=== PATIENT | male | born 1960 | race African-American/Black ===

== ENCOUNTER 2020-01-29 11:52 | Inpatient (IN) | payer OTHER ==
--- NOTE | 2020-01-29 13:38 | BHS.RME ---
Substance Use & Tx History - Substance Use History Alcohol Substance amount: 6 packs of 12 ozs of beer Frequency of use: Daily Substance route: Oral Date of Last Use: 01/28/20 Cocaine-Crack Substance amount: 50$ Frequency of use: Daily Substance route: Smoking Date of Last Use: 01/28/20 - Last Treatment Date of last treatment: dario ferguson 07/2019 Where was last treatment: Detox Physical/Psych/Mental Status - Behavior Eye Contact: Normal - Cooperativeness Cooperativeness: Cooperative - Thinking Thought Processes: Logical - Physical Health Problems Is patient presently having any pain?: No Does patient presently have any injuries (include location): No Does patient currently have a fever: No CIWA Nausea/Vomitin Muscle Tremors: 3 Anxiety: 3 Agitation: 3 Paroxysmal Sweats: 1-Minimal Palms Moist Orientation: 0-Oriented Tacttile Disturbances: 0-None Auditory Disturbances: 0-None Visual Disturbances: 0-None Headache: 2-Mild CIWA-Ar Total Score: 14
--- NOTE | 2020-01-29 13:48 | HP ---
CIWA Score Nausea/Vomitin Muscle Tremors: 3 Anxiety: 3 Agitation: 3 Paroxysmal Sweats: 1-Minimal Palms Moist Orientation: 0-Oriented Tacttile Disturbances: 0-None Auditory Disturbances: 0-None Visual Disturbances: 0-None Headache: 2-Mild CIWA-Ar Total Score: 14 - Admission Criteria OASAS Guidelines: Admission for Medically Managed Detox: Requires at least one of the followin. CIWA greater than 12 2. Seizures within the past 24 hours 3. Delirium tremens within the past 24 hours 4. Hallucinations within the past 24 hours 5. Acute intervention needed for co occurring medical disorder 6. Acute intervention needed for co occurring psychiatric disorder 7. Severe withdrawal that cannot be handled at a lower level of care (continued vomiting, continued diarrhea, abnormal vital signs) requiring intravenous medication and/or fluids 8. Admitting History and Physical - Admission Chief Complaint: i need help to stop drinking alcohol and cocaine History of Present Illness: this 59 years old male with alcohol and ccoaine dependence seeking detox,withdrawal symptom History Source: Patient Limitations to Obtaining History: No Limitations - Past Medical History [employer]: Yes: Syncope Cardiovascular: Yes: HTN, Hyperlipdemia Endocrine: Yes: Diabetes Mellitus - Past Surgical History Additional Past Surgical History: right knee at age of 14 years - Smoking History Smoking history: Current every day smoker Have you smoked in the past 12 months: Yes Aproximately how many cigarettes per day: 3 - Alcohol/Substance Use Hx Alcohol Use: Yes History of Substance Use: reports: Cocaine - Social History Usual Living Arrangement: Yes: Other (homeless) Do you think of yourself as: Straight/Heterosexual ADL: Support Services Occupation: unemployed History of Recent Travel: No Other Social History: homeless ,unemployed,no legal issue Admission ROS [facility] - [facility] Chief Complaint: i need help to stop drinking alcohol and cocaine Allergies/Adverse Reactions: Allergies Allergy/AdvReac Type Severity Reaction Status Date / Time No Known Allergies Allergy Verified 01/29/20 13:53 History of Present Illness: this 59 years old male with alcohol and cocaine dependence seeking detox,withdrawal symptom Exam Limitations: No Limitations - Ebola screening Have you traveled outside of the country in the last 21 days: No Have you had contact with anyone from an Ebola affected area: No Have you been sick,other than usual withdrawal symptoms: No Do you have a fever: No - Review of Systems Constitutional: Malaise, Night Sweats, Changes in sleep EENT: reports: Nose Congestion Respiratory: reports: No Symptoms reported Cardiac: reports: No Symptoms Reported GI: reports: Nausea, Poor Appetite, Abdominal cramping : reports: No Symptoms Reported Musculoskeletal: reports: Back Pain, Muscle Pain Integumentary: reports: Dryness Neuro: reports: Tremors Endocrine: reports: No Symptoms Reported Hematology: reports: No Symptoms Reported Psychiatric: reports: No Sypmtoms Reported, Judgement Intact, Mood/Affect Appropiate, Orientated x3 Other Systems: Reviewed and Negative Patient History - Patient Medical History Hx Anemia: No Hx Asthma: No Hx Chronic Obstructive Pulmonary Disease (COPD): No Hx Cancer: No Hx Cardiac Disorders: No Hx Congestive Heart Failure: No Hx Hypertension: Yes (on lisinopril 10 mgsdaily,amloidypin 5mg daily) Hx Hypercholesterolemia: Yes Hx Pacemaker: No HX Cerebrovascular Accident: No Hx Seizures: No Hx Dementia: No Hx Diabetes: Yes (on metformin 500 mgs po bid) Hx Gastrointestinal Disorders: No Hx Liver Disease: No Hx Genitourinary Disorders: No Hx Sexually Transmitted Disorders: No Hx Renal Disease (ESRD): No Hx Thyroid Disease: No Hx Human Immunodeficiency Virus (HIV): No (10/2019 negative) Hx Hepatitis C: No Hx Depression: No Hx Suicide Attempt: No Hx Bipolar Disorder: No Hx Schizophrenia: No Other Medical History: no suicidal,no homicidal - Patient Surgical History Past Surgical History: Yes Hx Orthopedic Surgery: Yes (right knee surgery at age of 14) - PPD History Previous Implant?: Yes Documented Results: Negative w/o proof Implanted On Prior R Admission?: No PPD to be Administered?: Yes - Smoking Cessation Smoking history: Current every day smoker Have you smoked in the past 12 months: Yes Aproximately how many cigarettes per day: 5 Hx Chewing Tobacco Use: No Initiated information on smoking cessation: Yes 'Breaking Loose' booklet given: 01/29/20 - Substance & Tx. History Hx Alcohol Use: Yes Hx Substance Use: Yes Substance Use Type: Alcohol, Cocaine Hx Substance Use Treatment: Yes (adny philo 07/2019) - Substances abused Alcohol Substance route: Oral Frequency: Daily Amount used: 6 packs of 12 ozs of beer Age of first use: 24 Date of last use: 01/28/20 Cocaine Substance route: Smoking Frequency: Daily Amount used: 50$ Age of first use: 44 Date of last use: 01/28/20 Admission Physical Exam [facility] - Vital Signs Vital Signs: Vital Signs Temperature 97.6 F 01/30/20 08:50 Pulse Rate 78 01/30/20 08:50 Respiratory Rate 17 01/30/20 08:50 Blood Pressure 147/69 01/30/20 08:50 O2 Sat by Pulse Oximetry (%) 97 01/30/20 05:29 - Physical General Appearance: Yes: Moderate Distress, Tremorous, Irritable, Sweating, Anxious HEENTM: Yes: Normal ENT Inspection, [place], Pharynx Normal Respiratory: Yes: Lungs Clear, Normal Breath Sounds, No Respiratory Distress Neck: Yes: Within Normal Limits, Supple, Trachea in good position Breast: Yes: Within Normal Limits Cardiology: Yes: Within Normal Limits, Regular Rhythm, Regular Rate, S1, S2 Abdominal: Yes: Within Normal Limits, Normal Bowel Sounds, Non Tender, Flat, Soft Genitourinary: Yes: Within Normal Limits Back: Yes: Muscle Spasm Musculoskeletal: Yes: Back pain, Muscle Pain Extremities: Yes: Tremors, Other (scar of right knee) Neurological: Yes: sliding joint maker II-XII NML intact, Fully Oriented, Alert, Motor Strength 5/5 Integumentary: Yes: Dry Lymphatic: Yes: Within Normal Limits - Diagnostic (1) Alcohol dependence with uncomplicated withdrawal Current Visit: Yes Status: Acute (2) Cocaine dependence Current Visit: Yes Status: Acute (3) Syncope Current Visit: Yes Status: Acute (4) Essential hypertension Current Visit: Yes Status: Acute (5) Hypercholesterolemia Current Visit: Yes Status: Acute (6) DM2 (diabetes mellitus, type 2) Current Visit: Yes Status: Acute (7) History of right knee surgery Current Visit: Yes Status: Acute Cleared for Admission [facility] - Detox or Rehab [facility] Level of Care: Medically Managed Detox Regimen/Protocol: Librium Inpatient Rehab Admission - Rehab Decision to Admit Inpatient rehab admission?: No
[2020-01-29] MEDS ORDERED: NICOTINE POLACRILEX 2 MG GUM BUC PRN (14:07)
[2020-01-29] MEDS ORDERED: MAGNESIUM HYDROX 2400MG/30ML ORAL SUSPENSION 30 ML CUP PO PRN (14:07)
[2020-01-29] MEDS ORDERED: MAG HYDROX/AL HYDROX/SIMETH 30 ML UNIT-DOSE CUP PO PRN (14:07)
[2020-01-29] MEDS ORDERED: BISMUTH SUBSALICYLATE 524 MG/30 ML UD PO PRN (14:07)
[2020-01-29] MEDS ORDERED: ACETAMINOPHEN 325 MG TABLET (FP) PO PRN (14:07)
[2020-01-29] MEDS ORDERED: chlordiazePOXIDE HCL 25 MG CAPSULE PO PRN (14:07)
[2020-01-29] MEDS ORDERED: IBUPROFEN 400 MG TABLET (FP) PO PRN (14:07)
[2020-01-29] MEDS ORDERED: METHOCARBAMOL 500 MG TABLET PO PRN (14:07)
[2020-01-29] MEDS ORDERED: MAGNESIUM CITRATE 300 ML BOTTLE PO PRN (14:07)
[2020-01-29] MEDS ORDERED: MENTHOL/PHENOL 1 EACH UD MM PRN (14:07)
[2020-01-29 14:13] VITALS: BMI 34.9
[2020-01-29] MEDS ORDERED: ONDANSETRON *ODT* 4 MG TABLET SL ONE (15:00)
[2020-01-29] MEDS: metFORMIN HCL 500 MG TABLET (FP) PO SCH (17:11)
[2020-01-29] MEDS: hydrOXYzine PAMOATE 25 MG CAPSULE (FP) PO SCH ×2 (17:52→22:03)
[2020-01-29] MEDS: chlordiazePOXIDE HCL 25 MG CAPSULE PO SCH ×2 (17:52→22:03)
[2020-01-29] MEDS: INSULIN (NOVOLOG) ASPART 100 UNITS/ML 10ML VIAL SQ SCH ×2 (18:17→22:03)
[2020-01-29] MEDS: MELATONIN 5 MG TABLETS PO SCH (22:03)
[2020-01-29] MEDS: THIAMINE HCL 100 MG TABLET (FP) PO SCH (22:03)
[2020-01-29] MEDS: ATORVASTATIN CA 40 MG TABLET (FP) PO SCH (22:03)
[2020-01-30] MEDS: chlordiazePOXIDE HCL 25 MG CAPSULE PO SCH ×4 (05:48→22:00)
[2020-01-30] MEDS: hydrOXYzine PAMOATE 25 MG CAPSULE (FP) PO SCH ×5 (05:48→21:57)
[2020-01-30] MEDS: metFORMIN HCL 500 MG TABLET (FP) PO SCH ×2 (06:34→17:08)
[2020-01-30] MEDS: INSULIN (NOVOLOG) ASPART 100 UNITS/ML 10ML VIAL SQ SCH ×4 (06:35→21:59)
[2020-01-30] MEDS: LISINOPRIL 10 MG TABLET (FP) PO SCH (10:15)
[2020-01-30] MEDS: LORATADINE 10 MG TABLET PO SCH (10:15)
[2020-01-30] MEDS: amLODIPine BESYLATE 5 MG TABLET (FP) PO SCH (10:15)
[2020-01-30] MEDS: PRENATAL VITAMINS W/ FOLIC ACID TABLET (FP) PO SCH (10:16)
[2020-01-30] MEDS: ASPIRIN 81 MG CHEWABLE TABLETS PO SCH (10:16)
[2020-01-30] MEDS: NICOTINE 7 MG/24 HOURS TOPICAL PATCH TD SCH (10:17)
--- NOTE | 2020-01-30 10:29 | EKG ---
Test Reason : Blood Pressure : / mmHG Vent. Rate : 081 BPM Atrial Rate : 081 BPM P-R Int : 138 ms QRS Dur : 092 ms QT Int : 398 ms P-R-T Axes : 079 048 047 degrees QTc Int : 462 ms NORMAL SINUS RHYTHM POSSIBLE LEFT ATRIAL ENLARGEMENT BORDERLINE ECG NO PREVIOUS ECGS AVAILABLE Confirmed by Raimundo Do ([id number]) on 01/30/2020 10:29:07 AM Referred By: Confirmed By:Raimundo Do
[2020-01-30 11:16] LABS: ALBUMIN 3.6 g/dl (3.4-5.0); BLOOD UREA NITROGEN 19.4 mg/dL (7-18); CREATININE 0.9 mg/dL (0.55-1.3)
[2020-01-30 11:22] LABS: BILIRUBIN,TOTAL 0.8 mg/dL (0.2-1)
[2020-01-30 11:25] LABS: HEMATOCRIT 37.9 % (35.4-49); HEMOGLOBIN 12.5 GM/dL (11.7-16.9); MCH 27.5 pg (25.7-33.7); MCHC 32.8 g/dl (32.0-35.9); MEAN CELL VOLUME 83.9 fl (80-96); MEAN PLT VOLUME 10.6 fl (7.5-11.1); PLATELET COUNT 155 K/MM3 (134-434); RBC 4.52 M/mm3 (4.00-5.60); RDW 14.9 % (11.9-15.9); WHITE BLOOD COUNT 4.7 K/mm3 (4.0-10.0)
--- NOTE | 2020-01-30 13:52 | PN ---
S CIWA - CIWA Score Nausea/Vomitin Muscle Tremors: 2 Anxiety: 2 Agitation: 2 Paroxysmal Sweats: No Perspiration Orientation: 0-Oriented Tacttile Disturbances: 1-Very Mild Itch/Numbness Auditory Disturbances: 0-None Visual Disturbances: 0-None Headache: 2-Mild CIWA-Ar Total Score: 11 S Progress Note (SOAP) Subjective: alert,irritable,anxious,interrupted sleep,tremor,pain in the body Objective: 01/30/20 13:50 Vital Signs Temperature 97.6 F 01/30/20 08:50 Pulse Rate 78 01/30/20 08:50 Respiratory Rate 17 01/30/20 08:50 Blood Pressure 147/69 01/30/20 08:50 O2 Sat by Pulse Oximetry (%) 97 01/30/20 05:29 Assessment: 01/30/20 13:51 withdrawal symptom Plan: continue detox librium regimen
[2020-01-30 15:03] LABS: URINE APPEARANCE CLOUDY; URINE BILIRUBIN NEGATIVE (NEGATIVE); URINE COLOR YELLOW; URINE GLUCOSE (UA) 3+ (NEGATIVE); URINE KETONE NEGATIVE (NEGATIVE); URINE LEUK ESTERASE NEGATIVE (NEGATIVE); URINE NITRITE NEGATIVE (NEGATIVE); URINE PROTEIN NEGATIVE (NEGATIVE)
[2020-01-30] MEDS: MELATONIN 5 MG TABLETS PO SCH (21:57)
[2020-01-30] MEDS: THIAMINE HCL 100 MG TABLET (FP) PO SCH (21:57)
[2020-01-30] MEDS: ATORVASTATIN CA 40 MG TABLET (FP) PO SCH (21:58)
[2020-01-31] MEDS: INSULIN (NOVOLOG) ASPART 100 UNITS/ML 10ML VIAL SQ SCH ×4 (06:18→21:15)
[2020-01-31] MEDS: hydrOXYzine PAMOATE 25 MG CAPSULE (FP) PO SCH ×5 (06:18→23:00)
[2020-01-31] MEDS: metFORMIN HCL 500 MG TABLET (FP) PO SCH ×2 (06:18→17:12)
[2020-01-31] MEDS: chlordiazePOXIDE HCL 25 MG CAPSULE PO SCH ×5 (06:18→23:32)
[2020-01-31] MEDS: ASPIRIN 81 MG CHEWABLE TABLETS PO SCH (10:40)
[2020-01-31] MEDS: amLODIPine BESYLATE 5 MG TABLET (FP) PO SCH (10:40)
[2020-01-31] MEDS: LISINOPRIL 10 MG TABLET (FP) PO SCH (10:40)
[2020-01-31] MEDS: LORATADINE 10 MG TABLET PO SCH (10:40)
[2020-01-31] MEDS: PRENATAL VITAMINS W/ FOLIC ACID TABLET (FP) PO SCH (10:40)
[2020-01-31] MEDS: NICOTINE 7 MG/24 HOURS TOPICAL PATCH TD SCH (10:40)
--- NOTE | 2020-01-31 11:06 | PN ---
[facility] CIWA - CIWA Score Nausea/Vomitin-Mild Nausea/No Vomiting Muscle Tremors: 2 Anxiety: 2 Agitation: 2 Paroxysmal Sweats: No Perspiration Orientation: 0-Oriented Tacttile Disturbances: 1-Very Mild Itch/Numbness Auditory Disturbances: 0-None Visual Disturbances: 0-None Headache: 2-Mild CIWA-Ar Total Score: 10 S Progress Note (SOAP) Subjective: alert,sleepy,pain in the body,nausea,ambulation on the unit before Objective: 01/31/20 11:05 Vital Signs Temperature 98.1 F 01/31/20 08:55 Pulse Rate 103 H 01/31/20 08:55 Respiratory Rate 16 01/31/20 08:55 Blood Pressure 138/76 01/31/20 08:55 O2 Sat by Pulse Oximetry (%) 98 01/31/20 06:30 Laboratory Last Values WBC 4.7 K/mm3 (4.0-10.0) 01/30/20 07:00 RBC 4.52 M/mm3 (4.00-5.60) 01/30/20 07:00 Hgb 12.5 GM/dL (11.7-16.9) 01/30/20 07:00 Hct 37.9 % (35.4-49) 01/30/20 07:00 MCV 83.9 fl (80-96) 01/30/20 07:00 MCH 27.5 pg (25.7-33.7) 01/30/20 07:00 MCHC 32.8 g/dl (32.0-35.9) 01/30/20 07:00 RDW 14.9 % (11.9-15.9) 01/30/20 07:00 Plt Count 155 K/MM3 (134-434) 01/30/20 07:00 MPV 10.6 fl (7.5-11.1) 01/30/20 07:00 Sodium 140 mmol/L (136-145) 01/30/20 07:00 Potassium 4.0 mmol/L (3.5-5.1) 01/30/20 07:00 Chloride 107 mmol/L (98-107) 01/30/20 07:00 Carbon Dioxide 27 mmol/L (21-32) 01/30/20 07:00 Anion Gap 6 MMOL/L (8-16) L 01/30/20 07:00 BUN 19.4 mg/dL (7-18) H 01/30/20 07:00 Creatinine 0.9 mg/dL (0.55-1.3) 01/30/20 07:00 Est GFR (CKD-EPI)AfAm 107.22 01/30/20 07:00 Est GFR (CKD-EPI)NonAf 92.51 01/30/20 07:00 POC Glucometer 189 UNITS (80-120) 01/31/20 06:17 Random Glucose 208 mg/dL (74-106) H 01/30/20 07:00 Calcium 9.0 mg/dL (8.5-10.1) 01/30/20 07:00 Total Bilirubin 0.8 mg/dL (0.2-1) 01/30/20 07:00 AST 26 U/L (15-37) 01/30/20 07:00 ALT 40 U/L (13-61) 01/30/20 07:00 Alkaline Phosphatase 84 U/L (45-117) 01/30/20 07:00 Total Protein 7.0 g/dl (6.4-8.2) 01/30/20 07:00 Albumin 3.6 g/dl (3.4-5.0) 01/30/20 07:00 Urine Color Yellow 01/30/20 09:35 Urine Appearance Cloudy 01/30/20 09:35 Urine pH 5.0 (5.0-8.0) 01/30/20 09:35 Ur Specific [place] 1.036 (1.010-1.035) H 01/30/20 09:35 Urine Protein Negative (NEGATIVE) 01/30/20 09:35 Urine Glucose (UA) 3+ (NEGATIVE) H 01/30/20 09:35 Urine Ketones Negative (NEGATIVE) 01/30/20 09:35 Urine Blood Negative (NEGATIVE) 01/30/20 09:35 Urine Nitrite Negative (NEGATIVE) 01/30/20 09:35 Urine Bilirubin Negative (NEGATIVE) 01/30/20 09:35 Urine Urobilinogen 1.0 mg/dL (0.2-1.0) 01/30/20 09:35 Ur Leukocyte Esterase Negative (NEGATIVE) 01/30/20 09:35 Syphilis Serology Non-reactive (NONREACTIVE) 01/30/20 07:00 Assessment: 01/31/20 11:05 withdrawal symptom Plan: continue detox librium regimen,bgm monitoring,,metformin 500 mgs po bidac,and insulin coverage sliding scale
[2020-01-31] MEDS: ACETAMINOPHEN 325 MG TABLET (FP) PO PRN ×2 (15:47→22:17)
[2020-01-31] MEDS: THIAMINE HCL 100 MG TABLET (FP) PO SCH (22:16)
[2020-01-31] MEDS: ATORVASTATIN CA 40 MG TABLET (FP) PO SCH (22:16)
[2020-01-31] MEDS: MELATONIN 5 MG TABLETS PO SCH (23:00)
[2020-02-01] MEDS ORDERED: chlordiazePOXIDE HCL 10 MG CAPSULE PO PRN
[2020-02-01] MEDS: chlordiazePOXIDE HCL 10 MG CAPSULE PO SCH ×4 (05:58→22:01)
[2020-02-01] MEDS: hydrOXYzine PAMOATE 25 MG CAPSULE (FP) PO SCH ×2 (05:59→10:19)
[2020-02-01] MEDS: metFORMIN HCL 500 MG TABLET (FP) PO SCH ×2 (06:16→17:33)
[2020-02-01] MEDS: INSULIN (NOVOLOG) ASPART 100 UNITS/ML 10ML VIAL SQ SCH ×4 (07:34→21:43)
[2020-02-01] MEDS: NICOTINE 7 MG/24 HOURS TOPICAL PATCH TD SCH (10:18)
[2020-02-01] MEDS: PRENATAL VITAMINS W/ FOLIC ACID TABLET (FP) PO SCH (10:19)
[2020-02-01] MEDS: amLODIPine BESYLATE 5 MG TABLET (FP) PO SCH (10:19)
[2020-02-01] MEDS: LORATADINE 10 MG TABLET PO SCH (10:19)
[2020-02-01] MEDS: ASPIRIN 81 MG CHEWABLE TABLETS PO SCH (10:19)
[2020-02-01] MEDS: LISINOPRIL 10 MG TABLET (FP) PO SCH (10:19)
[2020-02-01] MEDS ORDERED: hydrOXYzine PAMOATE 25 MG CAPSULE (FP) PO PRN (10:25)
--- NOTE | 2020-02-01 10:59 | PN ---
[facility] CIWA - CIWA Score Nausea/Vomitin-No Nausea/No Vomiting Muscle Tremors: 3 Anxiety: 2 Agitation: 2 Paroxysmal Sweats: 1-Minimal Palms Moist Orientation: 0-Oriented Tacttile Disturbances: 0-None Auditory Disturbances: 0-None Visual Disturbances: 0-None Headache: 0-None Present CIWA-Ar Total Score: 8 BHS Progress Note (SOAP) Subjective: dry itchy feet; I know i have fungus sweats Objective: 02/01/20 10:56 Vital Signs Temperature 97.9 F 02/01/20 08:35 Pulse Rate 79 02/01/20 08:35 Respiratory Rate 20 02/01/20 08:35 Blood Pressure 137/74 02/01/20 08:35 O2 Sat by Pulse Oximetry (%) 95 02/01/20 05:20 aaox3 ambulating no acute distress Assessment: 02/01/20 10:56 withdrawals Plan: tinactin cream increase fluids continue detox
[2020-02-01] MEDS: ATORVASTATIN CA 40 MG TABLET (FP) PO SCH (21:40)
[2020-02-01] MEDS: THIAMINE HCL 100 MG TABLET (FP) PO SCH (21:40)
[2020-02-01] MEDS: MELATONIN 5 MG TABLETS PO SCH (21:41)
[2020-02-02] MEDS: chlordiazePOXIDE HCL 10 MG CAPSULE PO SCH ×2 (05:29→16:49)
[2020-02-02] MEDS: metFORMIN HCL 500 MG TABLET (FP) PO SCH ×2 (07:20→16:49)
[2020-02-02] MEDS: INSULIN (NOVOLOG) ASPART 100 UNITS/ML 10ML VIAL SQ SCH ×2 (07:55→10:56)
[2020-02-02] MEDS: TOLNAFTATE 1% CREAM 15 GM TUBE TP SCH ×2 (10:52→21:45)
[2020-02-02] MEDS: LISINOPRIL 10 MG TABLET (FP) PO SCH (10:52)
[2020-02-02] MEDS: ASPIRIN 81 MG CHEWABLE TABLETS PO SCH (10:52)
[2020-02-02] MEDS: amLODIPine BESYLATE 5 MG TABLET (FP) PO SCH (10:52)
[2020-02-02] MEDS: PRENATAL VITAMINS W/ FOLIC ACID TABLET (FP) PO SCH (10:52)
[2020-02-02] MEDS: LORATADINE 10 MG TABLET PO SCH (10:52)
[2020-02-02] MEDS: NICOTINE 7 MG/24 HOURS TOPICAL PATCH TD SCH (10:53)
--- NOTE | 2020-02-02 11:00 | PN ---
S CIWA - CIWA Score Nausea/Vomitin-No Nausea/No Vomiting Muscle Tremors: 2 Anxiety: 1-Mildly Anxious Agitation: 0-Normal Activity Paroxysmal Sweats: No Perspiration Orientation: 0-Oriented Tacttile Disturbances: 0-None Auditory Disturbances: 0-None Visual Disturbances: 0-None Headache: 0-None Present CIWA-Ar Total Score: 3 BHS Progress Note (SOAP) Subjective: feeling better dry/itchy feet Objective: 02/02/20 10:59 Vital Signs Temperature 97.1 F L 02/02/20 08:30 Pulse Rate 79 02/02/20 08:30 Respiratory Rate 16 02/02/20 08:30 Blood Pressure 129/78 02/02/20 08:30 O2 Sat by Pulse Oximetry (%) 99 02/02/20 05:23 aaox3 ambulating no acute distress Assessment: 02/02/20 10:59 mild withdrawals Plan: continue detox tinactin cream d/c in am
--- NOTE | 2020-02-02 13:38 | PN ---
S Progress Note Note: pt is refusing all insulin injection and only wants to take his metformin for coverage. Pt state he is not on insulin and does not want to take it while in our facility. Pt states he monitors his sugar intake and manages his diabetes with diet, exercise and his metformin. pt was encouraged to maintain on insulin to assist with his coverage but he is refusing. will d/c insulin as per pt request and will order BGM BID as per pt request.
[2020-02-02] MEDS: ACETAMINOPHEN 325 MG TABLET (FP) PO PRN (21:44)
[2020-02-02] MEDS: ATORVASTATIN CA 40 MG TABLET (FP) PO SCH (21:45)
[2020-02-02] MEDS: THIAMINE HCL 100 MG TABLET (FP) PO SCH (21:45)
[2020-02-02] MEDS: MELATONIN 5 MG TABLETS PO SCH (21:45)
[2020-02-03] MEDS ORDERED: chlordiazePOXIDE HCL 10 MG CAPSULE PO ONE (05:00)
[2020-02-03 06:12] VITALS: BP 132/73; PULSE 74; TEMP 98
[2020-02-03] MEDS: metFORMIN HCL 500 MG TABLET (FP) PO SCH (06:30)
--- NOTE | 2020-02-03 08:30 | DS ---
[facility] Detox Discharge Summary Admission Date: 01/29/20 Discharge Date: 02/03/20 - History Present History: Alcohol Dependence, Cocaine Dependence - Physical Exam Results Vital Signs: Vital Signs Temperature 98 F 02/03/20 05:25 Pulse Rate 74 02/03/20 05:25 Respiratory Rate 20 02/03/20 05:25 Blood Pressure 132/73 02/03/20 05:25 O2 Sat by Pulse Oximetry (%) 98 02/03/20 05:25 Pertinent Admission Physical Exam Findings: Vital Signs Temperature 98 F 02/03/20 05:25 Pulse Rate 74 02/03/20 05:25 Respiratory Rate 20 02/03/20 05:25 Blood Pressure 132/73 02/03/20 05:25 O2 Sat by Pulse Oximetry (%) 98 02/03/20 05:25 Laboratory Tests 01/29/20 01/29/20 01/29/20 14:28 14:30 16:40 WBC RBC Hgb Hct MCV MCH MCHC RDW Plt Count MPV Sodium Potassium Chloride Carbon Dioxide Anion Gap BUN Creatinine Est GFR (CKD-EPI)AfAm Est GFR (CKD-EPI)NonAf POC Glucometer 368 223 Random Glucose Calcium Total Bilirubin AST ALT Alkaline Phosphatase Total Protein Albumin Urine Color Urine Appearance Urine pH Ur Specific [place] Urine Protein Urine Glucose (UA) Urine Ketones Urine Blood Urine Nitrite Urine Bilirubin Urine Urobilinogen Ur Leukocyte Esterase Syphilis Serology COVID-19 ([place]) Not detected 01/29/20 01/30/20 01/30/20 21:37 05:47 07:00 WBC RBC Hgb Hct MCV MCH MCHC RDW Plt Count MPV Sodium Potassium Chloride Carbon Dioxide Anion Gap BUN Creatinine Est GFR (CKD-EPI)AfAm Est GFR (CKD-EPI)NonAf POC Glucometer 230 186 Random Glucose Calcium Total Bilirubin AST ALT Alkaline Phosphatase Total Protein Albumin Urine Color Urine Appearance Urine pH Ur Specific [place] Urine Protein Urine Glucose (UA) Urine Ketones Urine Blood Urine Nitrite Urine Bilirubin Urine Urobilinogen Ur Leukocyte Esterase Syphilis Serology Non-reactive COVID-19 ([place]) 01/30/20 01/30/20 01/30/20 07:00 07:00 09:35 WBC 4.7 RBC 4.52 Hgb 12.5 Hct 37.9 MCV 83.9 MCH 27.5 MCHC 32.8 RDW 14.9 Plt Count 155 MPV 10.6 Sodium 140 Potassium 4.0 Chloride 107 Carbon Dioxide 27 Anion Gap 6 L BUN 19.4 H Creatinine 0.9 Est GFR (CKD-EPI)AfAm 107.22 Est GFR (CKD-EPI)NonAf 92.51 POC Glucometer Random Glucose 208 H Calcium 9.0 Total Bilirubin 0.8 AST 26 ALT 40 Alkaline Phosphatase 84 Total Protein 7.0 Albumin 3.6 Urine Color Yellow Urine Appearance Cloudy Urine pH 5.0 Ur Specific [place] 1.036 H Urine Protein Negative Urine Glucose (UA) 3+ H Urine Ketones Negative Urine Blood Negative Urine Nitrite Negative Urine Bilirubin Negative Urine Urobilinogen 1.0 Ur Leukocyte Esterase Negative Syphilis Serology COVID-19 ([place]) 01/30/20 01/30/20 01/31/20 16:42 21:14 06:17 WBC RBC Hgb Hct MCV MCH MCHC RDW Plt Count MPV Sodium Potassium Chloride Carbon Dioxide Anion Gap BUN Creatinine Est GFR (CKD-EPI)AfAm Est GFR (CKD-EPI)NonAf POC Glucometer 242 238 189 Random Glucose Calcium Total Bilirubin AST ALT Alkaline Phosphatase Total Protein Albumin Urine Color Urine Appearance Urine pH Ur Specific [place] Urine Protein Urine Glucose (UA) Urine Ketones Urine Blood Urine Nitrite Urine Bilirubin Urine Urobilinogen Ur Leukocyte Esterase Syphilis Serology COVID-19 ([place]) 01/31/20 01/31/20 01/31/20 11:47 16:28 20:50 WBC RBC Hgb Hct MCV MCH MCHC RDW Plt Count MPV Sodium Potassium Chloride Carbon Dioxide Anion Gap BUN Creatinine Est GFR (CKD-EPI)AfAm Est GFR (CKD-EPI)NonAf POC Glucometer 267 155 192 Random Glucose Calcium Total Bilirubin AST ALT Alkaline Phosphatase Total Protein Albumin Urine Color Urine Appearance Urine pH Ur Specific [place] Urine Protein Urine Glucose (UA) Urine Ketones Urine Blood Urine Nitrite Urine Bilirubin Urine Urobilinogen Ur Leukocyte Esterase Syphilis Serology COVID-19 ([place]) 02/01/20 02/01/20 02/01/20 05:58 11:44 16:31 WBC RBC Hgb Hct MCV MCH MCHC RDW Plt Count MPV Sodium Potassium Chloride Carbon Dioxide Anion Gap BUN Creatinine Est GFR (CKD-EPI)AfAm Est GFR (CKD-EPI)NonAf POC Glucometer 188 285 188 Random Glucose Calcium Total Bilirubin AST ALT Alkaline Phosphatase Total Protein Albumin Urine Color Urine Appearance Urine pH Ur Specific [place] Urine Protein Urine Glucose (UA) Urine Ketones Urine Blood Urine Nitrite Urine Bilirubin Urine Urobilinogen Ur Leukocyte Esterase Syphilis Serology COVID-19 ([place]) 02/01/20 02/02/20 02/02/20 20:52 05:31 10:55 WBC RBC Hgb Hct MCV MCH MCHC RDW Plt Count MPV Sodium Potassium Chloride Carbon Dioxide Anion Gap BUN Creatinine Est GFR (CKD-EPI)AfAm Est GFR (CKD-EPI)NonAf POC Glucometer 280 214 277 Random Glucose Calcium Total Bilirubin AST ALT Alkaline Phosphatase Total Protein Albumin Urine Color Urine Appearance Urine pH Ur Specific [place] Urine Protein Urine Glucose (UA) Urine Ketones Urine Blood Urine Nitrite Urine Bilirubin Urine Urobilinogen Ur Leukocyte Esterase Syphilis Serology COVID-19 ([place]) 02/02/20 02/03/20 16:34 05:43 WBC RBC Hgb Hct MCV MCH MCHC RDW Plt Count MPV Sodium Potassium Chloride Carbon Dioxide Anion Gap BUN Creatinine Est GFR (CKD-EPI)AfAm Est GFR (CKD-EPI)NonAf POC Glucometer 356 185 Random Glucose Calcium Total Bilirubin AST ALT Alkaline Phosphatase Total Protein Albumin Urine Color Urine Appearance Urine pH Ur Specific [place] Urine Protein Urine Glucose (UA) Urine Ketones Urine Blood Urine Nitrite Urine Bilirubin Urine Urobilinogen Ur Leukocyte Esterase Syphilis Serology COVID-19 ([place]) - Treatment Hospital Course: Detox Protocol Followed, Detoxed Safely, Responded well, Discharged Condition Good, Rehab Referral Accepted - Medication Discharge Medications: Ambulatory Orders Amlodipine Besylate 5 mg PO DAILY 01/29/20 Aspirin 81 mg PO DAILY 01/29/20 Atorvastatin Ca [Lipitor] 40 mg PO HS 01/29/20 Lisinopril 10 mg PO DAILY 01/29/20 metFORMIN HCL [Metformin HCl] 500 mg PO BID 01/29/20 - Diagnosis (1) Alcohol dependence with uncomplicated withdrawal Current Visit: Yes Status: Chronic (2) Cocaine dependence Current Visit: Yes Status: Chronic Qualifiers: Substance use status: uncomplicated Qualified Code(s): F14.20 - Cocaine dependence, uncomplicated (3) DM2 (diabetes mellitus, type 2) Current Visit: Yes Status: Chronic Qualifiers: Diabetes mellitus long term care social worker insulin use: unspecified prison insulin use status Diabetes mellitus complication status: without complication Qualified Code(s): E11.9 - Type 2 diabetes mellitus without complications (4) Essential hypertension Current Visit: Yes Status: Acute (5) History of right knee surgery Current Visit: Yes Status: Acute (6) Hypercholesterolemia Current Visit: Yes Status: Acute (7) Syncope Current Visit: Yes Status: Acute - AMA Did Patient Leave Against Medical Advice: No
== END 2020-02-03 09:25 | disposition home or self-care (01) | DRG 774 ==
LOC: YASAS 11:52 → Y6N 14:16
PROVIDERS: ADMIT Allergy & Immunology; ATTEND Allergy & Immunology
PROC: HZ2ZZZZ Detoxification Services for Substance Abuse Treatment (ICD-10-PCS; principal; 2020-01-29)
DX: F10.230 Alcohol dependence with withdrawal, uncomplicated (principal); F14.20 Cocaine dependence, uncomplicated; F17.210 Nicotine dependence, cigarettes, uncomplicated; I10 Essential (primary) hypertension; E78.00 Pure hypercholesterolemia, unspecified; E11.9 Type 2 diabetes mellitus without complications; Z79.84 Long term (current) use of oral hypoglycemic drugs; R55 Syncope and collapse; Z98.890 Other specified postprocedural states; Z79.82 Long term (current) use of aspirin; Z56.0 Unemployment, unspecified; Z59.0 Homelessness
CPT/HCPCS: 36415; 80053; 81003; 82962; 85027; 86780; 93005; 93010; U0003

== ENCOUNTER 2020-04-23 13:13 | Inpatient (IN) | payer OTHER ==
--- NOTE | 2020-04-23 13:39 | BHS.RME ---
Substance Use & Tx History - Substance Use History Alcohol Substance amount: 2-3 6 packs of 22 ounce Frequency of use: Daily Substance route: Oral Date of Last Use: 04/22/20 Cocaine-Crack Substance amount: $40 Frequency of use: Daily Substance route: Smoking Date of Last Use: 04/22/20 Physical/Psych/Mental Status - Behavior General Behavior: Increased activity (restlessness, agitation) Eye Contact: Normal - Cooperativeness Cooperativeness: Cooperative - Thinking Thought Processes: Tight Thought content: Future oriented - Physical Health Problems Is patient presently having any pain?: No Does patient presently have any injuries (include location): No Does patient currently have a fever: No CIWA Nausea/Vomitin-Mild Nausea/No Vomiting Muscle Tremors: 3 Anxiety: 3 Agitation: 2 Paroxysmal Sweats: 2 Orientation: 0-Oriented Tacttile Disturbances: 0-None Auditory Disturbances: 0-None Visual Disturbances: 1-Very Mild Sensitivity Headache: 0-None Present CIWA-Ar Total Score: 12
--- NOTE | 2020-04-23 16:22 | HP ---
<Abraham Astudillo - Last Filed: 04/23/20 17:25> CIWA Score Nausea/Vomitin-Mild Nausea/No Vomiting Muscle Tremors: 3 Anxiety: 3 Agitation: 2 Paroxysmal Sweats: 2 Orientation: 0-Oriented Tacttile Disturbances: 0-None Auditory Disturbances: 0-None Visual Disturbances: 1-Very Mild Sensitivity Headache: 0-None Present CIWA-Ar Total Score: 12 - Admission Criteria OASAS Guidelines: Admission for Medically Managed Detox: Requires at least one of the followin. CIWA greater than 12 2. Seizures within the past 24 hours 3. Delirium tremens within the past 24 hours 4. Hallucinations within the past 24 hours 5. Acute intervention needed for co occurring medical disorder 6. Acute intervention needed for co occurring psychiatric disorder 7. Severe withdrawal that cannot be handled at a lower level of care (continued vomiting, continued diarrhea, abnormal vital signs) requiring intravenous medication and/or fluids 8. Admitting History and Physical - Admission Chief Complaint: Pt is a 59 yo M presenting for alcohol detox; "I need [place] for alcohol and cocaine." History of Present Illness: Pt is a 59 yo M presenting for alcohol detox; "I need help [place] for alcohol and cocaine." Pt was last at [facility] for detox from 01/29/2020 - 02/03/2020; did not go for rehab. Pt reports staying sober for 3 days and then relapsed - reports no specific triggers ("it's me, it's me not be able to stop."). Meets criteria d/t frequent relapses and medical comorbidities. Pt reports being at [facility] this weekend for alcohol use - kept for 24 hour observation. Per pt, he was given ativan there; he denies any home benzodiazepine use. PMH - HTN, HLD, T2DM, asthma - taking amlodipine, lipitor, lisinopril , ASA, and metformin (increased to 1000 mg bid); albuterol inhaler prn (hasn't had an attack in 1 year (adherent to these medications) PSH, Pych - none Soc/Domiciled - long term Legal - none - Substance Use History Alcohol Substance amount: 2-3 6 packs of 22 ounce Frequency of use: Daily Substance route: Oral Date of Last Use: 04/22/20 Cocaine-Crack Substance amount: $40 Frequency of use: Daily Substance route: Smoking Date of Last Use: 04/22/20 History Source: Patient Limitations to Obtaining History: No Limitations - Past Medical History [employer]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 Cardiovascular: Yes: HTN, Hyperlipdemia Endocrine: Yes: Diabetes Mellitus - Smoking History Smoking history: Current every day smoker Have you smoked in the past 12 months: Yes Aproximately how many cigarettes per day: 5 - Alcohol/Substance Use Hx Alcohol Use: Yes History of Substance Use: reports: Cocaine - Social History ADL: Support Services Occupation: unemployed History of Recent Travel: No Admission [facility] Allergies/Adverse Reactions: Allergies Allergy/AdvReac Type Severity Reaction Status Date / Time No Known Allergies Allergy Verified 04/23/20 18:33 - Ebola screening Have you traveled outside of the country in the last 21 days: No Have you been sick,other than usual withdrawal symptoms: No Do you have a fever: No - Review of Systems Constitutional: Diaphoresis (paroxysmal sweats), Loss of Appetite (when drinking alcohol) EENT: reports: Blurred Vision (pt is nearsighted - wears glasses), Other (mild visual sensisitivity) Respiratory: reports: No Symptoms reported Cardiac: reports: No Symptoms Reported GI: reports: Nausea (mild nausea) : reports: No Symptoms Reported Musculoskeletal: reports: Muscle Pain (diffuse body aches) Integumentary: reports: No Symptoms Reported Neuro: reports: Tremors (intermittent muscle tremors, "shakiness") Endocrine: reports: No Symptoms Reported Hematology: reports: No Symptoms Reported Psychiatric: reports: Agitated, Anxious Patient History - Patient Medical History Hx Anemia: No Hx Asthma: No Hx Chronic Obstructive Pulmonary Disease (COPD): No Hx Cancer: No Hx Cardiac Disorders: No Hx Congestive Heart Failure: No Hx Hypertension: Yes (on lisinopril 10 mgsdaily,amloidypin 5mg daily) Hx Hypercholesterolemia: Yes Hx Pacemaker: No HX Cerebrovascular Accident: No Hx Seizures: No Hx Dementia: No Hx Diabetes: Yes (on metformin 500 mgs po bid) Hx Gastrointestinal Disorders: No Hx Liver Disease: No Hx Genitourinary Disorders: No Hx Sexually Transmitted Disorders: No Hx Renal Disease (ESRD): No Hx Thyroid Disease: No Hx Human Immunodeficiency Virus (HIV): No (10/2019 negative) Hx Hepatitis C: No Hx Depression: No Hx Suicide Attempt: No Hx Bipolar Disorder: No Hx Schizophrenia: No - Patient Surgical History Past Surgical History: Yes Hx Neurologic Surgery: No Hx Cataract Extraction: No Hx Cardiac Surgery: No Hx Lung Surgery: No Hx Breast Surgery: No Hx Breast Biopsy: No Hx Abdominal Surgery: No Hx Appendectomy: No Hx Cholecystectomy: No Hx Genitourinary Surgery: No Hx Section: No Hx Orthopedic Surgery: Yes (right knee surgery at age of 14) Anesthesia Reaction: No - PPD History Date: 01/31/20 - Smoking Cessation Smoking history: Current every day smoker Have you smoked in the past 12 months: Yes Aproximately how many cigarettes per day: 5 Hx Chewing Tobacco Use: No Initiated information on smoking cessation: Yes 'Breaking Loose' booklet given: 04/23/[address] [facility] - Physical General Appearance: Yes: No Apparent Distress, Nourished, Appropriately Dressed HEENTM: Yes: EOMI, Hearing grossly Normal, Normocephalic, Normal Voice Respiratory: Yes: Lungs Clear, Normal Breath Sounds, No Respiratory Distress, No Accessory Muscle Use Neck: Yes: Supple, Trachea in good position Breast: Yes: Breast Exam Deferred Cardiology: Yes: Regular Rhythm, Regular Rate Abdominal: Yes: Normal Bowel Sounds, Non Tender, Flat, Soft Genitourinary: Yes: Other (deferred) Back: Yes: Normal Inspection Musculoskeletal: Yes: Gait Steady Extremities: Yes: Normal Inspection, Normal Range of Motion, Non-Tender Neurological: Yes: Fully Oriented, Alert, Motor Strength 5/5 Integumentary: Yes: Normal Color, Dry, Warm Cleared for Admission [facility] - Detox or Rehab [facility] Level of Care: Medically Managed Detox Regimen/Protocol: Librium Breathalyzer - Breathalyzer Breathalyzer: 0 Urine Drug Screen - Test Device Lot number: [id number] Expiration date: 03/26/21 - Control Is test valid?: Yes - Results Drug screen NEGATIVE: No Urine drug screen results: LIEN-Cocaine, BZO-Benzodiazepines Inpatient Rehab Admission - Rehab Decision to Admit Inpatient rehab admission?: No <Aye Bettencourt - Last Filed: 04/24/20 10:57> CIWA Score - Admission Criteria OAS Guidelines: Admission for Medically Managed Detox: Requires at least one of the followin. CIWA greater than 12 2. Seizures within the past 24 hours 3. Delirium tremens within the past 24 hours 4. Hallucinations within the past 24 hours 5. Acute intervention needed for co occurring medical disorder 6. Acute intervention needed for co occurring psychiatric disorder 7. Severe withdrawal that cannot be handled at a lower level of care (continued vomiting, continued diarrhea, abnormal vital signs) requiring intravenous medication and/or fluids 8. Admission Physical Exam [facility] - Vital Signs Vital Signs: Vital Signs - 24 hr 04/23/20 04/23/20 04/24/20 16:33 21:00 05:15 Temperature 97.4 F L 97.7 F 97.7 F Pulse Rate 77 96 H 64 Respiratory 12 18 20 Rate Blood Pressure 122/80 139/75 139/73 O2 Sat by Pulse 96 98 Oximetry (%) - Diagnostic (1) Alcohol dependence with uncomplicated withdrawal Current Visit: Yes Status: Acute (2) Cocaine dependence Current Visit: Yes Status: Chronic Qualifiers: Substance use status: uncomplicated Qualified Code(s): F14.20 - Cocaine dependence, uncomplicated
[2020-04-23 16:34] VITALS: BMI 34.8
[2020-04-23] MEDS ORDERED: BISMUTH SUBSALICYLATE 524 MG/30 ML UD PO PRN (17:41)
[2020-04-23] MEDS ORDERED: NICOTINE POLACRILEX 2 MG GUM BUC PRN (17:41)
[2020-04-23] MEDS ORDERED: ACETAMINOPHEN 325 MG TABLET (FP) PO PRN ×2 (17:41)
[2020-04-23] MEDS ORDERED: chlordiazePOXIDE HCL 25 MG CAPSULE PO PRN (17:41)
[2020-04-23] MEDS ORDERED: IBUPROFEN 400 MG TABLET (FP) PO PRN (17:41)
[2020-04-23] MEDS ORDERED: MAGNESIUM CITRATE 300 ML BOTTLE PO PRN (17:41)
[2020-04-23] MEDS ORDERED: MAGNESIUM HYDROX 2400MG/30ML ORAL SUSPENSION 30 ML CUP PO PRN (17:41)
[2020-04-23] MEDS ORDERED: MAG HYDROX/AL HYDROX/SIMETH 30 ML UNIT-DOSE CUP PO PRN (17:41)
[2020-04-23] MEDS ORDERED: ONDANSETRON *ODT* 4 MG TABLET SL PRN (17:41)
[2020-04-23] MEDS ORDERED: MENTHOL/PHENOL 1 EACH UD MM PRN (17:41)
[2020-04-23] MEDS ORDERED: METHOCARBAMOL 500 MG TABLET PO PRN (17:41)
[2020-04-23] MEDS: chlordiazePOXIDE HCL 25 MG CAPSULE PO SCH ×2 (19:18→22:13)
[2020-04-23] MEDS: hydrOXYzine PAMOATE 25 MG CAPSULE (FP) PO SCH ×2 (19:18→22:12)
[2020-04-23] MEDS: NICOTINE 14 MG/24 HOURS TOPICAL PATCH TD SCH (19:21)
--- OUTSIDE RECORDS SUMMARY | 2020-04-23 21:04 | XMS ---
:[address] [facility] Providers Name Role Phone MECHE ARIAS MD Unavailable Unavailable HUGO, J Unavailable Unavailable HUGO J Unavailable Unavailable HUGO, J Unavailable Unavailable HUGO, J Unavailable Unavailable HUGO, J Unavailable Unavailable HUGO, J Unavailable Unavailable HUGO, J Unavailable Unavailable HUGO, J Unavailable Unavailable HUGO, J Unavailable Unavailable HUGO, J Unavailable Unavailable HUGO, J Unavailable Unavailable HUGO, J Unavailable Unavailable HUGO, J Unavailable Unavailable HUGO, J Unavailable Unavailable HUGO, J Unavailable Unavailable HUGO, J Unavailable Unavailable HUGO J Unavailable Unavailable HUGO, J Unavailable Unavailable HUGO, J Unavailable Unavailable HUGO, J Unavailable Unavailable HUGO, J Unavailable Unavailable HUGO, J Unavailable Unavailable HUGO, J Unavailable Unavailable HUGO, J Unavailable Unavailable HUGO J Unavailable Unavailable HUGO, J Unavailable Unavailable HUGO, J Unavailable Unavailable HUGO, J Unavailable Unavailable HUGO, J Unavailable Unavailable HUGO, J Unavailable Unavailable HUGO, J Unavailable Unavailable HUGO, J Unavailable Unavailable HUGO, J Unavailable Unavailable HUGO J Unavailable Unavailable HUGO J Unavailable Unavailable HUGO, J Unavailable Unavailable HUGO, J Unavailable Unavailable HUGO, J Unavailable Unavailable Re-disclosure Warning The records that you are about to access may contain information from federally- assisted alcohol or drug abuse programs. If such information is present, then the following federally mandated warning applies: This information has been disclosed to you from records protected by federal confidentiality rules (42 CFR part 2). The federal rules prohibit you from making any further disclosure of this information unless further disclosure is expressly permitted by the written consent of the person to whom it pertains or as otherwise permitted by 42 CFR part 2. A general authorization for the release of medical or other information is NOT sufficient for this purpose. The Federal rules restrict any use of the information to criminally investigate or prosecute any alcohol or drug abuse patient.The records that you are about to access may contain highly sensitive health information, the redisclosure of which is protected by Article 27-F of the [place] Public [employer] law. If you continue you may haveaccess to information: Regarding HIV / AIDS; Provided by facilities licensed or operated by the [place] Office of Mental Health; or Provided by the [place] Office for People With Developmental Disabilities. If such information is present, then the following [place] mandated warning applies: This information has been disclosed to you from confidential records which are protected by state law. State law prohibits you from making any further disclosure of this information without the specific written consent of the person to whom it pertains, or as otherwise permitted by law. Any unauthorized further disclosure in violation of state law may result in a fine or longterm sentence or both. A general authorization for the release of medical or other information is NOT sufficient authorization for further disclosure. Allergies and Adverse Reactions Type Description Substance Reaction Status Data Source(s ) Drug allergy Shellfish Drug allergy anaphylaxis Active eCW3 ([facility]) Drug allergy Shellfish Drug allergy anaphylaxis Active eCW3 ([facility]) Drug allergy Shellfish Drug allergy anaphylaxis Active eCW3 ([facility]) Drug allergy Shellfish Drug allergy anaphylaxis Active eCW3 ([facility]) Drug allergy Shellfish Drug allergy anaphylaxis Active eCW3 ([facility]) Drug allergy Shellfish Drug allergy anaphylaxis Active eCW3 ([facility]) Drug allergy Shellfish Drug allergy anaphylaxis Active eCW3 ([facility]) Drug allergy Shellfish Drug allergy anaphylaxis Active eCW3 ([facility]) Drug allergy Shellfish Drug allergy anaphylaxis Active eCW3 ([facility]) Drug allergy Shellfish Drug allergy anaphylaxis Active eCW3 ([facility]) Drug allergy Shellfish Drug allergy anaphylaxis Active eCW3 ([facility]) Drug allergy Shellfish Drug allergy anaphylaxis Active eCW3 ([facility]) Encounters Encounter Providers Location Date Indications Data Source(s ) (DentTx) [facility] 05/24/2019 eCW3 ([facility] 12:00:00 [facility] AM EDT - Care) 05/24/2019 12:00:00 AM EDT Outpatient [facility] 05/18/2019 eCW3 [facility] AM EDT - Care) 05/18/2019 12:00:00 AM EDT (DentTx) [facility] [place] [facility] 05/10/2019 eCW3 ([facility] 12:00:00 [facility] A28 AM EDT - Care) 05/10/2019 12:00:00 AM EDT (DentTx) [facility] [place] [facility] 04/26/2019 eCW3 ([facility] 12:00:00 [facility] A[facility] AM EDT - Care) 04/26/2019 12:00:00 AM EDT (DentTx) [facility] [place] [facility] 04/19/2019 eCW3 ([facility] 12:00:00 [facility] A28 AM EDT - Care) 04/19/2019 12:00:00 AM EDT (DentTx) [facility] 04/05/2019 eCW3 ([facility] 12:00:00 [facility] A28 AM EDT - Care) 04/05/2019 12:00:00 AM EDT Outpatient [facility] 03/31/2019 eCW3 [facility] 12[facility] A[facility] AM EDT - Care) 03/31/2019 12:00:00 AM EDT (DENTAL) [facility] 03/10/2019 eCW3 ([facility] AM EDT - Care) 03/10/2019 12:00:00 AM EDT Outpatient [facility] 03/07/2019 eCW3 [facility] 12:[facility] A[facility] AM EDT - Care) 03/07/2019 12:00:00 AM EDT Outpatient [facility] 03/03/2019 eCW3 [facility] 12:[facility]:00 [facility] A28 AM EDT - Care) 03/03/2019 12:00:00 AM EDT Outpatient [facility] 12/11/2018 eCW3 ([facility] 12:00:00 [facility] A28 AM EDT - Care) 12/11/2018 12:00:00 AM EDT Outpatient [facility] 11/03/2018 eCW3 ([facility] 12:00:00 [facility] A28 AM EDT - Care) 11/03/2018 12:00:00 AM EDT Outpatient 01/22/2015 [place] 01:57:19 [facility] PM ED[facility] 12/20/2013 [place] [facility] Outpatient Attender: MECHE 09/06/2010 Rody ARIAS 08:32:00 [place] MDAdmitter: AM [facility] MECHE ARIAS MD Outpatient Attender: MECHE 09/05/2010 Rody ARIAS MD 12:00:00 [place] AM [facility] 09/06/2010 12:00:00 AM EST Immunizations Vaccine Date Status Description Data Source(s) pneumococcal 06/03/2019 completed eCW3 ([facility] polysaccharide PPV23 05:28:00 PM EST [facility]al th Care) New in 2011. IIV4 06/03/2019 completed eCW3 ([facility] 05:28:00 PM EST [facility]) pneumococcal 06/03/2019 completed eCW3 ([facility] polysaccharide PPV23 05:28:00 PM EST [facility]al [facility] Care) New in 2011. IIV4 06/03/2019 completed eCW3 ([facility] 05:28:00 PM EST Health Care) pneumococcal 06/03/2019 completed eCW3 ([facility] polysaccharide PPV23 05:28:00 PM EST Heal th Care) New in 2011. IIV4 06/03/2019 completed eCW3 ([facility] 05:28:00 PM EST Health Care) pneumococcal 06/03/2019 completed eCW3 ([facility] polysaccharide PPV23 05:28:00 PM EST [facility]al th Care) New in 2011. IIV4 06/03/2019 completed eCW3 ([facility] 05:28:00 PM EST Health Care) pneumococcal 06/03/2019 completed eCW3 ([facility] polysaccharide PPV23 05:28:00 PM EST Heal th Care) New in 2011. IIV4 06/03/2019 completed eCW3 ([facility] 05:28:00 PM EST Health Care) New in 2011. IIV4 05/22/2018 completed eCW3 ([facility] 01:33:00 PM EDT Health Care) New in 2011. IIV4 05/22/2018 completed eCW3 ([facility] 01:33:00 PM EDT Health Care) New in 2011. IIV4 05/22/2018 completed eCW3 ([facility] 01:33:00 PM EDT Health Care) New in 2011. IIV4 05/22/2018 completed eCW3 ([facility] 01:33:00 PM EDT Health Care) New in 2011. IIV4 05/22/2018 completed eCW3 ([facility] 01:33:00 PM EDT Health Care) Medications Medication Brand Start Product Dose Route [facility] Indications Reaction Description Data Name Date Form Instructions Instructions Source(s) Clotrimazol Clotri 1.0 active Clotrim azole eCW3 e 10 MG/ML mazole 2020 {appl 1 % ([facility] % 12:00: [facility] 00 AM on} Health Clotrimazol EDT Care) e 1 % Clotrimazol Clotri 1.0 active Clotrim azole eCW3 e 10 MG/ML mazole 2020 {appl 1 % ([facility] % 12:00: ic[facility] Solution 00 AM on} Health Clotrimazol EDT Care) e 1 % Clotrimazol Clotri 1.0 active Clotrim azole eCW3 e 10 MG/ML mazole 2020 {appl 1 % ([facility] % 12:00: icati [facility] Solution 00 AM on} Health Clotrimazol EDT Care) e 1 % Clotrimazol Clotri 1.0 active Clotrim azole eCW3 e 10 MG/ML mazole 2020 {appl 1 % ([facility] % 12:00: icati [facility] Solution 00 AM on} Health Clotrimazol EDT Care) e 1 % Clotrimazol Clotri 02/14/ active Clotrim azole eCW3 e 10 MG/ML mazole 2020 1 % ([facility] 1 % 12:00: [facility] Cream 00 AM Health Clotrimazol EDT Care) e 1 % Clotrimazol Clotri 02/14/ active Clotrim azole eCW3 e 10 MG/ML mazole 2020 1 % ([facility] 1 % 12:00: [facility] Cream 00 AM Health Clotrimazol EDT Care) e 1 % ciclopirox Ciclop 1.0 active Ciclopir ox 8 eCW3 80 MG/ML irox 8 2019 {appl % ([facility] % 12:00: icati [facility] Solution 00 AM on} Health Ciclopirox EDT Care) 8 % Clotrimazol Clotri 02/14/ active Clotrim azole eCW3 e 10 MG/ML mazole 2020 1 % ([facility] Top[facility] 1 % 12:00: [facility] Cream 00 AM Health Clotrimazol EDT Care) e 1 % Clotrimazol Clotri 02/14/ active Clotrim azole eCW3 e 10 MG/ML mazole 2020 1 % ([facility] Top[facility] 1 % 12:00: [facility] Cream 00 AM Health Clotrimazol EDT Care) e 1 % ciclopirox Ciclop 1.0 active Ciclopir ox 8 eCW3 80 MG/ML irox 8 2019 {appl % ([facility] % 12:00: icati [facility] Solution 00 AM on} Health Ciclopirox EDT Care) 8 % Clotrimazol Clotri 02/14/ active Clotrim azole eCW3 e 10 MG/ML mazole 2020 1 % ([facility] Top[facility] 1 % 12:00: [facility] Cream 00 AM Health Clotrimazol EDT Care) e 1 % Tolnaftate Tolnaf 1.0 active Tolnafta te 1 eCW3 0.01 MG/MG [place] 1 2019 {appl % ([facility] % 12:00: [facility] Powder 00 AM on} Health Tolnaftate EDT Care) 1 % ciclopirox Ciclop 02/14/ 1.0 active Ciclopir ox 8 eCW3 80 MG/ML irox 8 2019 {appl % ([facility] % 12:00: icati [facility] Solution 00 AM on} Health Ciclopirox EDT Care) 8 % Clotrimazol Clotri 02/14/ active Clotrim azole eCW3 e 10 MG/ML mazole 2020 1 % ([facility] Topical 1 % 12:00: [facility] Cream 00 AM Health Clotrimazol EDT Care) e 1 % Tolnaftate Tolnaf 1.0 active Tolnafta te 1 eCW3 0.01 MG/MG [place] 1 2019 {appl % ([facility] % 12:00: icati [facility] Powder 00 AM on} Health Tolnaftate EDT Care) 1 % Tolnaftate Tolnaf .0 active Tolnafta te 1 eCW3 0.01 MG/MG [place] 1 2019 {appl % ([facility] % 12:00: icati [facility] Powder 00 AM on} Health Tolnaftate EDT Care) 1 % Tolnaftate Tolnaf .0 active Tolnafta te 1 eCW3 0.01 MG/MG [place] 1 2019 {appl % ([facility] % 12:00: icati [facility] Powder 00 AM on} Health Tolnaftate EDT Care) 1 % ciclopirox Ciclop .0 active Ciclopir ox 8 eCW3 80 MG/ML irox 8 2019 {appl % ([facility] Top[facility] % 12:00: icati [facility] Solution 00 AM on} Health Ciclopirox EDT Care) 8 % ciclopirox Ciclop .0 active Ciclopir ox 8 eCW3 80 MG/ML irox 8 2019 {appl % ([facility] Top[facility] % 12:00: icati [facility] Solution 00 AM on} Health Ciclopirox EDT Care) 8 % Tolnaftate Tolnaf .0 active Tolnafta te 1 eCW3 0.01 MG/MG [place] 1 2019 {appl % ([facility] % 12:00: icati [facility] Powder 00 AM on} Health Tolnaftate EDT Care) 1 % Clotrimazol Clotri 02/14/ active Clotrim azole eCW3 e 10 MG/ML mazole 2019 1 % ([facility] Top[facility] 1 % 12:00: [facility] Cream 00 AM Health Clotrimazol EDT Care) e 1 % Clotrimazol Clotri 02/14/ active Clotrim azole eCW3 e 10 MG/ML mazole 2019 1 % ([facility] Topical 1 % 12:00: [facility] Cream 00 AM Health Clotrimazol EDT Care) e 1 % Tolnaftate Tolnaf 1.0 active Tolnafta te 1 eCW3 0.01 MG/MG [place] 1 2019 {appl % ([facility] % 12:00: ic[facility] Powder 00 AM on} Health Tolnaftate EDT Care) 1 % Tolnaftate Tolnaf 1.0 active Tolnafta te 1 eCW3 0.01 MG/MG [place] 1 2019 {appl % ([facility] % 12:00: icati [facility] Powder 00 AM on} Health Tolnaftate EDT Care) 1 % Tolnaftate Tolnaf .0 active Tolnafta te 1 eCW3 0.01 MG/MG [place] 1 2019 {appl % ([facility] % 12:00: icati [facility] Powder 00 AM on} Health Tolnaftate EDT Care) 1 % ciclopirox Ciclop .0 active Ciclopir ox 8 eCW3 80 MG/ML irox 8 2019 {appl % ([facility] Top[facility] % 12:00: icati [facility] Solution 00 AM on} Health Ciclopirox EDT Care) 8 % ciclopirox Ciclop .0 active Ciclopir ox 8 eCW3 80 MG/ML irox 8 2019 {appl % ([facility] Top[facility] % 12:00: icati [facility] Solution 00 AM on} Health Ciclopirox EDT Care) 8 % ciclopirox Ciclop .0 active Ciclopir ox 8 eCW3 80 MG/ML irox 8 2019 {appl % ([facility] Top[facility] % 12:00: icati [facility] Solution 00 AM on} Health Ciclopirox EDT Care) 8 % Metformin Metfor 1.0 active Metformin eCW3 hydrochlori min 2019 {tabl HCl 1000 MG (Oracio de 1000 MG HCl 12:00: et_wi [facility] Tablet 1000 00 AM _a_ [facility] Metformin MG EDT meal} Care) HCl 1000 MG Metformin Metfor .0 active Metformin eCW3 hydrochlori min 2020 {tabl HCl 1000 MG ([facility] de 1000 MG HCl 12:00: et_wi [facility]} Care) HCl 1000 MG Metformin Metfor .0 active Metformin eCW3 hydrochlori min 2020 {tabl HCl 1000 MG ([facility] de 1000 MG HCl 12:00: et_wi [facility] Tablet 1000 00 AM [facility] Metformin MG EDT meal} Care) HCl 1000 MG Metformin Metfor .0 active Metformin eCW3 hydrochlori min 2020 {tabl HCl 1000 MG ([facility] de 1000 MG HCl 12:00: et_wi [facility] Tablet 1000 00 AM [facility] Metformin MG EDT meal} Care) HCl 1000 MG Metformin Metfor .0 active Metformin eCW3 hydrochlori min 2020 {tabl HCl 1000 MG ([facility] de 1000 MG HCl 12:00: et_wi [facility] Tablet 1000 00 AM [facility] Metformin MG EDT meal} Care) HCl 1000 MG Metformin Metfor .0 active Metformin eCW3 hydrochlori min 2020 {tabl HCl 1000 MG ([facility]ayan[facility] de 1000 MG HCl 12:00: et_wi [facility] Tablet 1000 00 AM [facility] Metformin MG EDT meal} Care) HCl 1000 MG Metformin Metfor .0 active Metformin eCW3 hydrochlori min 2020 {tabl HCl 1000 MG ([facility] de 1000 MG HCl 12:00: et_wi [facility] Tablet 1000 00 AM [facility] Metformin MG EDT meal} Care) HCl 1000 MG Metformin Metfor .0 active Metformin eCW3 hydrochlori min 2020 {tabl HCl 1000 MG ([facility] de 1000 MG HCl 12:00: et_wi [facility]} Care) HCl 1000 MG Metformin METFOR .0 active METFORMIN eCW3 hydrochlori MIN 2020 {tabl HCL 500 MG ( [facility] de 500 MG HCL 12:00: et_wi [facility] Tablet 500 MG 00 AM [facility] th METFORMIN EDT als} Care) HCL 500 MG Metformin METFOR 06/26/ 1.0 active METFORMIN eCW3 hydrochlori MIN 2019 {tabl HCL 500 MG ( [facility] de 500 MG HCL 12:00: et_wi [facility] Tablet 500 MG 00 AM th_[facility] He[facility] th METFORMIN EDT als} Care) HCL 500 MG Ketoconazol UNK .0 active Ketoconaz ole eCW3 e 2 % 2018 {appl 2 % ([facility] 12:00: [facility] 00 AM on} Health EST Care) Hydrogen Hydrog 06/22/ active Hydrogen e CW3 Peroxide 30 en 2018 Peroxide 3 % ([facility] MG/ML Peroxi 12:00: [facility] Topical de 3 % 00 AM Health Solution EST Care) Hydrogen Peroxide 3 % Hydrogen Hydrog 06/22/ active Hydrogen e CW3 Peroxide 30 en 2018 Peroxide 3 % ([facility] MG/ML Peroxi 12:00: [facility] Topical de 3 % 00 AM Health Solution EST Care) Hydrogen Peroxide 3 % Aspirin 81 Aspiri 1.0 active Aspirin eCW3 MG Chewable n 2019 {tabl Childrens 81 ([facility] Tablet Childr 12:00: et} MG [facility] Aspirin ens 81 00 AM Health Childrens MG EST Care) 81 MG Hydrogen Hydrog 06/22/ active Hydrogen e CW3 Peroxide 30 en 2018 Peroxide 3 % ([facility] MG/ML Peroxi 12:00: [facility] Topical de 3 % 00 AM Health Solution EST Care) Hydrogen Peroxide 3 % Aspirin 81 Aspiri .0 active Aspirin eCW3 MG Chewable n 2019 {tabl Childrens 81 ([facility] Tablet Childr 12:00: et} MG [facility] Aspirin ens 81 00 AM Health Childrens MG EST Care) 81 MG Hydrogen Hydrog 06/22/ active Hydrogen e CW3 Peroxide 30 en 2018 Peroxide 3 % ([facility] MG/ML Peroxi 12:00: [facility] Topical de 3 % 00 AM Health Solution EST Care) Hydrogen Peroxide 3 % Aspirin 81 Aspiri 1.0 active Aspirin eCW3 MG Chewable n 2019 {tabl Childrens 81 ([facility] Tablet Childr 12:00: et} MG [facility] Aspirin ens 81 00 AM Health Childrens MG EST Care) 81 MG Hydrogen Hydrog 06/22/ active Hydrogen e CW3 Peroxide 30 en 2018 Peroxide 3 % ([facility] MG/ML Peroxi 12:00: [facility] Topical de 3 % 00 AM Health Solution EST Care) Hydrogen Peroxide 3 % Aspirin 81 Aspiri 11/27/ 1.0 active Aspirin eCW3 MG Chewable n 2018 {tabl Childrens 81 ([facility] Tablet Childr 12:00: et} MG [facility] Aspirin ens 81 00 AM Health Childrens MG EST Care) 81 MG Aspirin 81 Aspiri .0 active Aspirin eCW3 MG Chewable n 2018 {tabl Childrens 81 ([facility] Tablet Childr 12:00: et} MG [facility] Aspirin ens 81 00 AM Health Childrens MG EST Care) 81 MG Hydrogen Hydrog 06/22/ active Hydrogen e CW3 Peroxide 30 en 2018 Peroxide 3 % ([facility] MG/ML Peroxi 12:00: [facility] Topical de 3 % 00 AM Health Solution EST Care) Hydrogen Peroxide 3 % Hydrogen Hydrog 06/22/ active Hydrogen e CW3 Peroxide 30 en 2018 Peroxide 3 % ([facility] MG/ML Peroxi 12:00: [facility] Topical de 3 % 00 AM Health Solution EST Care) Hydrogen Peroxide 3 % Hydrogen Hydrog 06/22/ active Hydrogen e CW3 Peroxide 30 en 2018 Peroxide 3 % ([facility] MG/ML Peroxi 12:00: [facility] Topical de 3 % 00 AM Health Solution EST Care) Hydrogen Peroxide 3 % Hydrogen Hydrog 06/22/ active Hydrogen e CW3 Peroxide 30 en 2018 Peroxide 3 % ([facility] MG/ML Peroxi 12:00: [facility] Topical de 3 % 00 AM Health Solution EST Care) Hydrogen Peroxide 3 % Naltrexone Naltre .0 active Naltrexo ne eCW3 hydrochlori xone 2018 {tabl HCl 50 MG (H udson de 50 MG HCl 50 12:00: et} [facility] Tablet MG 00 AM Health Naltrexone EST Care) HCl 50 MG Aspirin 81 Aspiri .0 active Aspirin eCW3 MG Chewable n 2018 {tabl Childrens 81 ([facility] Tablet Childr 12:00: et} MG [facility] Aspirin ens 81 00 AM Health Childrens MG EST Care) 81 MG Aspirin 81 Aspiri .0 active Aspirin eCW3 MG Chewable n 2018 {tabl Childrens 81 ([facility] Tablet Childr 12:00: et} MG [facility] Aspirin ens 81 00 AM Health Childrens MG EST Care) 81 MG Aspirin 81 Aspiri .0 active Aspirin eCW3 MG Chewable n 2018 {tabl Childrens 81 ([facility] Tablet Childr 12:00: et} MG [facility] Aspirin ens 81 00 AM Health Childrens MG EST Care) 81 MG Aspirin 81 Aspiri 1.0 active Aspirin eCW3 MG Chewable n 2019 {tabl Childrens 81 ([facility] Tablet Childr 12:00: et} MG [facility] Aspirin ens 81 00 AM Health Childrens MG EST Care) 81 MG Hydrogen Hydrog 06/22/ active Hydrogen e CW3 Peroxide 30 en 2018 Peroxide 3 % ([facility] MG/ML Peroxi 12:00: [facility] Topical de 3 % 00 AM Health Solution EST Care) Hydrogen Peroxide 3 % Aspirin 81 Aspiri 1.0 active Aspirin eCW3 MG Chewable n 2019 {tabl Childrens 81 ([facility] Tablet Childr 12:00: et} MG [facility] Aspirin ens 81 00 AM Health Childrens MG EST Care) 81 MG Aspirin 81 Aspiri 1.0 active Aspirin eCW3 MG Chewable n 2018 {tabl Childrens 81 ([facility] Tablet Childr 12:00: et} MG [facility] Aspirin ens 81 00 AM Health Childrens MG EST Care) 81 MG Aspirin 81 Aspiri 1.0 active Aspirin eCW3 MG Chewable n 2018 {tabl Childrens 81 ([facility] Tablet Childr 12:00: et} MG [facility] Aspirin ens 81 00 AM Health Childrens MG EST Care) 81 MG Hydrogen Hydrog 06/22/ active Hydrogen e CW3 Peroxide 30 en 2018 Peroxide 3 % ([facility] MG/ML Peroxi 12:00: [facility] Topical de 3 % 00 AM Health Solution EST Care) Hydrogen Peroxide 3 % Hydrogen Hydrog 06/22/ active Hydrogen e CW3 Peroxide 30 en 2018 Peroxide 3 % ([facility] MG/ML Peroxi 12:00: [facility] Topical de 3 % 00 AM Health Solution EST Care) Hydrogen Peroxide 3 % Ketorolac Ketoro 06/01/ active Ketorolac eCW3 Tromethamin lac 2019 Tromethamine ([facility] e 2 % Tromet 12:00: 2 % [facility] hamine 00 AM Health 2 % EST Care) Ketoconazol UNK .0 active Ketoconaz ole eCW3 e 2 % 2018 {appl 2 % ([facility] 12:00: icati [facility] 00 AM on} Health EST Care) Ketoconazol UNK .0 active Ketoconaz ole eCW3 e 2 % 2018 {appl 2 % ([facility] 12:00: icati [facility] 00 AM on} Health EST Care) Ketoconazol UNK .0 active Ketoconaz ole eCW3 e 2 % 2019 {appl 2 % ([facility] 12:00: icati [facility] 00 AM on} Health EST Care) Ketoconazol UNK .0 active Ketoconaz ole eCW3 e 2 % 2018 {appl 2 % ([facility] 12:00: icati [facility] 00 AM on} Health EST Care) Ketorolac Ketoro 06/01/ active Ketorolac eCW3 Tromethamin lac 2019 Tromethamine ([facility]an e 2 % Tromet 12:00: 2 % [facility] hamine 00 AM Health 2 % EST Care) Ketoconazol UNK .0 active Ketoconaz ole eCW3 e 2 % 2019 {appl 2 % ([facility] 12:00: icati [facility] 00 AM on} Health EST Care) Ketoconazol UNK .0 active Ketoconaz ole eCW3 e 2 % 2018 {appl 2 % ([facility] 12:00: icati [facility] 00 AM on} Health EST Care) Ketoconazol UNK .0 active Ketoconaz ole eCW3 e 2 % 2019 {appl 2 % ([facility] 12:00: icati [facility] 00 AM on} Health EST Care) Ketoconazol UNK .0 active Ketoconaz ole eCW3 e 2 % 2018 {appl 2 % ([facility] 12:00: icati [facility] 00 AM on} Health EST Care) Ketoconazol UNK .0 active Ketoconaz ole eCW3 e 2 % 2019 {appl 2 % ([facility] 12:00: icati [facility] 00 AM on} Health EST Care) Ketoconazol UNK .0 active Ketoconaz ole eCW3 e 2 % 2019 {appl 2 % ([facility] 12:00: icati [facility] 00 AM on} Health EST Care) Ketoconazol UNK .0 active Ketoconaz ole eCW3 e 2 % 2018 {appl 2 % ([facility] 12:00: icati [facility] 00 AM on} Health EST Care) Ketoconazol UNK .0 active Ketoconaz ole eCW3 e 2 % 2018 {appl 2 % ([facility] Wrist 05/18/ active Wrist eCW3 Splint/Left Splint 2019 Splint/Left ([facility]ayanan Large - /Left 12:00: [facility] - EDT Care) Lidocaine Lidoca 05/18/ active Lidocaine -Pr eCW3 25 MG/ML / ine-Pr 2019 ilocaine (Hu dson Prilocaine ilocai 12:00: 2.5-2.5 % [facility] 25 MG/ML ne 00 AM Health Topical 2.5-2. EDT Care) Cream 5 % Lidocaine-P rilocaine 2.5-2.5 % Wrist Wrist 05/18/ active Wrist eCW3 Splint/Left Splint 2019 Splint/Left ([facility]ayanan Large - /Left 12:00: [facility] Health - EDT Care) Lidocaine Lidoca 05/18/ active Lidocaine -Pr eCW3 25 MG/ML / ine-Pr 2019 ilocaine (Hu dson Prilocaine ilocai 12:00: 2.5-2.5 % [facility] 25 MG/ML ne AM Health Topical 2.5-2. EDT Care) Cream 5 % Lidocaine-P rilocaine 2.5-2.5 % Wrist Wrist 05/18/ active Wrist eCW3 Splint/Left Splint 2019 Splint/Left ([facility]ayan[facility] Large - /Left 12:00: [facility] Health - EDT Care) Wrist Wrist 05/18/ active Wrist eCW3 Splint/Left Splint 2019 Splint/Left (Treichlers Large - /Left 12:00: [facility] Health - EDT Care) Lidocaine Lidoca 05/18/ active Lidocaine -Pr eCW3 25 MG/ML / ine-Pr 2019 ilocaine (Hu dson Prilocaine ilocai 12:00: 2.5-2.5 % [facility] 25 MG/ML ne 00 AM Health Topical 2.5-2. EDT Care) Cream 5 % Lidocaine-P rilocaine 2.5-2.5 % Lidocaine Lidoca 05/18/ active Lidocaine -Pr eCW3 25 MG/ML / ine-Pr 2019 ilocaine (Hu dson Prilocaine ilocai 12:00: 2.5-2.5 % [facility] 25 MG/ML ne 00 AM Health Topical 2.5-2. EDT Care) Cream 5 % Lidocaine-P rilocaine 2.5-2.5 % Wrist Wrist 05/18/ active Wrist eCW3 Splint/Left Splint 2019 Splint/Left (Treichlers Large - /Left 12:00: [facility] - EDT Care) Lidocaine Lidoca 05/18/ active Lidocaine -Pr eCW3 25 MG/ML / ine-Pr 2018 ilocaine (Hu dson Prilocaine ilocai 12:00: 2.5-2.5 % [facility] 25 MG/ML ne AM Health Topical 2.5-2. EDT Care) Cream 5 % Lidocaine-P rilocaine 2.5-2.5 % Wrist Wrist 05/18/ active Wrist eCW3 Splint/Left Splint 2019 Splint/Left (Treichlers Large - /Left 12:00: [facility] - EDT Care) Lidocaine Lidoca 05/18/ active Lidocaine -Pr eCW3 25 MG/ML / ine-Pr 2018 ilocaine ([facility] dson Prilocaine ilocai 12:00: 2.5-2.5 % [place] 25 MG/ML ne AM Health Topical 2.5-2. EDT Care) Cream 5 % Lidocaine-P rilocaine 2.5-2.5 % Wrist Wrist 05/18/ active Wrist eCW3 Splint/Left Splint 2019 Splint/Left ([facility] - /Left 12:00: [facility] - EDT Care) Lidocaine Lidoca 05/18/ active Lidocaine -Pr eCW3 25 MG/ML / ine-Pr 2018 ilocaine ([facility] d[facility] Prilocaine ilocai 12:00: 2.5-2.5 % [place] 25 MG/ML ne 00 AM Health Topical 2.5-2. EDT Care) Cream 5 % Lidocaine-P rilocaine 2.5-2.5 % Lidocaine Lidoca 05/18/ active Lidocaine -Pr eCW3 25 MG/ML / ine-Pr 2019 ilocaine (Hu [facility]son Prilocaine ilocai 12:00: 2.5-2.5 % [place] 25 MG/ML ne 00 AM Health Topical 2.5-2. EDT Care) Cream 5 % Lidocaine-P rilocaine 2.5-2.5 % Wrist Wrist 05/18/ active Wrist eCW3 Splint/Left Splint 2019 Splint/Left ([facility] - /Left 12:00: [facility] - EDT Care) Lidocaine Lidoca 05/18/ active Lidocaine -Pr eCW3 25 MG/ML / ine-Pr 2018 ilocaine (Hu dson Prilocaine ilocai 12:00: 2.5-2.5 % [place] 25 MG/ML ne 00 AM Health Topical 2.5-2. EDT Care) Cream 5 % Lidocaine-P rilocaine 2.5-2.5 % Lidocaine Lidoca 05/18/ active Lidocaine -Pr eCW3 25 MG/ML / ine-Pr 2019 ilocaine ([facility] Prilocaine ilocai 12:00: 2.5-2.5 % [place] 25 MG/ML ne 00 AM Health Topical 2.5-2. EDT Care) Cream 5 % Lidocaine-P rilocaine 2.5-2.5 % Wrist Wrist 05/18/ active Wrist eCW3 Splint/Left Splint 2019 Splint/Left ([facility] - /Left 12:00: [facility] - EDT Care) Wrist Wrist 05/18/ active Wrist eCW3 Splint/Left Splint 2019 Splint/Left ([facility] /Left 12:00: [facility] - EDT Care) Lidocaine Lidoca 05/18/ active Lidocaine -Pr eCW3 25 MG/ML / ine-Pr 2018 ilocaine (Hu dson Prilocaine ilocai 12:00: 2.5-2.5 % [place] 25 MG/ML ne 00 AM Health Topical 2.5-2. EDT Care) Cream 5 % Lidocaine-P rilocaine 2.5-2.5 % Lidocaine Lidoca 05/18/ active Lidocaine -Pr eCW3 25 MG/ML / ine-Pr 2019 ilocaine (Hu dson Prilocaine ilocai 12:00: 2.5-2.5 % [place] 25 MG/ML ne 00 AM Health Topical 2.5-2. EDT Care) Cream 5 % Lidocaine-P rilocaine 2.5-2.5 % Wrist Wrist 05/18/ active Wrist eCW3 Splint/Left Splint 2019 Splint/Left ([facility] Large - /Left 12:00: Large - [place] Large 00 AM Health - EDT Care) Wrist Wrist 05/18/ active Wrist eCW3 Splint/Left Splint 2019 Splint/Left ([facility] Large - /Left 12:00: Large - [place] Large 00 AM Health - EDT Care) ammonium Ammoni .0 active Ammonium e CW3 lactate 120 um 2018 {appl Lactate 12 % (Narayanan MG/ML Lactat 12:00: icati [place] Topical e 12 % 00 AM on_to Health Cream EDT _affe Care) Ammonium cted_ Lactate 12 area} % ammonium Ammoni .0 active Ammonium e CW3 lactate 120 um 2018 {appl Lactate 12 % (Narayanan MG/ML Lactat 12:00: icati [place] Topical e 12 % 00 AM on_to Health Cream EDT _affe Care) Ammonium cted_ Lactate 12 area} % ammonium Ammoni .0 active Ammonium e CW3 lactate 120 um 2018 {appl Lactate 12 % (Narayanan MG/ML Lactat 12:00: icati [place] Topical e 12 % 00 AM on_to Health Cream EDT _affe Care) Ammonium cted_ Lactate 12 area} % ammonium Ammoni .0 active Ammonium e CW3 lactate 120 um 2018 {appl Lactate 12 % (Narayanan MG/ML Lactat 12:00: icati [place] Topical e 12 % 00 AM on_to Health Cream EDT _affe Care) Ammonium cted_ Lactate 12 area} % ammonium Ammoni .0 active Ammonium e CW3 lactate 120 um 2018 {appl Lactate 12 % (Narayanan MG/ML Lactat 12:00: icati [place] Topical e 12 % 00 AM on_to Health Cream EDT _affe Care) Ammonium cted_ Lactate 12 area} % ammonium Ammoni .0 active Ammonium e CW3 lactate 120 um 2018 {appl Lactate 12 % (Narayanan MG/ML Lactat 12:00: icati [place] Topical e 12 % 00 AM on_to Health Cream EDT _affe Care) Ammonium cted_ Lactate 12 area} % ammonium Ammoni .0 active Ammonium e CW3 lactate 120 um 2018 {appl Lactate 12 % (Narayanan MG/ML Lactat 12:00: icati [place] Topical e 12 % 00 AM on_to Health Cream EDT _affe Care) Ammonium cted_ Lactate 12 area} % ammonium Ammoni active Ammonium e CW3 lactate 120 um 2018 {appl Lactate 12 % (Narayanan MG/ML Lactat 12:00: icati [place] Topical e 12 % 00 AM on_to Health Cream EDT _affe Care) Ammonium cted_ Lactate 12 area} % ammonium Ammoni active Ammonium e CW3 lactate 120 um 2018 {appl Lactate 12 % (Narayanan MG/ML Lactat 12:00: icati [place] Topical e 12 % 00 AM on_to Health Cream EDT _affe Care) Ammonium cted_ Lactate 12 area} % ammonium Ammoni active Ammonium e CW3 lactate 120 um 2018 {appl Lactate 12 % (Narayanan MG/ML Lactat 12:00: icati [place] Topical e 12 % 00 AM on_to Health Cream EDT _affe Care) Ammonium cted_ Lactate 12 area} % ammonium Ammoni active Ammonium e CW3 lactate 120 um 2018 {appl Lactate 12 % (Narayanan MG/ML Lactat 12:00: icati [place] Topical e 12 % 00 AM on_to Health Cream EDT _affe Care) Ammonium cted_ Lactate 12 area} % ammonium Ammoni active Ammonium e CW3 lactate 120 um 2018 {appl Lactate 12 % (Narayanan MG/ML Lactat 12:00: icati [place] Topical e 12 % 00 AM on_to Health Cream EDT _affe Care) Ammonium cted_ Lactate 12 area} % All-In-One All-In 03/03/ active All-In-O ne eCW3 Nebulizer -One 2019 Nebulizer ([facility] - Nebuli 12:00: System - [place] er zer 00 AM Health System EDT Care) - Albuterol Albute 2.0 active Albuterol eCW3 Sulfate HFA rol 2018 {puff Sulfate HFA (Narayanan 108 (90 Sulfat 12:00: s_as_ 108 (90 Rive r Base) e HFA 00 AM neede Base) Health MCG/ACT 108 EDT d} MCG/ACT Care) (90 Base) MCG/AC T Albuterol Albute 2.0 active Albuterol eCW3 Sulfate HFA rol 2019 {puff Sulfate HFA (Narayanan 108 (90 Sulfat 12:00: s_as_ 108 (90 Rive r Base) e HFA 00 AM neede Base) Health MCG/ACT 108 EDT d} MCG/ACT Care) (90 Base) MCG/AC T All-In-One All-In 03/03/ active All-In-O ne eCW3 Nebulizer -One 2019 Nebulizer ([facility] - Nebuli 12:00: System - [place] er zer 00 AM Health System EDT Care) - Albuterol Albute .0 active Albuterol eCW3 Sulfate HFA rol 2019 {puff Sulfate HFA (Narayanan 108 (90 Sulfat 12:00: s_as_ 108 (90 Rive r Base) e HFA 00 AM neede Base) Health MCG/ACT 108 EDT d} MCG/ACT Care) (90 Base) MCG/AC T All-In-One All-In 03/03/ active All-In-O ne eCW3 Nebulizer -One 2019 Nebulizer ([facility] - Nebuli 12:00: System - [place] er zer 00 AM Health System EDT Care) - Albuterol Albute .0 active Albuterol eCW3 Sulfate HFA rol 2019 {puff Sulfate HFA (Narayanan 108 (90 Sulfat 12:00: s_as_ 108 (90 Rive r Base) e HFA 00 AM neede Base) Health MCG/ACT 108 EDT d} MCG/ACT Care) (90 Base) MCG/AC T All-In-One All-In 03/03/ active All-In-O ne eCW3 Nebulizer -One 2019 Nebulizer ([facility] - Nebuli 12:00: System - [place] er zer 00 AM Health System EDT Care) - All-In-One All-In 03/03/ active All-In-O ne eCW3 Nebulizer -One 2019 Nebulizer ([facility] - Nebuli 12:00: System - [place] er zer 00 AM Health System EDT Care) - Albuterol Albute 2.0 active Albuterol eCW3 Sulfate HFA rol 2019 {puff Sulfate HFA (Narayanan 108 (90 Sulfat 12:00: s_as_ 108 (90 Rive r Base) e HFA 00 AM neede Base) Health MCG/ACT 108 EDT d} MCG/ACT Care) (90 Base) MCG/AC T Albuterol Albute 2.0 active Albuterol eCW3 Sulfate HFA rol 2019 {puff Sulfate HFA (Narayanan 108 (90 Sulfat 12:00: s_as_ 108 (90 Rive r Base) e HFA 00 AM neede Base) Health MCG/ACT 108 EDT d} MCG/ACT Care) (90 Base) MCG/AC T Albuterol Albute 2.0 active Albuterol eCW3 Sulfate HFA rol 2019 {puff Sulfate HFA (Narayanan 108 (90 Sulfat 12:00: s_as_ 108 (90 Rive r Base) e HFA 00 AM neede Base) Health MCG/ACT 108 EDT d} MCG/ACT Care) (90 Base) MCG/AC T Albuterol Albute 2.0 active Albuterol eCW3 Sulfate HFA rol 2019 {puff Sulfate HFA (Narayanan 108 (90 Sulfat 12:00: s_as_ 108 (90 Rive r Base) e HFA 00 AM neede Base) Health MCG/ACT 108 EDT d} MCG/ACT Care) (90 Base) MCG/AC T All-In-One All-In 03/03/ active All-In-O ne eCW3 Nebulizer -One 2019 Nebulizer ([facility] - Nebuli 12:00: System - [place] [facility] zer 00 AM Health System EDT Care) - All-In-One All-In 03/03/ active All-In-O ne eCW3 Nebulizer -One 2019 Nebulizer ([facility] - Nebuli 12:00: System - [place] er zer 00 AM Health System EDT Care) - Albuterol Albute 2.0 active Albuterol eCW3 Sulfate HFA rol 2019 {puff Sulfate HFA (Narayanan 108 (90 Sulfat 12:00: s_as_ 108 (90 Rive r Base) e HFA 00 AM neede Base) Health MCG/ACT 108 EDT d} MCG/ACT Care) (90 Base) MCG/AC T Albuterol Albute 2.0 active Albuterol eCW3 Sulfate HFA rol 2019 {puff Sulfate HFA (Narayanan 108 (90 Sulfat 12:00: s_as_ 108 (90 Rive r Base) e HFA 00 AM neede Base) Health MCG/ACT 108 EDT d} MCG/ACT Care) (90 Base) MCG/AC T All-In-One All-In 03/03/ active All-In-O ne eCW3 Nebulizer -One 2019 Nebulizer ([facility] - Nebuli 12:00: System - [place] er zer 00 AM Health System EDT Care) - Albuterol Albute .0 active Albuterol eCW3 Sulfate HFA rol 2019 {puff Sulfate HFA (Narayanan 108 (90 Sulfat 12:00: s_as_ 108 (90 Rive r Base) e HFA 00 AM neede Base) Health MCG/ACT 108 EDT d} MCG/ACT Care) (90 Base) MCG/AC T All-In-One All-In 03/03/ active All-In-O ne eCW3 Nebulizer -One 2019 Nebulizer ([facility] - Nebuli 12:00: System - [place] er zer 00 AM Health System EDT Care) - Albuterol Albute .0 active Albuterol eCW3 Sulfate HFA rol 2019 {puff Sulfate HFA (Narayanan 108 (90 Sulfat 12:00: s_as_ 108 (90 Rive r Base) e HFA 00 AM neede Base) Health MCG/ACT 108 EDT d} MCG/ACT Care) (90 Base) MCG/AC T All-In-One All-In 03/03/ active All-In-O ne eCW3 Nebulizer -One 2018 Nebulizer ([facility] - Nebuli 12:00: System - [place] [facility] zer 00 AM Health System EDT Care) - All-In-One All-In 03/03/ active All-In-O ne eCW3 Nebulizer -One 2019 Nebulizer ([facility] - Nebuli 12:00: System - [place] er zer 00 AM Health System EDT Care) - All-In-One All-In 03/03/ active All-In-O ne eCW3 Nebulizer -One 2019 Nebulizer ([facility] - Nebuli 12:00: System - [place] er zer 00 AM Health System EDT Care) - Tylenol 8 Tyleno .0 active Tylenol 8 eCW3 Hour 650 MG l 8 2018 {tabl Hour 650 MG (Narayanan Hour 12:00: ets_a [place] 650 MG 00 AM s_[facility] Health EDT ded} Care) Tylenol 8 Tyleno .0 active Tylenol 8 eCW3 Hour 650 MG l 8 2018 {tabl Hour 650 MG (Narayanan Hour 12:00: ets_a [place] 650 MG 00 AM s_ne Health EDT ded} Care) Nicotine 2 Nicoti .0 active Nicotine eCW3 MG Chewing ne 2018 {piec Polacrilex 2 (Narayanan Gum Polacr 12:00: e_as_ MG [place] Nicotine ilex 2 00 AM neede Health Polacrilex MG EDT d} Care) 2 MG Glucose UNK 11/03/ active Glucose Test eCW3 Test Strips 2019 Strips ([facility] Compatiable 12:00: Compatiable [place] with 00 AM with Health Patients EDT Patients Care) Machine Machine Glucose UNK 11/03/ active Glucose Test eCW3 Test Strips 2019 Strips ([facility] Compatiable 12:00: Compatiable [place] with 00 AM with Health Patients EDT Patients Care) Machine Machine Tylenol 8 Tyleno .0 active Tylenol 8 eCW3 Hour 650 MG l 8 2018 {tabl Hour 650 MG (Narayanan Hour 12:00: ets_a [place] 650 MG 00 AM s_ne Health EDT ded} Care) Nicotine 2 Nicoti .0 active Nicotine eCW3 MG Chewing ne 2018 {piec Polacrilex 2 (Narayanan Gum Polacr 12:00: e_as_ MG [place] Nicotine ilex 2 00 AM neede Health Polacrilex MG EDT d} Care) 2 MG Glucose UNK 11/03/ active Glucose Test eCW3 Test Strips 2019 Strips ([facility] Compatiable 12:00: Compatiable [place] with 00 AM with Health Patients EDT Patients Care) Machine Machine Tylenol 8 Tyleno 1.0 active Tylenol 8 eCW3 Hour 650 MG l 8 2018 {tabl Hour 650 MG (Narayanan Hour 12:00: ets_a [place] 650 MG 00 AM s_nee Health EDT ded} Care) Glucose UNK 11/03/ active Glucose Test eCW3 Test Strips 2019 Strips ([facility] Compatiable 12:00: Compatiable [place] with 00 AM with Health Patients EDT Patients Care) Machine Machine Tylenol 8 Tyleno .0 active Tylenol 8 eCW3 Hour 650 MG l 8 2018 {tabl Hour 650 MG (Narayanan Hour 12:00: ets_a [place] 650 MG 00 AM s_nee Health EDT ded} Care) Nicotine 2 Nicoti .0 active Nicotine eCW3 MG Chewing ne 2018 {piec Polacrilex 2 (Narayanan Gum Polacr 12:00: e_as_ MG [place] Nicotine ilex 2 00 AM neede Health Polacrilex MG EDT d} Care) 2 MG Tylenol 8 Tyleno .0 active Tylenol 8 eCW3 Hour 650 MG l 8 2018 {tabl Hour 650 MG (Narayanan Hour 12:00: ets_a [place] 650 MG 00 AM s_nee Health EDT ded} Care) Tylenol 8 Tyleno .0 active Tylenol 8 eCW3 Hour 650 MG l 8 2018 {tabl Hour 650 MG (N[facility]ayanan Hour 12:00: ets_a [place] 650 MG 00 AM s_ne Health EDT ded} Care) Tylenol 8 Tyleno .0 active Tylenol 8 eCW3 Hour 650 MG l 8 2018 {tabl Hour 650 MG (Narayanan Hour 12:00: ets_a [place] 650 MG 00 AM s_nee Health EDT ded} Care) Nicotine 2 Nicoti .0 active Nicotine eCW3 MG Chewing ne 2018 {piec Polacrilex 2 (Narayanan Gum Polacr 12:00: e_as_ MG [place] Nicotine ilex 2 00 AM neede Health Polacrilex MG EDT d} Care) 2 MG 24 HR Nicode .0 active Nicoderm CQ e CW3 Nicotine rm CQ 2018 {patc 14 MG/24HR (Hu dson 0.583 MG/HR 14 12:00: h_to_ [place] Transdermal MG/24H 00 AM skin} Heal th Patch R EDT Care) [Nicoderm C-Q] Nicoderm CQ 14 MG/24HR Nicotine 2 Nicoti .0 active Nicotine eCW3 MG Chewing ne 2018 {piec Polacrilex 2 (Narayanan Gum Polacr 12:00: e_as_ MG [place] Nicotine ilex 2 00 AM neede Health Polacrilex MG EDT d} Care) 2 MG Glucose UNK 11/03/ active Glucose Test eCW3 Test Strips 2019 Strips ([facility] Compatiable 12:00: Compatiable [place] with 00 AM with Health Patients EDT Patients Care) Machine Machine Glucose UNK 11/03/ active Glucose Test eCW3 Test Strips 2019 Strips ([facility] Compatiable 12:00: Compatiable [place] with 00 AM with Health Patients EDT Patients Care) Machine Machine Glucose UNK 11/03/ active Glucose Test eCW3 Test Strips 2019 Strips ([facility] Compatiable 12:00: Compatiable [place] with 00 AM with Health Patients EDT Patients Care) Machine Machine Glucose UNK 11/03/ active Glucose Test eCW3 Test Strips 2019 Strips ([facility] Compatiable 12:00: Compatiable [place] with 00 AM with Health Patients EDT Patients Care) Machine Machine Tylenol 8 Tyleno .0 active Tylenol 8 eCW3 Hour 650 MG l 8 2018 {tabl Hour 650 MG (N[facility]ayanan Hour 12:00: ets_a [place] 650 MG 00 AM s_nee Health EDT ded} Care) Tylenol 8 Tyleno .0 active Tylenol 8 eCW3 Hour 650 MG l 8 2018 {tabl Hour 650 MG (N[facility]ayanan Hour 12:00: ets_a [place] 650 MG 00 AM s_nee Health EDT ded} Care) Glucose UNK 11/03/ active Glucose Test eCW3 Test Strips 2019 Strips ([facility] Compatiable 12:00: Compatiable [place] with 00 AM with Health Patients EDT Patients Care) Machine Machine Nicotine 2 Nicoti .0 active Nicotine eCW3 MG Chewing ne 2018 {piec Polacrilex 2 (Narayanan Gum Polacr 12:00: e_as_ MG [place] Nicotine ilex 2 00 AM neede Health Polacrilex MG EDT d} Care) 2 MG Nicotine 2 Nicoti 1.0 active Nicotine eCW3 MG Chewing ne 2018 {piec Polacrilex 2 (Narayanan Gum Polacr 12:00: e_as_ MG [place] Nicotine ilex 2 00 AM neede Health Polacrilex MG EDT d} Care) 2 MG Glucose UNK 11/03/ active Glucose Test eCW3 Test Strips 2018 Strips ([facility] Compatiable 12:00: Compatiable [place] with 00 AM with Health Patients EDT Patients Care) Machine Machine Nicotine 2 Nicoti 1.0 active Nicotine eCW3 MG Chewing ne 2018 {piec Polacrilex 2 (Narayanan Gum Polacr 12:00: e_as_ MG [place] Nicotine ilex 2 00 AM neede Health Polacrilex MG EDT d} Care) 2 MG Glucose UNK 11/03/ active Glucose Test eCW3 Test Strips 2019 Strips ([facility] Compatiable 12:00: Compatiable [place] with 00 AM with Health Patients EDT Patients Care) Machine Machine Nicotine 2 Nicoti .0 active Nicotine eCW3 MG Chewing ne 2018 {piec Polacrilex 2 (Narayanan Gum Polacr 12:00: e_as_ MG [place] Nicotine ilex 2 00 AM neede Health Polacrilex MG EDT d} Care) 2 MG Nicotine 2 Nicoti .0 active Nicotine eCW3 MG Chewing ne 2018 {piec Polacrilex 2 (Narayanan Gum Polacr 12:00: e_as_ MG [place] Nicotine ilex 2 00 AM neede Health Polacrilex MG EDT d} Care) 2 MG Tylenol 8 Tyleno .0 active Tylenol 8 eCW3 Hour 650 MG l 8 2018 {tabl Hour 650 MG (Narayanan Hour 12:00: ets_a [place] 650 MG 00 AM s_nee Health EDT ded} Care) Tylenol 8 Tyleno .0 active Tylenol 8 eCW3 Hour 650 MG l 8 2018 {tabl Hour 650 MG (Narayanan Hour 12:00: ets_a [place] 650 MG 00 AM s_nee Health EDT ded} Care) Glucose UNK 11/03/ active Glucose Test eCW3 Test Strips 2019 Strips ([facility] Compatiable 12:00: Compatiable [place] with 00 AM with Health Patients EDT Patients Care) Machine Machine Nicotine 2 Nicoti .0 active Nicotine eCW3 MG Chewing ne 2018 {piec Polacrilex 2 (Narayanan Gum Polacr 12:00: e_as_ MG [place] Nicotine ilex 2 00 AM neede Health Polacrilex MG EDT d} Care) 2 MG Nicotine 2 Nicoti .0 active Nicotine eCW3 MG Chewing ne 2018 {piec Polacrilex 2 (Narayanan Gum Polacr 12:00: e_as_ MG [place] Nicotine ilex 2 00 AM neede Health Polacrilex MG EDT d} Care) 2 MG Multi Multi 07/06/ active Multi eCW3 Complete - Comple 2017 Complete - ( Narayanan te - 12:00: [place] 00 AM Health EST Care) Multi Multi 07/06/ active Multi eCW3 Complete - Comple 2017 Complete - ( Treichlers te - 12:00: [place] 00 AM Health EST Care) 24 HR MetFOR .0 active MetFORMIN eCW 3 Metformin MIN 2018 {tabl HCl ER 750 (Hu dson hydrochlori HCl ER 12:00: et_wi MG [place] er de 750 MG 750 MG 00 AM th_ev Health Extended EST ening Care) Release _meal Oral Tablet } MetFORMIN HCl ER 750 MG Multi Multi 07/06/ active Multi eCW3 Complete - Comple 2017 Complete - ( Narayanan te - 12:00: [place] 00 AM Health EST Care) Multi Multi 07/06/ active Multi eCW3 Complete - Comple 2017 Complete - ( Treichlers te - 12:00: [place] 00 AM Health EST Care) Multi Multi 07/06/ active Multi eCW3 Complete - Comple 2017 Complete - ( Narayanan te - 12:00: [place] 00 AM Health EST Care) Multi Multi 07/06/ active Multi eCW3 Complete - Comple 2017 Complete - ( Narayanan te - 12:00: [place] 00 AM Health EST Care) 24 HR MetFOR .0 active MetFORMIN eCW 3 Metformin MIN 2018 {tabl HCl ER 750 (Hu dson hydrochlori HCl ER 12:00: et_wi MG [place] er de 750 MG 750 MG 00 AM th_ev Health Extended EST ening Care) Release _meal Oral Tablet } MetFORMIN HCl ER 750 MG Multi Multi 07/06/ active Multi eCW3 Complete - Comple 2018 Complete - ( Narayanan te - 12:00: [place] 00 AM Health EST Care) Multi Multi 07/06/ active Multi eCW3 Complete - Comple 2017 Complete - ( Narayanan te - 12:00: [place] 00 AM Health EST Care) Multi Multi 07/06/ active Multi eCW3 Complete - Comple 2018 Complete - ( Narayanan te - 12:00: [place] 00 AM Health EST Care) Multi Multi 07/06/ active Multi eCW3 Complete - Comple 2017 Complete - ( Narayanan te - 12:00: [place] 00 AM Health EST Care) Multi Multi 07/06/ active Multi eCW3 Complete - Comple 2017 Complete - ( Narayanan te - 12:00: [place] 00 AM Health EST Care) Multi Multi 07/06/ active Multi eCW3 Complete - Comple 2017 Complete - ( Narayanan te - 12:00: [place] 00 AM Health EST Care) cetirizine Cetiri .0 active Cetirizi ne eCW3 hydrochlori ne 2017 {tabl HCl 10 MG (H udson de 10 MG HCl 10 12:00: et} [place] Oral Tablet MG 00 AM Health Cetirizine EDT Care) HCl 10 MG cetirizine Cetiri .0 active Cetirizi ne eCW3 hydrochlori zine 2017 {tabl HCl 10 MG (H udson de 10 MG HCl 10 12:00: et} [place] Oral Tablet MG 00 AM Health Cetirizine EDT Care) HCl 10 MG cetirizine Cetiri .0 active Cetirizi ne eCW3 hydrochlori zine 2017 {tabl HCl 10 MG (H udson de 10 MG HCl 10 12:00: et} [place] Oral Tablet MG 00 AM Health Cetirizine EDT Care) HCl 10 MG cetirizine Cetiri .0 active Cetirizi ne eCW3 hydrochlori zine 2017 {tabl HCl 10 MG (H udson de 10 MG HCl 10 12:00: et} [place] Oral Tablet MG 00 AM Health Cetirizine EDT Care) HCl 10 MG cetirizine Cetiri .0 active Cetirizi ne eCW3 hydrochlori zine 2017 {tabl HCl 10 MG (H udson de 10 MG HCl 10 12:00: et} [place] Oral Tablet MG 00 AM Health Cetirizine EDT Care) HCl 10 MG cetirizine Cetiri .0 active Cetirizi ne eCW3 hydrochlori zine 2017 {tabl HCl 10 MG (H udson de 10 MG HCl 10 12:00: et} [place] Oral Tablet MG 00 AM Health Cetirizine EDT Care) HCl 10 MG cetirizine Cetiri .0 active Cetirizi ne eCW3 hydrochlori zine 2017 {tabl HCl 10 MG (H udson de 10 MG HCl 10 12:00: et} [place] Oral Tablet MG 00 AM Health Cetirizine EDT Care) HCl 10 MG cetirizine Cetiri .0 active Cetirizi ne eCW3 hydrochlori zine 2017 {tabl HCl 10 MG (H udson de 10 MG HCl 10 12:00: et} [place] Oral Tablet MG 00 AM Health Cetirizine EDT Care) HCl 10 MG cetirizine Cetiri .0 active Cetirizi ne eCW3 hydrochlori zine 2017 {tabl HCl 10 MG (H udson de 10 MG HCl 10 12:00: et} [place] Oral Tablet MG 00 AM Health Cetirizine EDT Care) HCl 10 MG cetirizine Cetiri .0 active Cetirizi ne eCW3 hydrochlori zine 2017 {tabl HCl 10 MG (H udson de 10 MG HCl 10 12:00: et} [place] Oral Tablet MG 00 AM Health Cetirizine EDT Care) HCl 10 MG cetirizine Cetiri .0 active Cetirizi ne eCW3 hydrochlori zine 2017 {tabl HCl 10 MG (H udson de 10 MG HCl 10 12:00: et} [place] Oral Tablet MG 00 AM Health Cetirizine EDT Care) HCl 10 MG cetirizine Cetiri .0 active Cetirizi ne eCW3 hydrochlori zine 2017 {tabl HCl 10 MG (H udson de 10 MG HCl 10 12:00: et} [place] Oral Tablet MG 00 AM Health Cetirizine EDT Care) HCl 10 MG GLUCOMETER UNK 01/15/ active GLUCOMETER 1 eCW3 2017 (Narayanan 12:00: [place] 00 AM Health EDT Care) GLUCOMETER UNK 01/15/ active GLUCOMETER 1 eCW3 1 2018 (Narayanan 12:00: [place] 00 AM Health EDT Care) LANCETS Not UNK 01/15/ active LANCETS N ot eCW3 applicable 2018 applicable (Hu dson 12:00: [place] 00 AM Health EDT Care) Lancet Lancet 01/15/ active Lancet eCW3 Device with Device 2018 Device with ([facility] Ejector - with 12:00: Ejector - [place] er Ejecto 00 AM Health r - EDT Care) atorvastati Atorva 01/15/ 1.0 active Atorvas tatin eCW3 n 40 MG statin 2018 {tabl Calcium 40 ( dson Oral Tablet Calciu 12:00: et} MG R[place] r Atorvastati m 40 00 AM Health n Calcium MG EDT Care) 40 MG Gauze Pads UNK 01/15/ active Gauze Pads 2 eCW3 2 2018 (Narayanan 12:00: [place] 00 AM Health EDT Care) Gauze Pads UNK 01/15/ active Gauze Pads 2 eCW3 2 2018 (Narayanan 12:00: [place] 00 AM Health EDT Care) ALCOHOL UNK 01/15/ active ALCOHOL PREP eCW3 PREP PADS 2018 PADS not ([facility] not 12:00: applicable [place] applicable 00 AM Health EDT Care) Lancet Lancet 01/15/ active Lancet eCW3 Device with Device 2018 Device with ([facility] Ejector - with 12:00: Ejector - [place] er Ejecto 00 AM Health r - EDT Care) Knee Knee 01/15/ active Knee eCW3 Support/Angie Suppor 2018 Support/Angie s (Narayanan stic/Firm t/Elas 12:00: tic/Firm Lg [place] Lg - tic/Fi 00 AM - Health Lg EDT Care) - Knee Knee 01/15/ active Knee eCW3 Support/Angie Suppor 2018 Support/Angie s (Narayanan stic/Firm t/Elas 12:00: tic/Firm Lg [place] Lg - tic/Fi 00 AM - Health Lg EDT Care) - Knee Knee 01/15/ active Knee eCW3 Support/Angie Suppor 2018 Support/Angie s (Narayanan stic/Firm t/Elas 12:00: tic/Firm Lg [place] Lg - tic/Fi 00 AM - Health Lg EDT Care) - LANCETS Not UNK 01/15/ active LANCETS N ot eCW3 applicable 2018 applicable (Hu dson 12:00: [place] 00 AM Health EDT Care) atorvastati Atorva 1.0 active Atorvas tatin eCW3 n 40 MG statin 2018 {tabl Calcium 40 (Hu dson Oral Tablet Calciu 12:00: et} MG [place] r Atorvastati m 40 00 AM Health n Calcium MG EDT Care) 40 MG Gauze Pads UNK 01/15/ active Gauze Pads 2 eCW3 2 2017 (Narayanan 12:00: [place] 00 AM Health EDT Care) atorvastati Atorva .0 active Atorvas tatin eCW3 n 40 MG statin 2018 {tabl Calcium 40 (Hu dson Oral Tablet Calciu 12:00: et} MG Rive r Atorvastati m 40 00 AM Health n Calcium MG EDT Care) 40 MG ALCOHOL UNK 01/15/ active ALCOHOL PREP eCW3 PREP PADS 2018 PADS not ([place] n not 12:00: applicable [place] applicable 00 AM Health EDT Care) GLUCOMETER UNK 01/15/ active GLUCOMETER 1 eCW3 1 2017 (Narayanan 12:00: [place] 00 AM Health EDT Care) Knee Knee 01/15/ active Knee eCW3 Support/Angie Suppor 2018 Support/Angie s (Narayanan stic/Firm t/Elas 12:00: tic/Firm Lg [place] Lg - tic/Fi 00 AM - [facility] EDT Care) - Knee Knee 01/15/ active Knee eCW3 Support/Angie Suppor 2018 Support/Angie s (Narayanan stic/Firm t/Elas 12:00: tic/Firm Lg [place] Lg - tic/Fi 00 AM - [facility] EDT Care) - GLUCOMETER UNK 01/15/ active GLUCOMETER 1 eCW3 1 2017 (Narayanan 12:00: [place] 00 AM Health EDT Care) Gauze Pads UNK 01/15/ active Gauze Pads 2 eCW3 2 2017 (Narayanan 12:00: [place] 00 AM Health EDT Care) Amlodipine Amlodi .0 active Amlodipi ne eCW3 10 MG Oral pine 2018 {tabl Besylate 10 ( Narayanan Tablet Besyla 12:00: et} mg [place] Amlodipine te 10 00 AM Health Besylate 10 mg EDT Care) mg ALCOHOL UNK 01/15/ active ALCOHOL PREP eCW3 PREP PADS 2018 PADS not ([place] not 12:00: applicable [place] applicable 00 AM Health EDT Care) Amlodipine Amlodi 1.0 active Amlodipi ne eCW3 10 MG Oral pine 2018 {tabl Besylate 10 ( Narayanan Tablet Besyla 12:00: et} mg [place] Amlodipine te 10 00 AM Health Besylate 10 mg EDT Care) mg atorvastati Atorva .0 active Atorvas tatin eCW3 n 40 MG statin 2018 {tabl Calcium 40 (Hu dson Oral Tablet Calciu 12:00: et} MG Rive r Atorvastati m 40 00 AM Health n Calcium MG EDT Care) 40 MG atorvastati Atorva .0 active Atorvas tatin eCW3 n 40 MG statin 2018 {tabl Calcium 40 (Hu dson Oral Tablet Calciu 12:00: et} MG [place] r Atorvastati m 40 00 AM Health n Calcium MG EDT Care) 40 MG LANCETS Not UNK 01/15/ active LANCETS N ot eCW3 applicable 2018 applicable (Hu dson 12:00: [place] 00 AM Health EDT Care) Knee Knee 01/15/ active Knee eCW3 Support/Angie Suppor 2018 Support/Angie s (Narayanan stic/Firm t/Elas 12:00: tic/Firm Lg [place] Lg - tic/Fi 00 AM - Health rm Lg EDT Care) - GLUCOMETER UNK 01/15/ active GLUCOMETER 1 eCW3 1 2017 (Narayanan 12:00: [place] 00 AM Health EDT Care) Amlodipine Amlodi .0 active Amlodipi ne eCW3 10 MG Oral pine 2018 {tabl Besylate 10 ( Narayanan Tablet Besyla 12:00: et} mg [place] Amlodipine te 10 00 AM Health Besylate 10 mg EDT Care) mg LANCETS Not UNK 01/15/ active LANCETS N ot eCW3 applicable 2018 applicable (Hu dson 12:00: [place] 00 AM Health EDT Care) Gauze Pads UNK 01/15/ active Gauze Pads 2 eCW3 2 2018 (Narayanan 12:00: [place] 00 AM Health EDT Care) Knee Knee 01/15/ active Knee eCW3 Support/Angie Suppor 2018 Support/Angie s (Narayanan stic/Firm t/Elas 12:00: tic/Firm Lg [place] Lg - tic/Fi 00 AM - Health rm Lg EDT Care) - ALCOHOL UNK 01/15/ active ALCOHOL PREP eCW3 PREP PADS 2018 PADS not ([place] not 12:00: applicable [place] applicable 00 AM Health EDT Care) Amlodipine Amlodi 1.0 active Amlodipi ne eCW3 10 MG Oral pine 2018 {tabl Besylate 10 ( Narayanan Tablet Besyla 12:00: et} mg [place] Amlodipine te 10 00 AM Health Besylate 10 mg EDT Care) mg Lancet Lancet 01/15/ active Lancet eCW3 Device with Device 2018 Device with ([facility] Ejector - with 12:00: Ejector - Vicente er Ejecto 00 AM Health r - EDT Care) ALCOHOL UNK 01/15/ active ALCOHOL PREP eCW3 PREP PADS 2018 PADS not ([place] not 12:00: applicable [place] applicable 00 AM Health EDT Care) Gauze Pads UNK 01/15/ active Gauze Pads 2 eCW3 2 2017 (Narayanan 12:00: [place] 00 AM Health EDT Care) Amlodipine Amlodi .0 active Amlodipi ne eCW3 10 MG Oral pine 2018 {tabl Besylate 10 ( Narayanan Tablet Besyla 12:00: et} mg [place] Amlodipine te 10 00 AM Health Besylate 10 mg EDT Care) mg atorvastati Atorva .0 active Atorvas tatin eCW3 n 40 MG statin 2018 {tabl Calcium 40 (Hu dson Oral Tablet Calciu 12:00: et} MG [place] r Atorvastati m 40 00 AM Health n Calcium MG EDT Care) 40 MG GLUCOMETER UNK 01/15/ active GLUCOMETER 1 eCW3 1 2017 (Narayanan 12:00: [place] 00 AM Health EDT Care) LANCETS Not UNK 01/15/ active LANCETS N ot eCW3 applicable 2017 applicable (Hu dson 12:00: [place] 00 AM Health EDT Care) LANCETS Not UNK 01/15/ active LANCETS N ot eCW3 applicable 2018 applicable (Hu dson 12:00: [place] 00 AM Health EDT Care) ALCOHOL UNK 01/15/ active ALCOHOL PREP eCW3 PREP PADS 2018 PADS not ([place] not 12:00: applicable [place] applicable 00 AM Health EDT Care) Knee Knee 01/15/ active Knee eCW3 Support/Angie Suppor 2018 Support/Angie s (Narayanan stic/Firm t/Elas 12:00: tic/Firm Lg [place] Lg - tic/Fi 00 AM - Health [facility] EDT Care) - Knee Knee 01/15/ active Knee eCW3 Support/Angie Suppor 2018 Support/Angie s (Nraayanan stic/Firm t/Elas 12:00: tic/Firm Lg [place] Lg - tic/Fi 00 AM - [facility] EDT Care) - GLUCOMETER UNK 01/15/ active GLUCOMETER 1 eCW3 2017 (Narayanan 12:00: [place] 00 AM Health EDT Care) atorvastati Atorva .0 active Atorvas tatin eCW3 n 40 MG statin 2018 {tabl Calcium 40 (Hu dson Oral Tablet Calciu 12:00: et} MG [place] r Atorvastati m 40 00 AM Health n Calcium MG EDT Care) 40 MG LANCETS Not UNK 01/15/ active LANCETS N ot eCW3 applicable 2018 applicable (Hu dson 12:00: [place] 00 AM Health EDT Care) ALCOHOL UNK 01/15/ active ALCOHOL PREP eCW3 PREP PADS 2018 PADS not ([place] not 12:00: applicable [place] applicable 00 AM Health EDT Care) atorvastati Atorva .0 active Atorvas tatin eCW3 n 40 MG statin 2018 {tabl Calcium 40 (Hu dson Oral Tablet Calciu 12:00: et} MG [place] r Atorvastati m 40 00 AM Health n Calcium MG EDT Care) 40 MG LANCETS Not UNK 01/15/ active LANCETS N ot eCW3 applicable 2018 applicable (Hu dson 12:00: [place] 00 AM Health EDT Care) Amlodipine Amlodi .0 active Amlodipi ne eCW3 10 MG Oral pine 2018 {tabl Besylate 10 ( Narayanan Tablet Besyla 12:00: et} mg [place] Amlodipine te 10 00 AM Health Besylate 10 mg EDT Care) mg Amlodipine Amlodi 1.0 active Amlodipi ne eCW3 10 MG Oral pine 2018 {tabl Besylate 10 ( Narayanan Tablet Besyla 12:00: et} mg [place] Amlodipine te 10 00 AM Health Besylate 10 mg EDT Care) mg Lancet Lancet 01/15/ active Lancet eCW3 Device with Device 2018 Device with ([facility] Ejector - with 12:00: Ejector - [place] er Ejecto 00 AM Health r - EDT Care) ALCOHOL UNK 01/15/ active ALCOHOL PREP eCW3 PREP PADS 2018 PADS not ([place] not 12:00: applicable [place] applicable 00 AM Health EDT Care) Gauze Pads UNK 01/15/ active Gauze Pads 2 eCW3 2 2017 (Narayanan 12:00: [place] 00 AM Health EDT Care) Amlodipine Amlodi 1.0 active Amlodipi ne eCW3 10 MG Oral pine 2017 {tabl Besylate 10 ( Narayanan Tablet Besyla 12:00: et} mg [place] Amlodipine te 10 00 AM Health Besylate 10 mg EDT Care) mg Amlodipine Amlodi 1.0 active Amlodipi ne eCW3 10 MG Oral pine 2017 {tabl Besylate 10 ( Narayanan Tablet Besyla 12:00: et} mg [place] Amlodipine te 10 00 AM Health Besylate 10 mg EDT Care) mg GLUCOMETER UNK 01/15/ active GLUCOMETER 1 eCW3 1 2017 (Narayanan 12:00: [place] 00 AM Health EDT Care) ALCOHOL UNK 01/15/ active ALCOHOL PREP eCW3 PREP PADS 2018 PADS not ([place] not 12:00: applicable [place] applicable 00 AM Health EDT Care) Knee Knee 01/15/ active Knee eCW3 Support/Angie Suppor 2018 Support/Angie s (Narayanan stic/Firm t/Elas 12:00: tic/Firm Lg [place] Lg - tic/Fi 00 AM - Health Lg EDT Care) - GLUCOMETER UNK 01/15/ active GLUCOMETER 1 eCW3 1 2017 (Narayanan 12:00: [place] 00 AM Health EDT Care) atorvastati Atorva 1.0 active Atorvas tatin eCW3 n 40 MG statin 2018 {tabl Calcium 40 ( dson Oral Tablet Calciu 12:00: et} MG [place] r Atorvastati m 40 00 AM Health n Calcium MG EDT Care) 40 MG LANCETS Not UNK 01/15/ active LANCETS N ot eCW3 applicable 2017 applicable ( dson 12:00: [place] 00 AM Health EDT Care) GLUCOMETER UNK 01/15/ active GLUCOMETER 1 eCW3 1 2017 (Narayanan 12:00: [place] 00 AM Health EDT Care) Knee Knee 01/15/ active Knee eCW3 Support/Angie Suppor 2018 Support/Angie s (Narayanan stic/Firm t/Elas 12:00: tic/Firm Lg [place] Lg - tic/Fi 00 AM - Health Lg EDT Care) - Lancet Lancet 01/15/ active Lancet eCW3 Device with Device 2018 Device with ([facility] Ejector - with 12:00: Ejector - [place] Ejecto 00 AM Health r - EDT Care) Lancet Lancet 01/15/ active Lancet eCW3 Device with Device 2018 Device with ([facility] Ejector - with 12:00: Ejector - [place] Ejecto 00 AM Health r - EDT Care) Gauze Pads UNK 01/15/ active Gauze Pads 2 eCW3 2 2017 (Naaryanan 12:00: [place] 00 AM Health EDT Care) Lancet Lancet 01/15/ active Lancet eCW3 Device with Device 2018 Device with ([facility] Ejector - with 12:00: Ejector - [place] Ejecto 00 AM Health r - EDT Care) Amlodipine Amlodi 01/15/ 1.0 active Amlodipi ne eCW3 10 MG Oral pine 2018 {tabl Besylate 10 ( Narayanan Tablet Besyla 12:00: et} mg [place] Amlodipine te 10 00 AM Health Besylate 10 mg EDT Care) mg ALCOHOL UNK 01/15/ active ALCOHOL PREP eCW3 PREP PADS 2018 PADS not ([place] not 12:00: applicable [place] applicable 00 AM Health EDT Care) LANCETS Not UNK 01/15/ active LANCETS N ot eCW3 applicable 2017 applicable ( dson 12:00: [place] 00 AM Health EDT Care) Lidocaine Lidoca 01/15/ active Lidocaine -Pr eCW3 25 MG/ML / ine-Pr 2018 ilocaine ( dson Prilocaine ilocai 12:00: 2.5-2.5 % [place] 25 MG/ML ne 00 AM Health Topical 2.5-2. EDT Care) Cream 5 % Lidocaine-P rilocaine 2.5-2.5 % Lancet Lancet 01/15/ active Lancet eCW3 Device with Device 2018 Device with (Narayanan Ejector - with 12:00: Ejector - [place] er Ejecto 00 AM Health r - EDT Care) Gauze Pads UNK 01/15/ active Gauze Pads 2 eCW3 2 2017 (Narayanan 12:00: [place] 00 AM Health EDT Care) LANCETS Not UNK 01/15/ active LANCETS N ot eCW3 applicable 2018 applicable (Hu dson 12:00: [place] 00 AM Health EDT Care) Knee Knee 01/15/ active Knee eCW3 Support/Angie Suppor 2018 Support/Angie s (Narayanan stic/Firm t/Elas 12:00: tic/Firm Lg [place] Lg - tic/Fi 00 AM - Health rm Lg EDT Care) - atorvastati Atorva 1.0 active Atorvas tatin eCW3 n 40 MG statin 2018 {tabl Calcium 40 (Hu dson Oral Tablet Calciu 12:00: et} MG [place] r Atorvastati m 40 00 AM Health n Calcium MG EDT Care) 40 MG ALCOHOL UNK 01/15/ active ALCOHOL PREP eCW3 PREP PADS 2018 PADS not ([place] not 12:00: applicable [place] applicable 00 AM Health EDT Care) atorvastati Atorva 1.0 active Atorvas tatin eCW3 n 40 MG statin 2018 {tabl Calcium 40 (Hu dson Oral Tablet Calciu 12:00: et} MG [place] r Atorvastati m 40 00 AM Health n Calcium MG EDT Care) 40 MG Lancet Lancet 01/15/ active Lancet eCW3 Device with Device 2018 Device with (Narayanan Ejector - with 12:00: Ejector - [place] er Ejecto 00 AM Health r - EDT Care) GLUCOMETER UNK 01/15/ active GLUCOMETER 1 eCW3 1 2018 (Narayanan 12:00: [place] 00 AM Health EDT Care) Lancet Lancet 01/15/ active Lancet eCW3 Device with Device 2018 Device with ([facility] Ejector - with 12:00: Ejector - [place] er Ejecto 00 AM Health r - EDT Care) Gauze Pads UNK 01/15/ active Gauze Pads 2 eCW3 2 2017 (Narayanan 12:00: [place] 00 AM Health EDT Care) atorvastati Atorva 1.0 active Atorvas tatin eCW3 n 40 MG statin 2018 {tabl Calcium 40 ( dson Oral Tablet Calciu 12:00: et} MG Rive r Atorvastati m 40 00 AM Health n Calcium MG EDT Care) 40 MG LANCETS Not UNK 01/15/ active LANCETS N ot eCW3 applicable 2017 applicable (Hu dson 12:00: [place] 00 AM Health EDT Care) Amlodipine Amlodi .0 active Amlodipi ne eCW3 10 MG Oral pine 2018 {tabl Besylate 10 ( Narayanan Tablet Besyla 12:00: et} mg [place] Amlodipine te 10 00 AM Health Besylate 10 mg EDT Care) mg Gauze Pads UNK 01/15/ active Gauze Pads 2 eCW3 2 2017 (Narayanan 12:00: [place] 00 AM Health EDT Care) Gauze Pads UNK 01/15/ active Gauze Pads 2 eCW3 2 2017 (Narayanan 12:00: [place] 00 AM Health EDT Care) GLUCOMETER UNK 01/15/ active GLUCOMETER 1 eCW3 1 2017 (Narayanan 12:00: [place] 00 AM Health EDT Care) Amlodipine Amlodi .0 active Amlodipi ne eCW3 10 MG Oral pine 2018 {tabl Besylate 10 ( Narayanan Tablet Besyla 12:00: et} mg [place] Amlodipine te 10 00 AM Health Besylate 10 mg EDT Care) mg Knee Knee 01/15/ active Knee eCW3 Support/Angie Suppor 2018 Support/Angie s (Narayanan stic/Firm t/Elas 12:00: tic/Firm Lg [place] Lg - tic/Fi 00 AM - Health rm Lg EDT Care) - ALCOHOL UNK 01/15/ active ALCOHOL PREP eCW3 PREP PADS 2018 PADS not ([place] not 12:00: applicable [place] applicable 00 AM Health EDT Care) Lancet Lancet 01/15/ active Lancet eCW3 Device with Device 2018 Device with (Narayanan Ejector - with 12:00: Ejector - [place] er Ejecto 00 AM Health r - EDT Care) Lancet Lancet 01/15/ active Lancet eCW3 Device with Device 2018 Device with (Narayanan Ejector - with 12:00: Ejector - [place] er Ejecto 00 AM Health r - EDT Care) Lisinopril LISINO active LISINOPRIL 5 eCW3 5 MG Oral PRIL 5 MG (Narayanan Tablet MG [place] LISINOPRIL Health 5 MG Care) Albuterol Albute 2.0 active Albuterol e CW3 Sulfate HFA rol {puff Sulfate HFA (Narayanan 108 (90 Sulfat s_as_ 108 (90 [place] Base) e HFA neede Base) Health MCG/ACT 108 d} MCG/ACT Care) (90 Base) MCG/AC T Lisinopril LISINO active LISINOPRIL 5 eCW3 5 MG Oral PRIL 5 MG (Narayanan Tablet MG [place] LISINOPRIL Health 5 MG Care) Lisinopril LISINO active LISINOPRIL 5 eCW3 5 MG Oral PRIL 5 MG (Narayanan Tablet MG [place] LISINOPRIL Health 5 MG Care) Albuterol Albute 2.0 active Albuterol e CW3 Sulfate HFA rol {puff Sulfate HFA (Narayanan 108 (90 Sulfat s_as_ 108 (90 [place] Base) e HFA neede Base) Health MCG/ACT 108 d} MCG/ACT Care) (90 Base) MCG/AC T Albuterol Albute 2.0 active Albuterol e CW3 Sulfate HFA rol {puff Sulfate HFA (Narayanan 108 (90 Sulfat s_as_ 108 (90 [place] Base) e HFA neede Base) Health MCG/ACT 108 d} MCG/ACT Care) (90 Base) MCG/AC T Albuterol Albute 2.0 active Albuterol e CW3 Sulfate HFA rol {puff Sulfate HFA (Narayanan 108 (90 Sulfat s_as_ 108 (90 [place] [facility]) e HFA neede Base) Health MCG/ACT 108 d} MCG/ACT Care) (90 Base) MCG/AC T Lisinopril LISINO active LISINOPRIL 5 eCW3 5 MG Oral PRIL 5 MG (Narayanan Tablet MG [place] LISINOPRIL Health 5 MG Care) Lisinopril LISINO active LISINOPRIL 5 eCW3 5 MG Oral PRIL 5 MG (Narayanan Tablet MG [place] LISINOPRIL Health 5 MG Care) Albuterol Albute 2.0 active Albuterol e CW3 Sulfate HFA rol {puff Sulfate HFA (Narayanan 108 (90 Sulfat s_as_ 108 (90 [place] Base) e HFA neede Base) Health MCG/ACT 108 d} MCG/ACT Care) (90 Base) MCG/AC T Lisinopril LISINO active LISINOPRIL 5 eCW3 5 MG Oral PRIL 5 MG (Narayanan Tablet MG [place] LISINOPRIL Health 5 MG Care) Lisinopril LISINO active LISINOPRIL 5 eCW3 5 MG Oral PRIL 5 MG (Narayanan Tablet MG [place] LISINOPRIL Health 5 MG Care) Lisinopril LISINO active LISINOPRIL 5 eCW3 5 MG Oral PRIL 5 MG (Narayanan Tablet MG [place] LISINOPRIL Health 5 MG Care) Lisinopril LISINO active LISINOPRIL 5 eCW3 5 MG Oral PRIL 5 MG (Narayanan Tablet MG [place] LISINOPRIL Health 5 MG Care) Lisinopril LISINO active LISINOPRIL 5 eCW3 5 MG Oral PRIL 5 MG (Narayanan Tablet MG [place] LISINOPRIL Health 5 MG Care) Lisinopril LISINO active LISINOPRIL 5 eCW3 5 MG Oral PRIL 5 MG (Narayanan Tablet MG [place] LISINOPRIL Health 5 MG Care) Albuterol Albute 2.0 active Albuterol e CW3 Sulfate HFA rol {puff Sulfate HFA (Narayanan 108 (90 Sulfat s_as_ 108 (90 [place] [facility]) e HFA neede Base) Health MCG/ACT 108 d} MCG/ACT Care) (90 Base) MCG/AC T Albuterol Albute 2.0 active Albuterol e CW3 Sulfate HFA rol {puff Sulfate HFA (Narayanan 108 (90 Sulfat s_as_ 108 (90 [place] [facility]) e HFA neede Base) Health MCG/ACT 108 d} MCG/ACT Care) (90 Base) MCG/AC T Albuterol Albute 2.0 active Albuterol e CW3 Sulfate HFA rol {puff Sulfate HFA (Narayanan 108 (90 Sulfat s_as_ 108 (90 [place] [facility]) e HFA neede Base) Health MCG/ACT 108 d} MCG/ACT Care) (90 Base) MCG/AC T Albuterol Albute 2.0 active Albuterol e CW3 Sulfate HFA rol {puff Sulfate HFA (Narayanan 108 (90 Sulfat s_as_ 108 (90 [place] [facility]) e HFA neede Base) Health MCG/ACT 108 d} MCG/ACT Care) (90 Base) MCG/AC T Albuterol Albute 2.0 active Albuterol e CW3 Sulfate HFA rol {puff Sulfate HFA (Narayanan 108 (90 Sulfat s_as_ 108 (90 [place] [facility]) e HFA neede Base) Health MCG/ACT 108 d} MCG/ACT Care) (90 Base) MCG/AC T Albuterol Albute 2.0 active Albuterol e CW3 Sulfate HFA rol {puff Sulfate HFA (Narayanan 108 (90 Sulfat s_as_ 108 (90 [place] [facility]) e HFA neede Base) Health MCG/ACT 108 d} MCG/ACT Care) (90 Base) MCG/AC T Lisinopril LISINO active LISINOPRIL 5 eCW3 5 MG Oral PRIL 5 MG (Narayanan Tablet MG [place] LISINOPRIL [facility] 5 MG Care) Albuterol Albute 2.0 active Albuterol e CW3 Sulfate HFA rol {puff Sulfate HFA (Narayanan 108 (90 Sulfat s_as_ 108 (90 [place] [facility]) e HFA neede Base) Health MCG/ACT 108 d} MCG/ACT Care) (90 Base) MCG/AC T Insurance Providers Payer name Policy type Policy ID Covered Covered republican's Policy P rbandon / Coverage republican ID relationship to Lorenz Inf ormation type lorenz [facility] [id number] SP [id number] [facility] [id number] FIRST Problems, Conditions, and Diagnoses Code Display Name Description Problem Effective Data Type Dates Source(s) M20.11 Hallux valgus Hallux valgus Problem 02/15/2020 eCW3 (acquired), right foot (acquired), right foot 1 2:00:00 AM ([facility]) R26.9 Gait abnormality Gait abnormality Problem 02/15/2020 eC W3 12:00:00 AM ([facility]) R26.89 Unstable balance Unstable balance Problem 02/15/2020 eC W3 12:00:00 AM ([facility]) E11.9 Diabetes mellitus type Diabetes mellitus type Problem 0 02/15/2020 eCW3 2, noninsulin dependent 2, noninsulin dependent 12:00:00 AM ([facility]) M19.071 Primary osteoarthritis, Primary osteoarthritis, Problem 02/15/2020 eCW3 right ankle and foot right ankle and foot 12:00 :00 AM ([facility]) M19.072 Primary osteoarthritis, Primary osteoarthritis, Problem 02/15/2020 eCW3 left ankle and foot left ankle and foot 12:00:0 0 AM ([facility]) M20.12 Hallux valgus Hallux valgus Problem 07/11/2019 eCW3 (acquired), left foot (acquired), left foot 12: 00:00 AM ([facility]) M20.41 Other hammer toe(s) Other hammer toe(s) Problem 019 eCW3 (acquired), right foot (acquired), right foot 1 2:00:00 AM ([facility]) M20.42 Other hammer toe(s) Other hammer toe(s) Problem 019 eCW3 (acquired), left foot (acquired), left foot 12: 00:00 AM ([facility]) M20.42 Other hammer toe(s) Other hammer toe(s) Problem 019 eCW3 (acquired), left foot (acquired), left foot 12: 00:00 AM ([facility]) M20.12 Hallux valgus Hallux valgus Problem 07/11/2019 eCW3 (acquired), left foot (acquired), left foot 12: 00:00 AM ([facility]) M20.41 Other hammer toe(s) Other hammer toe(s) Problem 019 eCW3 (acquired), right foot (acquired), right foot 1 2:00:00 AM ([facility]) M20.42 Other hammer toe(s) Other hammer toe(s) Problem 019 eCW3 (acquired), left foot (acquired), left foot 12: 00:00 AM ([facility]) M20.12 Hallux valgus Hallux valgus Problem 07/11/2019 eCW3 (acquired), left foot (acquired), left foot 12: 00:00 AM ([facility]) M20.41 Other hammer toe(s) Other hammer toe(s) Problem 019 eCW3 (acquired), right foot (acquired), right foot 1 2:00:00 AM ([facility]) E11.9 Diabetes mellitus type Diabetes mellitus type Problem 1 08/01/2018 eCW3 2, noninsulin dependent 2, noninsulin dependent 12:00:00 AM ([facility]) G56.02 Carpal tunnel syndrome Carpal tunnel syndrome Problem 1 eCW3 of left wrist of left wrist 12:00:00 AM ([facility]) G56.02 Carpal tunnel syndrome Carpal tunnel syndrome Problem 1 eCW3 of left wrist of left wrist 12:00:00 AM ([facility]) G56.02 Carpal tunnel syndrome Carpal tunnel syndrome Problem 1 eCW3 of left wrist of left wrist 12:00:00 AM ([facility]) M17.11 Primary osteoarthritis Primary osteoarthritis Problem 0 03/07/2019 eCW3 of right knee of right knee 12:00:00 AM ([facility]) M17.11 Primary osteoarthritis Primary osteoarthritis Problem 0 03/07/2019 eCW3 of right knee of right knee 12:00:00 AM ([facility]) R26.89 Unstable balance Unstable balance Problem 03/07/2019 eC W3 12:00:00 AM ([facility]) E11.339 Type 2 diabetes Type 2 diabetes Problem 03/07/2019 eCW3 2 mellitus with moderate mellitus with moderate 1 2:00:00 AM ([facility] nonproliferative nonproliferative [facility] diabetic retinopathy diabetic retinopathy Health without macular edema, without macular edema, Care) left eye left eye Z79.4 joint terminal attack controller current use joint terminal attack controller current use Problem 06/2019 eCW3 of insulin of insulin 12:00:00 AM ([facility]) R26.9 Gait abnormality Gait abnormality Problem 03/07/2019 eC W3 12:00:00 AM ([facility]) M20.11 Hallux valgus Hallux valgus Problem 03/07/2019 eCW3 (acquired), right foot (acquired), right foot 1 2:00:00 AM ([facility]) M20.12 Acquired hallux valgus Acquired hallux valgus Problem 0 03/07/2019 eCW3 of left foot of left foot 12:00:00 AM ([facility]) M17.12 Primary osteoarthritis Primary osteoarthritis Problem 0 03/07/2019 eCW3 of left knee of left knee 12:00:00 AM ([facility]) J44.1 COPD with exacerbation COPD with exacerbation Problem 0 12/11/2018 eCW3 12:00:00 AM ([facility]) J44.1 COPD with exacerbation COPD with exacerbation Problem 0 12/11/2018 eCW3 12:00:00 AM ([facility]) F10.10 Alcohol abuse Alcohol abuse Problem 11/03/2018 eCW3 12:00:00 AM ([facility]) F17.210 Cigarette nicotine Cigarette nicotine Problem 9 eCW3 dependence without dependence without 12:00:00 AM ([facility]) F10.10 Alcohol abuse Alcohol abuse Problem 11/03/2018 eCW3 12:00:00 AM ([facility]) F17.210 Cigarette nicotine Cigarette nicotine Problem 9 eCW3 dependence without dependence without 12:00:00 AM ([facility]) F10.10 Alcohol abuse Alcohol abuse Problem 11/03/2018 eCW3 12:00:00 AM ([facility]) J30.2 Seasonal allergy Seasonal allergies Problem 05/22/2018 eCW3 12:00:00 AM ([facility]) J30.2 Seasonal allergy Seasonal allergies Problem 05/22/2018 eCW3 12:00:00 AM ([facility]) Z01.84 Encounter for antibody Immunity to varicella Problem eCW3 response examination determined by serologic 12 :00:00 AM ([facility]) R01.1 Heart murmur, systolic Heart murmur, systolic Problem 0 01/15/2018 eCW3 12:00:00 AM ([facility]) E78.00 Pure Pure Problem 01/15/2018 eCW3 hypercholesterolemia hypercholesterolemia 12:00 :00 AM ([facility]) Z01.84 Encounter for antibody Immunity to measles, Problem eCW3 response examination mumps, and rubella 12:00:0 0 AM ([facility] determined by serologic [facility]) D64.9 Anemia Anemia, unspecified Problem 01/15/2018 eCW3 type 12:00:00 AM ([facility]) M17.0 Arthritis of both knees Arthritis of both knees Problem 01/15/2018 eCW3 12:00:00 AM ([facility]) Z78.9 Hepatitis A immune Hepatitis A immune Problem 8 eCW3 12:00:00 AM ([facility]) Z78.9 Hepatitis B immune Hepatitis B immune Problem 8 eCW3 12:00:00 AM ([facility]) D64.9 Anemia Anemia, unspecified Problem 01/15/2018 eCW3 type 12:00:00 AM ([facility]) Z78.9 Hepatitis A immune Hepatitis A immune Problem 8 eCW3 12:00:00 AM ([facility]) Z01.84 Encounter for antibody Immunity to varicella Problem eCW3 response examination determined by serologic 12 :00:00 AM ([facility]) E78.00 Pure Pure Problem 01/15/2018 eCW3 hypercholesterolemia hypercholesterolemia 12:00 :00 AM ([facility]) Z78.9 Hepatitis B immune Hepatitis B immune Problem 8 eCW3 12:00:00 AM ([facility]) M17.0 Arthritis of both knees Arthritis of both knees Problem 01/15/2018 eCW3 12:00:00 AM ([facility]) R01.1 Heart murmur, systolic Heart murmur, systolic Problem 0 01/15/2018 eCW3 12:00:00 AM ([facility]) Z01.84 Encounter for antibody Immunity to varicella Problem eCW3 response examination determined by serologic 12 :00:00 AM ([facility]) Z01.84 Encounter for antibody Immunity to measles, Problem eCW3 response examination mumps, and rubella 12:00:0 0 AM ([facility] determined by serologic EDT [facility]) M17.0 Arthritis of both knees Arthritis of both knees Problem 01/15/2018 eCW3 12:00:00 AM ([facility]) R01.1 Heart murmur, systolic Heart murmur, systolic Problem 0 01/15/2018 eCW3 12:00:00 AM ([facility]) D64.9 Anemia Anemia, unspecified Problem 01/15/2018 eCW3 type 12:00:00 AM ([facility]) E11.9 Type 2 diabetes Type 2 diabetes Problem 01/07/2018 eCW3 mellitus without mellitus without 12:00:00 AM ( [facility] complication complication, without EDT R iver long-term current use a lt of insulin Care) I10 Essential hypertension Essential hypertension Problem 0 01/07/2018 eCW3 12:00:00 AM ([facility]) J45.20 Mild intermittent Mild intermittent Problem 01/07/2018 eCW3 asthma asthma, unspecified 12:00:00 AM ([facility]) I10 Essential hypertension Essential hypertension Problem 0 01/07/2018 eCW3 12:00:00 AM [facility] Healthcare) E11.9 Type 2 diabetes Type 2 diabetes Problem 01/07/2018 eCW3 mellitus without mellitus without 12:00:00 AM ( [place] complication complication, without EDT R iver long-term current use [facility]) J45.20 Mild intermittent Mild intermittent Problem 01/07/2018 eCW3 asthma asthma, unspecified 12:00:00 AM (Hud son whether complicated EDT [facility]) Results ID Date Data Source [id number] 01/29/2020 02:30:00 PM EDT [facility] Name Value Range Interpretation Description Data Sup porting Code Source(s) Document(s ) SARS [facility] coronavirus 2 RNA This lab was ordered by [facility] ct Bill Inter and reported by [facility]. ID Date Data Source [id number] 01/22/2015 02:01:00 PM EDT [facility] [employer] [facility] KNEE LTD RIGHTCLINICAL HISTORY: Bilateral knee pain.COMPARISON: None available.TE CHNIQUE: AP and lateral views.FINDINGS: The knee joint is well preserved although th ere are some mild hypertrophic changes around the knee joint, most prominently posteri bella along the tibial plateau. There is fairly marked narrowing of the patellofe moral joint along with hypertrophic changes around the patellofemoral joint. There is no joint effusion or loose body.IMPRESSION: Mild hypertrophic klein ges around a relatively normal appearing knee joint. Considerable narrowing of the pa tellofemoral joint along with hypertrophic changes around the patellofemoral joint. Dictated by: KATJA BURRELL M.D. on 01/23/2015 Transcribed by: TENISHA on 01/23/2015 12:26 PMcc: Name Value Range Interpretation Code Description Data Chery rce(s) Supporting Document(s ) ID Date Data Source [id number] 01/22/2015 02:00:00 PM EDT [facility] [employer] [facility] KNEE LTD LEFTCLINICAL HISTORY: Bilateral knee pain.COMPARISON: None available.TE CHNIQUE: AP and lateral views.FINDINGS: There is a large popcorn-like calcific m ass in the suprapatellar region likely representing a large synovial osteochond marlen. Moderate diffuse narrowing of the knee joint is noted along with hypertrophic c hanges along the margins of the joint. Moderate narrowing and hypertrophic klein ges noted involving the patellofemoral joint as well.IMPRESSION: Moderate narrowing and hypertrophic changes involving the knee joint and patellofemoral joint. Large s ynovial osteochondroma in the suprapatellar region.Dictated by: KATJA Mcclendon on 01/23/2015 12: 28 PMTranscribed by: SINAN on 01/23/2015 12:27 PMcc: Name Value Range Interpretation Code Description Data [facility] rce(s) Supporting Document(s ) ID Date Data Source [id number] 12/20/2013 12:26:00 PM EDT [facility] CHEST ROUTINE PA LATCLINICAL HISTORY: Evaluate worsening fibrosis. History of sarcoidosis.COMPARISON: Comparison is made to a prior study of 06/25/2012.TECHNIQUE : PA and lateral views.FINDINGS: Chronic pleuroparenchymal changes are noted with in both lungs, right greater than left. Findings appear slightly less prominent than noted on a prior study of 06/25/2012 but this may due to differences in technique . The hilar and mediastinal areas are normal. There are no pleural effusions.I MPRESSION: Chronic pleuroparenchymal changes bilaterally which appear slightly less p rominent than noted in 2012 but differences may be due to differences in technique r ather than true change. There are no acute findings.Dictated by: KATJA BURRELL M.D. on 12/20/2013 09: 58 PMTranscribed by: on 12/20/2013 09:58 [facility]: Name Value Range Interpretation Code Description Data Chery rce(s) Supporting Document(s ) ID Date Data Source [id number] 09/12/2010 12:00:00 AM [place], [place] [address]PATIENT NAME: Emory SahniMEDICAL RECORD NUMBER: [id number] NUMBER: [id number] OF : 1960DATE OF VISIT: 08/27LOCATION: Endoscopy CtrPROVIDER: Meche Arias MD OU TPATIENT VISIT REPORTMrWilliam Sahni's transbronchial biopsy came back showing time he non-necrotizinggranulomas. Special stains were negative for Mycobacteria an d fungi. Hissmears from his brushings, transbronchial biopsy bronchial washings werelikewise negative for AFB and fungal to date. [facility]It is my impression that he has sarcoidosis. My i mpression also is thatthis should not be treated at this time. He should have [place] pulmonaryfunction studies including spirometry with and without bronchodilat orsdiffusion and lung volumes. If these are normal no treatment is necessarysince th e patient is asymptomatic. He should be followed periodicallyperhaps every 6 mon ths with PFTs and/or chest x-ray to see if his diseasehas progression. If there is any progression of the disease then treatmentshould be considered.*AUTHENTIC ATION SECTION*Electronically signed by:Meche Arias MD 09/13/2010 01:08 P Meche Arias MDBY: [id number] Meche Arias MD, Attend ingD: 09/12/2010 03:24 P AJ: [id number] Doc: [id number]: Ranjit silva MDEND OF DOCUMENT Name Value Range Interpretation Code Description Data Chery rce(s) Supporting Document(s ) ID Date Data Source [id number] 09/05/2010 03:43:[address] [facility] Final Report Attending: TUNG OCONNELL Resident: MOIRA BUITRAGO INDICATION: 50-year-old male with his tory of sarcoidosis, rule out pneumothorax. TECHNIQUE: Portable v iew of the chest. COMPARISON: None. FINDINGS: There is no gross evidence of pneumothorax. The chest wall and soft tissues are normal. The bony structures of the chest are intact without fracture. There is no evidence of p leural disease. There is visualization of diffuse scattered bilateral nodular opacities. The heart and mediastinal contours are unremarkable. IMP RESSION: 1. Diffuse scattered bilateral nodular opacities, likely represent ing underlying sarcoid disease given the patient's history. 2. No evide nce of pneumothorax. Findings were discussed with Dr. Arias at 3:09 p.m. on 09/05/2010. Upon final verification, I the undersigned Attendin g Radiologist, reviewed the images, participated in the gupta portions of the procedure if required, edited the final report and agree with the final int erpretation. end of result Name Value Range Interpretation Code Description Data Chery rce(s) Supporting Document(s ) ID Date Data Source [id number] 10/31/2010 07:18:00 AM [facility] Name Value Range Interpretation Description Data Source(s ) Supporting Code Document(s ) Specimen [facility] Description [facility] Acid Fast Stain [facility] Culture/Results [facility] Report Status [facility] ID Date Data Source 30010/31/2010 07:18:00 AM [facility] Name Value Range Interpretation Description Data Source(s ) Supporting Code Document(s ) Specimen [facility] Description [facility] Acid Fast Stain [facility] Culture/Results [facility] Report Status [facility] ID Date Data Source 50010/31/2010 07:18:00 AM [facility] Name Value Range Interpretation Description Data Source(s ) Supporting Code Document(s ) Specimen [facility] Description [facility] Acid Fast Stain [facility] Culture/Results [facility] Report Status [facility] ID Date Data Source 40010/03/2010 08:23:[address] [facility] Name Value Range Interpretation Description Data Source(s ) Supporting Code Document(s ) Specimen [place] Description [facility] Culture/Results [facility] Report Status [facility] ID Date Data Source 60010/03/2010 08:23:[address] [facility] Name Value Range Interpretation Description Data Source(s ) Supporting Code Document(s ) Specimen [facility] Description [facility] Culture/Results [facility] Report Status [facility] ID Date Data Source 200010/03/2010 08:23:[address] [facility] Name Value Range Interpretation Description Data Source(s ) Supporting Code Document(s ) Specimen [facility] Description [facility] Culture/Results [facility] Report Status [facility] ID Date Data Source [id number] 09/06/2010 05:31:[address] [facility] Surgical Pathology ReportName: HANNY SAHNI BERTMRN: [id number] Number: [id number] Date: 09/05/2010 00:00 Received Date: 09/05/2010 15:51Physician(s): MECHE ARIAS ROBERT J. MDSpecimen(s) ReceivedA: Transbronchial biopsy, RULClinical HistoryBilateral nod ular infiltrate on CT. Asymptomatic, immunocompetent.Impression; 1) sarcoidos is, 2) chronic infection (AFB, fungal).DiagnosisLUNG, RIGHT UPPER LOBE, TRANSBRONCHIAL BIOPSY - TINY NON-NECROTIZINGGRANULOMAS. (See [facility] opic description)./Abby Rodriguez M.D. ;Resident PathologistElectronically Sign ed By Jael Ramos M.D., Attending Pathologist09/06/2010 17:31:43The attendi pathologist named above attests that he/she has personallyreviewed the releva nt preparation(s) for the specimen(s) and rendered thefinal diagnosis.Gross Descri ptionThe specimen is received in formalin labeled with the patient's name,"Emory Sahni", and "RUL TBBX". It consists of multiple (greater than 10)soft olvera tissu e fragments ranging from less than 0.1 cm to 0.5 cm ingreatest dimension and aggregat ing to 1.0 x 1.0 x 0.1 cm. Totallysubmitted in one cassette.TA/kfsMicroscopic Descri ptionThe specimen consists of five fragments of alveolated lung parenchyma andone fra gment of bronchial wall. Most of the fragments of lung parenchymaare entirely normal. In one fragment, there are few tiny non-necrotizinggranulomas within the int erstitium. Special stains for fungi (GMS) andmycobacteria (AFB) are negative.This report may include one or more immunohistochemical stain results thatus e analyte specific reagents. All positive and negative controls havebeen reviewed by nataliya lorenzo attending pathologist and are satisfactory. The testswere developed an d their performance characteristics determined by [facility] Pathology departme nt. They have not been cleared or approved by the USFood and Drug Administration. The FDA has determined that such clearanceor approval is not necessary. Name Value Range Interpretation Code Description Data Chery rce(s) Supporting Document(s ) ID Date Data Source [id number] 09/06/2010 12:51:[address] [facility] CYTOPATHOLOGY REPORTName: MARLA SAHNI RN: [id number] Number: [id number] Date: 09/05/2010 00:00Received Date: 09/05 16:24Physician(s): MECHE ARIAS ROBERT J. MDSpecimen(s) Rece ivedA: Lung, bronchoscopic washing, right and left divisionClinical History:Bilateral pulmonary infiltrates, upper lobe predominance, ? sarcoid.DiagnosisNO EVID ENCE OF MALIGNANCYComment/cjsReviewing Cytotech: RYLEE Franks(ASCP) ([facility]) Ronnell Caal M.D. ; Cytopathology FellowElectronically Signed By Jenniffer reyes M.D. 09/06/2010 12:51:37The attending pathologist named above attests that he/ she has personallyreviewed the relevant preparation(s) for the specimen(s) and r endered thefinal diagnosis.Microscopic DescriptionThe specimen is composed of b enign bronchial cells and macrophages. Thecell block shows similar features./cj sGross Ehaxxiljwla75 ml red fluid mucoid material received: Specimen processed by centrifugation, 2 pull apart slides prepared for Pap stain and 1 pullapart slide for Diff Quik stain. Red mucoid and clot like strands ofmaterial with aggregate dimens ion of 0.3 x 0.3 x 0.3 cm submitted for cellblock. /hjgThis report may include one or more immunohistochemical stain results thatuse analyte specific reagents. All p ositive and negative controls havebeen reviewed by the attending pathologist an d are satisfactory. The testswere developed and their performance characteristics de termined by [facility] Pathololgy department. They have not been cleared or approved b y [place] Food and Drug Administration. The FDA has determined that suchclearance or cornel roval is not necessary. Name Value Range Interpretation Code Description Data Chery rce(s) Supporting Document(s ) ID Date Data Source [id number] 09/06/2010 12:51:[address] [facility] CYTOPATHOLOGY REPORTName: MARLA SAHNI RN: [id number] Number: [id number] Date: 09/05/2010 00:00Received Date: 09/05 16:25Physician(s): MECHE ARIAS ROBERT J. MDSpecimejanice(s) Rece ivedA: Lung, Bronchus, Bronchoscopic Brushing, Right Upper LobeClinical Histo ry:Bilateral pulmonary infiltrates, upper lobe predominant, ? sarcoid.DiagnosisNO EVIDENCE OF MALIGNANCYComment/cjsReviewing [employer]otech: RYLEE Franks(ASCP) ([facility]) Ronnell Caal M.D. ; Cytopathology FellowElectronically Signed By Jenniffer reyes M.D. 09/06/2010 12:51:30The attending pathologist named above attests that he/ she has personallyreviewed the relevant preparation(s) for the specimen(s) and r endered thefinal diagnosis.Microscopic DescriptionThe specimen is composed of b enign bronchial cells, macrophages, a raremultinucleated giant cell and fibrou s tissue./cjsGross Description2 slides received fixed for Pap stain. /hjgThis report may include one or more immunohistochemical stain results thatus e analyte specific reagents. All positive and negative controls havebeen reviewed by nataliya lorenzo attending pathologist and are satisfactory. The testswere developed an d their performance characteristics determined by [facility] Pathololgy depart ent. They have not been cleared or approved by [place] Food and Drug Administration. T bj [facility] has determined that suchclearance or approval is not necessary. Name Value Range Interpretation Code Description Data Chery rce(s) Supporting Document(s ) Procedure Social History Code Duration Value Status Description Data Source(s ) Smoking 02/08/2020 Current Smoker completed Current Smoker eCW3 ( [place] 12:00:00 AM [employer] [facility]) Smoking 02/08/2020 Current Smoker completed Current Smoker eCW3 ( [place] 12:00:00 AM EDT [employer] [facility]) Smoking 02/08/2020 Current Smoker completed Current Smoker eCW3 ( [place] 12:00:00 AM EDT Health Ca re) Smoking 02/08/2020 Current Smoker completed Current Smoker eCW3 ( [place] 12:00:00 AM [employer] [facility]) Smoking 02/08/2020 Current Smoker completed Current Smoker eCW3 ( [place] 12:00:00 AM EDT Health Ca [facility]) Smoking 02/08/2020 Current Smoker completed Current Smoker eCW3 ( [place] 12:00:00 AM EDT Health Ca [facility]) Smoking 02/08/2020 Current Smoker completed Current Smoker eCW3 ( [place] 12:00:00 AM EDT Health Ca [facility]) Smoking 02/08/2020 Current Smoker completed Current Smoker eCW3 ( [place] 12:00:00 AM EDT Health Ca [facility]) Smoking 01/19/2020 Current Smoker completed Current Smoker eCW3 ( [place] 12:00:00 AM EDT Health Ca re) Smoking 01/19/2020 Current Smoker completed Current Smoker eCW3 ( [place] 12:00:00 AM EDT Health Ca re) Smoking 10/06/2019 Current Smoker completed Current Smoker eCW3 ( [place] 12:00:00 AM EDT Health Ca re) Smoking 07/14/2019 Current Smoker completed Current Smoker eCW3 ( [place] 12:00:00 AM EST [facility] Ca [facility]) Current Smoker completed Current Smoker eCW3 ( [facility]) Current Smoker completed Current Smoker eCW3 ( [facility]) Current Smoker completed Current Smoker eCW3 ( [facility]) Current Smoker completed Current Smoker eCW3 ( [facility]) Current Smoker completed Current Smoker eCW3 ( [facility]) Current Smoker completed Current Smoker eCW3 ( [facility]) Current Smoker completed Current Smoker eCW3 ( [facility]) Current Smoker completed Current Smoker eCW3 ( [facility]) Current Smoker completed Current Smoker eCW3 ( [facility]) Current Smoker completed Current Smoker eCW3 ( [facility]) Current Smoker completed Current Smoker eCW3 ( [facility]) Current Smoker completed Current Smoker eCW3 ( [facility]) Vital Signs ID Date Data Source UNK Name Value Range Interpretation Code Description Data Source(s) Diastolic blood 62 mm[Hg] 62 mm[Hg] eCW3 ([facility]) Systolic blood 103 mm[Hg] 103 mm[Hg] eCW3 ([facility]) Body temperature 97.8 [degF] 97.8 [degF] eCW3 ( [facility]) Heart rate 18 /min 18 /min eCW3 ([facility]) Body mass index 34.30 kg/m2 34.30 kg/m2 eCW3 ([facility]) Body weight 260 [lb_av] 260 [lb_av] eCW3 ([facility]) Body height [in_i] eCW3 ([facility]) Diastolic blood 70 mm[Hg] 70 mm[Hg] eCW3 ([facility]) Systolic blood 120 mm[Hg] 120 mm[Hg] eCW3 ([facility]) Body temperature 97.8 [degF] 97.8 [degF] eCW3 ( [facility]) Heart rate 18 /min 18 /min eCW3 ([facility]) Body mass index 35.09 kg/m2 35.09 kg/m2 eCW3 ([facility] ([facility]) Body weight 266 [lb_av] 266 [lb_av] eCW3 ([facility]) Body height [in_i] eCW3 ([facility]) Diastolic blood 66 mm[Hg] 66 mm[Hg] eCW3 ([facility]) Systolic blood 109 mm[Hg] 109 mm[Hg] eCW3 ([facility]) Body temperature 98.1 [degF] 98.1 [degF] eCW3 ( [facility]) Heart rate 18 /min 18 /min eCW3 ([facility]) Body mass index 35.09 kg/m2 35.09 kg/m2 eCW3 ([facility] ([facility]) Body weight 266 [lb_av] 266 [lb_av] eCW3 ([facility]) Body height [in_i] eCW3 ([facility]) Diastolic blood 80 mm[Hg] 80 mm[Hg] eCW3 ([facility]) Systolic blood 135 mm[Hg] 135 mm[Hg] eCW3 ([facility]) Body temperature 98.0 [degF] 98.0 [degF] eCW3 ( [facility]) Heart rate 20 /min 20 /min eCW3 ([facility]) Body mass index 36.15 kg/m2 36.15 kg/m2 eCW3 ([facility] ([facility]) Body weight 274 [lb_av] 274 [lb_av] eCW3 ([facility]) Body height [in_i] eCW3 ([facility]) Diastolic blood 79 mm[Hg] 79 mm[Hg] eCW3 ([facility]) Systolic blood 127 mm[Hg] 127 mm[Hg] eCW3 ([facility]) Body temperature 97.9 [degF] 97.9 [degF] eCW3 ( [facility]) Heart rate 18 /min 18 /min eCW3 ([facility]) Body mass index 36.15 kg/m2 36.15 kg/m2 eCW3 ([facility] ([facility]) Body weight 274 [lb_av] 274 [lb_av] eCW3 ([facility]) Body height [in_i] eCW3 ([facility]) Patient Treatment Plan of Care Planned Activity Planned Date Details Description Data Source (s) Clotrimazole 10 MG/ML 03/21/2020 12:00:00 eCW3 ([facility] Topical Solution [facility] ) Tolnaftate 0.01 MG/MG 02/15/2020 12:00:00 eCW3 ([facility] Topical Powder [facility]) ciclopirox 80 MG/ML 02/15/2020 12:00:00 e CW3 ([facility] ) Clotrimazole 10 MG/ML 02/15/2020 12:00:00 eCW3 ([facility] Topical Cream [facility]) Tolnaftate 0.01 MG/MG 02/15/2020 12:00:00 eCW3 ([facility] Topical Powder [facility]) ciclopirox 80 MG/ML 02/15/2020 12:00:00 e CW3 ([facility] ) Clotrimazole 10 MG/ML 02/15/2020 12:00:00 eCW3 ([place] Topical Cream [facility]) Tolnaftate 0.01 MG/MG 02/15/2020 12:00:00 eCW3 ([place] Topical Powder [facility]) ciclopirox 80 MG/ML 02/15/2020 12:00:00 e CW3 ([place] [facility] ) Clotrimazole 10 MG/ML 02/15/2020 12:00:00 eCW3 ([place] Topical Cream [facility]) Tolnaftate 0.01 MG/MG 02/15/2020 12:00:00 eCW3 ([place] Topical Powder [facility]) ciclopirox 80 MG/ML 02/15/2020 12:00:00 e CW3 ([place] [facility] ) Clotrimazole 10 MG/ML 02/15/2020 12:00:00 eCW3 ([place] Topical Cream [facility]) Tolnaftate 0.01 MG/MG 02/15/2020 12:00:00 eCW3 ([place] Topical Powder [facility]) ciclopirox 80 MG/ML 02/15/2020 12:00:00 e CW3 ([place] [facility]ical [facility] ) Clotrimazole 10 MG/ML 02/15/2020 12:00:00 eCW3 ([place] Topical Cream [facility]) Metformin hydrochloride 01/20/2020 12:00:00 eCW3 ([place] 500 MG Oral Tablet AM [facility]) Metformin hydrochloride 01/20/2020 12:00:00 eCW3 ([place] 500 MG Oral Tablet [facility]) Aspirin 81 MG Chewable 06/22/2019 12:00:00 eCW3 ([place] Tablet [facility]) Hydrogen Peroxide 30 06/22/2019 12:00:00 eCW3 ([place] MG/ML Topical Solution [facility]) Ketorolac Tromethamine 2 06/01/2019 12:00:00 eCW3 ([place] % [facility]) Ketoconazole 2 % 06/01/2019 12:00:00 eCW3 ([facility]) Lidocaine 25 MG/ML / 05/18/2019 12:00:00 eCW3 ([place] Prilocaine 25 MG/ML [facility]) Topical Cream Wrist Splint/Left Large - 05/18/2019 12:00:00 eCW3 ([facility]) ammonium lactate 120 03/07/2019 12:00:00 eCW3 ([place] MG/ML Topical Cream [facility]) Albuterol Sulfate HFA 108 03/03/2019 12:00:00 eCW3 ([facility] (90 Base) MCG/ACT AM ED Health Car e) All-In-One Nebulizer 03/03/2019 12:00:00 eCW3 ([facility]) Glucose Test Strips 11/03/2018 12:00:00 e CW3 ([facility] Compatiable with Patients [facility]) Machine Tylenol 8 Hour 650 MG 11/03/2018 12:00:00 eCW3 ([facility]) Nicotine 2 MG Chewing Gum 11/03/2018 12:00:00 eCW3 ([facility]) Multi Complete - 07/06/2018 12:00:00 eCW3 ([facility]) 24 HR Metformin 07/06/2018 12:00:00 eCW3 ([place] hydrochloride 750 MG [facility]) Extended Release Oral Tablet Multi Complete - 07/06/2018 12:00:00 eCW3 ([facility]) cetirizine hydrochloride 05/22/2018 12:00:00 eCW3 ([place] 10 MG Oral Tablet ED [facility]) ALCOHOL PREP PADS not 01/15/2018 12:00:00 eCW3 ([place] applicable [facility]) LANCETS Not applicable 01/15/2018 12:00:00 eCW3 ([facility]) Gauze Pads 2 01/15/2018 12:00:00 eCW3 ( [place] [facility]) Amlodipine 10 MG Oral 01/15/2018 12:00:00 eCW3 ([place] [place] Tablet AM EDT [facility] Care) Knee Support/Elastic/Firm 01/15/2018 12:00:00 eCW3 ([place] [place] Lg - [facility]) GLUCOMETER 1 01/15/2018 12:00:00 [facility] Lancet Device with 01/15/2018 12:00:00 eC W3 ([place] Ejector - [facility]) atorvastatin 40 MG Oral 01/15/2018 12:00:00 eCW3 ([place] Tablet [facility]) Albuterol Sulfate HFA 108 eC W3 ([employer] [place] (90 Base) MCG/ACT Health [facility]) Lisinopril 5 MG Oral eCW3 ([facility])
[2020-04-23] MEDS: ATORVASTATIN CA 40 MG TABLET (FP) PO SCH (22:11)
[2020-04-23] MEDS: THIAMINE HCL 100 MG TABLET (FP) PO SCH (22:13)
[2020-04-23] MEDS: MELATONIN 5 MG TABLETS PO SCH (22:13)
[2020-04-24] MEDS: hydrOXYzine PAMOATE 25 MG CAPSULE (FP) PO SCH ×2 (06:36→11:03)
[2020-04-24] MEDS: chlordiazePOXIDE HCL 25 MG CAPSULE PO SCH ×4 (06:36→22:21)
[2020-04-24] MEDS: metFORMIN HCL 500 MG TABLET (FP) PO SCH ×2 (06:39→17:03)
[2020-04-24 10:51] LABS: HEMATOCRIT 36.4 % (35.4-49); HEMOGLOBIN 11.7 GM/dL (11.7-16.9); MCH 26.7 pg (25.7-33.7); MCHC 32.3 g/dl (32.0-35.9); MEAN CELL VOLUME 82.7 fl (80-96); MEAN PLT VOLUME 9.7 fl (7.5-11.1); PLATELET COUNT 165 K/MM3 (134-434); RDW 14.1 % (11.9-15.9); WHITE BLOOD COUNT 5.3 K/mm3 (4.0-10.0)
[2020-04-24 11:01] LABS: POTASSIUM 4.4 mmol/L (3.5-5.1)
[2020-04-24] MEDS: NICOTINE 14 MG/24 HOURS TOPICAL PATCH TD SCH (11:03)
[2020-04-24] MEDS: ASPIRIN 81 MG CHEWABLE TABLETS PO SCH (11:03)
[2020-04-24] MEDS: PRENATAL VITAMINS W/ FOLIC ACID TABLET (FP) PO SCH (11:03)
[2020-04-24] MEDS: LISINOPRIL 10 MG TABLET PO SCH (11:03)
[2020-04-24] MEDS: amLODIPine BESYLATE 5 MG TABLET (FP) PO SCH (11:03)
[2020-04-24 11:11] LABS: ALBUMIN 3.7 g/dl (3.4-5.0); BILIRUBIN,TOTAL 0.9 mg/dL (0.2-1); BLOOD UREA NITROGEN 14.9 mg/dL (7-18); CALCIUM 8.8 mg/dL (8.5-10.1); CREATININE 0.9 mg/dL (0.55-1.3); TOT PROT 7.1 g/dl (6.4-8.2)
[2020-04-24] MEDS ORDERED: FLU VACCINE (FLULAVAL) PF 60 MCG/0.5 ML SYRINGE 2020-2021 IM ONE (12:00)
[2020-04-24] MEDS ORDERED: hydrOXYzine PAMOATE 25 MG CAPSULE (FP) PO PRN (12:32)
[2020-04-24] MEDS: LIDOCAINE 5% TOPICAL PATCH TP SCH (13:27)
[2020-04-24] MEDS: TOLNAFTATE 1% CREAM 15 GM TUBE TP SCH ×2 (13:29→22:24)
[2020-04-24] MEDS: IBUPROFEN 400 MG TABLET (FP) PO PRN ×2 (13:30→22:27)
--- NOTE | 2020-04-24 13:38 | PN ---
[facility] CIWA - CIWA Score Nausea/Vomitin-No Nausea/No Vomiting Muscle Tremors: 2 Anxiety: 2 Agitation: 3 Paroxysmal Sweats: 2 Orientation: 0-Oriented Tacttile Disturbances: 0-None Auditory Disturbances: 0-None Visual Disturbances: 0-None Headache: 0-None Present CIWA-Ar Total Score: 9 S Progress Note (SOAP) Subjective: low back pain sweat interrupted sleep agitation restless Objective: 04/24/20 13:38 Vital Signs Temperature 97.7 F 04/24/20 05:15 Pulse Rate 64 04/24/20 05:15 Respiratory Rate 20 04/24/20 05:15 Blood Pressure 139/73 04/24/20 05:15 O2 Sat by Pulse Oximetry (%) 98 04/24/20 05:15 Laboratory Tests 04/23/20 04/23/20 04/23/20 07:00 07:00 07:15 WBC 5.3 RBC 4.40 Hgb 11.7 Hct 36.4 MCV 82.7 MCH 26.7 MCHC 32.3 RDW 14.1 Plt Count 165 MPV 9.7 Sodium 140 Potassium 4.4 Chloride 107 Carbon Dioxide 26 Anion Gap 7 L BUN 14.9 Creatinine 0.9 Est GFR (CKD-EPI)AfAm 107.22 Est GFR (CKD-EPI)NonAf 92.51 POC Glucometer Random Glucose 169 H Calcium 8.8 Total Bilirubin 0.9 AST 24 ALT 35 Alkaline Phosphatase 76 Total Protein 7.1 Albumin 3.7 Syphilis Serology Non-reactive 04/24/20 06:36 WBC RBC Hgb Hct MCV MCH MCHC RDW Plt Count MPV Sodium Potassium Chloride Carbon Dioxide Anion Gap BUN Creatinine Est GFR (CKD-EPI)AfAm Est GFR (CKD-EPI)NonAf POC Glucometer 138 Random Glucose Calcium Total Bilirubin AST ALT Alkaline Phosphatase Total Protein Albumin Syphilis Serology labs noted aaox3 ambulating no acute distress Assessment: 04/24/20 13:38 withdrawals Plan: continue detox motrin 800mg prn roboxin prn lidocaine patch analgesic balm
[2020-04-24] MEDS: THIAMINE HCL 100 MG TABLET (FP) PO SCH (22:21)
[2020-04-24] MEDS: ATORVASTATIN CA 40 MG TABLET (FP) PO SCH (22:22)
[2020-04-24] MEDS: LIDOCAINE PATCH REMOVAL MC SCH (22:24)
[2020-04-24] MEDS: MELATONIN 5 MG TABLETS PO SCH (22:24)
[2020-04-24] MEDS: METHYL SALICYLATE/MENTHOL OINT 30 GM TUBE TP SCH (22:27)
[2020-04-25] MEDS: chlordiazePOXIDE HCL 25 MG CAPSULE PO SCH ×4 (07:00→22:52)
[2020-04-25] MEDS: metFORMIN HCL 500 MG TABLET (FP) PO SCH ×2 (07:00→16:51)
[2020-04-25] MEDS: ASPIRIN 81 MG CHEWABLE TABLETS PO SCH (10:15)
[2020-04-25] MEDS: METHYL SALICYLATE/MENTHOL OINT 30 GM TUBE TP SCH ×2 (10:15→22:13)
[2020-04-25] MEDS: LIDOCAINE 5% TOPICAL PATCH TP SCH (10:15)
[2020-04-25] MEDS: NICOTINE 14 MG/24 HOURS TOPICAL PATCH TD SCH (10:15)
[2020-04-25] MEDS: LISINOPRIL 10 MG TABLET PO SCH (10:16)
[2020-04-25] MEDS: TOLNAFTATE 1% CREAM 15 GM TUBE TP SCH ×2 (10:16→22:14)
[2020-04-25] MEDS: PRENATAL VITAMINS W/ FOLIC ACID TABLET (FP) PO SCH (10:16)
[2020-04-25] MEDS: amLODIPine BESYLATE 5 MG TABLET (FP) PO SCH (10:16)
[2020-04-25] MEDS: IBUPROFEN 400 MG TABLET (FP) PO PRN ×2 (10:17→16:53)
--- NOTE | 2020-04-25 13:10 | PN ---
S CIWA - CIWA Score Nausea/Vomitin-No Nausea/No Vomiting Muscle Tremors: 2 Anxiety: 2 Agitation: 2 Paroxysmal Sweats: 2 Orientation: 0-Oriented Tacttile Disturbances: 0-None Auditory Disturbances: 0-None Visual Disturbances: 0-None Headache: 0-None Present CIWA-Ar Total Score: 8 BHS Progress Note (SOAP) Subjective: body aches sweats shakes Objective: 04/25/20 13:09 Vital Signs Temperature 97.3 F L 04/25/20 08:31 Pulse Rate 87 04/25/20 08:31 Respiratory Rate 16 04/25/20 08:31 Blood Pressure 139/77 04/25/20 08:31 O2 Sat by Pulse Oximetry (%) 95 04/25/20 06:02 Laboratory Tests 04/23/20 04/23/20 04/23/20 07:00 07:00 07:15 WBC 5.3 RBC 4.40 Hgb 11.7 Hct 36.4 MCV 82.7 MCH 26.7 MCHC 32.3 RDW 14.1 Plt Count 165 MPV 9.7 Sodium 140 Potassium 4.4 Chloride 107 Carbon Dioxide 26 Anion Gap 7 L BUN 14.9 Creatinine 0.9 Est GFR (CKD-EPI)AfAm 107.22 Est GFR (CKD-EPI)NonAf 92.51 POC Glucometer Random Glucose 169 H Calcium 8.8 Total Bilirubin 0.9 AST 24 ALT 35 Alkaline Phosphatase 76 Total Protein 7.1 Albumin 3.7 Syphilis Serology Non-reactive COVID-19 ([place]) 04/23/20 04/24/20 04/24/20 18:30 06:36 16:49 WBC RBC Hgb Hct MCV MCH MCHC RDW Plt Count MPV Sodium Potassium Chloride Carbon Dioxide Anion Gap BUN Creatinine Est GFR (CKD-EPI)AfAm Est GFR (CKD-EPI)NonAf POC Glucometer 138 190 Random Glucose Calcium Total Bilirubin AST ALT Alkaline Phosphatase Total Protein Albumin Syphilis Serology COVID-19 ([place]) Not detected 04/25/20 06:58 WBC RBC Hgb Hct MCV MCH MCHC RDW Plt Count MPV Sodium Potassium Chloride Carbon Dioxide Anion Gap BUN Creatinine Est GFR (CKD-EPI)AfAm Est GFR (CKD-EPI)NonAf POC Glucometer 149 Random Glucose Calcium Total Bilirubin AST ALT Alkaline Phosphatase Total Protein Albumin Syphilis Serology COVID-19 ([place]) labs noted aaox3 ambulating no acute distress Assessment: 04/25/20 13:10 withdrawals Plan: continue detox
[2020-04-25] MEDS: ATORVASTATIN CA 40 MG TABLET (FP) PO SCH (22:11)
[2020-04-25] MEDS: MELATONIN 5 MG TABLETS PO SCH (22:12)
[2020-04-25] MEDS: LIDOCAINE PATCH REMOVAL MC SCH (22:13)
[2020-04-25] MEDS: THIAMINE HCL 100 MG TABLET (FP) PO SCH (22:14)
[2020-04-26] MEDS ORDERED: chlordiazePOXIDE HCL 10 MG CAPSULE PO PRN
[2020-04-26] MEDS: chlordiazePOXIDE HCL 10 MG CAPSULE PO SCH ×4 (06:12→22:06)
[2020-04-26] MEDS: metFORMIN HCL 500 MG TABLET (FP) PO SCH ×2 (06:12→16:50)
[2020-04-26] MEDS: amLODIPine BESYLATE 5 MG TABLET (FP) PO SCH (10:07)
[2020-04-26] MEDS: LIDOCAINE 5% TOPICAL PATCH TP SCH (10:07)
[2020-04-26] MEDS: TOLNAFTATE 1% CREAM 15 GM TUBE TP SCH ×2 (10:07→22:08)
[2020-04-26] MEDS: LISINOPRIL 10 MG TABLET PO SCH (10:07)
[2020-04-26] MEDS: PRENATAL VITAMINS W/ FOLIC ACID TABLET (FP) PO SCH (10:07)
[2020-04-26] MEDS: ASPIRIN 81 MG CHEWABLE TABLETS PO SCH (10:07)
[2020-04-26] MEDS: METHYL SALICYLATE/MENTHOL OINT 30 GM TUBE TP SCH ×2 (10:07→22:08)
[2020-04-26] MEDS: NICOTINE 14 MG/24 HOURS TOPICAL PATCH TD SCH (10:08)
--- NOTE | 2020-04-26 13:43 | PN ---
S CIWA - CIWA Score Nausea/Vomitin-No Nausea/No Vomiting Muscle Tremors: 2 Anxiety: 2 Agitation: 2 Paroxysmal Sweats: 1-Minimal Palms Moist Orientation: 0-Oriented Tacttile Disturbances: 0-None Auditory Disturbances: 0-None Visual Disturbances: 0-None Headache: 0-None Present CIWA-Ar Total Score: 7 BHS Progress Note (SOAP) Subjective: sweats restless Objective: 04/26/20 13:42 Vital Signs Temperature 97.8 F 04/26/20 12:16 Pulse Rate 90 04/26/20 12:16 Respiratory Rate 20 04/26/20 12:16 Blood Pressure 138/73 04/26/20 12:16 O2 Sat by Pulse Oximetry (%) 97 04/26/20 05:44 Laboratory Tests 04/23/20 04/23/20 04/23/20 07:00 07:00 07:15 WBC 5.3 RBC 4.40 Hgb 11.7 Hct 36.4 MCV 82.7 MCH 26.7 MCHC 32.3 RDW 14.1 Plt Count 165 MPV 9.7 Sodium 140 Potassium 4.4 Chloride 107 Carbon Dioxide 26 Anion Gap 7 L BUN 14.9 Creatinine 0.9 Est GFR (CKD-EPI)AfAm 107.22 Est GFR (CKD-EPI)NonAf 92.51 POC Glucometer Random Glucose 169 H Calcium 8.8 Total Bilirubin 0.9 AST 24 ALT 35 Alkaline Phosphatase 76 Total Protein 7.1 Albumin 3.7 Syphilis Serology Non-reactive COVID-19 ([place]) 04/23/20 04/24/20 04/24/20 18:30 06:36 16:49 WBC RBC Hgb Hct MCV MCH MCHC RDW Plt Count MPV Sodium Potassium Chloride Carbon Dioxide Anion Gap BUN Creatinine Est GFR (CKD-EPI)AfAm Est GFR (CKD-EPI)NonAf POC Glucometer 138 190 Random Glucose Calcium Total Bilirubin AST ALT Alkaline Phosphatase Total Protein Albumin Syphilis Serology COVID-19 ([place]) Not detected 04/25/20 04/25/20 04/26/20 06:58 16:44 06:09 WBC RBC Hgb Hct MCV MCH MCHC RDW Plt Count MPV Sodium Potassium Chloride Carbon Dioxide Anion Gap BUN Creatinine Est GFR (CKD-EPI)AfAm Est GFR (CKD-EPI)NonAf POC Glucometer 149 168 187 Random Glucose Calcium Total Bilirubin AST ALT Alkaline Phosphatase Total Protein Albumin Syphilis Serology COVID-19 ([place]) labs noted aaox3 ambulating no acute distress Assessment: 04/26/20 13:43 withdrawals Plan: continue detox increase fluids
[2020-04-26] MEDS: THIAMINE HCL 100 MG TABLET (FP) PO SCH (22:06)
[2020-04-26] MEDS: MELATONIN 5 MG TABLETS PO SCH (22:06)
[2020-04-26] MEDS: ATORVASTATIN CA 40 MG TABLET (FP) PO SCH (22:06)
[2020-04-26] MEDS: LIDOCAINE PATCH REMOVAL MC SCH (22:08)
[2020-04-26] MEDS: IBUPROFEN 400 MG TABLET (FP) PO PRN (22:10)
[2020-04-27] MEDS: metFORMIN HCL 500 MG TABLET (FP) PO SCH ×2 (06:19→16:54)
[2020-04-27] MEDS: chlordiazePOXIDE HCL 10 MG CAPSULE PO SCH ×2 (06:19→16:58)
[2020-04-27] MEDS: ASPIRIN 81 MG CHEWABLE TABLETS PO SCH (09:59)
[2020-04-27] MEDS: LISINOPRIL 10 MG TABLET PO SCH (09:59)
[2020-04-27] MEDS: NICOTINE 14 MG/24 HOURS TOPICAL PATCH TD SCH (10:00)
[2020-04-27] MEDS: amLODIPine BESYLATE 5 MG TABLET (FP) PO SCH (10:00)
[2020-04-27] MEDS: PRENATAL VITAMINS W/ FOLIC ACID TABLET (FP) PO SCH (10:00)
[2020-04-27] MEDS: TOLNAFTATE 1% CREAM 15 GM TUBE TP SCH ×2 (10:00→22:15)
[2020-04-27] MEDS: LIDOCAINE 5% TOPICAL PATCH TP SCH (10:39)
[2020-04-27] MEDS: METHYL SALICYLATE/MENTHOL OINT 30 GM TUBE TP SCH ×2 (10:39→22:14)
--- NOTE | 2020-04-27 11:34 | PN ---
S CIWA - CIWA Score Nausea/Vomitin-No Nausea/No Vomiting Muscle Tremors: 2 Anxiety: 1-Mildly Anxious Agitation: 1-Slight > Activity Paroxysmal Sweats: No Perspiration Orientation: 0-Oriented Tacttile Disturbances: 0-None Auditory Disturbances: 0-None Visual Disturbances: 0-None Headache: 0-None Present CIWA-Ar Total Score: 4 BHS Progress Note (SOAP) Subjective: feeling better Objective: 04/27/20 11:33 Vital Signs Temperature 96.2 F L 04/27/20 08:42 Pulse Rate 72 04/27/20 08:42 Respiratory Rate 18 04/27/20 08:42 Blood Pressure 137/81 04/27/20 08:42 O2 Sat by Pulse Oximetry (%) 96 04/27/20 08:42 aaox3 ambulating no acute distress Assessment: 04/27/20 11:33 withdrawal sx Plan: continue detox d/c in am
[2020-04-27] MEDS: THIAMINE HCL 100 MG TABLET (FP) PO SCH (22:10)
[2020-04-27] MEDS: ATORVASTATIN CA 40 MG TABLET (FP) PO SCH (22:11)
[2020-04-27] MEDS: IBUPROFEN 400 MG TABLET (FP) PO PRN (22:11)
[2020-04-27] MEDS: MELATONIN 5 MG TABLETS PO SCH (22:13)
[2020-04-27] MEDS: LIDOCAINE PATCH REMOVAL MC SCH (22:14)
[2020-04-28] MEDS ORDERED: chlordiazePOXIDE HCL 10 MG CAPSULE PO ONE (05:00)
[2020-04-28] MEDS: metFORMIN HCL 500 MG TABLET (FP) PO SCH (06:58)
[2020-04-28 07:15] VITALS: BP 108/65; PULSE 62; TEMP 97.5
--- NOTE | 2020-04-28 18:28 | DS ---
[facility] Detox Discharge Summary Admission Date: 04/23/20 Discharge Date: 04/28/20 - History Present History: Alcohol Dependence, Cocaine Dependence Additional Comments: Patient going to [address] ([place], [place]) for aftercare. Patient was Discharged from Detox Unit in stable medical condition. Pertinent Past History: Hypertension, Hyperlipidemia, Type II DM, Asthma, Nicotine Dependence. - Physical Exam Results Vital Signs: Vital Signs Temperature 97.5 F L 04/28/20 05:17 Pulse Rate 62 04/28/20 05:17 Respiratory Rate 20 04/28/20 05:17 Blood Pressure 108/65 04/28/20 05:17 O2 Sat by Pulse Oximetry (%) 99 04/28/20 05:17 Pertinent Admission Physical Exam Findings: WITHDRAWAL SYMPTOMS. Laboratory Tests 04/23/20 04/23/20 04/23/20 07:00 07:00 07:15 WBC 5.3 RBC 4.40 Hgb 11.7 Hct 36.4 MCV 82.7 MCH 26.7 MCHC 32.3 RDW 14.1 Plt Count 165 MPV 9.7 Sodium 140 Potassium 4.4 Chloride 107 Carbon Dioxide 26 Anion Gap 7 L BUN 14.9 Creatinine 0.9 Est GFR (CKD-EPI)AfAm 107.22 Est GFR (CKD-EPI)NonAf 92.51 POC Glucometer Random Glucose 169 H Calcium 8.8 Total Bilirubin 0.9 AST 24 ALT 35 Alkaline Phosphatase 76 Total Protein 7.1 Albumin 3.7 Syphilis Serology Non-reactive COVID-19 ([place]) 04/23/20 04/24/20 04/24/20 18:30 06:36 16:49 WBC RBC Hgb Hct MCV MCH MCHC RDW Plt Count MPV Sodium Potassium Chloride Carbon Dioxide Anion Gap BUN Creatinine Est GFR (CKD-EPI)AfAm Est GFR (CKD-EPI)NonAf POC Glucometer 138 190 Random Glucose Calcium Total Bilirubin AST ALT Alkaline Phosphatase Total Protein Albumin Syphilis Serology COVID-19 ([place]) Not detected 04/25/20 04/25/20 04/26/20 06:58 16:44 06:09 WBC RBC Hgb Hct MCV MCH MCHC RDW Plt Count MPV Sodium Potassium Chloride Carbon Dioxide Anion Gap BUN Creatinine Est GFR (CKD-EPI)AfAm Est GFR (CKD-EPI)NonAf POC Glucometer 149 168 187 Random Glucose Calcium Total Bilirubin AST ALT Alkaline Phosphatase Total Protein Albumin Syphilis Serology COVID-19 ([place]) 04/26/20 04/27/20 04/27/20 16:46 06:19 16:47 WBC RBC Hgb Hct MCV MCH MCHC RDW Plt Count MPV Sodium Potassium Chloride Carbon Dioxide Anion Gap BUN Creatinine Est GFR (CKD-EPI)AfAm Est GFR (CKD-EPI)NonAf POC Glucometer 162 153 180 Random Glucose Calcium Total Bilirubin AST ALT Alkaline Phosphatase Total Protein Albumin Syphilis Serology COVID-19 ([place]) 04/28/20 05:23 WBC RBC Hgb Hct MCV MCH MCHC RDW Plt Count MPV Sodium Potassium Chloride Carbon Dioxide Anion Gap BUN Creatinine Est GFR (CKD-EPI)AfAm Est GFR (CKD-EPI)NonAf POC Glucometer 146 Random Glucose Calcium Total Bilirubin AST ALT Alkaline Phosphatase Total Protein Albumin Syphilis Serology COVID-19 ([place]) Lab results noted. - Treatment Hospital Course: Detox Protocol Followed, Detoxed Safely, Responded well, Discharged Condition Good, Rehab Referral Accepted Patient has Accepted a Rehab Referral to: [address] ([place], [place]) - Medication Discharge Medications: Ambulatory Orders Amlodipine Besylate 5 mg PO DAILY #30 tablet 04/27/20 Aspirin 81 mg PO DAILY #30 tab.chew 04/27/20 Atorvastatin Ca [Lipitor] 40 mg PO HS #30 tablet 04/27/20 Ibuprofen [Motrin -] 800 mg PO Q8H PRN #30 tablet 04/27/20 Lisinopril 10 mg PO DAILY #30 tablet 04/27/20 metFORMIN HCL [Metformin HCl] 1,000 mg PO BID #60 tablet 04/27/20 - Diagnosis (1) Alcohol dependence with uncomplicated withdrawal Status: Acute (2) Cocaine dependence Status: Chronic Qualifiers: Substance use status: uncomplicated Qualified Code(s): F14.20 - Cocaine dependence, uncomplicated - AMA Did Patient Leave Against Medical Advice: No
== END 2020-04-28 08:51 | disposition home or self-care (01) | DRG 774 ==
LOC: YASAS 13:13 → Y6N 18:15
PROVIDERS: ADMIT Allergy & Immunology; ATTEND Allergy & Immunology
PROC: HZ2ZZZZ Detoxification Services for Substance Abuse Treatment (ICD-10-PCS; principal; 2020-04-23)
DX: F10.230 Alcohol dependence with withdrawal, uncomplicated (principal); F14.20 Cocaine dependence, uncomplicated; F17.210 Nicotine dependence, cigarettes, uncomplicated; I10 Essential (primary) hypertension; J45.909 Unspecified asthma, uncomplicated; E78.5 Hyperlipidemia, unspecified; E11.9 Type 2 diabetes mellitus without complications; Z79.84 Long term (current) use of oral hypoglycemic drugs; Z59.0 Homelessness
CPT/HCPCS: 36415; 80053; 82962; 85027; 86780; G0008; Q2036; U0003

== ENCOUNTER 2020-09-11 13:47 | Inpatient (IN) | payer OTHER ==
[2020-09-11 15:56] VITALS: BMI 34.0
[2020-09-11] MEDS ORDERED: ONDANSETRON *ODT* 4 MG TABLET SL PRN (15:58)
[2020-09-11] MEDS ORDERED: IBUPROFEN 400 MG TABLET (FP) PO PRN (15:58)
[2020-09-11] MEDS ORDERED: chlordiazePOXIDE HCL 25 MG CAPSULE PO PRN (15:58)
[2020-09-11] MEDS ORDERED: MAGNESIUM CITRATE 300 ML BOTTLE PO PRN (15:58)
[2020-09-11] MEDS ORDERED: MENTHOL/PHENOL 1 EACH UD MM PRN (15:58)
[2020-09-11] MEDS ORDERED: ACETAMINOPHEN 325 MG TABLET (FP) PO PRN (15:58)
[2020-09-11] MEDS ORDERED: MAG HYDROX/AL HYDROX/SIMETH 30 ML UNIT-DOSE CUP PO PRN (15:58)
[2020-09-11] MEDS ORDERED: MAGNESIUM HYDROX 2400MG/30ML ORAL SUSPENSION 30 ML CUP PO PRN (15:58)
[2020-09-11] MEDS: INSULIN SLIDING SCALE (NOVOLOG) 1 VIAL SQ SCH ×2 (18:41→22:26)
[2020-09-11] MEDS: hydrOXYzine PAMOATE 25 MG CAPSULE (FP) PO SCH ×2 (18:44→22:24)
[2020-09-11] MEDS: metFORMIN HCL 500 MG TABLET (FP) PO SCH (18:44)
[2020-09-11] MEDS: PRENATAL VITAMINS W/ FOLIC ACID TABLET (FP) PO SCH (18:45)
[2020-09-11] MEDS: chlordiazePOXIDE HCL 25 MG CAPSULE PO SCH ×2 (18:45→22:24)
[2020-09-11] MEDS ORDERED: MASKS NR ONE (18:48)
[2020-09-11] MEDS: LIDOCAINE 5% TOPICAL PATCH TP SCH (18:52)
[2020-09-11] MEDS: LIDOCAINE PATCH REMOVAL MC SCH (21:52)
[2020-09-11] MEDS: MELATONIN 5 MG TABLETS PO SCH (22:24)
[2020-09-11] MEDS: ATORVASTATIN CA 40 MG TABLET (FP) PO SCH (22:24)
[2020-09-11] MEDS: THIAMINE HCL 100 MG TABLET (FP) PO SCH (22:24)
[2020-09-12] MEDS: chlordiazePOXIDE HCL 25 MG CAPSULE PO SCH ×4 (05:42→22:26)
[2020-09-12] MEDS: hydrOXYzine PAMOATE 25 MG CAPSULE (FP) PO SCH ×2 (05:42→10:35)
[2020-09-12] MEDS: INSULIN SLIDING SCALE (NOVOLOG) 1 VIAL SQ SCH ×4 (06:18→21:28)
[2020-09-12] MEDS: metFORMIN HCL 500 MG TABLET (FP) PO SCH ×2 (06:18→17:27)
[2020-09-12] MEDS: ASPIRIN 81 MG CHEWABLE TABLETS PO SCH (10:31)
[2020-09-12] MEDS: PRENATAL VITAMINS W/ FOLIC ACID TABLET (FP) PO SCH (10:31)
[2020-09-12] MEDS: amLODIPine BESYLATE 5 MG TABLET (FP) PO SCH (10:32)
[2020-09-12] MEDS: LIDOCAINE 5% TOPICAL PATCH TP SCH (10:32)
[2020-09-12] MEDS: LISINOPRIL 10 MG TABLET PO SCH (10:32)
[2020-09-12] MEDS ORDERED: hydrOXYzine PAMOATE 25 MG CAPSULE (FP) PO PRN (11:01)
[2020-09-12 11:21] LABS: POTASSIUM 4.1 mmol/L (3.5-5.1)
[2020-09-12 11:24] LABS: HEMATOCRIT 33.4 % (35.4-49); MCH 27.4 pg (25.7-33.7); MEAN PLT VOLUME 9.6 fl (7.5-11.1); PLATELET COUNT 167 K/MM3 (134-434); RBC 4.03 M/mm3 (4.00-5.60); RDW 15.4 % (11.9-15.9); WHITE BLOOD COUNT 3.8 K/mm3 (4.0-10.0)
[2020-09-12 11:36] LABS: ALBUMIN 3.1 g/dl (3.4-5.0); BLOOD UREA NITROGEN 12.2 mg/dL (7-18); CALCIUM 8.4 mg/dL (8.5-10.1)
[2020-09-12 11:39] LABS: CREATININE 0.9 mg/dL (0.55-1.3)
[2020-09-12 11:40] LABS: BILIRUBIN,TOTAL 0.3 mg/dL (0.2-1)
[2020-09-12 11:41] LABS: TOT PROT 6.1 g/dl (6.4-8.2)
[2020-09-12] MEDS: METHOCARBAMOL 500 MG TABLET PO PRN ×2 (11:51→17:29)
[2020-09-12] MEDS: LIDOCAINE PATCH REMOVAL MC SCH (22:25)
[2020-09-12] MEDS: THIAMINE HCL 100 MG TABLET (FP) PO SCH (22:25)
[2020-09-12] MEDS: MELATONIN 5 MG TABLETS PO SCH (22:25)
[2020-09-12] MEDS: ATORVASTATIN CA 40 MG TABLET (FP) PO SCH (22:25)
[2020-09-13] MEDS: metFORMIN HCL 500 MG TABLET (FP) PO SCH ×2 (07:08→16:38)
[2020-09-13] MEDS: chlordiazePOXIDE HCL 25 MG CAPSULE PO SCH ×4 (07:09→22:06)
[2020-09-13] MEDS: INSULIN SLIDING SCALE (NOVOLOG) 1 VIAL SQ SCH ×4 (07:13→22:07)
[2020-09-13] MEDS: LISINOPRIL 10 MG TABLET PO SCH (10:33)
[2020-09-13] MEDS: ASPIRIN 81 MG CHEWABLE TABLETS PO SCH (10:33)
[2020-09-13] MEDS: PRENATAL VITAMINS W/ FOLIC ACID TABLET (FP) PO SCH (10:34)
[2020-09-13] MEDS: LIDOCAINE 5% TOPICAL PATCH TP SCH (10:34)
[2020-09-13] MEDS: amLODIPine BESYLATE 5 MG TABLET (FP) PO SCH (10:34)
[2020-09-13] MEDS: TOLNAFTATE 1% CREAM 15 GM TUBE TP SCH ×2 (10:37→22:07)
[2020-09-13] MEDS: BISMUTH SUBSALICYLATE 524 MG/30 ML UD PO PRN ×2 (11:05→14:53)
[2020-09-13] MEDS: METHOCARBAMOL 500 MG TABLET PO PRN (14:53)
[2020-09-13] MEDS: ATORVASTATIN CA 40 MG TABLET (FP) PO SCH (22:05)
[2020-09-13] MEDS: MELATONIN 5 MG TABLETS PO SCH (22:05)
[2020-09-13] MEDS: THIAMINE HCL 100 MG TABLET (FP) PO SCH (22:06)
[2020-09-13] MEDS: LIDOCAINE PATCH REMOVAL MC SCH (22:07)
[2020-09-14] MEDS ORDERED: chlordiazePOXIDE HCL 10 MG CAPSULE PO PRN
[2020-09-14] MEDS: metFORMIN HCL 500 MG TABLET (FP) PO SCH ×2 (06:21→16:38)
[2020-09-14] MEDS: chlordiazePOXIDE HCL 10 MG CAPSULE PO SCH ×4 (06:22→22:10)
[2020-09-14] MEDS: INSULIN SLIDING SCALE (NOVOLOG) 1 VIAL SQ SCH ×4 (07:06→22:10)
[2020-09-14] MEDS: ASPIRIN 81 MG CHEWABLE TABLETS PO SCH (10:22)
[2020-09-14] MEDS: LIDOCAINE 5% TOPICAL PATCH TP SCH (10:22)
[2020-09-14] MEDS: PRENATAL VITAMINS W/ FOLIC ACID TABLET (FP) PO SCH (10:23)
[2020-09-14] MEDS: LISINOPRIL 10 MG TABLET PO SCH (10:23)
[2020-09-14] MEDS: amLODIPine BESYLATE 5 MG TABLET (FP) PO SCH (10:23)
[2020-09-14] MEDS: METHOCARBAMOL 500 MG TABLET PO PRN ×2 (10:24→22:12)
[2020-09-14] MEDS: TOLNAFTATE 1% CREAM 15 GM TUBE TP SCH ×2 (10:26→22:10)
[2020-09-14] MEDS: BISMUTH SUBSALICYLATE 524 MG/30 ML UD PO PRN (16:43)
[2020-09-14 18:50] LABS: HIV INTERPRETATION NEGATIVE (NEGATIVE)
[2020-09-14] MEDS: THIAMINE HCL 100 MG TABLET (FP) PO SCH (22:10)
[2020-09-14] MEDS: MELATONIN 5 MG TABLETS PO SCH (22:10)
[2020-09-14] MEDS: ATORVASTATIN CA 40 MG TABLET (FP) PO SCH (22:10)
[2020-09-14] MEDS: LIDOCAINE PATCH REMOVAL MC SCH (22:10)
[2020-09-15] MEDS: chlordiazePOXIDE HCL 10 MG CAPSULE PO SCH ×2 (05:48→17:43)
[2020-09-15] MEDS: metFORMIN HCL 500 MG TABLET (FP) PO SCH ×2 (06:00→16:53)
[2020-09-15] MEDS: INSULIN SLIDING SCALE (NOVOLOG) 1 VIAL SQ SCH ×4 (06:00→22:13)
[2020-09-15] MEDS: LISINOPRIL 10 MG TABLET PO SCH (09:25)
[2020-09-15] MEDS: ASPIRIN 81 MG CHEWABLE TABLETS PO SCH (09:25)
[2020-09-15] MEDS: amLODIPine BESYLATE 5 MG TABLET (FP) PO SCH (09:25)
[2020-09-15] MEDS: LIDOCAINE 5% TOPICAL PATCH TP SCH (09:25)
[2020-09-15] MEDS: PRENATAL VITAMINS W/ FOLIC ACID TABLET (FP) PO SCH (09:25)
[2020-09-15] MEDS: TOLNAFTATE 1% CREAM 15 GM TUBE TP SCH ×2 (09:26→22:13)
[2020-09-15] MEDS: METHOCARBAMOL 500 MG TABLET PO PRN ×2 (09:27→22:15)
[2020-09-15] MEDS ORDERED: P-EPHED 60MG/TRIPROLIDI 2.5MG TABLET PO PRN (13:25)
[2020-09-15] MEDS: MELATONIN 5 MG TABLETS PO SCH (22:13)
[2020-09-15] MEDS: ATORVASTATIN CA 40 MG TABLET (FP) PO SCH (22:13)
[2020-09-15] MEDS: LIDOCAINE PATCH REMOVAL MC SCH (22:13)
[2020-09-15] MEDS: THIAMINE HCL 100 MG TABLET (FP) PO SCH (22:13)
[2020-09-16] MEDS ORDERED: INSULIN SLIDING SCALE (NOVOLOG) 1 VIAL SQ ONE (03:21)
[2020-09-16] MEDS ORDERED: chlordiazePOXIDE HCL 10 MG CAPSULE PO ONE (05:00)
[2020-09-16] MEDS: INSULIN SLIDING SCALE (NOVOLOG) 1 VIAL SQ SCH (06:03)
[2020-09-16] MEDS: metFORMIN HCL 500 MG TABLET (FP) PO SCH (06:03)
[2020-09-16] MEDS ORDERED: MASKS NR ONE (07:36)
[2020-09-16] MEDS: BISMUTH SUBSALICYLATE 524 MG/30 ML UD PO PRN (08:42)
[2020-09-16 09:46] VITALS: BP 136/75; PULSE 64; TEMP 97.3
[2020-09-16] MEDS: PRENATAL VITAMINS W/ FOLIC ACID TABLET (FP) PO SCH (10:06)
[2020-09-16] MEDS: amLODIPine BESYLATE 5 MG TABLET (FP) PO SCH (10:06)
[2020-09-16] MEDS: ASPIRIN 81 MG CHEWABLE TABLETS PO SCH (10:06)
[2020-09-16] MEDS: METHOCARBAMOL 500 MG TABLET PO PRN (10:08)
[2020-09-16] MEDS: LIDOCAINE 5% TOPICAL PATCH TP SCH (10:08)
[2020-09-16] MEDS: LISINOPRIL 10 MG TABLET PO SCH (10:08)
[2020-09-16] MEDS: TOLNAFTATE 1% CREAM 15 GM TUBE TP SCH (10:53)
== END 2020-09-16 12:23 | disposition other institution (70) | DRG 773 ==
LOC: YASAS 13:47 → Y3N 17:09
PROVIDERS: ADMIT Allergy & Immunology; ATTEND Allergy & Immunology
PROC: HZ2ZZZZ Detoxification Services for Substance Abuse Treatment (ICD-10-PCS; principal; 2020-09-11)
DX: F10.230 Alcohol dependence with withdrawal, uncomplicated (principal); F14.20 Cocaine dependence, uncomplicated; F11.10 Opioid abuse, uncomplicated; F17.210 Nicotine dependence, cigarettes, uncomplicated; F19.24 Other psychoactive substance dependence with psychoactive substance-induced mood disorder; E78.5 Hyperlipidemia, unspecified; E11.9 Type 2 diabetes mellitus without complications; Z79.84 Long term (current) use of oral hypoglycemic drugs; I10 Essential (primary) hypertension; Z59.0 Homelessness
CPT/HCPCS: 36415; 80053; 82962; 85027; 86780; 87389; C9803; U0003

== ENCOUNTER 2020-09-16 11:42 | Inpatient (IN) | payer OTHER ==
[2020-09-16] MEDS ORDERED: guaiFENesin 200 MG/10 ML 10 ML UNIT-DOSE CUPS PO PRN (13:20)
[2020-09-16] MEDS ORDERED: MENTHOL/PHENOL 1 EACH UD MM PRN (13:20)
[2020-09-16] MEDS ORDERED: NICOTINE POLACRILEX 2 MG GUM BUC PRN (13:20)
[2020-09-16] MEDS ORDERED: MAGNESIUM HYDROX 2400MG/30ML ORAL SUSPENSION 30 ML CUP PO PRN (13:20)
[2020-09-16] MEDS ORDERED: MAGNESIUM CITRATE 300 ML BOTTLE PO PRN (13:20)
[2020-09-16] MEDS ORDERED: LOPERAMIDE HCL 2 MG CAPSULE PO PRN (13:20)
[2020-09-16] MEDS ORDERED: P-EPHED 60MG/TRIPROLIDI 2.5MG TABLET PO PRN (13:20)
[2020-09-16] MEDS ORDERED: ACETAMINOPHEN 325 MG TABLET (FP) PO PRN (13:20)
[2020-09-16] MEDS: metFORMIN HCL 500 MG TABLET (FP) PO SCH (17:07)
[2020-09-16] MEDS: INSULIN SLIDING SCALE (NOVOLOG) 1 VIAL SQ SCH ×2 (17:15→21:34)
[2020-09-16] MEDS: THIAMINE HCL 100 MG TABLET (FP) PO SCH (21:31)
[2020-09-16] MEDS: ATORVASTATIN CA 40 MG TABLET (FP) PO SCH (21:31)
[2020-09-16] MEDS: MELATONIN 5 MG TABLETS PO SCH (21:31)
[2020-09-16] MEDS: IBUPROFEN 400 MG TABLET (FP) PO PRN (21:33)
[2020-09-17] MEDS: metFORMIN HCL 500 MG TABLET (FP) PO SCH ×2 (06:23→17:01)
[2020-09-17] MEDS: INSULIN SLIDING SCALE (NOVOLOG) 1 VIAL SQ SCH ×4 (06:23→21:49)
[2020-09-17] MEDS: amLODIPine BESYLATE 5 MG TABLET (FP) PO SCH (09:53)
[2020-09-17] MEDS: LISINOPRIL 10 MG TABLET PO SCH (09:53)
[2020-09-17] MEDS: PRENATAL VITAMINS W/ FOLIC ACID TABLET (FP) PO SCH (09:53)
[2020-09-17] MEDS: ASPIRIN 81 MG CHEWABLE TABLETS PO SCH (09:53)
[2020-09-17] MEDS: LIDOCAINE 5% TOPICAL PATCH TP SCH (09:54)
[2020-09-17] MEDS: MAG HYDROX/AL HYDROX/SIMETH 30 ML UNIT-DOSE CUP PO PRN (10:56)
[2020-09-17] MEDS: NICOTINE 7 MG/24 HOURS TOPICAL PATCH TD SCH (11:14)
[2020-09-17] MEDS: TOLNAFTATE 1% CREAM 15 GM TUBE TP SCH ×2 (11:14→21:50)
[2020-09-17] MEDS: LORATADINE 10 MG TABLET PO SCH (11:14)
[2020-09-17] MEDS: IBUPROFEN 400 MG TABLET (FP) PO PRN ×2 (14:24→21:40)
[2020-09-17] MEDS: CYCLOBENZAPRINE HCL 5 MG TABLET PO PRN (14:24)
[2020-09-17] MEDS: THIAMINE HCL 100 MG TABLET (FP) PO SCH (21:39)
[2020-09-17] MEDS: ATORVASTATIN CA 40 MG TABLET (FP) PO SCH (21:39)
[2020-09-17] MEDS: MELATONIN 5 MG TABLETS PO SCH (21:39)
[2020-09-17] MEDS: LIDOCAINE PATCH REMOVAL MC SCH (21:49)
[2020-09-18] MEDS: metFORMIN HCL 500 MG TABLET (FP) PO SCH ×2 (06:17→16:32)
[2020-09-18] MEDS: INSULIN SLIDING SCALE (NOVOLOG) 1 VIAL SQ SCH ×4 (06:18→21:15)
[2020-09-18] MEDS: MAG HYDROX/AL HYDROX/SIMETH 30 ML UNIT-DOSE CUP PO PRN (06:19)
[2020-09-18] MEDS: LORATADINE 10 MG TABLET PO SCH (09:50)
[2020-09-18] MEDS: ASPIRIN 81 MG CHEWABLE TABLETS PO SCH (09:50)
[2020-09-18] MEDS: amLODIPine BESYLATE 5 MG TABLET (FP) PO SCH (09:50)
[2020-09-18] MEDS: NICOTINE 7 MG/24 HOURS TOPICAL PATCH TD SCH (09:51)
[2020-09-18] MEDS: LIDOCAINE 5% TOPICAL PATCH TP SCH (09:51)
[2020-09-18] MEDS: PRENATAL VITAMINS W/ FOLIC ACID TABLET (FP) PO SCH (09:51)
[2020-09-18] MEDS: TOLNAFTATE 1% CREAM 15 GM TUBE TP SCH ×2 (09:51→21:16)
[2020-09-18] MEDS: LISINOPRIL 10 MG TABLET PO SCH (09:51)
[2020-09-18] MEDS: IBUPROFEN 400 MG TABLET (FP) PO PRN ×2 (09:52→16:32)
[2020-09-18] MEDS: ATORVASTATIN CA 40 MG TABLET (FP) PO SCH (21:14)
[2020-09-18] MEDS: THIAMINE HCL 100 MG TABLET (FP) PO SCH (21:14)
[2020-09-18] MEDS: MELATONIN 5 MG TABLETS PO SCH (21:14)
[2020-09-18] MEDS: LIDOCAINE PATCH REMOVAL MC SCH (21:15)
[2020-09-19] MEDS: INSULIN SLIDING SCALE (NOVOLOG) 1 VIAL SQ SCH ×4 (06:09→21:40)
[2020-09-19] MEDS: metFORMIN HCL 500 MG TABLET (FP) PO SCH ×2 (06:09→16:40)
[2020-09-19] MEDS: MAG HYDROX/AL HYDROX/SIMETH 30 ML UNIT-DOSE CUP PO PRN (06:34)
[2020-09-19] MEDS: LISINOPRIL 10 MG TABLET PO SCH (09:46)
[2020-09-19] MEDS: LIDOCAINE 5% TOPICAL PATCH TP SCH (09:46)
[2020-09-19] MEDS: PRENATAL VITAMINS W/ FOLIC ACID TABLET (FP) PO SCH (09:46)
[2020-09-19] MEDS: amLODIPine BESYLATE 5 MG TABLET (FP) PO SCH (09:46)
[2020-09-19] MEDS: ASPIRIN 81 MG CHEWABLE TABLETS PO SCH (09:46)
[2020-09-19] MEDS: LORATADINE 10 MG TABLET PO SCH (09:47)
[2020-09-19] MEDS: CYCLOBENZAPRINE HCL 5 MG TABLET PO PRN ×2 (09:49→21:33)
[2020-09-19] MEDS: NICOTINE 7 MG/24 HOURS TOPICAL PATCH TD SCH (09:50)
[2020-09-19] MEDS: TOLNAFTATE 1% CREAM 15 GM TUBE TP SCH ×2 (09:50→21:40)
[2020-09-19] MEDS: THIAMINE HCL 100 MG TABLET (FP) PO SCH (21:31)
[2020-09-19] MEDS: MELATONIN 5 MG TABLETS PO SCH (21:32)
[2020-09-19] MEDS: ATORVASTATIN CA 40 MG TABLET (FP) PO SCH (21:32)
[2020-09-19] MEDS: LIDOCAINE PATCH REMOVAL MC SCH (21:40)
[2020-09-20] MEDS: INSULIN SLIDING SCALE (NOVOLOG) 1 VIAL SQ SCH ×4 (06:09→21:13)
[2020-09-20] MEDS: metFORMIN HCL 500 MG TABLET (FP) PO SCH ×2 (06:09→16:36)
[2020-09-20] MEDS: PRENATAL VITAMINS W/ FOLIC ACID TABLET (FP) PO SCH (10:00)
[2020-09-20] MEDS: LISINOPRIL 10 MG TABLET PO SCH (10:00)
[2020-09-20] MEDS: LIDOCAINE 5% TOPICAL PATCH TP SCH (10:00)
[2020-09-20] MEDS: ASPIRIN 81 MG CHEWABLE TABLETS PO SCH (10:00)
[2020-09-20] MEDS: LORATADINE 10 MG TABLET PO SCH (10:00)
[2020-09-20] MEDS: amLODIPine BESYLATE 5 MG TABLET (FP) PO SCH (10:00)
[2020-09-20] MEDS: NICOTINE 7 MG/24 HOURS TOPICAL PATCH TD SCH (10:01)
[2020-09-20] MEDS: CYCLOBENZAPRINE HCL 5 MG TABLET PO PRN ×2 (10:01→21:13)
[2020-09-20] MEDS: TOLNAFTATE 1% CREAM 15 GM TUBE TP SCH ×2 (10:01→21:14)
[2020-09-20] MEDS: MAG HYDROX/AL HYDROX/SIMETH 30 ML UNIT-DOSE CUP PO PRN (10:03)
[2020-09-20] MEDS: MELATONIN 5 MG TABLETS PO SCH (21:13)
[2020-09-20] MEDS: THIAMINE HCL 100 MG TABLET (FP) PO SCH (21:13)
[2020-09-20] MEDS: ATORVASTATIN CA 40 MG TABLET (FP) PO SCH (21:13)
[2020-09-20] MEDS: LIDOCAINE PATCH REMOVAL MC SCH (21:14)
[2020-09-21] MEDS: metFORMIN HCL 500 MG TABLET (FP) PO SCH ×2 (06:15→16:49)
[2020-09-21] MEDS: INSULIN SLIDING SCALE (NOVOLOG) 1 VIAL SQ SCH ×4 (06:16→21:34)
[2020-09-21] MEDS: MAG HYDROX/AL HYDROX/SIMETH 30 ML UNIT-DOSE CUP PO PRN (06:16)
[2020-09-21] MEDS: CYCLOBENZAPRINE HCL 5 MG TABLET PO PRN ×2 (09:36→16:52)
[2020-09-21] MEDS: PRENATAL VITAMINS W/ FOLIC ACID TABLET (FP) PO SCH (09:36)
[2020-09-21] MEDS: ASPIRIN 81 MG CHEWABLE TABLETS PO SCH (09:36)
[2020-09-21] MEDS: amLODIPine BESYLATE 5 MG TABLET (FP) PO SCH (09:36)
[2020-09-21] MEDS: LISINOPRIL 10 MG TABLET PO SCH (09:36)
[2020-09-21] MEDS: NICOTINE 7 MG/24 HOURS TOPICAL PATCH TD SCH (09:37)
[2020-09-21] MEDS: LIDOCAINE 5% TOPICAL PATCH TP SCH (09:37)
[2020-09-21] MEDS: LORATADINE 10 MG TABLET PO SCH (09:38)
[2020-09-21] MEDS: TOLNAFTATE 1% CREAM 15 GM TUBE TP SCH ×2 (10:02→21:34)
[2020-09-21] MEDS: ATORVASTATIN CA 40 MG TABLET (FP) PO SCH (21:33)
[2020-09-21] MEDS: THIAMINE HCL 100 MG TABLET (FP) PO SCH (21:33)
[2020-09-21] MEDS: MELATONIN 5 MG TABLETS PO SCH (21:33)
[2020-09-21] MEDS: LIDOCAINE PATCH REMOVAL MC SCH (21:34)
[2020-09-22] MEDS: MAG HYDROX/AL HYDROX/SIMETH 30 ML UNIT-DOSE CUP PO PRN (06:07)
[2020-09-22] MEDS: metFORMIN HCL 500 MG TABLET (FP) PO SCH ×2 (06:07→16:58)
[2020-09-22] MEDS: INSULIN SLIDING SCALE (NOVOLOG) 1 VIAL SQ SCH ×4 (06:18→21:10)
[2020-09-22] MEDS: LIDOCAINE 5% TOPICAL PATCH TP SCH (09:45)
[2020-09-22] MEDS: CYCLOBENZAPRINE HCL 5 MG TABLET PO PRN ×2 (09:46→21:09)
[2020-09-22] MEDS: amLODIPine BESYLATE 5 MG TABLET (FP) PO SCH (09:46)
[2020-09-22] MEDS: ASPIRIN 81 MG CHEWABLE TABLETS PO SCH (09:46)
[2020-09-22] MEDS: LISINOPRIL 10 MG TABLET PO SCH (09:47)
[2020-09-22] MEDS: LORATADINE 10 MG TABLET PO SCH (09:47)
[2020-09-22] MEDS: NICOTINE 7 MG/24 HOURS TOPICAL PATCH TD SCH (09:47)
[2020-09-22] MEDS: PRENATAL VITAMINS W/ FOLIC ACID TABLET (FP) PO SCH (09:47)
[2020-09-22] MEDS: TOLNAFTATE 1% CREAM 15 GM TUBE TP SCH ×2 (09:48→21:47)
[2020-09-22] MEDS: THIAMINE HCL 100 MG TABLET (FP) PO SCH (21:09)
[2020-09-22] MEDS: MELATONIN 5 MG TABLETS PO SCH (21:09)
[2020-09-22] MEDS: ATORVASTATIN CA 40 MG TABLET (FP) PO SCH (21:09)
[2020-09-22] MEDS: LIDOCAINE PATCH REMOVAL MC SCH (21:10)
[2020-09-23] MEDS: metFORMIN HCL 500 MG TABLET (FP) PO SCH ×2 (06:18→16:48)
[2020-09-23] MEDS: MAG HYDROX/AL HYDROX/SIMETH 30 ML UNIT-DOSE CUP PO PRN (06:21)
[2020-09-23] MEDS: INSULIN SLIDING SCALE (NOVOLOG) 1 VIAL SQ SCH ×4 (06:46→21:32)
[2020-09-23] MEDS: ASPIRIN 81 MG CHEWABLE TABLETS PO SCH (09:43)
[2020-09-23] MEDS: NICOTINE 7 MG/24 HOURS TOPICAL PATCH TD SCH (09:43)
[2020-09-23] MEDS: amLODIPine BESYLATE 5 MG TABLET (FP) PO SCH (09:43)
[2020-09-23] MEDS: PRENATAL VITAMINS W/ FOLIC ACID TABLET (FP) PO SCH (09:43)
[2020-09-23] MEDS: LORATADINE 10 MG TABLET PO SCH (09:43)
[2020-09-23] MEDS: LISINOPRIL 10 MG TABLET PO SCH (09:43)
[2020-09-23] MEDS: LIDOCAINE 5% TOPICAL PATCH TP SCH (09:43)
[2020-09-23] MEDS: TOLNAFTATE 1% CREAM 15 GM TUBE TP SCH ×2 (09:43→21:51)
[2020-09-23] MEDS: LIDOCAINE PATCH REMOVAL MC SCH (21:31)
[2020-09-23] MEDS: ATORVASTATIN CA 40 MG TABLET (FP) PO SCH (21:31)
[2020-09-23] MEDS: MELATONIN 5 MG TABLETS PO SCH (21:31)
[2020-09-23] MEDS: hydrOXYzine PAMOATE 25 MG CAPSULE (FP) PO PRN (21:31)
[2020-09-23] MEDS: THIAMINE HCL 100 MG TABLET (FP) PO SCH (21:31)
[2020-09-24] MEDS: INSULIN SLIDING SCALE (NOVOLOG) 1 VIAL SQ SCH ×4 (06:12→21:14)
[2020-09-24] MEDS: metFORMIN HCL 500 MG TABLET (FP) PO SCH ×2 (06:12→16:27)
[2020-09-24] MEDS: LORATADINE 10 MG TABLET PO SCH (09:48)
[2020-09-24] MEDS: LIDOCAINE 5% TOPICAL PATCH TP SCH (09:48)
[2020-09-24] MEDS: amLODIPine BESYLATE 5 MG TABLET (FP) PO SCH (09:48)
[2020-09-24] MEDS: LISINOPRIL 10 MG TABLET PO SCH (09:48)
[2020-09-24] MEDS: ASPIRIN 81 MG CHEWABLE TABLETS PO SCH (09:48)
[2020-09-24] MEDS: PRENATAL VITAMINS W/ FOLIC ACID TABLET (FP) PO SCH (09:48)
[2020-09-24] MEDS: TOLNAFTATE 1% CREAM 15 GM TUBE TP SCH ×2 (09:48→21:15)
[2020-09-24] MEDS: NICOTINE 7 MG/24 HOURS TOPICAL PATCH TD SCH (09:49)
[2020-09-24] MEDS: MELATONIN 5 MG TABLETS PO SCH (21:12)
[2020-09-24] MEDS: THIAMINE HCL 100 MG TABLET (FP) PO SCH (21:12)
[2020-09-24] MEDS: ATORVASTATIN CA 40 MG TABLET (FP) PO SCH (21:13)
[2020-09-24] MEDS: CYCLOBENZAPRINE HCL 5 MG TABLET PO PRN (21:13)
[2020-09-24] MEDS: LIDOCAINE PATCH REMOVAL MC SCH (21:13)
[2020-09-25] MEDS: metFORMIN HCL 500 MG TABLET (FP) PO SCH ×2 (06:03→16:31)
[2020-09-25] MEDS: INSULIN SLIDING SCALE (NOVOLOG) 1 VIAL SQ SCH ×4 (06:03→21:24)
[2020-09-25] MEDS: LISINOPRIL 10 MG TABLET PO SCH (09:30)
[2020-09-25] MEDS: TOLNAFTATE 1% CREAM 15 GM TUBE TP SCH ×2 (09:30→21:24)
[2020-09-25] MEDS: PRENATAL VITAMINS W/ FOLIC ACID TABLET (FP) PO SCH (09:30)
[2020-09-25] MEDS: LORATADINE 10 MG TABLET PO SCH (09:30)
[2020-09-25] MEDS: NICOTINE 7 MG/24 HOURS TOPICAL PATCH TD SCH (09:31)
[2020-09-25] MEDS: LIDOCAINE 5% TOPICAL PATCH TP SCH (09:31)
[2020-09-25] MEDS: ASPIRIN 81 MG CHEWABLE TABLETS PO SCH (09:31)
[2020-09-25] MEDS: amLODIPine BESYLATE 5 MG TABLET (FP) PO SCH (09:31)
[2020-09-25] MEDS: CYCLOBENZAPRINE HCL 5 MG TABLET PO PRN ×2 (09:33→21:23)
[2020-09-25] MEDS: MAG HYDROX/AL HYDROX/SIMETH 30 ML UNIT-DOSE CUP PO PRN (16:32)
[2020-09-25] MEDS: ATORVASTATIN CA 40 MG TABLET (FP) PO SCH (21:23)
[2020-09-25] MEDS: MELATONIN 5 MG TABLETS PO SCH (21:23)
[2020-09-25] MEDS: THIAMINE HCL 100 MG TABLET (FP) PO SCH (21:23)
[2020-09-25] MEDS: LIDOCAINE PATCH REMOVAL MC SCH (21:24)
[2020-09-26] MEDS: INSULIN SLIDING SCALE (NOVOLOG) 1 VIAL SQ SCH ×4 (06:05→21:20)
[2020-09-26] MEDS: metFORMIN HCL 500 MG TABLET (FP) PO SCH ×2 (06:05→16:51)
[2020-09-26] MEDS: LORATADINE 10 MG TABLET PO SCH (09:42)
[2020-09-26] MEDS: LISINOPRIL 10 MG TABLET PO SCH (09:42)
[2020-09-26] MEDS: CYCLOBENZAPRINE HCL 5 MG TABLET PO PRN ×2 (09:42→21:18)
[2020-09-26] MEDS: NICOTINE 7 MG/24 HOURS TOPICAL PATCH TD SCH (09:42)
[2020-09-26] MEDS: PRENATAL VITAMINS W/ FOLIC ACID TABLET (FP) PO SCH (09:42)
[2020-09-26] MEDS: amLODIPine BESYLATE 5 MG TABLET (FP) PO SCH (09:42)
[2020-09-26] MEDS: LIDOCAINE 5% TOPICAL PATCH TP SCH (09:42)
[2020-09-26] MEDS: ASPIRIN 81 MG CHEWABLE TABLETS PO SCH (09:42)
[2020-09-26] MEDS: TOLNAFTATE 1% CREAM 15 GM TUBE TP SCH ×2 (10:12→21:20)
[2020-09-26] MEDS ORDERED: BISMUTH SUBSALICYLATE 262 MG/15 ML BTL PO ONE (11:45)
[2020-09-26] MEDS: THIAMINE HCL 100 MG TABLET (FP) PO SCH (21:19)
[2020-09-26] MEDS: ATORVASTATIN CA 40 MG TABLET (FP) PO SCH (21:19)
[2020-09-26] MEDS: MELATONIN 5 MG TABLETS PO SCH (21:19)
[2020-09-26] MEDS: LIDOCAINE PATCH REMOVAL MC SCH (21:20)
[2020-09-27] MEDS: metFORMIN HCL 500 MG TABLET (FP) PO SCH ×2 (06:23→16:49)
[2020-09-27] MEDS: INSULIN SLIDING SCALE (NOVOLOG) 1 VIAL SQ SCH ×4 (06:23→21:25)
[2020-09-27] MEDS: TOLNAFTATE 1% CREAM 15 GM TUBE TP SCH ×2 (10:09→21:25)
[2020-09-27] MEDS: NICOTINE 7 MG/24 HOURS TOPICAL PATCH TD SCH (10:10)
[2020-09-27] MEDS: CYCLOBENZAPRINE HCL 5 MG TABLET PO PRN ×2 (10:10→21:24)
[2020-09-27] MEDS: amLODIPine BESYLATE 5 MG TABLET (FP) PO SCH (10:10)
[2020-09-27] MEDS: LORATADINE 10 MG TABLET PO SCH (10:10)
[2020-09-27] MEDS: PRENATAL VITAMINS W/ FOLIC ACID TABLET (FP) PO SCH (10:10)
[2020-09-27] MEDS: LISINOPRIL 10 MG TABLET PO SCH (10:10)
[2020-09-27] MEDS: LIDOCAINE 5% TOPICAL PATCH TP SCH (10:10)
[2020-09-27] MEDS: ASPIRIN 81 MG CHEWABLE TABLETS PO SCH (10:10)
[2020-09-27] MEDS ORDERED: MASKS NR ONE (19:44)
[2020-09-27] MEDS: THIAMINE HCL 100 MG TABLET (FP) PO SCH (21:24)
[2020-09-27] MEDS: MELATONIN 5 MG TABLETS PO SCH (21:24)
[2020-09-27] MEDS: ATORVASTATIN CA 40 MG TABLET (FP) PO SCH (21:24)
[2020-09-27] MEDS: LIDOCAINE PATCH REMOVAL MC SCH (21:25)
[2020-09-28] MEDS: metFORMIN HCL 500 MG TABLET (FP) PO SCH ×2 (06:08→16:38)
[2020-09-28] MEDS: INSULIN SLIDING SCALE (NOVOLOG) 1 VIAL SQ SCH ×3 (06:09→16:39)
[2020-09-28] MEDS: LISINOPRIL 10 MG TABLET PO SCH (09:56)
[2020-09-28] MEDS: NICOTINE 7 MG/24 HOURS TOPICAL PATCH TD SCH (09:56)
[2020-09-28] MEDS: ASPIRIN 81 MG CHEWABLE TABLETS PO SCH (09:56)
[2020-09-28] MEDS: LORATADINE 10 MG TABLET PO SCH (09:56)
[2020-09-28] MEDS: PRENATAL VITAMINS W/ FOLIC ACID TABLET (FP) PO SCH (09:56)
[2020-09-28] MEDS: amLODIPine BESYLATE 5 MG TABLET (FP) PO SCH (09:56)
[2020-09-28] MEDS: TOLNAFTATE 1% CREAM 15 GM TUBE TP SCH ×2 (09:57→21:08)
[2020-09-28] MEDS: LIDOCAINE 5% TOPICAL PATCH TP SCH (09:58)
[2020-09-28] MEDS: ATORVASTATIN CA 40 MG TABLET (FP) PO SCH (21:07)
[2020-09-28] MEDS: THIAMINE HCL 100 MG TABLET (FP) PO SCH (21:07)
[2020-09-28] MEDS: CYCLOBENZAPRINE HCL 5 MG TABLET PO PRN (21:07)
[2020-09-28] MEDS: MELATONIN 5 MG TABLETS PO SCH (21:07)
[2020-09-28] MEDS: LIDOCAINE PATCH REMOVAL MC SCH (21:08)
[2020-09-29] MEDS: metFORMIN HCL 500 MG TABLET (FP) PO SCH ×2 (06:11→16:33)
[2020-09-29] MEDS: MAG HYDROX/AL HYDROX/SIMETH 30 ML UNIT-DOSE CUP PO PRN ×2 (06:12→15:01)
[2020-09-29] MEDS: INSULIN SLIDING SCALE (NOVOLOG) 1 VIAL SQ SCH ×2 (06:38→16:41)
[2020-09-29] MEDS: LIDOCAINE 5% TOPICAL PATCH TP SCH (09:36)
[2020-09-29] MEDS: LORATADINE 10 MG TABLET PO SCH (09:36)
[2020-09-29] MEDS: ASPIRIN 81 MG CHEWABLE TABLETS PO SCH (09:36)
[2020-09-29] MEDS: amLODIPine BESYLATE 5 MG TABLET (FP) PO SCH (09:36)
[2020-09-29] MEDS: PRENATAL VITAMINS W/ FOLIC ACID TABLET (FP) PO SCH (09:36)
[2020-09-29] MEDS: LISINOPRIL 10 MG TABLET PO SCH (09:36)
[2020-09-29] MEDS: TOLNAFTATE 1% CREAM 15 GM TUBE TP SCH ×2 (09:53→21:27)
[2020-09-29] MEDS: NICOTINE 7 MG/24 HOURS TOPICAL PATCH TD SCH (09:53)
[2020-09-29] MEDS: IBUPROFEN 400 MG TABLET (FP) PO PRN ×2 (15:01→21:27)
[2020-09-29] MEDS: ATORVASTATIN CA 40 MG TABLET (FP) PO SCH (21:26)
[2020-09-29] MEDS: MELATONIN 5 MG TABLETS PO SCH (21:26)
[2020-09-29] MEDS: THIAMINE HCL 100 MG TABLET (FP) PO SCH (21:27)
[2020-09-29] MEDS: LIDOCAINE PATCH REMOVAL MC SCH (21:28)
[2020-09-30] MEDS: IBUPROFEN 400 MG TABLET (FP) PO PRN ×3 (06:15→21:06)
[2020-09-30] MEDS: metFORMIN HCL 500 MG TABLET (FP) PO SCH ×2 (06:15→16:48)
[2020-09-30] MEDS: INSULIN SLIDING SCALE (NOVOLOG) 1 VIAL SQ SCH ×2 (06:35→16:49)
[2020-09-30] MEDS: LORATADINE 10 MG TABLET PO SCH (09:50)
[2020-09-30] MEDS: LISINOPRIL 10 MG TABLET PO SCH (09:51)
[2020-09-30] MEDS: amLODIPine BESYLATE 5 MG TABLET (FP) PO SCH (09:51)
[2020-09-30] MEDS: LIDOCAINE 5% TOPICAL PATCH TP SCH (09:51)
[2020-09-30] MEDS: PRENATAL VITAMINS W/ FOLIC ACID TABLET (FP) PO SCH (09:51)
[2020-09-30] MEDS: NICOTINE 7 MG/24 HOURS TOPICAL PATCH TD SCH (09:51)
[2020-09-30] MEDS: ASPIRIN 81 MG CHEWABLE TABLETS PO SCH (09:51)
[2020-09-30] MEDS: CYCLOBENZAPRINE HCL 5 MG TABLET PO PRN (09:52)
[2020-09-30] MEDS: TOLNAFTATE 1% CREAM 15 GM TUBE TP SCH ×2 (10:13→21:08)
[2020-09-30] MEDS: ATORVASTATIN CA 40 MG TABLET (FP) PO SCH (21:05)
[2020-09-30] MEDS: THIAMINE HCL 100 MG TABLET (FP) PO SCH (21:06)
[2020-09-30] MEDS: MELATONIN 5 MG TABLETS PO SCH (21:06)
[2020-09-30] MEDS: LIDOCAINE PATCH REMOVAL MC SCH (21:49)
[2020-10-01] MEDS: CYCLOBENZAPRINE HCL 5 MG TABLET PO PRN (06:22)
[2020-10-01] MEDS: metFORMIN HCL 500 MG TABLET (FP) PO SCH ×2 (06:24→16:47)
[2020-10-01] MEDS: INSULIN SLIDING SCALE (NOVOLOG) 1 VIAL SQ SCH ×2 (06:35→16:48)
[2020-10-01] MEDS: LORATADINE 10 MG TABLET PO SCH (09:55)
[2020-10-01] MEDS: LISINOPRIL 10 MG TABLET PO SCH (09:55)
[2020-10-01] MEDS: PRENATAL VITAMINS W/ FOLIC ACID TABLET (FP) PO SCH (09:55)
[2020-10-01] MEDS: LIDOCAINE 5% TOPICAL PATCH TP SCH (09:55)
[2020-10-01] MEDS: amLODIPine BESYLATE 5 MG TABLET (FP) PO SCH (09:55)
[2020-10-01] MEDS: ASPIRIN 81 MG CHEWABLE TABLETS PO SCH (09:55)
[2020-10-01] MEDS: TOLNAFTATE 1% CREAM 15 GM TUBE TP SCH ×2 (09:56→21:29)
[2020-10-01] MEDS: NICOTINE 7 MG/24 HOURS TOPICAL PATCH TD SCH (09:56)
[2020-10-01] MEDS: IBUPROFEN 400 MG TABLET (FP) PO PRN (14:45)
[2020-10-01] MEDS: THIAMINE HCL 100 MG TABLET (FP) PO SCH (21:28)
[2020-10-01] MEDS: ATORVASTATIN CA 40 MG TABLET (FP) PO SCH (21:28)
[2020-10-01] MEDS: IBUPROFEN 600 MG TABLET (FP) PO PRN (21:28)
[2020-10-01] MEDS: MELATONIN 5 MG TABLETS PO SCH (21:28)
[2020-10-01] MEDS: METHYL SALICYLATE/MENTHOL OINT 30 GM TUBE TP SCH (21:29)
[2020-10-01] MEDS: LIDOCAINE PATCH REMOVAL MC SCH (21:29)
[2020-10-02] MEDS: metFORMIN HCL 500 MG TABLET (FP) PO SCH ×2 (06:21→16:59)
[2020-10-02] MEDS: IBUPROFEN 600 MG TABLET (FP) PO PRN ×3 (06:23→21:11)
[2020-10-02] MEDS: INSULIN SLIDING SCALE (NOVOLOG) 1 VIAL SQ SCH ×2 (06:47→17:01)
[2020-10-02] MEDS: LISINOPRIL 10 MG TABLET PO SCH (09:59)
[2020-10-02] MEDS: PRENATAL VITAMINS W/ FOLIC ACID TABLET (FP) PO SCH (09:59)
[2020-10-02] MEDS: ASPIRIN 81 MG CHEWABLE TABLETS PO SCH (09:59)
[2020-10-02] MEDS: amLODIPine BESYLATE 5 MG TABLET (FP) PO SCH (09:59)
[2020-10-02] MEDS: LIDOCAINE 5% TOPICAL PATCH TP SCH (10:00)
[2020-10-02] MEDS: METHYL SALICYLATE/MENTHOL OINT 30 GM TUBE TP SCH ×2 (10:00→21:13)
[2020-10-02] MEDS: LORATADINE 10 MG TABLET PO SCH (10:00)
[2020-10-02] MEDS: TOLNAFTATE 1% CREAM 15 GM TUBE TP SCH ×2 (10:34→21:12)
[2020-10-02] MEDS: NICOTINE 7 MG/24 HOURS TOPICAL PATCH TD SCH (10:34)
[2020-10-02] MEDS: ATORVASTATIN CA 40 MG TABLET (FP) PO SCH (21:11)
[2020-10-02] MEDS: THIAMINE HCL 100 MG TABLET (FP) PO SCH (21:11)
[2020-10-02] MEDS: MELATONIN 5 MG TABLETS PO SCH (21:11)
[2020-10-02] MEDS: LIDOCAINE PATCH REMOVAL MC SCH (21:13)
[2020-10-03] MEDS: INSULIN SLIDING SCALE (NOVOLOG) 1 VIAL SQ SCH ×2 (06:38→16:45)
[2020-10-03] MEDS: metFORMIN HCL 500 MG TABLET (FP) PO SCH ×2 (06:39→16:43)
[2020-10-03] MEDS: IBUPROFEN 600 MG TABLET (FP) PO PRN ×2 (06:53→16:46)
[2020-10-03] MEDS: amLODIPine BESYLATE 5 MG TABLET (FP) PO SCH (09:47)
[2020-10-03] MEDS: PRENATAL VITAMINS W/ FOLIC ACID TABLET (FP) PO SCH (09:47)
[2020-10-03] MEDS: TOLNAFTATE 1% CREAM 15 GM TUBE TP SCH (09:48)
[2020-10-03] MEDS: LIDOCAINE 5% TOPICAL PATCH TP SCH (09:48)
[2020-10-03] MEDS: ASPIRIN 81 MG CHEWABLE TABLETS PO SCH (09:48)
[2020-10-03] MEDS: LISINOPRIL 10 MG TABLET PO SCH (09:48)
[2020-10-03] MEDS: METHYL SALICYLATE/MENTHOL OINT 30 GM TUBE TP SCH (09:48)
[2020-10-03] MEDS: NICOTINE 7 MG/24 HOURS TOPICAL PATCH TD SCH (09:48)
[2020-10-03] MEDS: LORATADINE 10 MG TABLET PO SCH (09:48)
[2020-10-03] MEDS: FAMOTIDINE 20 MG TABLET PO SCH (10:44)
[2020-10-03] MEDS: SIMETHICONE 80 MG TAB.CHEW (FP) PO PRN ×2 (11:41→15:42)
[2020-10-04] MEDS: THIAMINE HCL 100 MG TABLET (FP) PO SCH ×2 (00:03→21:13)
[2020-10-04] MEDS: hydrOXYzine PAMOATE 25 MG CAPSULE (FP) PO PRN ×3 (00:04→21:15)
[2020-10-04] MEDS: MELATONIN 5 MG TABLETS PO SCH ×2 (00:04→21:13)
[2020-10-04] MEDS: ATORVASTATIN CA 40 MG TABLET (FP) PO SCH ×2 (00:04→21:13)
[2020-10-04] MEDS: FAMOTIDINE 20 MG TABLET PO SCH ×3 (00:04→21:13)
[2020-10-04] MEDS: TOLNAFTATE 1% CREAM 15 GM TUBE TP SCH ×3 (00:05→21:15)
[2020-10-04] MEDS: LIDOCAINE PATCH REMOVAL MC SCH ×2 (00:05→21:15)
[2020-10-04] MEDS: METHYL SALICYLATE/MENTHOL OINT 30 GM TUBE TP SCH ×3 (00:05→21:15)
[2020-10-04] MEDS: metFORMIN HCL 500 MG TABLET (FP) PO SCH ×2 (06:35→16:39)
[2020-10-04] MEDS: INSULIN SLIDING SCALE (NOVOLOG) 1 VIAL SQ SCH ×2 (06:37→16:40)
[2020-10-04] MEDS: SIMETHICONE 80 MG TAB.CHEW (FP) PO PRN ×3 (06:56→16:41)
[2020-10-04] MEDS: ASPIRIN 81 MG CHEWABLE TABLETS PO SCH (09:45)
[2020-10-04] MEDS: amLODIPine BESYLATE 5 MG TABLET (FP) PO SCH (09:45)
[2020-10-04] MEDS: PRENATAL VITAMINS W/ FOLIC ACID TABLET (FP) PO SCH (09:45)
[2020-10-04] MEDS: LISINOPRIL 10 MG TABLET PO SCH (09:45)
[2020-10-04] MEDS: LORATADINE 10 MG TABLET PO SCH (09:46)
[2020-10-04] MEDS: NICOTINE 7 MG/24 HOURS TOPICAL PATCH TD SCH (09:46)
[2020-10-04] MEDS: LIDOCAINE 5% TOPICAL PATCH TP SCH (09:46)
[2020-10-04] MEDS: IBUPROFEN 600 MG TABLET (FP) PO PRN ×2 (09:48→21:14)
[2020-10-05] MEDS: SIMETHICONE 80 MG TAB.CHEW (FP) PO PRN ×3 (06:14→21:49)
[2020-10-05] MEDS: metFORMIN HCL 500 MG TABLET (FP) PO SCH ×2 (06:14→16:48)
[2020-10-05] MEDS: INSULIN SLIDING SCALE (NOVOLOG) 1 VIAL SQ SCH ×2 (06:36→16:50)
[2020-10-05] MEDS: IBUPROFEN 600 MG TABLET (FP) PO PRN ×2 (06:51→16:48)
[2020-10-05] MEDS: ASPIRIN 81 MG CHEWABLE TABLETS PO SCH (10:06)
[2020-10-05] MEDS: PRENATAL VITAMINS W/ FOLIC ACID TABLET (FP) PO SCH (10:06)
[2020-10-05] MEDS: FAMOTIDINE 20 MG TABLET PO SCH ×2 (10:06→21:49)
[2020-10-05] MEDS: amLODIPine BESYLATE 5 MG TABLET (FP) PO SCH (10:06)
[2020-10-05] MEDS: LIDOCAINE 5% TOPICAL PATCH TP SCH (10:06)
[2020-10-05] MEDS: LISINOPRIL 10 MG TABLET PO SCH (10:06)
[2020-10-05] MEDS: METHYL SALICYLATE/MENTHOL OINT 30 GM TUBE TP SCH ×2 (10:07→21:47)
[2020-10-05] MEDS: TOLNAFTATE 1% CREAM 15 GM TUBE TP SCH ×2 (10:07→21:47)
[2020-10-05] MEDS: LORATADINE 10 MG TABLET PO SCH (10:07)
[2020-10-05] MEDS: NICOTINE 7 MG/24 HOURS TOPICAL PATCH TD SCH (10:07)
[2020-10-05] MEDS: THIAMINE HCL 100 MG TABLET (FP) PO SCH (21:48)
[2020-10-05] MEDS: ATORVASTATIN CA 40 MG TABLET (FP) PO SCH (21:48)
[2020-10-05] MEDS: MELATONIN 5 MG TABLETS PO SCH (21:49)
[2020-10-05] MEDS: LIDOCAINE PATCH REMOVAL MC SCH (21:49)
[2020-10-06] MEDS: metFORMIN HCL 500 MG TABLET (FP) PO SCH ×2 (06:11→16:51)
[2020-10-06] MEDS: IBUPROFEN 600 MG TABLET (FP) PO PRN ×3 (06:29→21:06)
[2020-10-06] MEDS: INSULIN SLIDING SCALE (NOVOLOG) 1 VIAL SQ SCH ×2 (06:30→16:53)
[2020-10-06] MEDS: SIMETHICONE 80 MG TAB.CHEW (FP) PO PRN ×3 (09:46→21:08)
[2020-10-06] MEDS: ASPIRIN 81 MG CHEWABLE TABLETS PO SCH (09:46)
[2020-10-06] MEDS: PRENATAL VITAMINS W/ FOLIC ACID TABLET (FP) PO SCH (09:46)
[2020-10-06] MEDS: LISINOPRIL 10 MG TABLET PO SCH (09:47)
[2020-10-06] MEDS: FAMOTIDINE 20 MG TABLET PO SCH ×2 (09:47→21:08)
[2020-10-06] MEDS: amLODIPine BESYLATE 5 MG TABLET (FP) PO SCH (09:47)
[2020-10-06] MEDS: METHYL SALICYLATE/MENTHOL OINT 30 GM TUBE TP SCH ×2 (09:47→21:09)
[2020-10-06] MEDS: LIDOCAINE 5% TOPICAL PATCH TP SCH (09:47)
[2020-10-06] MEDS: LORATADINE 10 MG TABLET PO SCH (09:48)
[2020-10-06] MEDS: NICOTINE 7 MG/24 HOURS TOPICAL PATCH TD SCH (09:48)
[2020-10-06] MEDS: TOLNAFTATE 1% CREAM 15 GM TUBE TP SCH ×2 (10:53→21:08)
[2020-10-06] MEDS ORDERED: MASKS NR ONE (12:14)
[2020-10-06] MEDS: ATORVASTATIN CA 40 MG TABLET (FP) PO SCH (21:06)
[2020-10-06] MEDS: MELATONIN 5 MG TABLETS PO SCH (21:06)
[2020-10-06] MEDS: THIAMINE HCL 100 MG TABLET (FP) PO SCH (21:06)
[2020-10-06] MEDS: LIDOCAINE PATCH REMOVAL MC SCH (21:08)
[2020-10-07] MEDS: metFORMIN HCL 500 MG TABLET (FP) PO SCH ×2 (06:03→17:09)
[2020-10-07] MEDS: IBUPROFEN 600 MG TABLET (FP) PO PRN ×3 (06:41→21:34)
[2020-10-07] MEDS: INSULIN SLIDING SCALE (NOVOLOG) 1 VIAL SQ SCH ×2 (06:58→17:11)
[2020-10-07] MEDS: METHYL SALICYLATE/MENTHOL OINT 30 GM TUBE TP SCH ×2 (10:05→21:35)
[2020-10-07] MEDS: LISINOPRIL 10 MG TABLET PO SCH (10:05)
[2020-10-07] MEDS: ASPIRIN 81 MG CHEWABLE TABLETS PO SCH (10:05)
[2020-10-07] MEDS: FAMOTIDINE 20 MG TABLET PO SCH ×2 (10:06→21:35)
[2020-10-07] MEDS: NICOTINE 7 MG/24 HOURS TOPICAL PATCH TD SCH (10:06)
[2020-10-07] MEDS: LIDOCAINE 5% TOPICAL PATCH TP SCH (10:06)
[2020-10-07] MEDS: LORATADINE 10 MG TABLET PO SCH (10:06)
[2020-10-07] MEDS: amLODIPine BESYLATE 5 MG TABLET (FP) PO SCH (10:06)
[2020-10-07] MEDS: TOLNAFTATE 1% CREAM 15 GM TUBE TP SCH ×2 (10:07→21:35)
[2020-10-07] MEDS: PRENATAL VITAMINS W/ FOLIC ACID TABLET (FP) PO SCH (10:07)
[2020-10-07] MEDS: SIMETHICONE 80 MG TAB.CHEW (FP) PO PRN ×2 (10:56→21:32)
[2020-10-07] MEDS: ATORVASTATIN CA 40 MG TABLET (FP) PO SCH (21:33)
[2020-10-07] MEDS: MAG HYDROX/AL HYDROX/SIMETH 30 ML UNIT-DOSE CUP PO PRN (21:33)
[2020-10-07] MEDS: THIAMINE HCL 100 MG TABLET (FP) PO SCH (21:33)
[2020-10-07] MEDS: MELATONIN 5 MG TABLETS PO SCH (21:33)
[2020-10-07] MEDS: LIDOCAINE PATCH REMOVAL MC SCH (21:35)
[2020-10-08] MEDS: metFORMIN HCL 500 MG TABLET (FP) PO SCH (06:02)
[2020-10-08] MEDS: INSULIN SLIDING SCALE (NOVOLOG) 1 VIAL SQ SCH (06:32)
[2020-10-08 06:37] VITALS: BP 147/97; PULSE 97; TEMP 97.3
[2020-10-08] MEDS: IBUPROFEN 600 MG TABLET (FP) PO PRN (06:49)
[2020-10-08] MEDS ORDERED: PT OWN MED DRAWER 7, Y5N ONE (08:44)
[2020-10-08] MEDS: PRENATAL VITAMINS W/ FOLIC ACID TABLET (FP) PO SCH (09:01)
[2020-10-08] MEDS: hydrOXYzine PAMOATE 25 MG CAPSULE (FP) PO PRN (09:01)
[2020-10-08] MEDS: ASPIRIN 81 MG CHEWABLE TABLETS PO SCH (09:01)
[2020-10-08] MEDS: amLODIPine BESYLATE 5 MG TABLET (FP) PO SCH (09:01)
[2020-10-08] MEDS: LISINOPRIL 10 MG TABLET PO SCH (09:01)
[2020-10-08] MEDS: FAMOTIDINE 20 MG TABLET PO SCH (09:02)
[2020-10-08] MEDS: LORATADINE 10 MG TABLET PO SCH (09:02)
[2020-10-08] MEDS: LIDOCAINE 5% TOPICAL PATCH TP SCH (09:02)
[2020-10-08] MEDS: METHYL SALICYLATE/MENTHOL OINT 30 GM TUBE TP SCH (09:02)
[2020-10-08] MEDS: NICOTINE 7 MG/24 HOURS TOPICAL PATCH TD SCH (09:02)
== END 2020-10-08 09:20 | disposition home or self-care (01) | DRG 772 ==
LOC: YASAS 11:42 → Y3W 11:43
PROVIDERS: ADMIT Allergy & Immunology; ATTEND Allergy & Immunology
PROC: HZ42ZZZ Group Counseling for Substance Abuse Treatment, Cognitive-Behavioral (ICD-10-PCS; principal; 2020-09-16)
DX: F10.20 Alcohol dependence, uncomplicated (principal); F14.20 Cocaine dependence, uncomplicated; E78.5 Hyperlipidemia, unspecified; E11.9 Type 2 diabetes mellitus without complications; Z79.84 Long term (current) use of oral hypoglycemic drugs; I10 Essential (primary) hypertension; J45.909 Unspecified asthma, uncomplicated; R10.12 Left upper quadrant pain; R10.32 Left lower quadrant pain; R07.89 Other chest pain; M54.6 Pain in thoracic spine; M17.0 Bilateral primary osteoarthritis of knee; Z59.0 Homelessness
CPT/HCPCS: 71045-TC-FY; 71101-TC-LT-FY; 82962; 93005; 93010; C9803; U0003

== ENCOUNTER 2021-01-02 15:29 | Inpatient (IN) | payer OTHER ==
[2021-01-02] MEDS ORDERED: TRIMETHOBENZAMIDE HCL 200MG/2ML INJ IM ONE ×2 (15:43→15:45)
[2021-01-02 17:58] VITALS: BMI 33.9
[2021-01-02] MEDS ORDERED: BISMUTH SUBSALICYLATE 524 MG/30 ML PO PRN (19:37)
[2021-01-02] MEDS ORDERED: MAG HYDROX/AL HYDROX/SIMETH 30 ML UNIT-DOSE CUP PO PRN (19:37)
[2021-01-02] MEDS ORDERED: ACETAMINOPHEN 325 MG TABLET (FP) PO PRN ×2 (19:37)
[2021-01-02] MEDS ORDERED: METHOCARBAMOL 500 MG TABLET PO PRN (19:37)
[2021-01-02] MEDS ORDERED: MAGNESIUM CITRATE 300 ML BOTTLE PO PRN (19:37)
[2021-01-02] MEDS ORDERED: NICOTINE POLACRILEX 2 MG GUM BUC PRN (19:37)
[2021-01-02] MEDS ORDERED: MAGNESIUM HYDROX 2400MG/30ML ORAL SUSPENSION 30 ML CUP PO PRN (19:37)
[2021-01-02] MEDS ORDERED: hydrOXYzine PAMOATE 25 MG CAPSULE (FP) PO PRN (19:37)
[2021-01-02] MEDS ORDERED: ONDANSETRON *ODT* 4 MG TABLET SL PRN (19:37)
[2021-01-02] MEDS ORDERED: MENTHOL/PHENOL 1 EACH UD MM PRN (19:37)
[2021-01-02] MEDS ORDERED: LORazepam 1 MG TABLET PO PRN (19:37)
[2021-01-02] MEDS: ATORVASTATIN CA 40 MG TABLET (FP) PO SCH (22:25)
[2021-01-02] MEDS: THIAMINE HCL 100 MG TABLET (FP) PO SCH (22:25)
[2021-01-02] MEDS: LORazepam 2 MG TABLET PO SCH (22:25)
[2021-01-02] MEDS: MELATONIN 5 MG TABLETS PO SCH (22:26)
[2021-01-02] MEDS: IBUPROFEN 400 MG TABLET (FP) PO PRN (22:28)
[2021-01-02] MEDS: CLOTRIMAZOLE 1% CREAM 15 GM TUBE TP SCH (23:07)
[2021-01-03] MEDS: LORazepam 2 MG TABLET PO SCH ×4 (05:19→22:28)
[2021-01-03] MEDS: IBUPROFEN 400 MG TABLET (FP) PO PRN (05:20)
[2021-01-03] MEDS: metFORMIN HCL 500 MG TABLET (FP) PO SCH ×2 (06:46→17:09)
[2021-01-03 09:52] LABS: HEMATOCRIT 34.7 % (35.4-49); HEMOGLOBIN 11.4 GM/dL (11.7-16.9); MCHC 32.8 g/dl (32.0-35.9); MEAN CELL VOLUME 82.3 fl (80-96); MEAN PLT VOLUME 8.9 fl (7.5-11.1); PLATELET COUNT 154 K/MM3 (134-434); RBC 4.22 M/mm3 (4.00-5.60); RDW 15.2 % (11.9-15.9)
[2021-01-03 10:08] LABS: CALCIUM 9.2 mg/dL (8.5-10.1)
[2021-01-03 10:09] LABS: ALBUMIN 3.4 g/dl (3.4-5.0); BLOOD UREA NITROGEN 15.2 mg/dL (7-18)
[2021-01-03 10:12] LABS: CREATININE 0.7 mg/dL (0.55-1.3)
[2021-01-03 10:13] LABS: BILIRUBIN,TOTAL 0.6 mg/dL (0.2-1)
[2021-01-03 10:14] LABS: TOT PROT 6.4 g/dl (6.4-8.2)
[2021-01-03] MEDS: ASPIRIN 81 MG CHEWABLE TABLETS PO SCH (10:29)
[2021-01-03] MEDS: LISINOPRIL 10 MG TABLET PO SCH (10:31)
[2021-01-03] MEDS: amLODIPine BESYLATE 5 MG TABLET (FP) PO SCH (10:31)
[2021-01-03] MEDS: NICOTINE 14 MG/24 HOURS TOPICAL PATCH TD SCH (10:31)
[2021-01-03] MEDS: CLOTRIMAZOLE 1% CREAM 15 GM TUBE TP SCH ×2 (10:31→22:29)
[2021-01-03] MEDS: PRENATAL VITAMINS W/ FOLIC ACID TABLET (FP) PO SCH (10:31)
[2021-01-03] MEDS: IBUPROFEN 600 MG TABLET (FP) PO PRN (17:11)
[2021-01-03] MEDS: ATORVASTATIN CA 40 MG TABLET (FP) PO SCH (22:29)
[2021-01-03] MEDS: THIAMINE HCL 100 MG TABLET (FP) PO SCH (22:29)
[2021-01-03] MEDS: MELATONIN 5 MG TABLETS PO SCH (22:30)
[2021-01-04] MEDS: LORazepam 1 MG TABLET PO SCH ×4 (05:36→22:12)
[2021-01-04] MEDS: metFORMIN HCL 500 MG TABLET (FP) PO SCH ×2 (07:02→17:02)
[2021-01-04] MEDS: CLOTRIMAZOLE 1% CREAM 15 GM TUBE TP SCH ×2 (10:59→22:13)
[2021-01-04] MEDS: ASPIRIN 81 MG CHEWABLE TABLETS PO SCH (10:59)
[2021-01-04] MEDS: PRENATAL VITAMINS W/ FOLIC ACID TABLET (FP) PO SCH (10:59)
[2021-01-04] MEDS: LISINOPRIL 10 MG TABLET PO SCH (10:59)
[2021-01-04] MEDS: amLODIPine BESYLATE 5 MG TABLET (FP) PO SCH (10:59)
[2021-01-04] MEDS: NICOTINE 14 MG/24 HOURS TOPICAL PATCH TD SCH (10:59)
[2021-01-04] MEDS: IBUPROFEN 600 MG TABLET (FP) PO PRN (17:02)
[2021-01-04] MEDS: THIAMINE HCL 100 MG TABLET (FP) PO SCH (22:12)
[2021-01-04] MEDS: ATORVASTATIN CA 40 MG TABLET (FP) PO SCH (22:12)
[2021-01-04] MEDS: MELATONIN 5 MG TABLETS PO SCH (22:13)
[2021-01-05] MEDS ORDERED: LORazepam 0.5 MG TABLET PO PRN
[2021-01-05] MEDS: LORazepam 0.5 MG TABLET PO SCH ×4 (05:56→22:00)
[2021-01-05] MEDS: metFORMIN HCL 500 MG TABLET (FP) PO SCH ×2 (07:01→17:31)
[2021-01-05] MEDS: ASPIRIN 81 MG CHEWABLE TABLETS PO SCH (10:28)
[2021-01-05] MEDS: amLODIPine BESYLATE 5 MG TABLET (FP) PO SCH (10:29)
[2021-01-05] MEDS: LISINOPRIL 10 MG TABLET PO SCH (10:29)
[2021-01-05] MEDS: PRENATAL VITAMINS W/ FOLIC ACID TABLET (FP) PO SCH (10:29)
[2021-01-05] MEDS: CLOTRIMAZOLE 1% CREAM 15 GM TUBE TP SCH ×2 (10:53→22:01)
[2021-01-05] MEDS: NICOTINE 14 MG/24 HOURS TOPICAL PATCH TD SCH (11:19)
[2021-01-05] MEDS: MELATONIN 5 MG TABLETS PO SCH (21:59)
[2021-01-05] MEDS: THIAMINE HCL 100 MG TABLET (FP) PO SCH (22:00)
[2021-01-05] MEDS: ATORVASTATIN CA 40 MG TABLET (FP) PO SCH (22:00)
[2021-01-05] MEDS: IBUPROFEN 600 MG TABLET (FP) PO PRN (22:02)
[2021-01-06] MEDS ORDERED: LORazepam 0.5 MG TABLET PO ONE (05:00)
[2021-01-06] MEDS: metFORMIN HCL 500 MG TABLET (FP) PO SCH (06:25)
[2021-01-06 06:41] VITALS: BP 125/60; PULSE 67; TEMP 98.1
== END 2021-01-06 09:25 | disposition home or self-care (01) | DRG 774 ==
LOC: YASAS 15:29 → Y6N 19:53
PROVIDERS: ADMIT Allergy & Immunology; ATTEND Allergy & Immunology
PROC: HZ2ZZZZ Detoxification Services for Substance Abuse Treatment (ICD-10-PCS; principal; 2021-01-02)
DX: F10.230 Alcohol dependence with withdrawal, uncomplicated (principal); F14.20 Cocaine dependence, uncomplicated; F17.210 Nicotine dependence, cigarettes, uncomplicated; F19.24 Other psychoactive substance dependence with psychoactive substance-induced mood disorder; E78.5 Hyperlipidemia, unspecified; I10 Essential (primary) hypertension; E11.9 Type 2 diabetes mellitus without complications; Z79.84 Long term (current) use of oral hypoglycemic drugs; M17.0 Bilateral primary osteoarthritis of knee; M54.5 Low back pain; G89.29 Other chronic pain; Z59.0 Homelessness
CPT/HCPCS: 36415; 80053; 82962; 85027; 86780; C9803; U0003; U0005

== ENCOUNTER 2021-03-14 17:47 | Inpatient (IN) | payer OTHER ==
[2021-03-14 19:47] VITALS: BMI 28.5
[2021-03-14] MEDS ORDERED: ACETAMINOPHEN 325 MG TABLET (FP) PO PRN ×2 (20:04)
[2021-03-14] MEDS ORDERED: NICOTINE 10 MG CARTRIDGE (INHALER) IH PRN (20:04)
[2021-03-14] MEDS ORDERED: MAG HYDROX/AL HYDROX/SIMETH 30 ML UNIT-DOSE CUP PO PRN (20:04)
[2021-03-14] MEDS ORDERED: MENTHOL/PHENOL 1 EACH UD MM PRN (20:04)
[2021-03-14] MEDS ORDERED: BISMUTH SUBSALICYLATE 524 MG/30 ML PO PRN (20:04)
[2021-03-14] MEDS ORDERED: diazePAM 5 MG TABLET PO PRN (20:04)
[2021-03-14] MEDS ORDERED: ONDANSETRON *ODT* 4 MG TABLET SL PRN (20:04)
[2021-03-14] MEDS ORDERED: MAGNESIUM HYDROX 2400MG/30ML ORAL SUSPENSION 30 ML CUP PO PRN (20:04)
[2021-03-14] MEDS ORDERED: MAGNESIUM CITRATE 300 ML BOTTLE PO PRN (20:04)
[2021-03-14] MEDS: THIAMINE HCL 100 MG TABLET (FP) PO SCH (22:37)
[2021-03-14] MEDS: diazePAM 5 MG TABLET PO SCH (22:37)
[2021-03-14] MEDS: MELATONIN 5 MG TABLETS PO SCH (22:37)
[2021-03-14] MEDS: METHOCARBAMOL 500 MG TABLET PO PRN (22:38)
[2021-03-14] MEDS: hydrOXYzine PAMOATE 25 MG CAPSULE (FP) PO SCH (22:38)
[2021-03-15] MEDS: diazePAM 5 MG TABLET PO SCH ×4 (06:27→22:15)
[2021-03-15] MEDS: hydrOXYzine PAMOATE 25 MG CAPSULE (FP) PO SCH ×5 (06:27→22:15)
[2021-03-15] MEDS ORDERED: metFORMIN HCL 500 MG TABLET (FP) PO ONE (09:25)
[2021-03-15] MEDS: LISINOPRIL 10 MG TABLET PO SCH (10:43)
[2021-03-15] MEDS: ASPIRIN 81 MG CHEWABLE TABLETS PO SCH (10:43)
[2021-03-15] MEDS: TOLNAFTATE 1% CREAM 15 GM TUBE TP SCH ×2 (10:43→22:16)
[2021-03-15] MEDS: amLODIPine BESYLATE 5 MG TABLET (FP) PO SCH (10:43)
[2021-03-15] MEDS: PRENATAL VITAMINS W/ FOLIC ACID TABLET (FP) PO SCH (10:43)
[2021-03-15 11:11] LABS: HEMATOCRIT 33.3 % (35.4-49); MCH 27.1 pg (25.7-33.7); MCHC 33.1 g/dl (32.0-35.9); MEAN CELL VOLUME 81.9 fl (80-96); MEAN PLT VOLUME 9.3 fl (7.5-11.1); PLATELET COUNT 158 10^3/uL (134-434); RBC 4.07 M/mm3 (4.00-5.60); RDW 15.4 % (11.9-15.9); WHITE BLOOD COUNT 4.3 K/mm3 (4.0-10.0)
[2021-03-15 11:28] LABS: CALCIUM 8.5 mg/dL (8.5-10.1)
[2021-03-15 11:29] LABS: ALBUMIN 3.2 g/dl (3.4-5.0); BLOOD UREA NITROGEN 13.6 mg/dL (7-18)
[2021-03-15 11:32] LABS: CREATININE 0.8 mg/dL (0.55-1.3)
[2021-03-15 11:33] LABS: BILIRUBIN,TOTAL 0.5 mg/dL (0.2-1); TOT PROT 6.5 g/dl (6.4-8.2)
[2021-03-15 12:21] LABS: HIV INTERPRETATION NEGATIVE (NEGATIVE)
[2021-03-15] MEDS: metFORMIN HCL 500 MG TABLET (FP) PO SCH (16:46)
[2021-03-15] MEDS: IBUPROFEN 400 MG TABLET (FP) PO PRN (17:40)
[2021-03-15] MEDS: ATORVASTATIN CA 40 MG TABLET (FP) PO SCH (22:15)
[2021-03-15] MEDS: THIAMINE HCL 100 MG TABLET (FP) PO SCH (22:15)
[2021-03-15] MEDS: METHOCARBAMOL 500 MG TABLET PO PRN (22:16)
[2021-03-15] MEDS: MELATONIN 5 MG TABLETS PO SCH (22:17)
[2021-03-16] MEDS: hydrOXYzine PAMOATE 25 MG CAPSULE (FP) PO SCH ×5 (06:09→22:33)
[2021-03-16] MEDS: metFORMIN HCL 500 MG TABLET (FP) PO SCH ×2 (06:09→17:04)
[2021-03-16] MEDS: diazePAM 5 MG TABLET PO SCH ×3 (06:09→22:34)
[2021-03-16] MEDS: LISINOPRIL 10 MG TABLET PO SCH (10:15)
[2021-03-16] MEDS: PRENATAL VITAMINS W/ FOLIC ACID TABLET (FP) PO SCH (10:15)
[2021-03-16] MEDS: amLODIPine BESYLATE 5 MG TABLET (FP) PO SCH (10:15)
[2021-03-16] MEDS: ASPIRIN 81 MG CHEWABLE TABLETS PO SCH (10:15)
[2021-03-16] MEDS: TOLNAFTATE 1% CREAM 15 GM TUBE TP SCH ×2 (10:16→22:35)
[2021-03-16] MEDS: ATORVASTATIN CA 40 MG TABLET (FP) PO SCH (22:33)
[2021-03-16] MEDS: THIAMINE HCL 100 MG TABLET (FP) PO SCH (22:33)
[2021-03-16] MEDS: MELATONIN 5 MG TABLETS PO SCH (22:34)
[2021-03-17] MEDS: diazePAM 5 MG TABLET PO SCH ×2 (05:57→17:57)
[2021-03-17] MEDS: hydrOXYzine PAMOATE 25 MG CAPSULE (FP) PO SCH ×5 (05:57→22:23)
[2021-03-17] MEDS: metFORMIN HCL 500 MG TABLET (FP) PO SCH ×2 (08:03→16:47)
[2021-03-17] MEDS: PRENATAL VITAMINS W/ FOLIC ACID TABLET (FP) PO SCH (10:13)
[2021-03-17] MEDS: LISINOPRIL 10 MG TABLET PO SCH (10:13)
[2021-03-17] MEDS: ASPIRIN 81 MG CHEWABLE TABLETS PO SCH (10:13)
[2021-03-17] MEDS: METHOCARBAMOL 500 MG TABLET PO PRN (10:13)
[2021-03-17] MEDS: amLODIPine BESYLATE 5 MG TABLET (FP) PO SCH (10:13)
[2021-03-17] MEDS: IBUPROFEN 400 MG TABLET (FP) PO PRN (10:15)
[2021-03-17] MEDS: TOLNAFTATE 1% CREAM 15 GM TUBE TP SCH ×2 (10:17→22:22)
[2021-03-17] MEDS: ATORVASTATIN CA 40 MG TABLET (FP) PO SCH (22:23)
[2021-03-17] MEDS: MELATONIN 5 MG TABLETS PO SCH (22:23)
[2021-03-17] MEDS: THIAMINE HCL 100 MG TABLET (FP) PO SCH (22:23)
[2021-03-18] MEDS ORDERED: diazePAM 5 MG TABLET PO ONE (06:00)
[2021-03-18] MEDS: hydrOXYzine PAMOATE 25 MG CAPSULE (FP) PO SCH ×2 (06:29→10:16)
[2021-03-18] MEDS: metFORMIN HCL 500 MG TABLET (FP) PO SCH (06:29)
[2021-03-18 09:32] VITALS: BP 150/76; PULSE 84; TEMP 98
[2021-03-18] MEDS ORDERED: amLODIPine BESYLATE 10 MG TABLET (FP) PO SCH (10:00)
[2021-03-18] MEDS: METHOCARBAMOL 500 MG TABLET PO PRN (10:13)
[2021-03-18] MEDS: LISINOPRIL 10 MG TABLET PO SCH (10:13)
[2021-03-18] MEDS: PRENATAL VITAMINS W/ FOLIC ACID TABLET (FP) PO SCH (10:13)
[2021-03-18] MEDS: ASPIRIN 81 MG CHEWABLE TABLETS PO SCH (10:13)
[2021-03-18] MEDS: TOLNAFTATE 1% CREAM 15 GM TUBE TP SCH (10:15)
== END 2021-03-18 11:32 | disposition other institution (70) | DRG 774 ==
LOC: YASAS 17:47 → Y6N 19:34
PROVIDERS: ADMIT Allergy & Immunology; ATTEND Allergy & Immunology
PROC: HZ2ZZZZ Detoxification Services for Substance Abuse Treatment (ICD-10-PCS; principal; 2021-03-14)
DX: F10.230 Alcohol dependence with withdrawal, uncomplicated (principal); F14.20 Cocaine dependence, uncomplicated; F17.210 Nicotine dependence, cigarettes, uncomplicated; F19.24 Other psychoactive substance dependence with psychoactive substance-induced mood disorder; D64.9 Anemia, unspecified; E78.5 Hyperlipidemia, unspecified; E11.9 Type 2 diabetes mellitus without complications; I10 Essential (primary) hypertension; B35.3 Tinea pedis; M17.0 Bilateral primary osteoarthritis of knee; Z79.84 Long term (current) use of oral hypoglycemic drugs; Z59.0 Homelessness
CPT/HCPCS: 36415; 80053; 82962; 85027; 86780; 87389; C9803; Q0162; U0003; U0005

== ENCOUNTER 2021-03-18 11:46 | Inpatient (IN) | payer OTHER ==
[2021-03-18] MEDS ORDERED: NICOTINE 10 MG CARTRIDGE (INHALER) IH PRN (13:21)
[2021-03-18] MEDS ORDERED: P-EPHED 60MG/TRIPROLIDI 2.5MG TABLET PO PRN (13:21)
[2021-03-18] MEDS ORDERED: MENTHOL/PHENOL 1 EACH UD MM PRN (13:21)
[2021-03-18] MEDS ORDERED: NICOTINE POLACRILEX 2 MG GUM BUC PRN (13:21)
[2021-03-18] MEDS ORDERED: guaiFENesin 200 MG/10 ML 10 ML UNIT-DOSE CUPS PO PRN (13:21)
[2021-03-18] MEDS ORDERED: ACETAMINOPHEN 325 MG TABLET (FP) PO PRN (13:21)
[2021-03-18] MEDS ORDERED: LOPERAMIDE HCL 2 MG CAPSULE PO PRN (13:21)
[2021-03-18] MEDS ORDERED: MAGNESIUM HYDROX 2400MG/30ML ORAL SUSPENSION 30 ML CUP PO PRN (13:21)
[2021-03-18] MEDS ORDERED: MAGNESIUM CITRATE 300 ML BOTTLE PO PRN (13:21)
[2021-03-18] MEDS ORDERED: IBUPROFEN 400 MG TABLET (FP) PO PRN (13:21)
[2021-03-18] MEDS ORDERED: MAG HYDROX/AL HYDROX/SIMETH 30 ML UNIT-DOSE CUP PO PRN (13:21)
[2021-03-18] MEDS: ATORVASTATIN CA 40 MG TABLET (FP) PO SCH (21:01)
[2021-03-18] MEDS: MELATONIN 5 MG TABLETS PO SCH (21:01)
[2021-03-18] MEDS: THIAMINE HCL 100 MG TABLET (FP) PO SCH (21:01)
[2021-03-18] MEDS: TOLNAFTATE 1% CREAM 15 GM TUBE TP SCH (21:02)
[2021-03-19] MEDS: LISINOPRIL 10 MG TABLET PO SCH (10:46)
[2021-03-19] MEDS: ASPIRIN 81 MG CHEWABLE TABLETS PO SCH (10:46)
[2021-03-19] MEDS: PRENATAL VITAMINS W/ FOLIC ACID TABLET (FP) PO SCH (10:46)
[2021-03-19] MEDS: amLODIPine BESYLATE 10 MG TABLET (FP) PO SCH (10:46)
[2021-03-19] MEDS: TOLNAFTATE 1% CREAM 15 GM TUBE TP SCH (12:21)
[2021-03-19] MEDS: TOLNAFTATE 1% POWDER 45 GM POW TP SCH ×2 (12:21→21:03)
[2021-03-19] MEDS: METHOCARBAMOL 500 MG TABLET PO PRN (15:52)
[2021-03-19] MEDS ORDERED: PT OWN MED DRAWER 7, Y5N ONE (16:30)
[2021-03-19] MEDS: MELATONIN 5 MG TABLETS PO SCH (21:01)
[2021-03-19] MEDS: ATORVASTATIN CA 40 MG TABLET (FP) PO SCH (21:01)
[2021-03-19] MEDS: THIAMINE HCL 100 MG TABLET (FP) PO SCH (21:01)
[2021-03-20] MEDS: METHOCARBAMOL 500 MG TABLET PO PRN ×2 (09:47→21:43)
[2021-03-20] MEDS: LISINOPRIL 10 MG TABLET PO SCH (09:47)
[2021-03-20] MEDS: ASPIRIN 81 MG CHEWABLE TABLETS PO SCH (09:47)
[2021-03-20] MEDS: PRENATAL VITAMINS W/ FOLIC ACID TABLET (FP) PO SCH (09:47)
[2021-03-20] MEDS: amLODIPine BESYLATE 10 MG TABLET (FP) PO SCH (09:47)
[2021-03-20] MEDS: TOLNAFTATE 1% POWDER 45 GM POW TP SCH ×2 (09:48→21:44)
[2021-03-20] MEDS ORDERED: PT OWN MED DRAWER 7, Y5N ONE (16:54)
[2021-03-20] MEDS: THIAMINE HCL 100 MG TABLET (FP) PO SCH (21:43)
[2021-03-20] MEDS: ATORVASTATIN CA 40 MG TABLET (FP) PO SCH (21:43)
[2021-03-20] MEDS: traZODone HCL 50 MG TABLET (FP) PO PRN (21:43)
[2021-03-20] MEDS: MELATONIN 5 MG TABLETS PO SCH (21:43)
[2021-03-21] MEDS: ASPIRIN 81 MG CHEWABLE TABLETS PO SCH (10:03)
[2021-03-21] MEDS: LISINOPRIL 10 MG TABLET PO SCH (10:03)
[2021-03-21] MEDS: amLODIPine BESYLATE 10 MG TABLET (FP) PO SCH (10:04)
[2021-03-21] MEDS: PRENATAL VITAMINS W/ FOLIC ACID TABLET (FP) PO SCH (10:04)
[2021-03-21] MEDS: TOLNAFTATE 1% POWDER 45 GM POW TP SCH ×2 (10:05→22:44)
[2021-03-21] MEDS: METHOCARBAMOL 500 MG TABLET PO PRN ×2 (10:05→21:02)
[2021-03-21] MEDS: MELATONIN 5 MG TABLETS PO SCH (21:02)
[2021-03-21] MEDS: traZODone HCL 50 MG TABLET (FP) PO PRN (21:02)
[2021-03-21] MEDS: ATORVASTATIN CA 40 MG TABLET (FP) PO SCH (21:02)
[2021-03-21] MEDS: THIAMINE HCL 100 MG TABLET (FP) PO SCH (22:44)
[2021-03-22] MEDS ORDERED: PT OWN MED DRAWER 7, Y5N ONE ×2 (09:03→17:02)
[2021-03-22] MEDS: ASPIRIN 81 MG CHEWABLE TABLETS PO SCH (10:00)
[2021-03-22] MEDS: LISINOPRIL 10 MG TABLET PO SCH (10:00)
[2021-03-22] MEDS: amLODIPine BESYLATE 10 MG TABLET (FP) PO SCH (10:00)
[2021-03-22] MEDS: TOLNAFTATE 1% POWDER 45 GM POW TP SCH ×2 (10:01→21:46)
[2021-03-22] MEDS: PRENATAL VITAMINS W/ FOLIC ACID TABLET (FP) PO SCH (10:01)
[2021-03-22] MEDS: METHOCARBAMOL 500 MG TABLET PO PRN (10:02)
[2021-03-22] MEDS: ATORVASTATIN CA 40 MG TABLET (FP) PO SCH (21:44)
[2021-03-22] MEDS: THIAMINE HCL 100 MG TABLET (FP) PO SCH (21:44)
[2021-03-22] MEDS: MELATONIN 5 MG TABLETS PO SCH (21:44)
[2021-03-22] MEDS: hydrOXYzine PAMOATE 25 MG CAPSULE (FP) PO PRN (21:44)
[2021-03-22] MEDS: LIDOCAINE PATCH REMOVAL MC SCH (21:46)
[2021-03-23] MEDS: LIDOCAINE 5% TOPICAL PATCH TP SCH (10:40)
[2021-03-23] MEDS: ASPIRIN 81 MG CHEWABLE TABLETS PO SCH (10:40)
[2021-03-23] MEDS: LISINOPRIL 10 MG TABLET PO SCH (10:40)
[2021-03-23] MEDS: amLODIPine BESYLATE 10 MG TABLET (FP) PO SCH (10:40)
[2021-03-23] MEDS: PRENATAL VITAMINS W/ FOLIC ACID TABLET (FP) PO SCH (10:40)
[2021-03-23] MEDS: METHOCARBAMOL 500 MG TABLET PO PRN ×2 (10:41→21:05)
[2021-03-23] MEDS: TOLNAFTATE 1% POWDER 45 GM POW TP SCH ×2 (10:56→21:06)
[2021-03-23] MEDS: ATORVASTATIN CA 40 MG TABLET (FP) PO SCH (21:04)
[2021-03-23] MEDS: MELATONIN 5 MG TABLETS PO SCH (21:04)
[2021-03-23] MEDS: THIAMINE HCL 100 MG TABLET (FP) PO SCH (21:04)
[2021-03-23] MEDS: traZODone HCL 50 MG TABLET (FP) PO PRN (21:05)
[2021-03-23] MEDS: LIDOCAINE PATCH REMOVAL MC SCH (21:05)
[2021-03-24] MEDS: LISINOPRIL 10 MG TABLET PO SCH (09:53)
[2021-03-24] MEDS: amLODIPine BESYLATE 10 MG TABLET (FP) PO SCH (09:53)
[2021-03-24] MEDS: PRENATAL VITAMINS W/ FOLIC ACID TABLET (FP) PO SCH (09:53)
[2021-03-24] MEDS: LIDOCAINE 5% TOPICAL PATCH TP SCH (09:53)
[2021-03-24] MEDS: ASPIRIN 81 MG CHEWABLE TABLETS PO SCH (09:53)
[2021-03-24] MEDS: METHOCARBAMOL 500 MG TABLET PO PRN ×2 (09:53→21:38)
[2021-03-24] MEDS: TOLNAFTATE 1% POWDER 45 GM POW TP SCH ×2 (09:54→21:40)
[2021-03-24] MEDS: ATORVASTATIN CA 40 MG TABLET (FP) PO SCH (21:38)
[2021-03-24] MEDS: MELATONIN 5 MG TABLETS PO SCH (21:38)
[2021-03-24] MEDS: traZODone HCL 50 MG TABLET (FP) PO PRN (21:38)
[2021-03-24] MEDS: THIAMINE HCL 100 MG TABLET (FP) PO SCH (21:39)
[2021-03-24] MEDS: LIDOCAINE PATCH REMOVAL MC SCH (21:39)
[2021-03-25] MEDS: amLODIPine BESYLATE 10 MG TABLET (FP) PO SCH (09:52)
[2021-03-25] MEDS: ASPIRIN 81 MG CHEWABLE TABLETS PO SCH (09:52)
[2021-03-25] MEDS: METHOCARBAMOL 500 MG TABLET PO PRN ×2 (09:52→21:02)
[2021-03-25] MEDS: LISINOPRIL 10 MG TABLET PO SCH (09:52)
[2021-03-25] MEDS: TOLNAFTATE 1% POWDER 45 GM POW TP SCH ×2 (09:52→21:02)
[2021-03-25] MEDS: LIDOCAINE 5% TOPICAL PATCH TP SCH (09:52)
[2021-03-25] MEDS: PRENATAL VITAMINS W/ FOLIC ACID TABLET (FP) PO SCH (09:52)
[2021-03-25] MEDS: ATORVASTATIN CA 40 MG TABLET (FP) PO SCH (21:01)
[2021-03-25] MEDS: MELATONIN 5 MG TABLETS PO SCH (21:01)
[2021-03-25] MEDS: LIDOCAINE PATCH REMOVAL MC SCH (21:02)
[2021-03-25] MEDS: hydrOXYzine PAMOATE 25 MG CAPSULE (FP) PO PRN (21:02)
[2021-03-25] MEDS: THIAMINE HCL 100 MG TABLET (FP) PO SCH (21:02)
[2021-03-26] MEDS ORDERED: VITAMINS A AND D TOPICAL OINTMENT 60 GM TUBE TP PRN (09:06)
[2021-03-26] MEDS: LISINOPRIL 10 MG TABLET PO SCH (10:47)
[2021-03-26] MEDS: amLODIPine BESYLATE 10 MG TABLET (FP) PO SCH (10:47)
[2021-03-26] MEDS: TOLNAFTATE 1% POWDER 45 GM POW TP SCH ×2 (10:47→21:29)
[2021-03-26] MEDS: ASPIRIN 81 MG CHEWABLE TABLETS PO SCH (10:47)
[2021-03-26] MEDS: PRENATAL VITAMINS W/ FOLIC ACID TABLET (FP) PO SCH (10:47)
[2021-03-26] MEDS: METHOCARBAMOL 500 MG TABLET PO PRN (10:51)
[2021-03-26] MEDS: LIDOCAINE 5% TOPICAL PATCH TP SCH (10:51)
[2021-03-26] MEDS ORDERED: PT OWN MED DRAWER 7, Y5N ONE (16:44)
[2021-03-26] MEDS: traZODone HCL 50 MG TABLET (FP) PO PRN (21:28)
[2021-03-26] MEDS: ATORVASTATIN CA 40 MG TABLET (FP) PO SCH (21:28)
[2021-03-26] MEDS: MELATONIN 5 MG TABLETS PO SCH (21:28)
[2021-03-26] MEDS: THIAMINE HCL 100 MG TABLET (FP) PO SCH (21:29)
[2021-03-26] MEDS: LIDOCAINE PATCH REMOVAL MC SCH (21:29)
[2021-03-27] MEDS: ASPIRIN 81 MG CHEWABLE TABLETS PO SCH (09:39)
[2021-03-27] MEDS: METHOCARBAMOL 500 MG TABLET PO PRN ×2 (09:39→21:05)
[2021-03-27] MEDS: LISINOPRIL 10 MG TABLET PO SCH (09:39)
[2021-03-27] MEDS: amLODIPine BESYLATE 10 MG TABLET (FP) PO SCH (09:39)
[2021-03-27] MEDS: PRENATAL VITAMINS W/ FOLIC ACID TABLET (FP) PO SCH (09:39)
[2021-03-27] MEDS: LIDOCAINE 5% TOPICAL PATCH TP SCH (09:39)
[2021-03-27] MEDS: TOLNAFTATE 1% POWDER 45 GM POW TP SCH ×2 (09:41→21:06)
[2021-03-27] MEDS ORDERED: PT OWN MED DRAWER 7, Y5N ONE ×2 (09:42→16:44)
[2021-03-27] MEDS: THIAMINE HCL 100 MG TABLET (FP) PO SCH (21:05)
[2021-03-27] MEDS: ATORVASTATIN CA 40 MG TABLET (FP) PO SCH (21:05)
[2021-03-27] MEDS: MELATONIN 5 MG TABLETS PO SCH (21:05)
[2021-03-27] MEDS: LIDOCAINE PATCH REMOVAL MC SCH (21:06)
[2021-03-28] MEDS: LIDOCAINE 5% TOPICAL PATCH TP SCH (10:19)
[2021-03-28] MEDS: PRENATAL VITAMINS W/ FOLIC ACID TABLET (FP) PO SCH (10:19)
[2021-03-28] MEDS: METHOCARBAMOL 500 MG TABLET PO PRN ×2 (10:19→21:49)
[2021-03-28] MEDS: LISINOPRIL 10 MG TABLET PO SCH (10:19)
[2021-03-28] MEDS: ASPIRIN 81 MG CHEWABLE TABLETS PO SCH (10:19)
[2021-03-28] MEDS: amLODIPine BESYLATE 10 MG TABLET (FP) PO SCH (10:19)
[2021-03-28] MEDS: TOLNAFTATE 1% POWDER 45 GM POW TP SCH ×2 (10:24→21:50)
[2021-03-28] MEDS: TOLNAFTATE 1% CREAM 15 GM TUBE TP SCH ×2 (10:55→21:49)
[2021-03-28] MEDS ORDERED: PT OWN MED DRAWER 7, Y5N ONE ×2 (16:44→16:49)
[2021-03-28] MEDS: THIAMINE HCL 100 MG TABLET (FP) PO SCH (21:49)
[2021-03-28] MEDS: ATORVASTATIN CA 40 MG TABLET (FP) PO SCH (21:49)
[2021-03-28] MEDS: LIDOCAINE PATCH REMOVAL MC SCH (21:49)
[2021-03-28] MEDS: MELATONIN 5 MG TABLETS PO SCH (21:49)
[2021-03-28] MEDS: traZODone HCL 50 MG TABLET (FP) PO PRN (21:50)
[2021-03-29] MEDS ORDERED: PT OWN MED DRAWER 7, Y5N ONE ×2 (05:59→09:12)
[2021-03-29 07:09] VITALS: BP 135/76; PULSE 60; TEMP 97.6
[2021-03-29] MEDS: amLODIPine BESYLATE 10 MG TABLET (FP) PO SCH (09:57)
[2021-03-29] MEDS: LISINOPRIL 10 MG TABLET PO SCH (09:57)
[2021-03-29] MEDS: METHOCARBAMOL 500 MG TABLET PO PRN (09:57)
[2021-03-29] MEDS: PRENATAL VITAMINS W/ FOLIC ACID TABLET (FP) PO SCH (09:57)
[2021-03-29] MEDS: LIDOCAINE 5% TOPICAL PATCH TP SCH (09:58)
[2021-03-29] MEDS: ASPIRIN 81 MG CHEWABLE TABLETS PO SCH (09:58)
[2021-03-29] MEDS: TOLNAFTATE 1% CREAM 15 GM TUBE TP SCH (10:01)
[2021-03-29] MEDS: TOLNAFTATE 1% POWDER 45 GM POW TP SCH (10:02)
== END 2021-03-29 10:40 | disposition home or self-care (01) | DRG 772 ==
LOC: YASAS 11:46 → Y3W 11:47
PROVIDERS: ADMIT Allergy & Immunology; ATTEND Allergy & Immunology
PROC: HZ42ZZZ Group Counseling for Substance Abuse Treatment, Cognitive-Behavioral (ICD-10-PCS; principal; 2021-03-18)
DX: F10.20 Alcohol dependence, uncomplicated (principal); F14.20 Cocaine dependence, uncomplicated; I10 Essential (primary) hypertension; E78.5 Hyperlipidemia, unspecified; E11.9 Type 2 diabetes mellitus without complications; Z79.84 Long term (current) use of oral hypoglycemic drugs; L85.3 Xerosis cutis; M54.89 Other dorsalgia; Z59.0 Homelessness
CPT/HCPCS: 82962

== ENCOUNTER 2021-06-09 11:00 | Inpatient (IN) | payer OTHER ==
[2021-06-09 11:46] VITALS: BMI 28.5
[2021-06-09] MEDS ORDERED: MAGNESIUM HYDROX 2400MG/30ML ORAL SUSPENSION 30 ML CUP PO PRN (12:04)
[2021-06-09] MEDS ORDERED: MAGNESIUM CITRATE 300 ML BOTTLE PO PRN (12:04)
[2021-06-09] MEDS ORDERED: ONDANSETRON *ODT* 4 MG TABLET SL PRN (12:04)
[2021-06-09] MEDS ORDERED: ACETAMINOPHEN 325 MG TABLET (FP) PO PRN ×2 (12:04)
[2021-06-09] MEDS ORDERED: MENTHOL/PHENOL 1 EACH UD MM PRN (12:04)
[2021-06-09] MEDS ORDERED: BISMUTH SUBSALICYLATE 524 MG/30 ML PO PRN (12:04)
[2021-06-09] MEDS ORDERED: diazePAM 5 MG TABLET PO PRN (12:05)
[2021-06-09] MEDS: LISINOPRIL 10 MG TABLET PO SCH (14:03)
[2021-06-09] MEDS: ASPIRIN 81 MG CHEWABLE TABLETS PO SCH (14:03)
[2021-06-09] MEDS: hydrOXYzine PAMOATE 25 MG CAPSULE (FP) PO PRN (14:04)
[2021-06-09] MEDS: METHOCARBAMOL 500 MG TABLET PO PRN (18:02)
[2021-06-09] MEDS: ATORVASTATIN CA 40 MG TABLET (FP) PO SCH (22:15)
[2021-06-09] MEDS: THIAMINE HCL 100 MG TABLET (FP) PO SCH (22:15)
[2021-06-09] MEDS: MELATONIN 5 MG TABLETS PO SCH (22:15)
[2021-06-09] MEDS: MAG HYDROX/AL HYDROX/SIMETH 30 ML UNIT-DOSE CUP PO PRN (22:16)
[2021-06-10] MEDS: LISINOPRIL 10 MG TABLET PO SCH (10:16)
[2021-06-10] MEDS: PRENATAL VITAMINS W/ FOLIC ACID TABLET (FP) PO SCH (10:16)
[2021-06-10] MEDS: ASPIRIN 81 MG CHEWABLE TABLETS PO SCH (10:16)
[2021-06-10] MEDS: diazePAM 5 MG TABLET PO SCH ×3 (10:16→22:03)
[2021-06-10] MEDS ORDERED: FLU VACC QS2021-22(6MOS UP)/PF 60 MCG/0.5 ML SYRINGE IM ONE (12:00)
[2021-06-10 12:15] LABS: HEMATOCRIT 34.9 % (35.4-49); HEMOGLOBIN 11.5 GM/dL (11.7-16.9); MCH 27.6 pg (25.7-33.7); MCHC 32.9 g/dl (32.0-35.9); MEAN PLT VOLUME 9.4 fl (7.5-11.1); PLATELET COUNT 161 10^3/uL (134-434); RBC 4.16 M/mm3 (4.00-5.60); RDW 15.5 % (11.9-15.9); WHITE BLOOD COUNT 4.6 K/mm3 (4.0-10.0)
[2021-06-10 12:18] LABS: ALBUMIN 3.5 g/dl (3.4-5.0); CALCIUM 8.9 mg/dL (8.5-10.1)
[2021-06-10 12:19] LABS: BLOOD UREA NITROGEN 18.1 mg/dL (7-18)
[2021-06-10 12:23] LABS: BILIRUBIN,TOTAL 1.2 mg/dL (0.2-1); TOT PROT 6.7 g/dl (6.4-8.2)
[2021-06-10 13:46] LABS: HIV INTERPRETATION NEGATIVE (NEGATIVE)
[2021-06-10] MEDS: TOLNAFTATE 1% CREAM 15 GM TUBE TP SCH ×2 (14:24→22:07)
[2021-06-10] MEDS: diazePAM 5 MG TABLET PO PRN (14:28)
[2021-06-10] MEDS: MELATONIN 5 MG TABLETS PO SCH (22:03)
[2021-06-10] MEDS: ATORVASTATIN CA 40 MG TABLET (FP) PO SCH (22:03)
[2021-06-10] MEDS: THIAMINE HCL 100 MG TABLET (FP) PO SCH (22:03)
[2021-06-10] MEDS: METHOCARBAMOL 500 MG TABLET PO PRN (22:05)
[2021-06-10] MEDS: IBUPROFEN 400 MG TABLET (FP) PO PRN (22:05)
[2021-06-11] MEDS: diazePAM 5 MG TABLET PO SCH ×4 (06:05→22:06)
[2021-06-11] MEDS: LISINOPRIL 10 MG TABLET PO SCH (10:09)
[2021-06-11] MEDS: ASPIRIN 81 MG CHEWABLE TABLETS PO SCH (10:09)
[2021-06-11] MEDS: PRENATAL VITAMINS W/ FOLIC ACID TABLET (FP) PO SCH (10:09)
[2021-06-11] MEDS: TOLNAFTATE 1% CREAM 15 GM TUBE TP SCH ×2 (10:10→22:04)
[2021-06-11] MEDS: hydrOXYzine PAMOATE 25 MG CAPSULE (FP) PO PRN ×2 (10:11→22:06)
[2021-06-11] MEDS: MAG HYDROX/AL HYDROX/SIMETH 30 ML UNIT-DOSE CUP PO PRN (10:21)
[2021-06-11] MEDS ORDERED: LIDOCAINE 5% TOPICAL PATCH TP ONE (12:43)
[2021-06-11] MEDS: LIDOCAINE PATCH REMOVAL MC SCH (22:04)
[2021-06-11] MEDS: ATORVASTATIN CA 40 MG TABLET (FP) PO SCH (22:06)
[2021-06-11] MEDS: THIAMINE HCL 100 MG TABLET (FP) PO SCH (22:06)
[2021-06-11] MEDS: MELATONIN 5 MG TABLETS PO SCH (22:06)
[2021-06-11] MEDS: METHOCARBAMOL 500 MG TABLET PO PRN (22:06)
[2021-06-12] MEDS: diazePAM 5 MG TABLET PO SCH ×3 (05:54→22:04)
[2021-06-12] MEDS: MAG HYDROX/AL HYDROX/SIMETH 30 ML UNIT-DOSE CUP PO PRN ×2 (06:33→22:06)
[2021-06-12] MEDS: TOLNAFTATE 1% CREAM 15 GM TUBE TP SCH ×2 (10:29→22:05)
[2021-06-12] MEDS: ASPIRIN 81 MG CHEWABLE TABLETS PO SCH (10:30)
[2021-06-12] MEDS: PRENATAL VITAMINS W/ FOLIC ACID TABLET (FP) PO SCH (10:30)
[2021-06-12] MEDS: LIDOCAINE 5% TOPICAL PATCH TP SCH (10:30)
[2021-06-12] MEDS: LISINOPRIL 10 MG TABLET PO SCH (10:30)
[2021-06-12] MEDS: diazePAM 5 MG TABLET PO PRN (10:32)
[2021-06-12] MEDS: METHOCARBAMOL 500 MG TABLET PO PRN ×2 (10:34→22:06)
[2021-06-12] MEDS: MELATONIN 5 MG TABLETS PO SCH (22:03)
[2021-06-12] MEDS: ATORVASTATIN CA 40 MG TABLET (FP) PO SCH (22:03)
[2021-06-12] MEDS: THIAMINE HCL 100 MG TABLET (FP) PO SCH (22:03)
[2021-06-12] MEDS: hydrOXYzine PAMOATE 25 MG CAPSULE (FP) PO PRN (22:06)
[2021-06-12] MEDS: LIDOCAINE PATCH REMOVAL MC SCH (22:58)
[2021-06-13] MEDS: diazePAM 5 MG TABLET PO SCH ×2 (06:05→17:48)
[2021-06-13] MEDS: LISINOPRIL 10 MG TABLET PO SCH (10:17)
[2021-06-13] MEDS: TOLNAFTATE 1% CREAM 15 GM TUBE TP SCH ×2 (10:17→23:07)
[2021-06-13] MEDS: LIDOCAINE 5% TOPICAL PATCH TP SCH (10:17)
[2021-06-13] MEDS: ASPIRIN 81 MG CHEWABLE TABLETS PO SCH (10:17)
[2021-06-13] MEDS: PRENATAL VITAMINS W/ FOLIC ACID TABLET (FP) PO SCH (10:17)
[2021-06-13] MEDS: METHOCARBAMOL 500 MG TABLET PO PRN ×2 (10:20→22:08)
[2021-06-13] MEDS: hydrOXYzine PAMOATE 25 MG CAPSULE (FP) PO PRN ×2 (10:20→22:09)
[2021-06-13] MEDS: LIDOCAINE PATCH REMOVAL MC SCH (22:06)
[2021-06-13] MEDS: IBUPROFEN 400 MG TABLET (FP) PO PRN (22:08)
[2021-06-13] MEDS: THIAMINE HCL 100 MG TABLET (FP) PO SCH (22:09)
[2021-06-13] MEDS: ATORVASTATIN CA 40 MG TABLET (FP) PO SCH (22:09)
[2021-06-13] MEDS: MELATONIN 5 MG TABLETS PO SCH (22:09)
[2021-06-14] MEDS ORDERED: diazePAM 5 MG TABLET PO ONE (06:00)
[2021-06-14] MEDS: PRENATAL VITAMINS W/ FOLIC ACID TABLET (FP) PO SCH (10:17)
[2021-06-14] MEDS: LISINOPRIL 10 MG TABLET PO SCH (10:17)
[2021-06-14] MEDS: ASPIRIN 81 MG CHEWABLE TABLETS PO SCH (10:17)
[2021-06-14] MEDS: TOLNAFTATE 1% CREAM 15 GM TUBE TP SCH ×2 (10:17→22:05)
[2021-06-14] MEDS: LIDOCAINE 5% TOPICAL PATCH TP SCH (10:19)
[2021-06-14] MEDS: THIAMINE HCL 100 MG TABLET (FP) PO SCH (22:05)
[2021-06-14] MEDS: ATORVASTATIN CA 40 MG TABLET (FP) PO SCH (22:05)
[2021-06-14] MEDS: MELATONIN 5 MG TABLETS PO SCH (22:05)
[2021-06-14] MEDS: LIDOCAINE PATCH REMOVAL MC SCH (22:05)
[2021-06-14] MEDS: METHOCARBAMOL 500 MG TABLET PO PRN (22:06)
[2021-06-14] MEDS: hydrOXYzine PAMOATE 25 MG CAPSULE (FP) PO PRN (22:06)
[2021-06-15 09:23] VITALS: BP 154/84; PULSE 85; TEMP 97.3
[2021-06-15] MEDS: ASPIRIN 81 MG CHEWABLE TABLETS PO SCH (10:03)
[2021-06-15] MEDS: LISINOPRIL 10 MG TABLET PO SCH (10:03)
[2021-06-15] MEDS: PRENATAL VITAMINS W/ FOLIC ACID TABLET (FP) PO SCH (10:03)
[2021-06-15] MEDS: LIDOCAINE 5% TOPICAL PATCH TP SCH (10:03)
[2021-06-15] MEDS: TOLNAFTATE 1% CREAM 15 GM TUBE TP SCH (10:04)
[2021-06-15] MEDS: hydrOXYzine PAMOATE 25 MG CAPSULE (FP) PO PRN (10:04)
== END 2021-06-15 12:53 | disposition other institution (70) | DRG 774 ==
LOC: YASAS 11:00 → Y3N 12:57
PROVIDERS: ADMIT Allergy & Immunology; ATTEND Allergy & Immunology
PROC: HZ2ZZZZ Detoxification Services for Substance Abuse Treatment (ICD-10-PCS; principal; 2021-06-09)
DX: F10.230 Alcohol dependence with withdrawal, uncomplicated (principal); F14.20 Cocaine dependence, uncomplicated; F17.210 Nicotine dependence, cigarettes, uncomplicated; F19.24 Other psychoactive substance dependence with psychoactive substance-induced mood disorder; I10 Essential (primary) hypertension; E78.5 Hyperlipidemia, unspecified; E11.9 Type 2 diabetes mellitus without complications; Z79.84 Long term (current) use of oral hypoglycemic drugs; J45.909 Unspecified asthma, uncomplicated; M54.50 Low back pain, unspecified; G89.29 Other chronic pain
CPT/HCPCS: 36415; 80053; 82962; 85027; 86780; 87389; 90686; C9803; G0008; U0003; U0005

== ENCOUNTER 2021-06-15 13:02 | Inpatient (IN) | payer OTHER ==
[2021-06-15] MEDS ORDERED: P-EPHED 60MG/TRIPROLIDI 2.5MG TABLET PO PRN (13:54)
[2021-06-15] MEDS ORDERED: LOPERAMIDE HCL 2 MG CAPSULE PO PRN (13:54)
[2021-06-15] MEDS ORDERED: MAGNESIUM CITRATE 300 ML BOTTLE PO PRN (13:54)
[2021-06-15] MEDS ORDERED: guaiFENesin 200 MG/10 ML 10 ML UNIT-DOSE CUPS PO PRN (13:54)
[2021-06-15] MEDS ORDERED: hydrOXYzine PAMOATE 25 MG CAPSULE (FP) PO PRN (13:54)
[2021-06-15] MEDS ORDERED: IBUPROFEN 400 MG TABLET (FP) PO PRN (13:54)
[2021-06-15] MEDS ORDERED: MENTHOL/PHENOL 1 EACH UD MM PRN (13:54)
[2021-06-15] MEDS ORDERED: MAGNESIUM HYDROX 2400MG/30ML ORAL SUSPENSION 30 ML CUP PO PRN (13:54)
[2021-06-15] MEDS: THIAMINE HCL 100 MG TABLET (FP) PO SCH (21:08)
[2021-06-15] MEDS: MELATONIN 5 MG TABLETS PO SCH (21:08)
[2021-06-15] MEDS: ATORVASTATIN CA 40 MG TABLET (FP) PO SCH (21:08)
[2021-06-15] MEDS: ACETAMINOPHEN 325 MG TABLET (FP) PO PRN (21:56)
[2021-06-16] MEDS: ASPIRIN 81 MG CHEWABLE TABLETS PO SCH (09:13)
[2021-06-16] MEDS: LISINOPRIL 10 MG TABLET PO SCH (09:13)
[2021-06-16] MEDS: PRENATAL VITAMINS W/ FOLIC ACID TABLET (FP) PO SCH (09:13)
[2021-06-16] MEDS: ACETAMINOPHEN 325 MG TABLET (FP) PO PRN ×2 (09:15→21:18)
[2021-06-16] MEDS: MELATONIN 5 MG TABLETS PO SCH (21:18)
[2021-06-16] MEDS: ATORVASTATIN CA 40 MG TABLET (FP) PO SCH (21:18)
[2021-06-16] MEDS: THIAMINE HCL 100 MG TABLET (FP) PO SCH (21:18)
[2021-06-17] MEDS ORDERED: PT OWN MED DRAWER 7, Y5N ONE (03:04)
[2021-06-17] MEDS: PRENATAL VITAMINS W/ FOLIC ACID TABLET (FP) PO SCH (09:54)
[2021-06-17] MEDS: ASPIRIN 81 MG CHEWABLE TABLETS PO SCH (09:54)
[2021-06-17] MEDS: LISINOPRIL 10 MG TABLET PO SCH (09:54)
[2021-06-17] MEDS: ACETAMINOPHEN 325 MG TABLET (FP) PO PRN (09:56)
[2021-06-17] MEDS: METHOCARBAMOL 500 MG TABLET PO PRN ×2 (12:51→21:12)
[2021-06-17] MEDS: LIDOCAINE 5% TOPICAL PATCH TP SCH (12:52)
[2021-06-17] MEDS: MELATONIN 5 MG TABLETS PO SCH (21:12)
[2021-06-17] MEDS: THIAMINE HCL 100 MG TABLET (FP) PO SCH (21:12)
[2021-06-17] MEDS: LIDOCAINE PATCH REMOVAL MC SCH (21:12)
[2021-06-17] MEDS: ATORVASTATIN CA 40 MG TABLET (FP) PO SCH (21:12)
[2021-06-18] MEDS: PRENATAL VITAMINS W/ FOLIC ACID TABLET (FP) PO SCH (10:01)
[2021-06-18] MEDS: LIDOCAINE 5% TOPICAL PATCH TP SCH (10:01)
[2021-06-18] MEDS: LISINOPRIL 10 MG TABLET PO SCH (10:03)
[2021-06-18] MEDS: ASPIRIN 81 MG CHEWABLE TABLETS PO SCH (10:03)
[2021-06-18] MEDS: METHOCARBAMOL 500 MG TABLET PO PRN ×2 (10:03→21:02)
[2021-06-18] MEDS: TOLNAFTATE 1% CREAM 15 GM TUBE TP SCH ×2 (14:00→21:02)
[2021-06-18] MEDS: MELATONIN 5 MG TABLETS PO SCH (21:01)
[2021-06-18] MEDS: THIAMINE HCL 100 MG TABLET (FP) PO SCH (21:01)
[2021-06-18] MEDS: ATORVASTATIN CA 40 MG TABLET (FP) PO SCH (21:01)
[2021-06-18] MEDS: LIDOCAINE PATCH REMOVAL MC SCH (21:02)
[2021-06-19] MEDS ORDERED: PT OWN MED DRAWER 7, Y5N ONE (03:18)
[2021-06-19] MEDS: LISINOPRIL 10 MG TABLET PO SCH (10:02)
[2021-06-19] MEDS: PRENATAL VITAMINS W/ FOLIC ACID TABLET (FP) PO SCH (10:02)
[2021-06-19] MEDS: ASPIRIN 81 MG CHEWABLE TABLETS PO SCH (10:02)
[2021-06-19] MEDS: LIDOCAINE 5% TOPICAL PATCH TP SCH (10:03)
[2021-06-19] MEDS: METHOCARBAMOL 500 MG TABLET PO PRN ×2 (10:04→21:16)
[2021-06-19] MEDS: TOLNAFTATE 1% CREAM 15 GM TUBE TP SCH ×2 (10:04→21:16)
[2021-06-19] MEDS: ATORVASTATIN CA 40 MG TABLET (FP) PO SCH (21:16)
[2021-06-19] MEDS: THIAMINE HCL 100 MG TABLET (FP) PO SCH (21:16)
[2021-06-19] MEDS: LIDOCAINE PATCH REMOVAL MC SCH (21:16)
[2021-06-19] MEDS: MELATONIN 5 MG TABLETS PO SCH (21:16)
[2021-06-20] MEDS: LIDOCAINE 5% TOPICAL PATCH TP SCH (09:52)
[2021-06-20] MEDS: ASPIRIN 81 MG CHEWABLE TABLETS PO SCH (09:52)
[2021-06-20] MEDS: PRENATAL VITAMINS W/ FOLIC ACID TABLET (FP) PO SCH (09:52)
[2021-06-20] MEDS: TOLNAFTATE 1% CREAM 15 GM TUBE TP SCH ×2 (09:53→21:11)
[2021-06-20] MEDS: LISINOPRIL 10 MG TABLET PO SCH (09:53)
[2021-06-20] MEDS: METHOCARBAMOL 500 MG TABLET PO PRN ×2 (09:54→21:10)
[2021-06-20] MEDS: MAG HYDROX/AL HYDROX/SIMETH 30 ML UNIT-DOSE CUP PO PRN (16:45)
[2021-06-20] MEDS: LIDOCAINE PATCH REMOVAL MC SCH (21:10)
[2021-06-20] MEDS: THIAMINE HCL 100 MG TABLET (FP) PO SCH (21:10)
[2021-06-20] MEDS: ATORVASTATIN CA 40 MG TABLET (FP) PO SCH (21:10)
[2021-06-20] MEDS: MELATONIN 5 MG TABLETS PO SCH (21:10)
[2021-06-21] MEDS: PRENATAL VITAMINS W/ FOLIC ACID TABLET (FP) PO SCH (09:48)
[2021-06-21] MEDS: ASPIRIN 81 MG CHEWABLE TABLETS PO SCH (09:49)
[2021-06-21] MEDS: LISINOPRIL 10 MG TABLET PO SCH (09:49)
[2021-06-21] MEDS: LIDOCAINE 5% TOPICAL PATCH TP SCH (09:50)
[2021-06-21] MEDS: TOLNAFTATE 1% CREAM 15 GM TUBE TP SCH ×2 (09:50→21:02)
[2021-06-21] MEDS: METHOCARBAMOL 500 MG TABLET PO PRN ×2 (09:50→21:01)
[2021-06-21] MEDS: MAG HYDROX/AL HYDROX/SIMETH 30 ML UNIT-DOSE CUP PO PRN (16:37)
[2021-06-21] MEDS: MELATONIN 5 MG TABLETS PO SCH (21:00)
[2021-06-21] MEDS: ATORVASTATIN CA 40 MG TABLET (FP) PO SCH (21:00)
[2021-06-21] MEDS: THIAMINE HCL 100 MG TABLET (FP) PO SCH (21:00)
[2021-06-21] MEDS: LIDOCAINE PATCH REMOVAL MC SCH (21:02)
[2021-06-22] MEDS: PRENATAL VITAMINS W/ FOLIC ACID TABLET (FP) PO SCH (09:52)
[2021-06-22] MEDS: LISINOPRIL 10 MG TABLET PO SCH (09:54)
[2021-06-22] MEDS: ASPIRIN 81 MG CHEWABLE TABLETS PO SCH (09:54)
[2021-06-22] MEDS: METHOCARBAMOL 500 MG TABLET PO PRN ×2 (09:54→21:29)
[2021-06-22] MEDS: TOLNAFTATE 1% CREAM 15 GM TUBE TP SCH ×2 (09:55→21:29)
[2021-06-22] MEDS: ACETAMINOPHEN 325 MG TABLET (FP) PO PRN (09:55)
[2021-06-22] MEDS: LIDOCAINE 5% TOPICAL PATCH TP SCH (09:57)
[2021-06-22] MEDS: traZODone HCL 50 MG TABLET (FP) PO SCH (21:28)
[2021-06-22] MEDS: THIAMINE HCL 100 MG TABLET (FP) PO SCH (21:28)
[2021-06-22] MEDS: MELATONIN 5 MG TABLETS PO SCH (21:28)
[2021-06-22] MEDS: LIDOCAINE PATCH REMOVAL MC SCH (21:29)
[2021-06-22] MEDS: ATORVASTATIN CA 40 MG TABLET (FP) PO SCH (21:29)
[2021-06-23] MEDS: MAG HYDROX/AL HYDROX/SIMETH 30 ML UNIT-DOSE CUP PO PRN (06:22)
[2021-06-23] MEDS: LIDOCAINE 5% TOPICAL PATCH TP SCH (10:02)
[2021-06-23] MEDS: PRENATAL VITAMINS W/ FOLIC ACID TABLET (FP) PO SCH (10:03)
[2021-06-23] MEDS: METHOCARBAMOL 500 MG TABLET PO PRN ×2 (10:03→21:17)
[2021-06-23] MEDS: TOLNAFTATE 1% CREAM 15 GM TUBE TP SCH ×2 (10:03→21:16)
[2021-06-23] MEDS: ACETAMINOPHEN 325 MG TABLET (FP) PO PRN (10:03)
[2021-06-23] MEDS: LISINOPRIL 10 MG TABLET PO SCH (10:03)
[2021-06-23] MEDS: ASPIRIN 81 MG CHEWABLE TABLETS PO SCH (10:03)
[2021-06-23] MEDS: THIAMINE HCL 100 MG TABLET (FP) PO SCH (21:16)
[2021-06-23] MEDS: ATORVASTATIN CA 40 MG TABLET (FP) PO SCH (21:16)
[2021-06-23] MEDS: LIDOCAINE PATCH REMOVAL MC SCH (21:16)
[2021-06-23] MEDS: traZODone HCL 50 MG TABLET (FP) PO SCH (21:16)
[2021-06-23] MEDS: MELATONIN 5 MG TABLETS PO SCH (21:16)
[2021-06-24] MEDS: PRENATAL VITAMINS W/ FOLIC ACID TABLET (FP) PO SCH (09:57)
[2021-06-24] MEDS: ASPIRIN 81 MG CHEWABLE TABLETS PO SCH (09:57)
[2021-06-24] MEDS: LISINOPRIL 10 MG TABLET PO SCH (09:57)
[2021-06-24] MEDS: TOLNAFTATE 1% CREAM 15 GM TUBE TP SCH ×2 (09:58→21:23)
[2021-06-24] MEDS: LIDOCAINE 5% TOPICAL PATCH TP SCH (09:58)
[2021-06-24] MEDS: ACETAMINOPHEN 325 MG TABLET (FP) PO PRN (10:00)
[2021-06-24] MEDS: METHOCARBAMOL 500 MG TABLET PO PRN ×2 (10:00→21:21)
[2021-06-24] MEDS: MAG HYDROX/AL HYDROX/SIMETH 30 ML UNIT-DOSE CUP PO PRN (14:00)
[2021-06-24] MEDS: traZODone HCL 50 MG TABLET (FP) PO SCH (21:21)
[2021-06-24] MEDS: MELATONIN 5 MG TABLETS PO SCH (21:21)
[2021-06-24] MEDS: LIDOCAINE PATCH REMOVAL MC SCH (21:21)
[2021-06-24] MEDS: ATORVASTATIN CA 40 MG TABLET (FP) PO SCH (21:21)
[2021-06-24] MEDS: THIAMINE HCL 100 MG TABLET (FP) PO SCH (21:36)
[2021-06-25] MEDS: MAG HYDROX/AL HYDROX/SIMETH 30 ML UNIT-DOSE CUP PO PRN (06:42)
[2021-06-25] MEDS: PRENATAL VITAMINS W/ FOLIC ACID TABLET (FP) PO SCH (10:18)
[2021-06-25] MEDS: ASPIRIN 81 MG CHEWABLE TABLETS PO SCH (10:19)
[2021-06-25] MEDS: METHOCARBAMOL 500 MG TABLET PO PRN ×2 (10:20→22:17)
[2021-06-25] MEDS: LISINOPRIL 10 MG TABLET PO SCH (10:20)
[2021-06-25] MEDS: LIDOCAINE 5% TOPICAL PATCH TP SCH (10:20)
[2021-06-25] MEDS: TOLNAFTATE 1% CREAM 15 GM TUBE TP SCH ×2 (10:21→22:17)
[2021-06-25] MEDS: ATORVASTATIN CA 40 MG TABLET (FP) PO SCH (22:17)
[2021-06-25] MEDS: traZODone HCL 50 MG TABLET (FP) PO SCH (22:17)
[2021-06-25] MEDS: THIAMINE HCL 100 MG TABLET (FP) PO SCH (22:17)
[2021-06-25] MEDS: LIDOCAINE PATCH REMOVAL MC SCH (22:18)
[2021-06-25] MEDS: MELATONIN 5 MG TABLETS PO SCH (22:19)
[2021-06-26] MEDS: ASPIRIN 81 MG CHEWABLE TABLETS PO SCH (10:14)
[2021-06-26] MEDS: PRENATAL VITAMINS W/ FOLIC ACID TABLET (FP) PO SCH (10:14)
[2021-06-26] MEDS: LISINOPRIL 10 MG TABLET PO SCH (10:14)
[2021-06-26] MEDS: LIDOCAINE 5% TOPICAL PATCH TP SCH (10:14)
[2021-06-26] MEDS: METHOCARBAMOL 500 MG TABLET PO PRN ×2 (10:15→21:23)
[2021-06-26] MEDS: TOLNAFTATE 1% CREAM 15 GM TUBE TP SCH ×2 (10:15→21:21)
[2021-06-26] MEDS: traZODone HCL 50 MG TABLET (FP) PO SCH (21:21)
[2021-06-26] MEDS: LIDOCAINE PATCH REMOVAL MC SCH (21:21)
[2021-06-26] MEDS: MELATONIN 5 MG TABLETS PO SCH (21:21)
[2021-06-26] MEDS: THIAMINE HCL 100 MG TABLET (FP) PO SCH (21:21)
[2021-06-26] MEDS: ATORVASTATIN CA 40 MG TABLET (FP) PO SCH (21:21)
[2021-06-27] MEDS: PRENATAL VITAMINS W/ FOLIC ACID TABLET (FP) PO SCH (10:01)
[2021-06-27] MEDS: LISINOPRIL 10 MG TABLET PO SCH (10:01)
[2021-06-27] MEDS: LIDOCAINE 5% TOPICAL PATCH TP SCH (10:02)
[2021-06-27] MEDS: TOLNAFTATE 1% CREAM 15 GM TUBE TP SCH ×2 (10:02→21:40)
[2021-06-27] MEDS: ASPIRIN 81 MG CHEWABLE TABLETS PO SCH (10:02)
[2021-06-27] MEDS: METHOCARBAMOL 500 MG TABLET PO PRN ×2 (10:02→21:40)
[2021-06-27] MEDS: traZODone HCL 50 MG TABLET (FP) PO SCH (21:39)
[2021-06-27] MEDS: LIDOCAINE PATCH REMOVAL MC SCH (21:39)
[2021-06-27] MEDS: ATORVASTATIN CA 40 MG TABLET (FP) PO SCH (21:39)
[2021-06-27] MEDS: THIAMINE HCL 100 MG TABLET (FP) PO SCH (21:39)
[2021-06-27] MEDS: MELATONIN 5 MG TABLETS PO SCH (21:40)
[2021-06-28 07:28] VITALS: BP 120/69; PULSE 68; TEMP 98
[2021-06-28] MEDS: PRENATAL VITAMINS W/ FOLIC ACID TABLET (FP) PO SCH (09:31)
[2021-06-28] MEDS: ASPIRIN 81 MG CHEWABLE TABLETS PO SCH (09:32)
[2021-06-28] MEDS: LISINOPRIL 10 MG TABLET PO SCH (09:32)
[2021-06-28] MEDS: LIDOCAINE 5% TOPICAL PATCH TP SCH (09:32)
[2021-06-28] MEDS: TOLNAFTATE 1% CREAM 15 GM TUBE TP SCH (09:32)
[2021-06-28] MEDS: METHOCARBAMOL 500 MG TABLET PO PRN (09:34)
== END 2021-06-28 09:36 | disposition home or self-care (01) | DRG 772 ==
LOC: YASAS 13:02 → Y5N 13:03
PROVIDERS: ADMIT Allergy & Immunology; ATTEND Allergy & Immunology
PROC: HZ42ZZZ Group Counseling for Substance Abuse Treatment, Cognitive-Behavioral (ICD-10-PCS; principal; 2021-06-15)
DX: F10.20 Alcohol dependence, uncomplicated (principal); F14.20 Cocaine dependence, uncomplicated; I10 Essential (primary) hypertension; E11.9 Type 2 diabetes mellitus without complications; E78.5 Hyperlipidemia, unspecified; Z79.84 Long term (current) use of oral hypoglycemic drugs; Z56.0 Unemployment, unspecified; Z59.01 Sheltered homelessness
CPT/HCPCS: 82962

== ENCOUNTER 2021-08-09 09:42 | Inpatient (IN) | payer OTHER ==
[2021-08-09] MEDS ORDERED: IBUPROFEN 400 MG TABLET (FP) PO PRN (11:02)
[2021-08-09] MEDS ORDERED: chlordiazePOXIDE HCL 25 MG CAPSULE PO PRN (11:02)
[2021-08-09] MEDS ORDERED: MAGNESIUM HYDROX 2400MG/30ML ORAL SUSPENSION 30 ML CUP PO PRN (11:02)
[2021-08-09] MEDS ORDERED: MENTHOL/PHENOL 1 EACH UD MM PRN (11:02)
[2021-08-09] MEDS ORDERED: MAGNESIUM CITRATE 300 ML BOTTLE PO PRN (11:02)
[2021-08-09] MEDS ORDERED: NICOTINE 10 MG CARTRIDGE (INHALER) IH PRN (11:02)
[2021-08-09] MEDS ORDERED: cloNIDine HCL 0.1 MG TABLET PO PRN (11:02)
[2021-08-09] MEDS ORDERED: ONDANSETRON *ODT* 4 MG TABLET SL PRN (11:02)
[2021-08-09] MEDS ORDERED: MAG HYDROX/AL HYDROX/SIMETH 30 ML UNIT-DOSE CUP PO PRN (11:02)
[2021-08-09] MEDS ORDERED: methaDONE HCL 10 MG TABLET (FOR DETOX USE ONLY) PO ONE (11:02)
[2021-08-09] MEDS ORDERED: ACETAMINOPHEN 325 MG TABLET (FP) PO PRN ×2 (11:02)
[2021-08-09 11:04] VITALS: BMI 29.8
[2021-08-09] MEDS ORDERED: hydrOXYzine PAMOATE 25 MG CAPSULE (FP) PO ONE (13:54)
[2021-08-09] MEDS ORDERED: chlordiazePOXIDE HCL 25 MG CAPSULE ONE (13:54)
[2021-08-09] MEDS: hydrOXYzine PAMOATE 25 MG CAPSULE (FP) PO SCH ×3 (13:56→22:13)
[2021-08-09 14:56] LABS: HEMOGLOBIN 11.8 GM/dL (11.7-16.9); MCH 27.3 pg (25.7-33.7); MCHC 32.8 g/dl (32.0-35.9); MEAN CELL VOLUME 83.1 fl (80-96); MEAN PLT VOLUME 9.3 fl (7.5-11.1); PLATELET COUNT 182 10^3/uL (134-434); RBC 4.33 M/mm3 (4.00-5.60); RDW 14.9 % (11.9-15.9); WHITE BLOOD COUNT 6.2 K/mm3 (4.0-10.0)
[2021-08-09 15:02] LABS: CALCIUM 9.7 mg/dL (8.5-10.1)
[2021-08-09 15:03] LABS: BLOOD UREA NITROGEN 15.3 mg/dL (7-18)
[2021-08-09 15:05] LABS: CREATININE 0.9 mg/dL (0.55-1.3)
[2021-08-09 15:07] LABS: BILIRUBIN,TOTAL 0.7 mg/dL (0.2-1); TOT PROT 7.7 g/dl (6.4-8.2)
[2021-08-09] MEDS: NICOTINE 14 MG/24 HOURS TOPICAL PATCH TD SCH (15:58)
[2021-08-09] MEDS: chlordiazePOXIDE HCL 25 MG CAPSULE PO SCH ×3 (15:58→22:13)
[2021-08-09] MEDS: PRENATAL VITAMINS W/ FOLIC ACID TABLET (FP) PO SCH (15:59)
[2021-08-09] MEDS ORDERED: MELATONIN 5 MG TABLETS PO SCH (22:00)
[2021-08-09] MEDS: ATORVASTATIN CA 40 MG TABLET (FP) PO SCH (22:13)
[2021-08-09] MEDS: traZODone HCL 50 MG TABLET (FP) PO SCH (22:13)
[2021-08-09] MEDS: THIAMINE HCL 100 MG TABLET (FP) PO SCH (22:13)
[2021-08-10] MEDS: hydrOXYzine PAMOATE 25 MG CAPSULE (FP) PO SCH ×5 (05:56→22:30)
[2021-08-10] MEDS: chlordiazePOXIDE HCL 25 MG CAPSULE PO SCH ×4 (05:56→22:27)
[2021-08-10] MEDS: ASPIRIN 81 MG CHEWABLE TABLETS PO SCH (10:36)
[2021-08-10] MEDS: PRENATAL VITAMINS W/ FOLIC ACID TABLET (FP) PO SCH (10:36)
[2021-08-10] MEDS: LISINOPRIL 10 MG TABLET PO SCH (10:36)
[2021-08-10] MEDS: NICOTINE 14 MG/24 HOURS TOPICAL PATCH TD SCH (10:37)
[2021-08-10] MEDS: TOLNAFTATE 1% CREAM 15 GM TUBE TP SCH ×2 (14:01→22:29)
[2021-08-10] MEDS: traZODone HCL 50 MG TABLET (FP) PO SCH (22:27)
[2021-08-10] MEDS: ATORVASTATIN CA 40 MG TABLET (FP) PO SCH (22:27)
[2021-08-10] MEDS: THIAMINE HCL 100 MG TABLET (FP) PO SCH (22:30)
[2021-08-11] MEDS: chlordiazePOXIDE HCL 25 MG CAPSULE PO SCH ×4 (06:25→22:47)
[2021-08-11] MEDS: hydrOXYzine PAMOATE 25 MG CAPSULE (FP) PO SCH ×5 (06:25→22:47)
[2021-08-11] MEDS ORDERED: methaDONE HCL 10 MG TABLET (FOR DETOX USE ONLY) PO ONE (10:00)
[2021-08-11] MEDS: LISINOPRIL 10 MG TABLET PO SCH (10:32)
[2021-08-11] MEDS: METHOCARBAMOL 500 MG TABLET PO PRN (10:32)
[2021-08-11] MEDS: ASPIRIN 81 MG CHEWABLE TABLETS PO SCH (10:32)
[2021-08-11] MEDS: PRENATAL VITAMINS W/ FOLIC ACID TABLET (FP) PO SCH (10:32)
[2021-08-11] MEDS: NICOTINE 14 MG/24 HOURS TOPICAL PATCH TD SCH (10:34)
[2021-08-11] MEDS: TOLNAFTATE 1% CREAM 15 GM TUBE TP SCH ×2 (10:34→22:47)
[2021-08-11] MEDS: traZODone HCL 50 MG TABLET (FP) PO SCH (22:47)
[2021-08-11] MEDS: ATORVASTATIN CA 40 MG TABLET (FP) PO SCH (22:47)
[2021-08-11] MEDS: THIAMINE HCL 100 MG TABLET (FP) PO SCH (22:47)
[2021-08-12] MEDS ORDERED: chlordiazePOXIDE HCL 10 MG CAPSULE PO PRN
[2021-08-12] MEDS: hydrOXYzine PAMOATE 25 MG CAPSULE (FP) PO SCH ×5 (05:50→22:03)
[2021-08-12] MEDS: chlordiazePOXIDE HCL 10 MG CAPSULE PO SCH ×4 (05:50→22:03)
[2021-08-12] MEDS: PRENATAL VITAMINS W/ FOLIC ACID TABLET (FP) PO SCH (10:41)
[2021-08-12] MEDS: ASPIRIN 81 MG CHEWABLE TABLETS PO SCH (10:42)
[2021-08-12] MEDS: LISINOPRIL 10 MG TABLET PO SCH (10:42)
[2021-08-12] MEDS: NICOTINE 14 MG/24 HOURS TOPICAL PATCH TD SCH (10:43)
[2021-08-12] MEDS: TOLNAFTATE 1% CREAM 15 GM TUBE TP SCH ×2 (10:43→22:14)
[2021-08-12] MEDS: METHOCARBAMOL 500 MG TABLET PO PRN (10:45)
[2021-08-12] MEDS: traZODone HCL 50 MG TABLET (FP) PO SCH (22:03)
[2021-08-12] MEDS: ATORVASTATIN CA 40 MG TABLET (FP) PO SCH (22:03)
[2021-08-12] MEDS: THIAMINE HCL 100 MG TABLET (FP) PO SCH (22:03)
[2021-08-13] MEDS: hydrOXYzine PAMOATE 25 MG CAPSULE (FP) PO SCH ×5 (05:28→22:27)
[2021-08-13] MEDS: chlordiazePOXIDE HCL 10 MG CAPSULE PO SCH ×2 (05:28→16:54)
[2021-08-13] MEDS: BISMUTH SUBSALICYLATE 524 MG/30 ML PO PRN ×2 (05:31→16:58)
[2021-08-13] MEDS ORDERED: methaDONE HCL 10 MG TABLET (FOR DETOX USE ONLY) PO ONE (10:00)
[2021-08-13] MEDS: ASPIRIN 81 MG CHEWABLE TABLETS PO SCH (10:37)
[2021-08-13] MEDS: METHOCARBAMOL 500 MG TABLET PO PRN (10:37)
[2021-08-13] MEDS: PRENATAL VITAMINS W/ FOLIC ACID TABLET (FP) PO SCH (10:37)
[2021-08-13] MEDS: LISINOPRIL 10 MG TABLET PO SCH (10:37)
[2021-08-13] MEDS: NICOTINE 14 MG/24 HOURS TOPICAL PATCH TD SCH (10:38)
[2021-08-13] MEDS: TOLNAFTATE 1% CREAM 15 GM TUBE TP SCH ×2 (10:38→22:28)
[2021-08-13] MEDS: ATORVASTATIN CA 40 MG TABLET (FP) PO SCH (22:27)
[2021-08-13] MEDS: traZODone HCL 50 MG TABLET (FP) PO SCH (22:27)
[2021-08-13] MEDS: THIAMINE HCL 100 MG TABLET (FP) PO SCH (22:27)
[2021-08-14] MEDS ORDERED: chlordiazePOXIDE HCL 10 MG CAPSULE PO ONE (05:00)
[2021-08-14] MEDS: hydrOXYzine PAMOATE 25 MG CAPSULE (FP) PO SCH ×4 (05:42→17:32)
[2021-08-14] MEDS: NICOTINE 14 MG/24 HOURS TOPICAL PATCH TD SCH (10:17)
[2021-08-14] MEDS: TOLNAFTATE 1% CREAM 15 GM TUBE TP SCH (10:17)
[2021-08-14] MEDS: PRENATAL VITAMINS W/ FOLIC ACID TABLET (FP) PO SCH (10:17)
[2021-08-14] MEDS: ASPIRIN 81 MG CHEWABLE TABLETS PO SCH (10:18)
[2021-08-14] MEDS: LISINOPRIL 10 MG TABLET PO SCH (10:18)
[2021-08-14] MEDS: METHOCARBAMOL 500 MG TABLET PO PRN ×2 (10:18→17:32)
[2021-08-14 17:01] VITALS: BP 150/78; PULSE 94; TEMP 97.6
== END 2021-08-14 18:05 | disposition other institution (70) | DRG 773 ==
LOC: YASAS 09:42 → Y6N 14:37
PROVIDERS: ADMIT Allergy & Immunology; ATTEND Allergy & Immunology
PROC: HZ2ZZZZ Detoxification Services for Substance Abuse Treatment (ICD-10-PCS; principal; 2021-08-09)
DX: F10.230 Alcohol dependence with withdrawal, uncomplicated (principal); F11.10 Opioid abuse, uncomplicated; F14.20 Cocaine dependence, uncomplicated; F17.210 Nicotine dependence, cigarettes, uncomplicated; F19.24 Other psychoactive substance dependence with psychoactive substance-induced mood disorder; F34.1 Dysthymic disorder; F41.9 Anxiety disorder, unspecified; I10 Essential (primary) hypertension; E78.00 Pure hypercholesterolemia, unspecified; E11.9 Type 2 diabetes mellitus without complications; J45.909 Unspecified asthma, uncomplicated; Z79.84 Long term (current) use of oral hypoglycemic drugs; Z56.0 Unemployment, unspecified; Z59.01 Sheltered homelessness
CPT/HCPCS: 36415; 80053; 82962; 83036; 85027; 86780; C9803; J0735; U0003; U0005

== ENCOUNTER 2021-08-14 18:19 | Inpatient (IN) | payer OTHER ==
[2021-08-14] MEDS: hydrOXYzine PAMOATE 25 MG CAPSULE (FP) PO SCH ×3 (18:00→21:51)
[~2021-08-14 18:19] MED LIST: ACETAMINOPHEN 325 MG TABLET (FP) PO PRN; LOPERAMIDE HCL 2 MG CAPSULE PO PRN; MAG HYDROX/AL HYDROX/SIMETH 30 ML UNIT-DOSE CUP PO PRN; MAGNESIUM CITRATE 300 ML BOTTLE PO PRN; MAGNESIUM HYDROX 2400MG/30ML ORAL SUSPENSION 30 ML CUP PO PRN; NICOTINE 10 MG CARTRIDGE (INHALER) IH PRN; NICOTINE POLACRILEX 2 MG GUM BUC PRN; P-EPHED 60MG/TRIPROLIDI 2.5MG TABLET PO PRN; PATIENT'S OWN MEDICATION (NON-FORMULARY) (Metformin Hcl [Metformin Er Osmotic] 1,000 MG Ta PO SCH; guaiFENesin 200 MG/10 ML 10 ML UNIT-DOSE CUPS PO PRN
[2021-08-14] MEDS: ATORVASTATIN CA 40 MG TABLET (FP) PO SCH (21:25)
[2021-08-14] MEDS: traZODone HCL 50 MG TABLET (FP) PO SCH (21:26)
[2021-08-14] MEDS: THIAMINE HCL 100 MG TABLET (FP) PO SCH (21:26)
[2021-08-14] MEDS: MELATONIN 5 MG TABLETS PO SCH (21:26)
[2021-08-15] MEDS: hydrOXYzine PAMOATE 25 MG CAPSULE (FP) PO SCH ×2 (06:05→10:32)
[2021-08-15] MEDS ORDERED: NICOTINE 7 MG/24 HOURS TOPICAL PATCH TD SCH (10:00)
[2021-08-15] MEDS: PRENATAL VITAMINS W/ FOLIC ACID TABLET (FP) PO SCH (10:32)
[2021-08-15] MEDS: NICOTINE 14 MG/24 HOURS TOPICAL PATCH TD SCH (10:32)
[2021-08-15] MEDS: LISINOPRIL 10 MG TABLET PO SCH (10:32)
[2021-08-15] MEDS: ASPIRIN 81 MG CHEWABLE TABLETS PO SCH (10:32)
[2021-08-15] MEDS: LIDOCAINE 5% TOPICAL PATCH TP SCH (11:27)
[2021-08-15] MEDS: IBUPROFEN 400 MG TABLET (FP) PO PRN (11:31)
[2021-08-15] MEDS: METHOCARBAMOL 500 MG TABLET PO PRN ×2 (11:47→21:49)
[2021-08-15] MEDS: METHYL SALICYLATE/MENTHOL OINT 30 GM TUBE TP SCH (21:47)
[2021-08-15] MEDS: traZODone HCL 50 MG TABLET (FP) PO SCH (21:48)
[2021-08-15] MEDS: hydrOXYzine PAMOATE 25 MG CAPSULE (FP) PO PRN (21:48)
[2021-08-15] MEDS: MELATONIN 5 MG TABLETS PO SCH (21:48)
[2021-08-15] MEDS: THIAMINE HCL 100 MG TABLET (FP) PO SCH (21:49)
[2021-08-15] MEDS: LIDOCAINE PATCH REMOVAL MC SCH (21:49)
[2021-08-15] MEDS: ATORVASTATIN CA 40 MG TABLET (FP) PO SCH (21:49)
[2021-08-16] MEDS: LISINOPRIL 10 MG TABLET PO SCH (10:05)
[2021-08-16] MEDS: PRENATAL VITAMINS W/ FOLIC ACID TABLET (FP) PO SCH (10:05)
[2021-08-16] MEDS: ASPIRIN 81 MG CHEWABLE TABLETS PO SCH (10:05)
[2021-08-16] MEDS: LIDOCAINE 5% TOPICAL PATCH TP SCH (10:06)
[2021-08-16] MEDS: NICOTINE 14 MG/24 HOURS TOPICAL PATCH TD SCH (10:06)
[2021-08-16] MEDS: METHOCARBAMOL 500 MG TABLET PO PRN (10:08)
[2021-08-16] MEDS: IBUPROFEN 400 MG TABLET (FP) PO PRN (13:10)
[2021-08-16] MEDS: hydrOXYzine PAMOATE 25 MG CAPSULE (FP) PO PRN (21:40)
[2021-08-16] MEDS: ATORVASTATIN CA 40 MG TABLET (FP) PO SCH (21:40)
[2021-08-16] MEDS: traZODone HCL 50 MG TABLET (FP) PO SCH (21:40)
[2021-08-16] MEDS: THIAMINE HCL 100 MG TABLET (FP) PO SCH (21:40)
[2021-08-16] MEDS: MELATONIN 5 MG TABLETS PO SCH (21:41)
[2021-08-16] MEDS: LIDOCAINE PATCH REMOVAL MC SCH (21:41)
[2021-08-16] MEDS: METHYL SALICYLATE/MENTHOL OINT 30 GM TUBE TP SCH (21:43)
[2021-08-17] MEDS: NICOTINE 14 MG/24 HOURS TOPICAL PATCH TD SCH (09:50)
[2021-08-17] MEDS: PRENATAL VITAMINS W/ FOLIC ACID TABLET (FP) PO SCH (09:50)
[2021-08-17] MEDS: LIDOCAINE 5% TOPICAL PATCH TP SCH (09:50)
[2021-08-17] MEDS: METHOCARBAMOL 500 MG TABLET PO PRN ×2 (09:51→21:24)
[2021-08-17] MEDS: LISINOPRIL 10 MG TABLET PO SCH (09:51)
[2021-08-17] MEDS: ASPIRIN 81 MG CHEWABLE TABLETS PO SCH (09:51)
[2021-08-17] MEDS: METHYL SALICYLATE/MENTHOL OINT 30 GM TUBE TP SCH (21:23)
[2021-08-17] MEDS: traZODone HCL 50 MG TABLET (FP) PO SCH (21:24)
[2021-08-17] MEDS: ATORVASTATIN CA 40 MG TABLET (FP) PO SCH (21:24)
[2021-08-17] MEDS: LIDOCAINE PATCH REMOVAL MC SCH (21:24)
[2021-08-17] MEDS: THIAMINE HCL 100 MG TABLET (FP) PO SCH (21:24)
[2021-08-17] MEDS: MELATONIN 5 MG TABLETS PO SCH (21:24)
[2021-08-18] MEDS: PRENATAL VITAMINS W/ FOLIC ACID TABLET (FP) PO SCH (09:59)
[2021-08-18] MEDS: LIDOCAINE 5% TOPICAL PATCH TP SCH (10:00)
[2021-08-18] MEDS: ASPIRIN 81 MG CHEWABLE TABLETS PO SCH (10:00)
[2021-08-18] MEDS: LISINOPRIL 10 MG TABLET PO SCH (10:00)
[2021-08-18] MEDS: NICOTINE 14 MG/24 HOURS TOPICAL PATCH TD SCH (10:00)
[2021-08-18] MEDS: METHOCARBAMOL 500 MG TABLET PO PRN ×2 (10:01→21:13)
[2021-08-18] MEDS: METHYL SALICYLATE/MENTHOL OINT 30 GM TUBE TP SCH (21:12)
[2021-08-18] MEDS: MELATONIN 5 MG TABLETS PO SCH (21:13)
[2021-08-18] MEDS: THIAMINE HCL 100 MG TABLET (FP) PO SCH (21:13)
[2021-08-18] MEDS: ATORVASTATIN CA 40 MG TABLET (FP) PO SCH (21:13)
[2021-08-18] MEDS: LIDOCAINE PATCH REMOVAL MC SCH (21:14)
[2021-08-18] MEDS: traZODone HCL 50 MG TABLET (FP) PO SCH (21:14)
[2021-08-19] MEDS: PRENATAL VITAMINS W/ FOLIC ACID TABLET (FP) PO SCH (10:50)
[2021-08-19] MEDS: LISINOPRIL 10 MG TABLET PO SCH (10:50)
[2021-08-19] MEDS: ASPIRIN 81 MG CHEWABLE TABLETS PO SCH (10:50)
[2021-08-19] MEDS: LIDOCAINE 5% TOPICAL PATCH TP SCH (10:51)
[2021-08-19] MEDS: NICOTINE 14 MG/24 HOURS TOPICAL PATCH TD SCH (10:51)
[2021-08-19] MEDS: METHOCARBAMOL 500 MG TABLET PO PRN ×2 (10:52→21:17)
[2021-08-19] MEDS: TOLNAFTATE 1% CREAM 15 GM TUBE TP SCH ×2 (15:32→21:18)
[2021-08-19] MEDS: METHYL SALICYLATE/MENTHOL OINT 30 GM TUBE TP SCH (21:16)
[2021-08-19] MEDS: ATORVASTATIN CA 40 MG TABLET (FP) PO SCH (21:17)
[2021-08-19] MEDS: LIDOCAINE PATCH REMOVAL MC SCH (21:17)
[2021-08-19] MEDS: MELATONIN 5 MG TABLETS PO SCH (21:17)
[2021-08-19] MEDS: THIAMINE HCL 100 MG TABLET (FP) PO SCH (21:17)
[2021-08-19] MEDS: traZODone HCL 50 MG TABLET (FP) PO SCH (21:17)
[2021-08-20] MEDS ORDERED: INSULIN (NOVOLOG) ASPART 100 UNITS/ML 10ML VIAL ONE ×2 (05:56→07:12)
[2021-08-20] MEDS: ASPIRIN 81 MG CHEWABLE TABLETS PO SCH (09:39)
[2021-08-20] MEDS: LIDOCAINE 5% TOPICAL PATCH TP SCH (09:39)
[2021-08-20] MEDS: PRENATAL VITAMINS W/ FOLIC ACID TABLET (FP) PO SCH (09:39)
[2021-08-20] MEDS: NICOTINE 14 MG/24 HOURS TOPICAL PATCH TD SCH (09:39)
[2021-08-20] MEDS: METHOCARBAMOL 500 MG TABLET PO PRN ×2 (09:39→21:30)
[2021-08-20] MEDS: LISINOPRIL 10 MG TABLET PO SCH (09:40)
[2021-08-20] MEDS: TOLNAFTATE 1% CREAM 15 GM TUBE TP SCH ×2 (09:40→21:44)
[2021-08-20] MEDS: IBUPROFEN 400 MG TABLET (FP) PO PRN (09:41)
[2021-08-20] MEDS: THIAMINE HCL 100 MG TABLET (FP) PO SCH (21:28)
[2021-08-20] MEDS: ATORVASTATIN CA 40 MG TABLET (FP) PO SCH (21:28)
[2021-08-20] MEDS: traZODone HCL 50 MG TABLET (FP) PO SCH (21:28)
[2021-08-20] MEDS: hydrOXYzine PAMOATE 25 MG CAPSULE (FP) PO PRN (21:30)
[2021-08-20] MEDS: LIDOCAINE PATCH REMOVAL MC SCH (21:41)
[2021-08-20] MEDS: METHYL SALICYLATE/MENTHOL OINT 30 GM TUBE TP SCH (21:44)
[2021-08-20] MEDS: MELATONIN 5 MG TABLETS PO SCH (21:44)
[2021-08-21] MEDS: LIDOCAINE 5% TOPICAL PATCH TP SCH (09:47)
[2021-08-21] MEDS: NICOTINE 14 MG/24 HOURS TOPICAL PATCH TD SCH (09:47)
[2021-08-21] MEDS: PRENATAL VITAMINS W/ FOLIC ACID TABLET (FP) PO SCH (09:47)
[2021-08-21] MEDS: ASPIRIN 81 MG CHEWABLE TABLETS PO SCH (09:48)
[2021-08-21] MEDS: TOLNAFTATE 1% CREAM 15 GM TUBE TP SCH ×2 (09:48→23:21)
[2021-08-21] MEDS: METHOCARBAMOL 500 MG TABLET PO PRN ×2 (09:48→21:32)
[2021-08-21] MEDS: LISINOPRIL 10 MG TABLET PO SCH (09:48)
[2021-08-21] MEDS: IBUPROFEN 400 MG TABLET (FP) PO PRN (09:49)
[2021-08-21] MEDS: METHYL SALICYLATE/MENTHOL OINT 30 GM TUBE TP SCH (21:31)
[2021-08-21] MEDS: ATORVASTATIN CA 40 MG TABLET (FP) PO SCH (21:33)
[2021-08-21] MEDS: traZODone HCL 50 MG TABLET (FP) PO SCH (21:33)
[2021-08-21] MEDS: THIAMINE HCL 100 MG TABLET (FP) PO SCH (21:33)
[2021-08-21] MEDS: MELATONIN 5 MG TABLETS PO SCH (21:34)
[2021-08-21] MEDS: LIDOCAINE PATCH REMOVAL MC SCH (23:21)
[2021-08-22] MEDS: PRENATAL VITAMINS W/ FOLIC ACID TABLET (FP) PO SCH (10:18)
[2021-08-22] MEDS: LIDOCAINE 5% TOPICAL PATCH TP SCH (10:19)
[2021-08-22] MEDS: LISINOPRIL 10 MG TABLET PO SCH (10:19)
[2021-08-22] MEDS: NICOTINE 14 MG/24 HOURS TOPICAL PATCH TD SCH (10:19)
[2021-08-22] MEDS: ASPIRIN 81 MG CHEWABLE TABLETS PO SCH (10:19)
[2021-08-22] MEDS: TOLNAFTATE 1% CREAM 15 GM TUBE TP SCH ×2 (10:20→22:31)
[2021-08-22] MEDS: METHOCARBAMOL 500 MG TABLET PO PRN (10:21)
[2021-08-22] MEDS: METHYL SALICYLATE/MENTHOL OINT 30 GM TUBE TP SCH (21:31)
[2021-08-22] MEDS: THIAMINE HCL 100 MG TABLET (FP) PO SCH (21:32)
[2021-08-22] MEDS: ATORVASTATIN CA 40 MG TABLET (FP) PO SCH (21:32)
[2021-08-22] MEDS: MELATONIN 5 MG TABLETS PO SCH (21:32)
[2021-08-22] MEDS: traZODone HCL 50 MG TABLET (FP) PO SCH (21:32)
[2021-08-22] MEDS: LIDOCAINE PATCH REMOVAL MC SCH (21:35)
[2021-08-23] MEDS: LISINOPRIL 10 MG TABLET PO SCH (10:21)
[2021-08-23] MEDS: METHOCARBAMOL 500 MG TABLET PO PRN ×2 (10:21→21:19)
[2021-08-23] MEDS: PRENATAL VITAMINS W/ FOLIC ACID TABLET (FP) PO SCH (10:21)
[2021-08-23] MEDS: ASPIRIN 81 MG CHEWABLE TABLETS PO SCH (10:21)
[2021-08-23] MEDS: NICOTINE 14 MG/24 HOURS TOPICAL PATCH TD SCH (10:21)
[2021-08-23] MEDS: IBUPROFEN 400 MG TABLET (FP) PO PRN (10:21)
[2021-08-23] MEDS: LIDOCAINE 5% TOPICAL PATCH TP SCH (10:22)
[2021-08-23] MEDS: TOLNAFTATE 1% CREAM 15 GM TUBE TP SCH ×2 (10:22→21:54)
[2021-08-23] MEDS: ATORVASTATIN CA 40 MG TABLET (FP) PO SCH (21:17)
[2021-08-23] MEDS: THIAMINE HCL 100 MG TABLET (FP) PO SCH (21:17)
[2021-08-23] MEDS: MELATONIN 5 MG TABLETS PO SCH (21:17)
[2021-08-23] MEDS: traZODone HCL 50 MG TABLET (FP) PO SCH (21:17)
[2021-08-23] MEDS: LIDOCAINE PATCH REMOVAL MC SCH (21:18)
[2021-08-23] MEDS: METHYL SALICYLATE/MENTHOL OINT 30 GM TUBE TP SCH (21:54)
[2021-08-24] MEDS: PRENATAL VITAMINS W/ FOLIC ACID TABLET (FP) PO SCH (10:21)
[2021-08-24] MEDS: ASPIRIN 81 MG CHEWABLE TABLETS PO SCH (10:21)
[2021-08-24] MEDS: LISINOPRIL 10 MG TABLET PO SCH (10:21)
[2021-08-24] MEDS: NICOTINE 14 MG/24 HOURS TOPICAL PATCH TD SCH (10:22)
[2021-08-24] MEDS: LIDOCAINE 5% TOPICAL PATCH TP SCH (10:22)
[2021-08-24] MEDS: TOLNAFTATE 1% CREAM 15 GM TUBE TP SCH ×2 (10:22→21:18)
[2021-08-24] MEDS: METHOCARBAMOL 500 MG TABLET PO PRN ×2 (10:24→21:17)
[2021-08-24] MEDS: ATORVASTATIN CA 40 MG TABLET (FP) PO SCH (21:17)
[2021-08-24] MEDS: traZODone HCL 50 MG TABLET (FP) PO SCH (21:17)
[2021-08-24] MEDS: THIAMINE HCL 100 MG TABLET (FP) PO SCH (21:17)
[2021-08-24] MEDS: MELATONIN 5 MG TABLETS PO SCH (21:17)
[2021-08-24] MEDS: METHYL SALICYLATE/MENTHOL OINT 30 GM TUBE TP SCH (21:17)
[2021-08-24] MEDS: LIDOCAINE PATCH REMOVAL MC SCH (21:17)
[2021-08-25] MEDS: LIDOCAINE 5% TOPICAL PATCH TP SCH (09:50)
[2021-08-25] MEDS: PRENATAL VITAMINS W/ FOLIC ACID TABLET (FP) PO SCH (09:50)
[2021-08-25] MEDS: LISINOPRIL 10 MG TABLET PO SCH (09:51)
[2021-08-25] MEDS: ASPIRIN 81 MG CHEWABLE TABLETS PO SCH (09:51)
[2021-08-25] MEDS: NICOTINE 14 MG/24 HOURS TOPICAL PATCH TD SCH (09:52)
[2021-08-25] MEDS: METHOCARBAMOL 500 MG TABLET PO PRN ×2 (09:52→21:24)
[2021-08-25] MEDS: TOLNAFTATE 1% CREAM 15 GM TUBE TP SCH ×2 (09:53→21:24)
[2021-08-25] MEDS: traZODone HCL 50 MG TABLET (FP) PO SCH (21:24)
[2021-08-25] MEDS: ATORVASTATIN CA 40 MG TABLET (FP) PO SCH (21:24)
[2021-08-25] MEDS: THIAMINE HCL 100 MG TABLET (FP) PO SCH (21:24)
[2021-08-25] MEDS: LIDOCAINE PATCH REMOVAL MC SCH (21:24)
[2021-08-25] MEDS: METHYL SALICYLATE/MENTHOL OINT 30 GM TUBE TP SCH (21:25)
[2021-08-25] MEDS: MELATONIN 5 MG TABLETS PO SCH (21:25)
[2021-08-26] MEDS: NICOTINE 14 MG/24 HOURS TOPICAL PATCH TD SCH (09:56)
[2021-08-26] MEDS: PRENATAL VITAMINS W/ FOLIC ACID TABLET (FP) PO SCH (09:56)
[2021-08-26] MEDS: TOLNAFTATE 1% CREAM 15 GM TUBE TP SCH ×2 (09:57→21:32)
[2021-08-26] MEDS: ASPIRIN 81 MG CHEWABLE TABLETS PO SCH (09:57)
[2021-08-26] MEDS: LISINOPRIL 10 MG TABLET PO SCH (09:57)
[2021-08-26] MEDS: METHOCARBAMOL 500 MG TABLET PO PRN (09:57)
[2021-08-26] MEDS: LIDOCAINE 5% TOPICAL PATCH TP SCH (09:57)
[2021-08-26] MEDS: MELATONIN 5 MG TABLETS PO SCH (21:31)
[2021-08-26] MEDS: THIAMINE HCL 100 MG TABLET (FP) PO SCH (21:31)
[2021-08-26] MEDS: ATORVASTATIN CA 40 MG TABLET (FP) PO SCH (21:31)
[2021-08-26] MEDS: LIDOCAINE PATCH REMOVAL MC SCH (21:31)
[2021-08-26] MEDS: traZODone HCL 50 MG TABLET (FP) PO SCH (21:31)
[2021-08-26] MEDS: METHYL SALICYLATE/MENTHOL OINT 30 GM TUBE TP SCH (21:31)
[2021-08-26] MEDS: hydrOXYzine PAMOATE 25 MG CAPSULE (FP) PO PRN (21:32)
[2021-08-27 07:22] VITALS: TEMP 97.7
[2021-08-27] MEDS: NICOTINE 14 MG/24 HOURS TOPICAL PATCH TD SCH (09:18)
[2021-08-27] MEDS: LISINOPRIL 10 MG TABLET PO SCH (09:20)
[2021-08-27] MEDS: ASPIRIN 81 MG CHEWABLE TABLETS PO SCH (09:20)
[2021-08-27] MEDS: METHOCARBAMOL 500 MG TABLET PO PRN (09:20)
[2021-08-27] MEDS: PRENATAL VITAMINS W/ FOLIC ACID TABLET (FP) PO SCH (09:20)
[2021-08-27] MEDS: TOLNAFTATE 1% CREAM 15 GM TUBE TP SCH (09:21)
[2021-08-27] MEDS: LIDOCAINE 5% TOPICAL PATCH TP SCH (09:22)
[2021-08-27 09:23] VITALS: BP 138/75; PULSE 93
== END 2021-08-27 09:25 | disposition home or self-care (01) | DRG 772 ==
LOC: YASAS 18:19 → Y5N 18:21
PROVIDERS: ADMIT Allergy & Immunology; ATTEND Allergy & Immunology
PROC: HZ42ZZZ Group Counseling for Substance Abuse Treatment, Cognitive-Behavioral (ICD-10-PCS; principal; 2021-08-14)
DX: F10.20 Alcohol dependence, uncomplicated (principal); F11.20 Opioid dependence, uncomplicated; F14.20 Cocaine dependence, uncomplicated; F17.210 Nicotine dependence, cigarettes, uncomplicated; E78.5 Hyperlipidemia, unspecified; I10 Essential (primary) hypertension; E11.9 Type 2 diabetes mellitus without complications; Z79.84 Long term (current) use of oral hypoglycemic drugs; J45.909 Unspecified asthma, uncomplicated; M17.0 Bilateral primary osteoarthritis of knee; M54.50 Low back pain, unspecified; G89.29 Other chronic pain; E66.9 Obesity, unspecified; Z68.31 Body mass index [BMI] 31.0-31.9, adult; Z99.89 Dependence on other enabling machines and devices
CPT/HCPCS: 82962; C9803; U0003; U0005

== ENCOUNTER 2021-09-12 11:10 | Inpatient (IN) | payer OTHER ==
[2021-09-12] MEDS ORDERED: NICOTINE 10 MG CARTRIDGE (INHALER) IH PRN (13:55)
[2021-09-12] MEDS ORDERED: MAGNESIUM HYDROX 2400MG/30ML ORAL SUSPENSION 30 ML CUP PO PRN (13:55)
[2021-09-12] MEDS ORDERED: METHOCARBAMOL 500 MG TABLET PO PRN (13:55)
[2021-09-12] MEDS ORDERED: LOPERAMIDE HCL 2 MG CAPSULE PO PRN (13:55)
[2021-09-12] MEDS ORDERED: MAGNESIUM CITRATE 300 ML BOTTLE PO PRN (13:55)
[2021-09-12] MEDS ORDERED: ONDANSETRON *ODT* 4 MG TABLET SL PRN (13:55)
[2021-09-12] MEDS ORDERED: MENTHOL/PHENOL 1 EACH UD MM PRN (13:55)
[2021-09-12] MEDS ORDERED: chlordiazePOXIDE HCL 25 MG CAPSULE PO PRN (13:55)
[2021-09-12] MEDS ORDERED: ACETAMINOPHEN 325 MG TABLET (FP) PO PRN ×2 (13:55)
[2021-09-12] MEDS ORDERED: MAG HYDROX/AL HYDROX/SIMETH 30 ML UNIT-DOSE CUP PO PRN (13:55)
[2021-09-12] MEDS ORDERED: NALOXONE (NARCAN) HCL 4 MG/0.1 ML SPRAY NS PRN (13:57)
[2021-09-12 14:48] VITALS: BMI 29.8
[2021-09-12] MEDS: chlordiazePOXIDE HCL 25 MG CAPSULE PO SCH ×2 (18:28→22:17)
[2021-09-12] MEDS: INSULIN SLIDING SCALE (NOVOLOG) 1 VIAL SQ SCH (18:33)
[2021-09-12] MEDS: hydrOXYzine PAMOATE 25 MG CAPSULE (FP) PO SCH ×3 (18:33→22:20)
[2021-09-12] MEDS: LIDOCAINE 5% TOPICAL PATCH TP SCH (18:34)
[2021-09-12] MEDS: MELATONIN 5 MG TABLETS PO SCH (22:18)
[2021-09-12] MEDS: ATORVASTATIN CA 40 MG TABLET (FP) PO SCH (22:18)
[2021-09-12] MEDS: THIAMINE HCL 100 MG TABLET (FP) PO SCH (22:18)
[2021-09-13] MEDS: chlordiazePOXIDE HCL 25 MG CAPSULE PO SCH ×4 (05:21→22:31)
[2021-09-13] MEDS: hydrOXYzine PAMOATE 25 MG CAPSULE (FP) PO SCH ×5 (05:21→22:30)
[2021-09-13] MEDS ORDERED: LIDOCAINE PATCH REMOVAL MC SCH ×2 (06:00→11:23)
[2021-09-13] MEDS: INSULIN SLIDING SCALE (NOVOLOG) 1 VIAL SQ SCH (06:30)
[2021-09-13] MEDS: LISINOPRIL 10 MG TABLET PO SCH (10:06)
[2021-09-13] MEDS: PRENATAL VITAMINS W/ FOLIC ACID TABLET (FP) PO SCH (10:06)
[2021-09-13] MEDS: IBUPROFEN 400 MG TABLET (FP) PO PRN (10:09)
[2021-09-13 10:32] LABS: HEMATOCRIT 37.4 % (35.4-49); HEMOGLOBIN 12.1 GM/dL (11.7-16.9); MCH 26.7 pg (25.7-33.7); MCHC 32.4 g/dl (32.0-35.9); MEAN CELL VOLUME 82.4 fl (80-96); MEAN PLT VOLUME 9.7 fl (7.5-11.1); PLATELET COUNT 134 10^3/uL (134-434); RBC 4.54 M/mm3 (4.00-5.60); RDW 15.4 % (11.9-15.9); WHITE BLOOD COUNT 3.5 K/mm3 (4.0-10.0)
[2021-09-13] MEDS: TOLNAFTATE 1% CREAM 15 GM TUBE TP SCH ×2 (10:48→22:33)
[2021-09-13] MEDS: INSULIN (NOVOLOG) ASPART 100 UNITS/ML 10ML VIAL SQ SCH ×3 (10:58→22:30)
[2021-09-13 10:59] LABS: ALBUMIN 4.4 g/dl (3.4-5.0); CALCIUM 9.8 mg/dL (8.5-10.1)
[2021-09-13 11:00] LABS: BLOOD UREA NITROGEN 14.2 mg/dL (7-18)
[2021-09-13 11:03] LABS: CREATININE 1.2 mg/dL (0.55-1.3)
[2021-09-13 11:05] LABS: BILIRUBIN,TOTAL 1.3 mg/dL (0.2-1); TOT PROT 7.8 g/dl (6.4-8.2)
[2021-09-13] MEDS: LIDOCAINE 5% TOPICAL PATCH TP SCH (17:25)
[2021-09-13] MEDS: traZODone HCL 50 MG TABLET (FP) PO SCH (22:30)
[2021-09-13] MEDS: THIAMINE HCL 100 MG TABLET (FP) PO SCH (22:30)
[2021-09-13] MEDS: ATORVASTATIN CA 40 MG TABLET (FP) PO SCH (22:30)
[2021-09-13] MEDS: MELATONIN 5 MG TABLETS PO SCH (22:31)
[2021-09-13] MEDS ORDERED: INSULIN SLIDING SCALE (NOVOLOG) 1 VIAL SQ ONE (23:17)
[2021-09-14] MEDS ORDERED: INSULIN SLIDING SCALE (NOVOLOG) 1 VIAL SQ ONE (04:37)
[2021-09-14] MEDS: chlordiazePOXIDE HCL 25 MG CAPSULE PO SCH ×4 (05:22→22:05)
[2021-09-14] MEDS: hydrOXYzine PAMOATE 25 MG CAPSULE (FP) PO SCH ×5 (05:22→22:06)
[2021-09-14] MEDS: INSULIN (NOVOLOG) ASPART 100 UNITS/ML 10ML VIAL SQ SCH ×4 (06:14→21:57)
[2021-09-14] MEDS: LISINOPRIL 10 MG TABLET PO SCH (10:59)
[2021-09-14] MEDS: ASPIRIN 81 MG CHEWABLE TABLETS PO SCH (10:59)
[2021-09-14] MEDS: PRENATAL VITAMINS W/ FOLIC ACID TABLET (FP) PO SCH (10:59)
[2021-09-14] MEDS: TOLNAFTATE 1% CREAM 15 GM TUBE TP SCH ×2 (11:00→22:05)
[2021-09-14] MEDS: IBUPROFEN 400 MG TABLET (FP) PO PRN (11:04)
[2021-09-14 12:07] LABS: SARS-CoV-2 NAA Not Detected (Not Detected)
[2021-09-14] MEDS: LIDOCAINE 5% TOPICAL PATCH TP SCH (12:39)
[2021-09-14] MEDS: LIDOCAINE PATCH REMOVAL MC SCH (22:05)
[2021-09-14] MEDS: traZODone HCL 50 MG TABLET (FP) PO SCH (22:06)
[2021-09-14] MEDS: ATORVASTATIN CA 40 MG TABLET (FP) PO SCH (22:06)
[2021-09-14] MEDS: THIAMINE HCL 100 MG TABLET (FP) PO SCH (22:06)
[2021-09-14] MEDS: MELATONIN 5 MG TABLETS PO SCH (22:06)
[2021-09-15] MEDS ORDERED: chlordiazePOXIDE HCL 10 MG CAPSULE PO PRN
[2021-09-15] MEDS: chlordiazePOXIDE HCL 10 MG CAPSULE PO SCH ×4 (05:43→22:26)
[2021-09-15] MEDS: hydrOXYzine PAMOATE 25 MG CAPSULE (FP) PO SCH ×5 (05:44→22:27)
[2021-09-15] MEDS: INSULIN (NOVOLOG) ASPART 100 UNITS/ML 10ML VIAL SQ SCH ×4 (06:50→21:43)
[2021-09-15] MEDS: PRENATAL VITAMINS W/ FOLIC ACID TABLET (FP) PO SCH (10:31)
[2021-09-15] MEDS: LISINOPRIL 10 MG TABLET PO SCH (10:31)
[2021-09-15] MEDS: ASPIRIN 81 MG CHEWABLE TABLETS PO SCH (10:32)
[2021-09-15] MEDS: TOLNAFTATE 1% CREAM 15 GM TUBE TP SCH ×2 (10:32→23:07)
[2021-09-15] MEDS: LIDOCAINE 5% TOPICAL PATCH TP SCH (10:32)
[2021-09-15] MEDS: BISMUTH SUBSALICYLATE 262 MG/15 ML BTL PO PRN (10:34)
[2021-09-15] MEDS: MELATONIN 5 MG TABLETS PO SCH (22:27)
[2021-09-15] MEDS: traZODone HCL 50 MG TABLET (FP) PO SCH (22:27)
[2021-09-15] MEDS: ATORVASTATIN CA 40 MG TABLET (FP) PO SCH (22:27)
[2021-09-15] MEDS: THIAMINE HCL 100 MG TABLET (FP) PO SCH (22:27)
[2021-09-15] MEDS: LIDOCAINE PATCH REMOVAL MC SCH (22:29)
[2021-09-16] MEDS: hydrOXYzine PAMOATE 25 MG CAPSULE (FP) PO SCH ×5 (06:01→22:02)
[2021-09-16] MEDS: chlordiazePOXIDE HCL 10 MG CAPSULE PO SCH ×2 (06:01→17:22)
[2021-09-16] MEDS: INSULIN (NOVOLOG) ASPART 100 UNITS/ML 10ML VIAL SQ SCH ×4 (06:04→22:01)
[2021-09-16] MEDS: ASPIRIN 81 MG CHEWABLE TABLETS PO SCH (10:23)
[2021-09-16] MEDS: LISINOPRIL 10 MG TABLET PO SCH (10:23)
[2021-09-16] MEDS: PRENATAL VITAMINS W/ FOLIC ACID TABLET (FP) PO SCH (10:23)
[2021-09-16] MEDS: TOLNAFTATE 1% CREAM 15 GM TUBE TP SCH ×2 (10:24→22:02)
[2021-09-16] MEDS: LIDOCAINE 5% TOPICAL PATCH TP SCH (10:25)
[2021-09-16] MEDS: IBUPROFEN 400 MG TABLET (FP) PO PRN (10:26)
[2021-09-16] MEDS: BISMUTH SUBSALICYLATE 262 MG/15 ML BTL PO PRN (17:22)
[2021-09-16] MEDS: ATORVASTATIN CA 40 MG TABLET (FP) PO SCH (22:01)
[2021-09-16] MEDS: LIDOCAINE PATCH REMOVAL MC SCH (22:01)
[2021-09-16] MEDS: THIAMINE HCL 100 MG TABLET (FP) PO SCH (22:02)
[2021-09-16] MEDS: MELATONIN 5 MG TABLETS PO SCH (22:02)
[2021-09-16] MEDS: traZODone HCL 50 MG TABLET (FP) PO SCH (22:02)
[2021-09-17] MEDS ORDERED: chlordiazePOXIDE HCL 10 MG CAPSULE PO ONE (05:00)
[2021-09-17] MEDS: hydrOXYzine PAMOATE 25 MG CAPSULE (FP) PO SCH ×2 (06:20→10:00)
[2021-09-17] MEDS: INSULIN (NOVOLOG) ASPART 100 UNITS/ML 10ML VIAL SQ SCH (06:24)
[2021-09-17 09:15] VITALS: BP 138/65; PULSE 77; TEMP 97.3
[2021-09-17] MEDS: LISINOPRIL 10 MG TABLET PO SCH (10:00)
[2021-09-17] MEDS: PRENATAL VITAMINS W/ FOLIC ACID TABLET (FP) PO SCH (10:00)
[2021-09-17] MEDS: ASPIRIN 81 MG CHEWABLE TABLETS PO SCH (10:00)
[2021-09-17] MEDS: LIDOCAINE 5% TOPICAL PATCH TP SCH (10:01)
[2021-09-17] MEDS: TOLNAFTATE 1% CREAM 15 GM TUBE TP SCH (10:01)
== END 2021-09-17 10:53 | disposition home or self-care (01) | DRG 774 ==
LOC: YASAS 11:10 → Y3N 17:17
PROVIDERS: ADMIT Allergy & Immunology; ATTEND Allergy & Immunology
PROC: HZ2ZZZZ Detoxification Services for Substance Abuse Treatment (ICD-10-PCS; principal; 2021-09-12)
DX: F10.230 Alcohol dependence with withdrawal, uncomplicated (principal); F14.20 Cocaine dependence, uncomplicated; F17.210 Nicotine dependence, cigarettes, uncomplicated; F19.282 Other psychoactive substance dependence with psychoactive substance-induced sleep disorder; F19.24 Other psychoactive substance dependence with psychoactive substance-induced mood disorder; F41.9 Anxiety disorder, unspecified; E78.5 Hyperlipidemia, unspecified; I10 Essential (primary) hypertension; J45.909 Unspecified asthma, uncomplicated; E11.9 Type 2 diabetes mellitus without complications; Z79.84 Long term (current) use of oral hypoglycemic drugs; B35.3 Tinea pedis; M54.50 Low back pain, unspecified; M17.0 Bilateral primary osteoarthritis of knee
CPT/HCPCS: 36415; 80053; 82962; 85027; 86780; 87811; C9803; U0003; U0005

== ENCOUNTER 2021-11-24 14:00 | Inpatient (IN) | payer OTHER ==
[2021-11-24 15:07] VITALS: BMI 29.1
[2021-11-24] MEDS ORDERED: MAGNESIUM HYDROX 2400MG/30ML ORAL SUSPENSION 30 ML CUP PO PRN (15:31)
[2021-11-24] MEDS ORDERED: DICYCLOMINE HCL 10 MG CAPSULE PO PRN (15:31)
[2021-11-24] MEDS ORDERED: NICOTINE POLACRILEX 2 MG GUM BUC PRN (15:31)
[2021-11-24] MEDS ORDERED: LORazepam 1 MG TABLET PO PRN (15:31)
[2021-11-24] MEDS ORDERED: BENZOCAINE/MENTHOL (CHLORASEPTIC ) LOZENGE MM PRN (15:31)
[2021-11-24] MEDS ORDERED: MAG HYDROX/AL HYDROX/SIMETH 30 ML UNIT-DOSE CUP PO PRN (15:31)
[2021-11-24] MEDS ORDERED: LOPERAMIDE HCL 2 MG CAPSULE PO PRN (15:31)
[2021-11-24] MEDS ORDERED: ACETAMINOPHEN 325 MG TABLET (FP) PO PRN ×2 (15:31)
[2021-11-24] MEDS ORDERED: BISMUTH SUBSALICYLATE 524 MG/30 ML PO PRN (15:31)
[2021-11-24] MEDS ORDERED: ONDANSETRON *ODT* 4 MG TABLET SL PRN (15:31)
[2021-11-24] MEDS ORDERED: MAGNESIUM CITRATE 300 ML BOTTLE PO PRN (15:31)
[2021-11-24] MEDS ORDERED: IBUPROFEN 400 MG TABLET (FP) PO PRN (15:31)
[2021-11-24] MEDS ORDERED: LORazepam 2 MG TABLET PO ONE (16:00)
[2021-11-24] MEDS: LORazepam 2 MG TABLET PO SCH ×2 (18:23→23:09)
[2021-11-24] MEDS: LIDOCAINE PATCH REMOVAL MC SCH (23:05)
[2021-11-24] MEDS: METHOCARBAMOL 500 MG TABLET PO PRN (23:07)
[2021-11-24] MEDS: TOLNAFTATE 1% CREAM 15 GM TUBE TP SCH (23:07)
[2021-11-24] MEDS: ATORVASTATIN CA 40 MG TABLET (FP) PO SCH (23:08)
[2021-11-24] MEDS: THIAMINE HCL 100 MG TABLET (FP) PO SCH (23:08)
[2021-11-25] MEDS: LORazepam 2 MG TABLET PO SCH ×4 (06:23→22:01)
[2021-11-25] MEDS ORDERED: hydrOXYzine PAMOATE 25 MG CAPSULE (FP) PO PRN (09:25)
[2021-11-25] MEDS: ASPIRIN 81 MG CHEWABLE TABLETS PO SCH (10:19)
[2021-11-25] MEDS: PRENATAL VITAMINS W/ FOLIC ACID TABLET (FP) PO SCH (10:20)
[2021-11-25] MEDS: LISINOPRIL 10 MG TABLET PO SCH (10:20)
[2021-11-25] MEDS: TOLNAFTATE 1% CREAM 15 GM TUBE TP SCH ×2 (10:20→22:04)
[2021-11-25] MEDS: LIDOCAINE 5% TOPICAL PATCH TP SCH (10:20)
[2021-11-25 12:36] LABS: HEMATOCRIT 37.2 % (35.4-49); HEMOGLOBIN 12.4 GM/dL (11.7-16.9); MCH 27.7 pg (25.7-33.7); MCHC 33.2 g/dl (32.0-35.9); MEAN CELL VOLUME 83.2 fl (80-96); MEAN PLT VOLUME 9.7 fl (7.5-11.1); PLATELET COUNT 151 10^3/uL (134-434); RBC 4.47 M/mm3 (4.00-5.60); RDW 15.3 % (11.9-15.9); WHITE BLOOD COUNT 5.4 K/mm3 (4.0-10.0)
[2021-11-25 13:09] LABS: ALBUMIN 3.9 g/dl (3.4-5.0); BLOOD UREA NITROGEN 27.2 mg/dL (7-18); CALCIUM 8.8 mg/dL (8.5-10.1)
[2021-11-25 13:14] LABS: BILIRUBIN,TOTAL 1.3 mg/dL (0.2-1); TOT PROT 7.4 g/dl (6.4-8.2)
[2021-11-25] MEDS: IBUPROFEN 400 MG TABLET (FP) PO PRN (14:04)
[2021-11-25] MEDS: traZODone HCL 50 MG TABLET (FP) PO SCH (22:02)
[2021-11-25] MEDS: LIDOCAINE PATCH REMOVAL MC SCH (22:02)
[2021-11-25] MEDS: ATORVASTATIN CA 40 MG TABLET (FP) PO SCH (22:02)
[2021-11-25] MEDS: THIAMINE HCL 100 MG TABLET (FP) PO SCH (22:02)
[2021-11-25] MEDS: MELATONIN 5 MG TABLETS PO PRN (22:02)
[2021-11-25] MEDS: METHOCARBAMOL 500 MG TABLET PO PRN (22:05)
[2021-11-26] MEDS: LORazepam 1 MG TABLET PO SCH ×4 (06:47→22:13)
[2021-11-26] MEDS: PRENATAL VITAMINS W/ FOLIC ACID TABLET (FP) PO SCH (10:20)
[2021-11-26] MEDS: ASPIRIN 81 MG CHEWABLE TABLETS PO SCH (10:20)
[2021-11-26] MEDS: LISINOPRIL 10 MG TABLET PO SCH (10:20)
[2021-11-26] MEDS: LIDOCAINE 5% TOPICAL PATCH TP SCH (10:21)
[2021-11-26] MEDS: TOLNAFTATE 1% CREAM 15 GM TUBE TP SCH ×2 (10:21→22:14)
[2021-11-26] MEDS: IBUPROFEN 400 MG TABLET (FP) PO PRN (10:24)
[2021-11-26 16:08] LABS: SARS-CoV-2 NAA Not Detected (Not Detected)
[2021-11-26] MEDS: THIAMINE HCL 100 MG TABLET (FP) PO SCH (22:13)
[2021-11-26] MEDS: ATORVASTATIN CA 40 MG TABLET (FP) PO SCH (22:13)
[2021-11-26] MEDS: traZODone HCL 50 MG TABLET (FP) PO SCH (22:13)
[2021-11-26] MEDS: LIDOCAINE PATCH REMOVAL MC SCH (22:14)
[2021-11-26] MEDS: METHOCARBAMOL 500 MG TABLET PO PRN (22:15)
[2021-11-26] MEDS: MELATONIN 5 MG TABLETS PO PRN (22:16)
[2021-11-27] MEDS ORDERED: LORazepam 0.5 MG TABLET PO PRN
[2021-11-27] MEDS: LORazepam 0.5 MG TABLET PO SCH ×4 (06:19→22:06)
[2021-11-27] MEDS: ASPIRIN 81 MG CHEWABLE TABLETS PO SCH (10:29)
[2021-11-27] MEDS: TOLNAFTATE 1% CREAM 15 GM TUBE TP SCH ×2 (10:29→22:05)
[2021-11-27] MEDS: LISINOPRIL 10 MG TABLET PO SCH (10:29)
[2021-11-27] MEDS: PRENATAL VITAMINS W/ FOLIC ACID TABLET (FP) PO SCH (10:29)
[2021-11-27] MEDS: LIDOCAINE 5% TOPICAL PATCH TP SCH (10:29)
[2021-11-27] MEDS: traZODone HCL 50 MG TABLET (FP) PO SCH (22:04)
[2021-11-27] MEDS: THIAMINE HCL 100 MG TABLET (FP) PO SCH (22:04)
[2021-11-27] MEDS: ATORVASTATIN CA 40 MG TABLET (FP) PO SCH (22:04)
[2021-11-27] MEDS: LIDOCAINE PATCH REMOVAL MC SCH (22:06)
[2021-11-27] MEDS: MELATONIN 5 MG TABLETS PO PRN (22:07)
[2021-11-28] MEDS ORDERED: LORazepam 0.5 MG TABLET PO ONE (05:00)
[2021-11-28] MEDS: PRENATAL VITAMINS W/ FOLIC ACID TABLET (FP) PO SCH (10:11)
[2021-11-28] MEDS: LISINOPRIL 10 MG TABLET PO SCH (10:11)
[2021-11-28] MEDS: LIDOCAINE 5% TOPICAL PATCH TP SCH (10:11)
[2021-11-28] MEDS: ASPIRIN 81 MG CHEWABLE TABLETS PO SCH (10:11)
[2021-11-28] MEDS: IBUPROFEN 400 MG TABLET (FP) PO PRN (10:13)
[2021-11-28] MEDS: TOLNAFTATE 1% CREAM 15 GM TUBE TP SCH (10:26)
[2021-11-28 13:10] VITALS: BP 151/84; PULSE 90; TEMP 96.9
== END 2021-11-28 13:23 | disposition other institution (70) | DRG 774 ==
LOC: YASAS 14:00 → Y3N 15:58
PROVIDERS: ADMIT Allergy & Immunology; ATTEND Allergy & Immunology
PROC: HZ2ZZZZ Detoxification Services for Substance Abuse Treatment (ICD-10-PCS; principal; 2021-11-24)
DX: F10.230 Alcohol dependence with withdrawal, uncomplicated (principal); F14.20 Cocaine dependence, uncomplicated; F17.210 Nicotine dependence, cigarettes, uncomplicated; F19.280 Other psychoactive substance dependence with psychoactive substance-induced anxiety disorder; F19.24 Other psychoactive substance dependence with psychoactive substance-induced mood disorder; F19.282 Other psychoactive substance dependence with psychoactive substance-induced sleep disorder; E78.5 Hyperlipidemia, unspecified; E11.9 Type 2 diabetes mellitus without complications; Z79.84 Long term (current) use of oral hypoglycemic drugs; I10 Essential (primary) hypertension; J45.909 Unspecified asthma, uncomplicated; M17.0 Bilateral primary osteoarthritis of knee; M47.819 Spondylosis without myelopathy or radiculopathy, site unspecified; B35.3 Tinea pedis
CPT/HCPCS: 36415; 80053; 82962; 85027; 86780; 93005; 93010; C9803-CS; U0003; U0005

== ENCOUNTER 2021-11-28 13:27 | Inpatient (IN) | payer OTHER ==
[2021-11-28] MEDS ORDERED: NICOTINE 10 MG CARTRIDGE (INHALER) IH PRN (13:45)
[2021-11-28] MEDS ORDERED: MAGNESIUM CITRATE 300 ML BOTTLE PO PRN (13:45)
[2021-11-28] MEDS ORDERED: ACETAMINOPHEN 325 MG TABLET (FP) PO PRN (13:45)
[2021-11-28] MEDS ORDERED: P-EPHED 60MG/TRIPROLIDI 2.5MG TABLET PO PRN (13:45)
[2021-11-28] MEDS ORDERED: BENZOCAINE/MENTHOL (CHLORASEPTIC ) LOZENGE MM PRN (13:45)
[2021-11-28] MEDS ORDERED: LOPERAMIDE HCL 2 MG CAPSULE PO PRN (13:45)
[2021-11-28] MEDS ORDERED: guaiFENesin 200 MG/10 ML 10 ML UNIT-DOSE CUPS PO PRN (13:45)
[2021-11-28] MEDS ORDERED: MAGNESIUM HYDROX 2400MG/30ML ORAL SUSPENSION 30 ML CUP PO PRN (13:45)
[2021-11-28] MEDS ORDERED: hydrOXYzine PAMOATE 25 MG CAPSULE (FP) PO SCH (14:00)
[2021-11-28] MEDS: traZODone HCL 50 MG TABLET (FP) PO SCH (21:24)
[2021-11-28] MEDS: THIAMINE HCL 100 MG TABLET (FP) PO SCH (21:24)
[2021-11-28] MEDS: MELATONIN 5 MG TABLETS PO SCH (21:24)
[2021-11-28] MEDS: TOLNAFTATE 1% CREAM 15 GM TUBE TP SCH (21:25)
[2021-11-28] MEDS: ATORVASTATIN CA 40 MG TABLET (FP) PO SCH (21:25)
[2021-11-28] MEDS: LIDOCAINE PATCH REMOVAL MC SCH (21:26)
[2021-11-28] MEDS: IBUPROFEN 400 MG TABLET (FP) PO PRN (21:26)
[2021-11-29] MEDS: LISINOPRIL 10 MG TABLET PO SCH (10:32)
[2021-11-29] MEDS: ASPIRIN 81 MG CHEWABLE TABLETS PO SCH (10:32)
[2021-11-29] MEDS: hydrOXYzine PAMOATE 25 MG CAPSULE (FP) PO PRN ×2 (10:32→21:11)
[2021-11-29] MEDS: NICOTINE 7 MG/24 HOURS TOPICAL PATCH TD SCH (10:32)
[2021-11-29] MEDS: PRENATAL VITAMINS W/ FOLIC ACID TABLET (FP) PO SCH (10:32)
[2021-11-29] MEDS: LIDOCAINE 5% TOPICAL PATCH TP SCH (10:32)
[2021-11-29] MEDS: TOLNAFTATE 1% CREAM 15 GM TUBE TP SCH ×2 (10:33→21:11)
[2021-11-29] MEDS: IBUPROFEN 400 MG TABLET (FP) PO PRN (16:54)
[2021-11-29] MEDS: THIAMINE HCL 100 MG TABLET (FP) PO SCH (21:11)
[2021-11-29] MEDS: traZODone HCL 50 MG TABLET (FP) PO SCH (21:11)
[2021-11-29] MEDS: MELATONIN 5 MG TABLETS PO SCH (21:11)
[2021-11-29] MEDS: LIDOCAINE PATCH REMOVAL MC SCH (21:11)
[2021-11-29] MEDS: ATORVASTATIN CA 40 MG TABLET (FP) PO SCH (21:11)
[2021-11-30] MEDS: IBUPROFEN 400 MG TABLET (FP) PO PRN ×2 (06:36→21:34)
[2021-11-30] MEDS: TOLNAFTATE 1% CREAM 15 GM TUBE TP SCH ×2 (10:21→21:34)
[2021-11-30] MEDS: LISINOPRIL 10 MG TABLET PO SCH (10:21)
[2021-11-30] MEDS: PRENATAL VITAMINS W/ FOLIC ACID TABLET (FP) PO SCH (10:21)
[2021-11-30] MEDS: NICOTINE 7 MG/24 HOURS TOPICAL PATCH TD SCH (10:21)
[2021-11-30] MEDS: ASPIRIN 81 MG CHEWABLE TABLETS PO SCH (10:21)
[2021-11-30] MEDS: LIDOCAINE 5% TOPICAL PATCH TP SCH (10:21)
[2021-11-30] MEDS: hydrOXYzine PAMOATE 25 MG CAPSULE (FP) PO PRN (10:22)
[2021-11-30 12:09] LABS: SARS-CoV-2 NAA Not Detected (Not Detected)
[2021-11-30] MEDS: THIAMINE HCL 100 MG TABLET (FP) PO SCH (21:32)
[2021-11-30] MEDS: traZODone HCL 50 MG TABLET (FP) PO SCH (21:32)
[2021-11-30] MEDS: ATORVASTATIN CA 40 MG TABLET (FP) PO SCH (21:32)
[2021-11-30] MEDS: MELATONIN 5 MG TABLETS PO SCH (21:32)
[2021-11-30] MEDS: LIDOCAINE PATCH REMOVAL MC SCH (21:34)
[2021-12-01] MEDS: LISINOPRIL 10 MG TABLET PO SCH (10:39)
[2021-12-01] MEDS: PRENATAL VITAMINS W/ FOLIC ACID TABLET (FP) PO SCH (10:39)
[2021-12-01] MEDS: ASPIRIN 81 MG CHEWABLE TABLETS PO SCH (10:39)
[2021-12-01] MEDS: NICOTINE 7 MG/24 HOURS TOPICAL PATCH TD SCH (10:40)
[2021-12-01] MEDS: LIDOCAINE 5% TOPICAL PATCH TP SCH (10:40)
[2021-12-01] MEDS: TOLNAFTATE 1% CREAM 15 GM TUBE TP SCH ×2 (10:40→21:24)
[2021-12-01] MEDS: hydrOXYzine PAMOATE 25 MG CAPSULE (FP) PO PRN (10:40)
[2021-12-01] MEDS: THIAMINE HCL 100 MG TABLET (FP) PO SCH (21:23)
[2021-12-01] MEDS: MELATONIN 5 MG TABLETS PO SCH (21:23)
[2021-12-01] MEDS: ATORVASTATIN CA 40 MG TABLET (FP) PO SCH (21:25)
[2021-12-01] MEDS: LIDOCAINE PATCH REMOVAL MC SCH (21:25)
[2021-12-01] MEDS: traZODone HCL 50 MG TABLET (FP) PO SCH (21:26)
[2021-12-02] MEDS: IBUPROFEN 400 MG TABLET (FP) PO PRN (06:47)
[2021-12-02] MEDS: LIDOCAINE 5% TOPICAL PATCH TP SCH (10:20)
[2021-12-02] MEDS: PRENATAL VITAMINS W/ FOLIC ACID TABLET (FP) PO SCH (10:20)
[2021-12-02] MEDS: NICOTINE 7 MG/24 HOURS TOPICAL PATCH TD SCH (10:20)
[2021-12-02] MEDS: ASPIRIN 81 MG CHEWABLE TABLETS PO SCH (10:20)
[2021-12-02] MEDS: TOLNAFTATE 1% CREAM 15 GM TUBE TP SCH ×2 (10:20→21:21)
[2021-12-02] MEDS: LISINOPRIL 10 MG TABLET PO SCH (10:20)
[2021-12-02] MEDS: hydrOXYzine PAMOATE 25 MG CAPSULE (FP) PO PRN ×2 (10:22→21:21)
[2021-12-02] MEDS: ATORVASTATIN CA 40 MG TABLET (FP) PO SCH (21:20)
[2021-12-02] MEDS: traZODone HCL 50 MG TABLET (FP) PO SCH (21:20)
[2021-12-02] MEDS: THIAMINE HCL 100 MG TABLET (FP) PO SCH (21:20)
[2021-12-02] MEDS: MELATONIN 5 MG TABLETS PO SCH (21:20)
[2021-12-02] MEDS: LIDOCAINE PATCH REMOVAL MC SCH (21:21)
[2021-12-03] MEDS: LIDOCAINE 5% TOPICAL PATCH TP SCH (10:49)
[2021-12-03] MEDS: ASPIRIN 81 MG CHEWABLE TABLETS PO SCH (10:49)
[2021-12-03] MEDS: PRENATAL VITAMINS W/ FOLIC ACID TABLET (FP) PO SCH (10:50)
[2021-12-03] MEDS: TOLNAFTATE 1% CREAM 15 GM TUBE TP SCH ×2 (10:50→21:18)
[2021-12-03] MEDS: NICOTINE 7 MG/24 HOURS TOPICAL PATCH TD SCH (10:50)
[2021-12-03] MEDS: LISINOPRIL 10 MG TABLET PO SCH (10:50)
[2021-12-03] MEDS: IBUPROFEN 400 MG TABLET (FP) PO PRN ×2 (10:51→21:18)
[2021-12-03] MEDS: MAG HYDROX/AL HYDROX/SIMETH 30 ML UNIT-DOSE CUP PO PRN (18:43)
[2021-12-03] MEDS: THIAMINE HCL 100 MG TABLET (FP) PO SCH (21:17)
[2021-12-03] MEDS: traZODone HCL 50 MG TABLET (FP) PO SCH (21:17)
[2021-12-03] MEDS: MELATONIN 5 MG TABLETS PO SCH (21:17)
[2021-12-03] MEDS: ATORVASTATIN CA 40 MG TABLET (FP) PO SCH (21:17)
[2021-12-03] MEDS: LIDOCAINE PATCH REMOVAL MC SCH (21:18)
[2021-12-04] MEDS: LIDOCAINE 5% TOPICAL PATCH TP SCH (10:03)
[2021-12-04] MEDS: PRENATAL VITAMINS W/ FOLIC ACID TABLET (FP) PO SCH (10:03)
[2021-12-04] MEDS: LISINOPRIL 10 MG TABLET PO SCH (10:03)
[2021-12-04] MEDS: ASPIRIN 81 MG CHEWABLE TABLETS PO SCH (10:03)
[2021-12-04] MEDS: IBUPROFEN 400 MG TABLET (FP) PO PRN ×2 (10:04→21:09)
[2021-12-04] MEDS: hydrOXYzine PAMOATE 25 MG CAPSULE (FP) PO PRN (10:06)
[2021-12-04] MEDS: TOLNAFTATE 1% CREAM 15 GM TUBE TP SCH ×2 (11:17→21:56)
[2021-12-04] MEDS: NICOTINE 7 MG/24 HOURS TOPICAL PATCH TD SCH (11:17)
[2021-12-04] MEDS: ATORVASTATIN CA 40 MG TABLET (FP) PO SCH (21:08)
[2021-12-04] MEDS: THIAMINE HCL 100 MG TABLET (FP) PO SCH (21:08)
[2021-12-04] MEDS: MELATONIN 5 MG TABLETS PO SCH (21:08)
[2021-12-04] MEDS: traZODone HCL 50 MG TABLET (FP) PO SCH (21:08)
[2021-12-04] MEDS: LIDOCAINE PATCH REMOVAL MC SCH (21:09)
[2021-12-05] MEDS: ASPIRIN 81 MG CHEWABLE TABLETS PO SCH (10:21)
[2021-12-05] MEDS: NICOTINE 7 MG/24 HOURS TOPICAL PATCH TD SCH (10:21)
[2021-12-05] MEDS: hydrOXYzine PAMOATE 25 MG CAPSULE (FP) PO PRN ×2 (10:21→21:10)
[2021-12-05] MEDS: PRENATAL VITAMINS W/ FOLIC ACID TABLET (FP) PO SCH (10:21)
[2021-12-05] MEDS: LISINOPRIL 10 MG TABLET PO SCH (10:21)
[2021-12-05] MEDS: LIDOCAINE 5% TOPICAL PATCH TP SCH (10:21)
[2021-12-05] MEDS: IBUPROFEN 400 MG TABLET (FP) PO PRN ×2 (10:22→21:11)
[2021-12-05] MEDS: TOLNAFTATE 1% CREAM 15 GM TUBE TP SCH ×2 (10:23→21:11)
[2021-12-05] MEDS: ATORVASTATIN CA 40 MG TABLET (FP) PO SCH (21:10)
[2021-12-05] MEDS: THIAMINE HCL 100 MG TABLET (FP) PO SCH (21:10)
[2021-12-05] MEDS: traZODone HCL 50 MG TABLET (FP) PO SCH (21:10)
[2021-12-05] MEDS: MELATONIN 5 MG TABLETS PO SCH (21:10)
[2021-12-05] MEDS: LIDOCAINE PATCH REMOVAL MC SCH (21:11)
[2021-12-06] MEDS: LIDOCAINE 5% TOPICAL PATCH TP SCH (10:09)
[2021-12-06] MEDS: ASPIRIN 81 MG CHEWABLE TABLETS PO SCH (10:09)
[2021-12-06] MEDS: NICOTINE 7 MG/24 HOURS TOPICAL PATCH TD SCH (10:10)
[2021-12-06] MEDS: TOLNAFTATE 1% CREAM 15 GM TUBE TP SCH ×2 (10:10→21:05)
[2021-12-06] MEDS: LISINOPRIL 10 MG TABLET PO SCH (10:10)
[2021-12-06] MEDS: PRENATAL VITAMINS W/ FOLIC ACID TABLET (FP) PO SCH (10:10)
[2021-12-06] MEDS: hydrOXYzine PAMOATE 25 MG CAPSULE (FP) PO PRN (10:12)
[2021-12-06] MEDS: ATORVASTATIN CA 40 MG TABLET (FP) PO SCH (21:04)
[2021-12-06] MEDS: traZODone HCL 50 MG TABLET (FP) PO SCH (21:04)
[2021-12-06] MEDS: LIDOCAINE PATCH REMOVAL MC SCH (21:04)
[2021-12-06] MEDS: MELATONIN 5 MG TABLETS PO SCH (21:05)
[2021-12-06] MEDS: THIAMINE HCL 100 MG TABLET (FP) PO SCH (21:05)
[2021-12-06] MEDS: IBUPROFEN 400 MG TABLET (FP) PO PRN (21:06)
[2021-12-07] MEDS: IBUPROFEN 400 MG TABLET (FP) PO PRN (06:34)
[2021-12-07] MEDS: LISINOPRIL 10 MG TABLET PO SCH (10:17)
[2021-12-07] MEDS: NICOTINE 7 MG/24 HOURS TOPICAL PATCH TD SCH (10:17)
[2021-12-07] MEDS: TOLNAFTATE 1% CREAM 15 GM TUBE TP SCH ×2 (10:17→21:42)
[2021-12-07] MEDS: PRENATAL VITAMINS W/ FOLIC ACID TABLET (FP) PO SCH (10:17)
[2021-12-07] MEDS: LIDOCAINE 5% TOPICAL PATCH TP SCH (10:17)
[2021-12-07] MEDS: ASPIRIN 81 MG CHEWABLE TABLETS PO SCH (10:17)
[2021-12-07] MEDS: hydrOXYzine PAMOATE 25 MG CAPSULE (FP) PO PRN (10:18)
[2021-12-07] MEDS: MAG HYDROX/AL HYDROX/SIMETH 30 ML UNIT-DOSE CUP PO PRN (19:41)
[2021-12-07] MEDS: THIAMINE HCL 100 MG TABLET (FP) PO SCH (21:42)
[2021-12-07] MEDS: traZODone HCL 50 MG TABLET (FP) PO SCH (21:42)
[2021-12-07] MEDS: MELATONIN 5 MG TABLETS PO SCH (21:42)
[2021-12-07] MEDS: ATORVASTATIN CA 40 MG TABLET (FP) PO SCH (21:42)
[2021-12-07] MEDS: LIDOCAINE PATCH REMOVAL MC SCH (21:42)
[2021-12-08] MEDS: IBUPROFEN 400 MG TABLET (FP) PO PRN ×2 (06:41→21:08)
[2021-12-08] MEDS: LISINOPRIL 10 MG TABLET PO SCH (09:52)
[2021-12-08] MEDS: PRENATAL VITAMINS W/ FOLIC ACID TABLET (FP) PO SCH (09:52)
[2021-12-08] MEDS: LIDOCAINE 5% TOPICAL PATCH TP SCH (09:53)
[2021-12-08] MEDS: ASPIRIN 81 MG CHEWABLE TABLETS PO SCH (09:53)
[2021-12-08] MEDS: NICOTINE 7 MG/24 HOURS TOPICAL PATCH TD SCH (09:53)
[2021-12-08] MEDS: TOLNAFTATE 1% CREAM 15 GM TUBE TP SCH ×2 (09:53→21:09)
[2021-12-08] MEDS: hydrOXYzine PAMOATE 25 MG CAPSULE (FP) PO PRN (09:54)
[2021-12-08] MEDS: MELATONIN 5 MG TABLETS PO SCH (21:08)
[2021-12-08] MEDS: ATORVASTATIN CA 40 MG TABLET (FP) PO SCH (21:08)
[2021-12-08] MEDS: LIDOCAINE PATCH REMOVAL MC SCH (21:09)
[2021-12-08] MEDS: THIAMINE HCL 100 MG TABLET (FP) PO SCH (21:09)
[2021-12-08] MEDS: traZODone HCL 50 MG TABLET (FP) PO SCH (21:09)
[2021-12-09] MEDS: LISINOPRIL 10 MG TABLET PO SCH (10:28)
[2021-12-09] MEDS: ASPIRIN 81 MG CHEWABLE TABLETS PO SCH (10:28)
[2021-12-09] MEDS: PRENATAL VITAMINS W/ FOLIC ACID TABLET (FP) PO SCH (10:28)
[2021-12-09] MEDS: NICOTINE 7 MG/24 HOURS TOPICAL PATCH TD SCH (10:29)
[2021-12-09] MEDS: LIDOCAINE 5% TOPICAL PATCH TP SCH (10:29)
[2021-12-09] MEDS: TOLNAFTATE 1% CREAM 15 GM TUBE TP SCH ×2 (10:29→21:02)
[2021-12-09] MEDS: hydrOXYzine PAMOATE 25 MG CAPSULE (FP) PO PRN ×2 (10:30→21:01)
[2021-12-09] MEDS: IBUPROFEN 400 MG TABLET (FP) PO PRN (10:31)
[2021-12-09] MEDS: MAG HYDROX/AL HYDROX/SIMETH 30 ML UNIT-DOSE CUP PO PRN (18:14)
[2021-12-09] MEDS: ATORVASTATIN CA 40 MG TABLET (FP) PO SCH (21:01)
[2021-12-09] MEDS: traZODone HCL 50 MG TABLET (FP) PO SCH (21:01)
[2021-12-09] MEDS: MELATONIN 5 MG TABLETS PO SCH (21:02)
[2021-12-09] MEDS: LIDOCAINE PATCH REMOVAL MC SCH (21:02)
[2021-12-09] MEDS: THIAMINE HCL 100 MG TABLET (FP) PO SCH (21:02)
[2021-12-10] MEDS: ASPIRIN 81 MG CHEWABLE TABLETS PO SCH (09:51)
[2021-12-10] MEDS: IBUPROFEN 400 MG TABLET (FP) PO PRN (09:51)
[2021-12-10] MEDS: PRENATAL VITAMINS W/ FOLIC ACID TABLET (FP) PO SCH (09:51)
[2021-12-10] MEDS: LIDOCAINE 5% TOPICAL PATCH TP SCH (09:51)
[2021-12-10] MEDS: LISINOPRIL 10 MG TABLET PO SCH (09:51)
[2021-12-10] MEDS: hydrOXYzine PAMOATE 25 MG CAPSULE (FP) PO PRN (09:52)
[2021-12-10] MEDS: NICOTINE 7 MG/24 HOURS TOPICAL PATCH TD SCH (09:52)
[2021-12-10] MEDS: TOLNAFTATE 1% CREAM 15 GM TUBE TP SCH ×2 (12:30→21:40)
[2021-12-10] MEDS: ATORVASTATIN CA 40 MG TABLET (FP) PO SCH (21:39)
[2021-12-10] MEDS: traZODone HCL 50 MG TABLET (FP) PO SCH (21:39)
[2021-12-10] MEDS: MELATONIN 5 MG TABLETS PO SCH (21:39)
[2021-12-10] MEDS: THIAMINE HCL 100 MG TABLET (FP) PO SCH (21:40)
[2021-12-10] MEDS: LIDOCAINE PATCH REMOVAL MC SCH (21:40)
[2021-12-11] MEDS: ASPIRIN 81 MG CHEWABLE TABLETS PO SCH (10:09)
[2021-12-11] MEDS: IBUPROFEN 400 MG TABLET (FP) PO PRN ×2 (10:09→21:09)
[2021-12-11] MEDS: hydrOXYzine PAMOATE 25 MG CAPSULE (FP) PO PRN (10:09)
[2021-12-11] MEDS: PRENATAL VITAMINS W/ FOLIC ACID TABLET (FP) PO SCH (10:09)
[2021-12-11] MEDS: LISINOPRIL 10 MG TABLET PO SCH (10:09)
[2021-12-11] MEDS: LIDOCAINE 5% TOPICAL PATCH TP SCH (10:10)
[2021-12-11] MEDS: TOLNAFTATE 1% CREAM 15 GM TUBE TP SCH ×2 (10:10→21:08)
[2021-12-11] MEDS: NICOTINE 7 MG/24 HOURS TOPICAL PATCH TD SCH (10:11)
[2021-12-11] MEDS: THIAMINE HCL 100 MG TABLET (FP) PO SCH (21:08)
[2021-12-11] MEDS: traZODone HCL 50 MG TABLET (FP) PO SCH (21:08)
[2021-12-11] MEDS: LIDOCAINE PATCH REMOVAL MC SCH (21:08)
[2021-12-11] MEDS: ATORVASTATIN CA 40 MG TABLET (FP) PO SCH (21:08)
[2021-12-11] MEDS: MELATONIN 5 MG TABLETS PO SCH (21:08)
[2021-12-12] MEDS: ASPIRIN 81 MG CHEWABLE TABLETS PO SCH (09:51)
[2021-12-12] MEDS: LISINOPRIL 10 MG TABLET PO SCH (09:51)
[2021-12-12] MEDS: PRENATAL VITAMINS W/ FOLIC ACID TABLET (FP) PO SCH (09:51)
[2021-12-12] MEDS: IBUPROFEN 400 MG TABLET (FP) PO PRN ×2 (09:51→21:08)
[2021-12-12] MEDS: hydrOXYzine PAMOATE 25 MG CAPSULE (FP) PO PRN (09:52)
[2021-12-12] MEDS: NICOTINE 7 MG/24 HOURS TOPICAL PATCH TD SCH (09:54)
[2021-12-12] MEDS: LIDOCAINE 5% TOPICAL PATCH TP SCH (09:54)
[2021-12-12] MEDS: TOLNAFTATE 1% CREAM 15 GM TUBE TP SCH ×2 (10:12→21:10)
[2021-12-12] MEDS: ATORVASTATIN CA 40 MG TABLET (FP) PO SCH (21:08)
[2021-12-12] MEDS: traZODone HCL 50 MG TABLET (FP) PO SCH (21:09)
[2021-12-12] MEDS: MELATONIN 5 MG TABLETS PO SCH (21:09)
[2021-12-12] MEDS: LIDOCAINE PATCH REMOVAL MC SCH (21:09)
[2021-12-12] MEDS: THIAMINE HCL 100 MG TABLET (FP) PO SCH (21:10)
[2021-12-13 06:57] VITALS: BP 146/85; PULSE 91; TEMP 97.5
[2021-12-13] MEDS: PRENATAL VITAMINS W/ FOLIC ACID TABLET (FP) PO SCH (09:01)
[2021-12-13] MEDS: LIDOCAINE 5% TOPICAL PATCH TP SCH (09:01)
[2021-12-13] MEDS: LISINOPRIL 10 MG TABLET PO SCH (09:01)
[2021-12-13] MEDS: NICOTINE 7 MG/24 HOURS TOPICAL PATCH TD SCH (09:01)
[2021-12-13] MEDS: ASPIRIN 81 MG CHEWABLE TABLETS PO SCH (09:01)
[2021-12-13] MEDS: TOLNAFTATE 1% CREAM 15 GM TUBE TP SCH (09:02)
[2021-12-13] MEDS: hydrOXYzine PAMOATE 25 MG CAPSULE (FP) PO PRN (09:03)
== END 2021-12-13 09:20 | disposition home or self-care (01) | DRG 772 ==
LOC: YASAS 13:27 → Y3W 13:28
PROVIDERS: ADMIT Allergy & Immunology; ATTEND Allergy & Immunology
PROC: HZ42ZZZ Group Counseling for Substance Abuse Treatment, Cognitive-Behavioral (ICD-10-PCS; principal; 2021-11-28)
DX: F10.20 Alcohol dependence, uncomplicated (principal); F14.20 Cocaine dependence, uncomplicated; F17.210 Nicotine dependence, cigarettes, uncomplicated; I10 Essential (primary) hypertension; E78.5 Hyperlipidemia, unspecified; E11.9 Type 2 diabetes mellitus without complications; Z79.84 Long term (current) use of oral hypoglycemic drugs; J45.909 Unspecified asthma, uncomplicated; M16.11 Unilateral primary osteoarthritis, right hip; M16.12 Unilateral primary osteoarthritis, left hip; B35.3 Tinea pedis
CPT/HCPCS: 82962; C9803-CS; U0003; U0005

== ENCOUNTER 2022-02-13 18:25 | Inpatient (IN) | payer OTHER ==
[2022-02-13 20:47] VITALS: BMI 29.0
[2022-02-13] MEDS ORDERED: MAGNESIUM HYDROX 2400MG/30ML ORAL SUSPENSION 30 ML CUP PO PRN (21:13)
[2022-02-13] MEDS ORDERED: ONDANSETRON *ODT* 4 MG TABLET SL PRN (21:13)
[2022-02-13] MEDS ORDERED: IBUPROFEN 400 MG TABLET (FP) PO PRN (21:13)
[2022-02-13] MEDS ORDERED: BISMUTH SUBSALICYLATE 524 MG/30 ML PO PRN (21:13)
[2022-02-13] MEDS ORDERED: BENZOCAINE/MENTHOL (CHLORASEPTIC ) LOZENGE MM PRN (21:13)
[2022-02-13] MEDS ORDERED: MAG HYDROX/AL HYDROX/SIMETH 30 ML UNIT-DOSE CUP PO PRN (21:13)
[2022-02-13] MEDS ORDERED: NICOTINE 10 MG CARTRIDGE (INHALER) IH PRN (21:13)
[2022-02-13] MEDS ORDERED: MAGNESIUM CITRATE 300 ML BOTTLE PO PRN (21:13)
[2022-02-13] MEDS ORDERED: NICOTINE POLACRILEX 2 MG GUM BUC PRN (21:13)
[2022-02-13] MEDS ORDERED: IBUPROFEN 600 MG TABLET (FP) PO PRN (21:13)
[2022-02-13] MEDS ORDERED: ACETAMINOPHEN 325 MG TABLET (FP) PO PRN ×2 (21:13)
[2022-02-13] MEDS ORDERED: guaiFENesin 200 MG/10 ML 10 ML UNIT-DOSE CUPS PO PRN (21:13)
[2022-02-13] MEDS ORDERED: DICYCLOMINE HCL 10 MG CAPSULE PO PRN (21:13)
[2022-02-13] MEDS ORDERED: P-EPHED 60MG/TRIPROLIDI 2.5MG TABLET PO PRN (21:13)
[2022-02-13] MEDS ORDERED: LOPERAMIDE HCL 2 MG CAPSULE PO PRN (21:13)
[2022-02-13] MEDS: METHOCARBAMOL 500 MG TABLET PO PRN (23:38)
[2022-02-13] MEDS: THIAMINE HCL 100 MG TABLET (FP) PO SCH (23:38)
[2022-02-13] MEDS: hydrOXYzine PAMOATE 25 MG CAPSULE (FP) PO PRN (23:39)
[2022-02-13] MEDS: ATORVASTATIN CA 40 MG TABLET (FP) PO SCH (23:39)
[2022-02-13] MEDS: MELATONIN 5 MG TABLETS PO PRN (23:39)
[2022-02-13] MEDS: INSULIN SLIDING SCALE (NOVOLOG) 1 VIAL SQ SCH (23:46)
[2022-02-14] MEDS: INSULIN SLIDING SCALE (NOVOLOG) 1 VIAL SQ SCH ×4 (08:14→22:08)
[2022-02-14] MEDS: METHOCARBAMOL 500 MG TABLET PO PRN ×2 (10:59→22:11)
[2022-02-14] MEDS: hydrOXYzine PAMOATE 25 MG CAPSULE (FP) PO PRN ×3 (10:59→23:01)
[2022-02-14] MEDS: ASPIRIN 81 MG CHEWABLE TABLETS PO SCH (10:59)
[2022-02-14] MEDS: PRENATAL VITAMINS W/ FOLIC ACID TABLET (FP) PO SCH (10:59)
[2022-02-14] MEDS: LISINOPRIL 10 MG TABLET PO SCH (10:59)
[2022-02-14 12:26] LABS: HEMATOCRIT 32.5 % (35.4-49); HEMOGLOBIN 10.7 GM/dL (11.7-16.9); MCH 27.5 pg (25.7-33.7); MCHC 32.8 g/dl (32.0-35.9); MEAN CELL VOLUME 83.7 fl (80-96); MEAN PLT VOLUME 9.4 fl (7.5-11.1); PLATELET COUNT 167 10^3/uL (134-434); RBC 3.88 M/mm3 (4.00-5.60); RDW 15.6 % (11.9-15.9); WHITE BLOOD COUNT 3.7 K/mm3 (4.0-10.0)
[2022-02-14 12:48] LABS: BLOOD UREA NITROGEN 11.2 mg/dL (7-18); CALCIUM 8.5 mg/dL (8.5-10.1)
[2022-02-14 12:51] LABS: CREATININE 0.8 mg/dL (0.55-1.3)
[2022-02-14 12:53] LABS: BILIRUBIN,TOTAL 0.6 mg/dL (0.2-1); TOT PROT 6.1 g/dl (6.4-8.2)
[2022-02-14 17:48] VITALS: RESP 18
[2022-02-14] MEDS: THIAMINE HCL 100 MG TABLET (FP) PO SCH (22:08)
[2022-02-14] MEDS: ATORVASTATIN CA 40 MG TABLET (FP) PO SCH (22:08)
[2022-02-14] MEDS: MELATONIN 5 MG TABLETS PO PRN (22:11)
[2022-02-15] MEDS: INSULIN SLIDING SCALE (NOVOLOG) 1 VIAL SQ SCH ×2 (06:31→11:05)
[2022-02-15] MEDS: LISINOPRIL 10 MG TABLET PO SCH (10:47)
[2022-02-15] MEDS: ASPIRIN 81 MG CHEWABLE TABLETS PO SCH (10:47)
[2022-02-15] MEDS: PRENATAL VITAMINS W/ FOLIC ACID TABLET (FP) PO SCH (10:47)
[2022-02-15 13:07] VITALS: BP 142/71; PULSE 76; TEMP 98.4
== END 2022-02-15 12:50 | disposition home or self-care (01) | DRG 774 ==
LOC: YASAS 18:25 → Y6N 21:45 → Y3N 21:50
PROVIDERS: ADMIT Allergy & Immunology; ATTEND Surgery
PROC: HZ2ZZZZ Detoxification Services for Substance Abuse Treatment (ICD-10-PCS; principal; 2022-02-13)
DX: F10.10 Alcohol abuse, uncomplicated (principal); F14.10 Cocaine abuse, uncomplicated; F17.210 Nicotine dependence, cigarettes, uncomplicated; I10 Essential (primary) hypertension; E11.9 Type 2 diabetes mellitus without complications; Z79.84 Long term (current) use of oral hypoglycemic drugs; K21.9 Gastro-esophageal reflux disease without esophagitis; J45.909 Unspecified asthma, uncomplicated; D64.9 Anemia, unspecified
CPT/HCPCS: 36415; 80053; 82962; 85027; 86780; C9803-CS; U0003; U0005

== ENCOUNTER 2022-10-30 15:11 | Inpatient (IN) | payer OTHER ==
[2022-10-30 16:32] VITALS: BMI 26.4
[2022-10-30] MEDS ORDERED: hydrOXYzine PAMOATE 25 MG CAPSULE (FP) PO PRN (18:18)
[2022-10-30] MEDS ORDERED: NICOTINE POLACRILEX 2 MG GUM BC PRN (18:18)
[2022-10-30] MEDS ORDERED: BENZONATATE 200 MG CAPSULE PO PRN (18:18)
[2022-10-30] MEDS ORDERED: guaiFENesin 600 MG TABLET.ER (FP) PO PRN (18:18)
[2022-10-30] MEDS ORDERED: MAG HYDROX/AL HYDROX/SIMETH 30 ML UNIT-DOSE CUP PO PRN (18:18)
[2022-10-30] MEDS ORDERED: NICOTINE 10 MG CARTRIDGE (INHALER) IH PRN (18:18)
[2022-10-30] MEDS ORDERED: LOPERAMIDE HCL 2 MG CAPSULE PO PRN (18:18)
[2022-10-30] MEDS ORDERED: MAGNESIUM HYDROX 2400MG/30ML ORAL SUSPENSION 30 ML CUP PO PRN (18:18)
[2022-10-30] MEDS ORDERED: BENZOCAINE/MENTHOL (CHLORASEPTIC ) LOZENGE MM PRN (18:18)
[2022-10-30] MEDS ORDERED: P-EPHED 60MG/TRIPROLIDI 2.5MG TABLET PO PRN (18:18)
[2022-10-30] MEDS ORDERED: IBUPROFEN 600 MG TABLET (FP) PO PRN (18:18)
[2022-10-30] MEDS ORDERED: IBUPROFEN 400 MG TABLET (FP) PO PRN (18:18)
[2022-10-30] MEDS ORDERED: POLYETHYLENE GLYCOL (HEALTHYLAX) 3350 17 GM PACKET PO PRN (18:18)
[2022-10-30] MEDS: THIAMINE HCL 100 MG TABLET (FP) PO SCH (21:49)
[2022-10-30] MEDS: MELATONIN 5 MG TABLETS PO SCH (21:49)
[2022-10-30] MEDS: ASPIRIN 81 MG CHEWABLE TABLETS PO SCH (21:49)
[2022-10-30] MEDS: ATORVASTATIN CA 40 MG TABLET (FP) PO SCH (21:49)
[2022-10-30] MEDS: ACETAMINOPHEN 325 MG TABLET (FP) PO PRN (21:50)
[2022-10-31] MEDS: LISINOPRIL 10 MG TABLET PO SCH (09:52)
[2022-10-31] MEDS: PRENATAL VITAMINS W/ FOLIC ACID TABLET (FP) PO SCH (09:52)
[2022-10-31] MEDS: ASPIRIN 81 MG CHEWABLE TABLETS PO SCH (09:52)
[2022-10-31] MEDS: ACETAMINOPHEN 325 MG TABLET (FP) PO PRN (09:54)
[2022-10-31 11:41] LABS: HEMATOCRIT 32.9 % (35.4-49); MCH 27.7 pg (25.7-33.7); MCHC 33.4 g/dl (32.0-35.9); MEAN CELL VOLUME 83.1 fl (80-96); MEAN PLT VOLUME 9.1 fl (7.5-11.1); PLATELET COUNT 218 10^3/uL (134-434); RBC 3.96 M/mm3 (4.00-5.60); RDW 15.1 % (11.9-15.9); WHITE BLOOD COUNT 3.8 K/mm3 (4.0-10.0)
[2022-10-31 12:04] LABS: CREATININE 0.8 mg/dL (0.55-1.3)
[2022-10-31 12:06] LABS: BILIRUBIN,TOTAL 1.4 mg/dL (0.2-1); BLOOD UREA NITROGEN 13.2 mg/dL (7-18)
[2022-10-31 12:09] LABS: ALBUMIN 3.3 g/dl (3.4-5.0)
[2022-10-31 12:11] LABS: TOT PROT 6.8 g/dl (6.4-8.2)
[2022-10-31] MEDS: LIDOCAINE 5% TOPICAL PATCH TP SCH (14:34)
[2022-10-31] MEDS: INSULIN SLIDING SCALE (NOVOLOG) 1 VIAL SQ SCH (17:30)
[2022-10-31] MEDS: MELATONIN 5 MG TABLETS PO SCH (21:25)
[2022-10-31] MEDS: ATORVASTATIN CA 40 MG TABLET (FP) PO SCH (21:25)
[2022-10-31] MEDS: THIAMINE HCL 100 MG TABLET (FP) PO SCH (21:25)
[2022-10-31] MEDS: LIDOCAINE PATCH REMOVAL MC SCH (21:25)
[2022-11-01] MEDS: INSULIN SLIDING SCALE (NOVOLOG) 1 VIAL SQ SCH ×2 (06:29→17:01)
[2022-11-01] MEDS: PRENATAL VITAMINS W/ FOLIC ACID TABLET (FP) PO SCH (10:17)
[2022-11-01] MEDS: LISINOPRIL 10 MG TABLET PO SCH (10:17)
[2022-11-01] MEDS: ASPIRIN 81 MG CHEWABLE TABLETS PO SCH (10:17)
[2022-11-01] MEDS: LIDOCAINE 5% TOPICAL PATCH TP SCH (10:17)
[2022-11-01] MEDS: ACETAMINOPHEN 325 MG TABLET (FP) PO PRN ×2 (10:18→21:46)
[2022-11-01 19:33] LABS: PH,URINE 6.5 (5.0-8.0); URINE APPEARANCE CLEAR; URINE BILIRUBIN NEGATIVE (NEGATIVE); URINE COLOR YELLOW; URINE GLUCOSE (UA) NEGATIVE (NEGATIVE); URINE KETONE NEGATIVE (NEGATIVE); URINE LEUK ESTERASE NEGATIVE (NEGATIVE); URINE NITRITE NEGATIVE (NEGATIVE); URINE PROTEIN NEGATIVE (NEGATIVE); URINE UROBILINOGEN 0.2 mg/dL (0.2-1.0)
[2022-11-01] MEDS: ATORVASTATIN CA 40 MG TABLET (FP) PO SCH (21:46)
[2022-11-01] MEDS: MELATONIN 5 MG TABLETS PO SCH (21:46)
[2022-11-01] MEDS: LIDOCAINE PATCH REMOVAL MC SCH (22:27)
[2022-11-01] MEDS: THIAMINE HCL 100 MG TABLET (FP) PO SCH (22:27)
[2022-11-02] MEDS: INSULIN SLIDING SCALE (NOVOLOG) 1 VIAL SQ SCH ×2 (06:45→16:55)
[2022-11-02] MEDS: LISINOPRIL 10 MG TABLET PO SCH (10:09)
[2022-11-02] MEDS: LIDOCAINE 5% TOPICAL PATCH TP SCH (10:09)
[2022-11-02] MEDS: ASPIRIN 81 MG CHEWABLE TABLETS PO SCH (10:09)
[2022-11-02] MEDS: PRENATAL VITAMINS W/ FOLIC ACID TABLET (FP) PO SCH (10:09)
[2022-11-02] MEDS: ACETAMINOPHEN 325 MG TABLET (FP) PO PRN (10:10)
[2022-11-02] MEDS ORDERED: ATORVASTATIN CA 20 MG TABLET (FP) ONE (20:22)
[2022-11-02] MEDS: THIAMINE HCL 100 MG TABLET (FP) PO SCH (21:11)
[2022-11-02] MEDS: LIDOCAINE PATCH REMOVAL MC SCH (21:11)
[2022-11-02] MEDS: ATORVASTATIN CA 40 MG TABLET (FP) PO SCH (21:12)
[2022-11-02] MEDS: MELATONIN 5 MG TABLETS PO SCH (21:12)
[2022-11-03] MEDS: INSULIN SLIDING SCALE (NOVOLOG) 1 VIAL SQ SCH ×2 (07:01→16:52)
[2022-11-03] MEDS: ASPIRIN 81 MG CHEWABLE TABLETS PO SCH (10:05)
[2022-11-03] MEDS: LIDOCAINE 5% TOPICAL PATCH TP SCH (10:05)
[2022-11-03] MEDS: LISINOPRIL 10 MG TABLET PO SCH (10:05)
[2022-11-03] MEDS: PRENATAL VITAMINS W/ FOLIC ACID TABLET (FP) PO SCH (10:05)
[2022-11-03] MEDS: ACETAMINOPHEN 325 MG TABLET (FP) PO PRN (10:06)
[2022-11-03] MEDS: THIAMINE HCL 100 MG TABLET (FP) PO SCH (21:10)
[2022-11-03] MEDS: ATORVASTATIN CA 40 MG TABLET (FP) PO SCH (21:10)
[2022-11-03] MEDS: LIDOCAINE PATCH REMOVAL MC SCH (21:10)
[2022-11-03] MEDS: traZODone HCL 50 MG TABLET (FP) PO PRN (21:10)
[2022-11-03] MEDS: MELATONIN 5 MG TABLETS PO SCH (21:10)
[2022-11-04] MEDS: INSULIN SLIDING SCALE (NOVOLOG) 1 VIAL SQ SCH ×2 (06:13→16:30)
[2022-11-04] MEDS: AMMONIUM LACTATE 12% LOTION 225 GM BOTTLE TP PRN (06:42)
[2022-11-04] MEDS: LIDOCAINE 5% TOPICAL PATCH TP SCH (10:03)
[2022-11-04] MEDS: ASPIRIN 81 MG CHEWABLE TABLETS PO SCH (10:03)
[2022-11-04] MEDS: LISINOPRIL 10 MG TABLET PO SCH (10:03)
[2022-11-04] MEDS: PRENATAL VITAMINS W/ FOLIC ACID TABLET (FP) PO SCH (10:03)
[2022-11-04] MEDS: ACETAMINOPHEN 325 MG TABLET (FP) PO PRN (10:04)
[2022-11-04] MEDS: MELATONIN 5 MG TABLETS PO SCH (21:33)
[2022-11-04] MEDS: LIDOCAINE PATCH REMOVAL MC SCH (21:33)
[2022-11-04] MEDS: THIAMINE HCL 100 MG TABLET (FP) PO SCH (21:33)
[2022-11-04] MEDS: ATORVASTATIN CA 40 MG TABLET (FP) PO SCH (21:33)
[2022-11-05] MEDS: INSULIN SLIDING SCALE (NOVOLOG) 1 VIAL SQ SCH ×2 (06:36→16:44)
[2022-11-05] MEDS: ASPIRIN 81 MG CHEWABLE TABLETS PO SCH (10:17)
[2022-11-05] MEDS: LISINOPRIL 10 MG TABLET PO SCH (10:17)
[2022-11-05] MEDS: LIDOCAINE 5% TOPICAL PATCH TP SCH (10:17)
[2022-11-05] MEDS: PRENATAL VITAMINS W/ FOLIC ACID TABLET (FP) PO SCH (10:17)
[2022-11-05] MEDS: ACETAMINOPHEN 325 MG TABLET (FP) PO PRN (10:19)
[2022-11-05] MEDS: ATORVASTATIN CA 40 MG TABLET (FP) PO SCH (21:22)
[2022-11-05] MEDS: MELATONIN 5 MG TABLETS PO SCH (21:22)
[2022-11-05] MEDS: THIAMINE HCL 100 MG TABLET (FP) PO SCH (21:22)
[2022-11-05] MEDS: traZODone HCL 50 MG TABLET (FP) PO PRN (21:22)
[2022-11-05] MEDS: LIDOCAINE PATCH REMOVAL MC SCH (21:23)
[2022-11-06] MEDS: LIDOCAINE 5% TOPICAL PATCH TP SCH (09:40)
[2022-11-06] MEDS: LISINOPRIL 10 MG TABLET PO SCH (09:40)
[2022-11-06] MEDS: PRENATAL VITAMINS W/ FOLIC ACID TABLET (FP) PO SCH (09:40)
[2022-11-06] MEDS: ASPIRIN 81 MG CHEWABLE TABLETS PO SCH (09:40)
[2022-11-06] MEDS: ACETAMINOPHEN 325 MG TABLET (FP) PO PRN ×2 (09:41→21:08)
[2022-11-06] MEDS: INSULIN SLIDING SCALE (NOVOLOG) 1 VIAL SQ SCH ×2 (12:21→16:29)
[2022-11-06] MEDS: MELATONIN 5 MG TABLETS PO SCH (21:07)
[2022-11-06] MEDS: THIAMINE HCL 100 MG TABLET (FP) PO SCH (21:07)
[2022-11-06] MEDS: ATORVASTATIN CA 40 MG TABLET (FP) PO SCH (21:07)
[2022-11-06] MEDS: LIDOCAINE PATCH REMOVAL MC SCH (21:08)
[2022-11-07] MEDS: INSULIN SLIDING SCALE (NOVOLOG) 1 VIAL SQ SCH ×2 (06:10→16:46)
[2022-11-07] MEDS: PRENATAL VITAMINS W/ FOLIC ACID TABLET (FP) PO SCH (10:19)
[2022-11-07] MEDS: LISINOPRIL 10 MG TABLET PO SCH (10:20)
[2022-11-07] MEDS: ASPIRIN 81 MG CHEWABLE TABLETS PO SCH (10:20)
[2022-11-07] MEDS: ACETAMINOPHEN 325 MG TABLET (FP) PO PRN (10:21)
[2022-11-07] MEDS: LIDOCAINE 5% TOPICAL PATCH TP SCH (10:21)
[2022-11-07] MEDS: LIDOCAINE PATCH REMOVAL MC SCH (21:01)
[2022-11-07] MEDS: THIAMINE HCL 100 MG TABLET (FP) PO SCH (21:01)
[2022-11-07] MEDS: ATORVASTATIN CA 40 MG TABLET (FP) PO SCH (21:01)
[2022-11-07] MEDS: MELATONIN 5 MG TABLETS PO SCH (21:01)
[2022-11-08] MEDS: INSULIN SLIDING SCALE (NOVOLOG) 1 VIAL SQ SCH ×2 (06:44→16:39)
[2022-11-08] MEDS: ASPIRIN 81 MG CHEWABLE TABLETS PO SCH (09:43)
[2022-11-08] MEDS: LIDOCAINE 5% TOPICAL PATCH TP SCH (09:43)
[2022-11-08] MEDS: LISINOPRIL 10 MG TABLET PO SCH (09:43)
[2022-11-08] MEDS: PRENATAL VITAMINS W/ FOLIC ACID TABLET (FP) PO SCH (09:43)
[2022-11-08] MEDS: ACETAMINOPHEN 325 MG TABLET (FP) PO PRN ×2 (09:45→21:31)
[2022-11-08] MEDS: MELATONIN 5 MG TABLETS PO SCH (21:31)
[2022-11-08] MEDS: THIAMINE HCL 100 MG TABLET (FP) PO SCH (21:31)
[2022-11-08] MEDS: ATORVASTATIN CA 40 MG TABLET (FP) PO SCH (21:31)
[2022-11-08] MEDS: LIDOCAINE PATCH REMOVAL MC SCH (22:50)
[2022-11-09] MEDS: INSULIN SLIDING SCALE (NOVOLOG) 1 VIAL SQ SCH ×2 (06:52→16:33)
[2022-11-09] MEDS: ASPIRIN 81 MG CHEWABLE TABLETS PO SCH (10:06)
[2022-11-09] MEDS: LIDOCAINE 5% TOPICAL PATCH TP SCH (10:06)
[2022-11-09] MEDS: LISINOPRIL 10 MG TABLET PO SCH (10:06)
[2022-11-09] MEDS: PRENATAL VITAMINS W/ FOLIC ACID TABLET (FP) PO SCH (10:06)
[2022-11-09] MEDS: AMMONIUM LACTATE 12% LOTION 225 GM BOTTLE TP PRN (10:15)
[2022-11-09] MEDS: THIAMINE HCL 100 MG TABLET (FP) PO SCH (21:05)
[2022-11-09] MEDS: ATORVASTATIN CA 40 MG TABLET (FP) PO SCH (21:05)
[2022-11-09] MEDS: MELATONIN 5 MG TABLETS PO SCH (21:05)
[2022-11-09] MEDS: LIDOCAINE PATCH REMOVAL MC SCH (21:06)
[2022-11-09] MEDS: traZODone HCL 50 MG TABLET (FP) PO PRN (21:06)
[2022-11-10] MEDS: INSULIN SLIDING SCALE (NOVOLOG) 1 VIAL SQ SCH ×2 (07:53→16:59)
[2022-11-10] MEDS: PRENATAL VITAMINS W/ FOLIC ACID TABLET (FP) PO SCH (09:39)
[2022-11-10] MEDS: LISINOPRIL 10 MG TABLET PO SCH (09:39)
[2022-11-10] MEDS: ASPIRIN 81 MG CHEWABLE TABLETS PO SCH (09:39)
[2022-11-10] MEDS: ACETAMINOPHEN 325 MG TABLET (FP) PO PRN (09:40)
[2022-11-10] MEDS: LIDOCAINE 5% TOPICAL PATCH TP SCH (09:40)
[2022-11-10] MEDS: ATORVASTATIN CA 40 MG TABLET (FP) PO SCH (21:10)
[2022-11-10] MEDS: MELATONIN 5 MG TABLETS PO SCH (21:10)
[2022-11-10] MEDS: THIAMINE HCL 100 MG TABLET (FP) PO SCH (21:10)
[2022-11-10] MEDS: LIDOCAINE PATCH REMOVAL MC SCH (21:11)
[2022-11-11] MEDS: INSULIN SLIDING SCALE (NOVOLOG) 1 VIAL SQ SCH ×2 (07:29→16:32)
[2022-11-11] MEDS: ASPIRIN 81 MG CHEWABLE TABLETS PO SCH (10:13)
[2022-11-11] MEDS: LIDOCAINE 5% TOPICAL PATCH TP SCH (10:13)
[2022-11-11] MEDS: LISINOPRIL 10 MG TABLET PO SCH (10:13)
[2022-11-11] MEDS: PRENATAL VITAMINS W/ FOLIC ACID TABLET (FP) PO SCH (10:13)
[2022-11-11] MEDS: ACETAMINOPHEN 325 MG TABLET (FP) PO PRN (10:14)
[2022-11-11] MEDS: MELATONIN 5 MG TABLETS PO SCH (21:07)
[2022-11-11] MEDS: ATORVASTATIN CA 40 MG TABLET (FP) PO SCH (21:07)
[2022-11-11] MEDS: THIAMINE HCL 100 MG TABLET (FP) PO SCH (21:07)
[2022-11-11] MEDS: LIDOCAINE PATCH REMOVAL MC SCH (21:07)
[2022-11-11] MEDS: traZODone HCL 50 MG TABLET (FP) PO PRN (21:08)
[2022-11-12] MEDS: INSULIN SLIDING SCALE (NOVOLOG) 1 VIAL SQ SCH ×2 (07:24→16:45)
[2022-11-12] MEDS: LIDOCAINE 5% TOPICAL PATCH TP SCH (09:42)
[2022-11-12] MEDS: PRENATAL VITAMINS W/ FOLIC ACID TABLET (FP) PO SCH (09:43)
[2022-11-12] MEDS: ACETAMINOPHEN 325 MG TABLET (FP) PO PRN (09:43)
[2022-11-12] MEDS: ASPIRIN 81 MG CHEWABLE TABLETS PO SCH (09:43)
[2022-11-12] MEDS: LISINOPRIL 10 MG TABLET PO SCH (09:43)
[2022-11-12] MEDS: MELATONIN 5 MG TABLETS PO SCH (21:37)
[2022-11-12] MEDS: LIDOCAINE PATCH REMOVAL MC SCH (21:37)
[2022-11-12] MEDS: ATORVASTATIN CA 40 MG TABLET (FP) PO SCH (21:37)
[2022-11-12] MEDS: THIAMINE HCL 100 MG TABLET (FP) PO SCH (21:37)
[2022-11-12] MEDS: traZODone HCL 50 MG TABLET (FP) PO PRN (21:38)
[2022-11-13] MEDS: INSULIN SLIDING SCALE (NOVOLOG) 1 VIAL SQ SCH ×2 (06:04→16:49)
[2022-11-13] MEDS: PRENATAL VITAMINS W/ FOLIC ACID TABLET (FP) PO SCH (09:52)
[2022-11-13] MEDS: ACETAMINOPHEN 325 MG TABLET (FP) PO PRN ×2 (09:53→21:05)
[2022-11-13] MEDS: LISINOPRIL 10 MG TABLET PO SCH (09:53)
[2022-11-13] MEDS: ASPIRIN 81 MG CHEWABLE TABLETS PO SCH (09:53)
[2022-11-13] MEDS: LIDOCAINE 5% TOPICAL PATCH TP SCH (09:55)
[2022-11-13] MEDS: ATORVASTATIN CA 40 MG TABLET (FP) PO SCH (21:05)
[2022-11-13] MEDS: THIAMINE HCL 100 MG TABLET (FP) PO SCH (21:05)
[2022-11-13] MEDS: MELATONIN 5 MG TABLETS PO SCH (21:05)
[2022-11-13] MEDS: LIDOCAINE PATCH REMOVAL MC SCH (21:06)
[2022-11-14] MEDS: INSULIN SLIDING SCALE (NOVOLOG) 1 VIAL SQ SCH ×2 (06:10→17:01)
[2022-11-14] MEDS: PRENATAL VITAMINS W/ FOLIC ACID TABLET (FP) PO SCH (10:21)
[2022-11-14] MEDS: LISINOPRIL 10 MG TABLET PO SCH (10:22)
[2022-11-14] MEDS: ASPIRIN 81 MG CHEWABLE TABLETS PO SCH (10:22)
[2022-11-14] MEDS: ACETAMINOPHEN 325 MG TABLET (FP) PO PRN (10:22)
[2022-11-14] MEDS: LIDOCAINE 5% TOPICAL PATCH TP SCH (10:22)
[2022-11-14] MEDS: THIAMINE HCL 100 MG TABLET (FP) PO SCH (21:09)
[2022-11-14] MEDS: LIDOCAINE PATCH REMOVAL MC SCH (21:09)
[2022-11-14] MEDS: MELATONIN 5 MG TABLETS PO SCH (21:09)
[2022-11-14] MEDS: ATORVASTATIN CA 40 MG TABLET (FP) PO SCH (21:09)
[2022-11-14] MEDS: traZODone HCL 50 MG TABLET (FP) PO PRN (21:11)
[2022-11-15] MEDS: AMMONIUM LACTATE 12% LOTION 225 GM BOTTLE TP PRN (06:04)
[2022-11-15] MEDS: INSULIN SLIDING SCALE (NOVOLOG) 1 VIAL SQ SCH ×2 (06:26→17:21)
[2022-11-15] MEDS: LIDOCAINE 5% TOPICAL PATCH TP SCH (09:56)
[2022-11-15] MEDS: ASPIRIN 81 MG CHEWABLE TABLETS PO SCH (09:56)
[2022-11-15] MEDS: PRENATAL VITAMINS W/ FOLIC ACID TABLET (FP) PO SCH (09:56)
[2022-11-15] MEDS: LISINOPRIL 10 MG TABLET PO SCH (09:56)
[2022-11-15] MEDS: ACETAMINOPHEN 325 MG TABLET (FP) PO PRN (09:57)
[2022-11-15] MEDS: traZODone HCL 50 MG TABLET (FP) PO PRN (21:19)
[2022-11-15] MEDS: LIDOCAINE PATCH REMOVAL MC SCH (21:19)
[2022-11-15] MEDS: ATORVASTATIN CA 40 MG TABLET (FP) PO SCH (21:20)
[2022-11-15] MEDS: MELATONIN 5 MG TABLETS PO SCH (21:20)
[2022-11-15] MEDS: THIAMINE HCL 100 MG TABLET (FP) PO SCH (21:20)
[2022-11-16] MEDS: INSULIN SLIDING SCALE (NOVOLOG) 1 VIAL SQ SCH ×2 (08:31→16:50)
[2022-11-16] MEDS: PRENATAL VITAMINS W/ FOLIC ACID TABLET (FP) PO SCH (10:48)
[2022-11-16] MEDS: LISINOPRIL 10 MG TABLET PO SCH (10:50)
[2022-11-16] MEDS: ASPIRIN 81 MG CHEWABLE TABLETS PO SCH (10:50)
[2022-11-16] MEDS: LIDOCAINE 5% TOPICAL PATCH TP SCH (10:54)
[2022-11-16] MEDS: ATORVASTATIN CA 40 MG TABLET (FP) PO SCH (21:10)
[2022-11-16] MEDS: THIAMINE HCL 100 MG TABLET (FP) PO SCH (21:10)
[2022-11-16] MEDS: MELATONIN 5 MG TABLETS PO SCH (21:10)
[2022-11-16] MEDS: traZODone HCL 50 MG TABLET (FP) PO PRN (21:11)
[2022-11-16] MEDS: LIDOCAINE PATCH REMOVAL MC SCH (21:11)
[2022-11-17] MEDS: INSULIN SLIDING SCALE (NOVOLOG) 1 VIAL SQ SCH ×2 (06:26→16:35)
[2022-11-17] MEDS: LISINOPRIL 10 MG TABLET PO SCH (09:39)
[2022-11-17] MEDS: PRENATAL VITAMINS W/ FOLIC ACID TABLET (FP) PO SCH (09:39)
[2022-11-17] MEDS: ASPIRIN 81 MG CHEWABLE TABLETS PO SCH (09:39)
[2022-11-17] MEDS: LIDOCAINE 5% TOPICAL PATCH TP SCH (09:39)
[2022-11-17] MEDS: ACETAMINOPHEN 325 MG TABLET (FP) PO PRN (09:40)
[2022-11-17] MEDS: ATORVASTATIN CA 40 MG TABLET (FP) PO SCH (21:31)
[2022-11-17] MEDS: MELATONIN 5 MG TABLETS PO SCH (21:31)
[2022-11-17] MEDS: THIAMINE HCL 100 MG TABLET (FP) PO SCH (21:31)
[2022-11-17] MEDS: traZODone HCL 50 MG TABLET (FP) PO PRN (21:32)
[2022-11-17] MEDS: LIDOCAINE PATCH REMOVAL MC SCH (21:33)
[2022-11-18] MEDS: INSULIN SLIDING SCALE (NOVOLOG) 1 VIAL SQ SCH ×2 (06:10→16:21)
[2022-11-18] MEDS: LIDOCAINE 5% TOPICAL PATCH TP SCH (10:44)
[2022-11-18] MEDS: LISINOPRIL 10 MG TABLET PO SCH (10:44)
[2022-11-18] MEDS: ASPIRIN 81 MG CHEWABLE TABLETS PO SCH (10:44)
[2022-11-18] MEDS: PRENATAL VITAMINS W/ FOLIC ACID TABLET (FP) PO SCH (10:44)
[2022-11-18] MEDS: ATORVASTATIN CA 40 MG TABLET (FP) PO SCH (21:08)
[2022-11-18] MEDS: THIAMINE HCL 100 MG TABLET (FP) PO SCH (21:08)
[2022-11-18] MEDS: MELATONIN 5 MG TABLETS PO SCH (21:08)
[2022-11-18] MEDS: LIDOCAINE PATCH REMOVAL MC SCH (21:08)
[2022-11-19] MEDS: INSULIN SLIDING SCALE (NOVOLOG) 1 VIAL SQ SCH ×2 (06:18→16:34)
[2022-11-19] MEDS: PRENATAL VITAMINS W/ FOLIC ACID TABLET (FP) PO SCH (09:46)
[2022-11-19] MEDS: LISINOPRIL 10 MG TABLET PO SCH (09:46)
[2022-11-19] MEDS: ASPIRIN 81 MG CHEWABLE TABLETS PO SCH (09:46)
[2022-11-19] MEDS: LIDOCAINE 5% TOPICAL PATCH TP SCH (09:46)
[2022-11-19] MEDS: ACETAMINOPHEN 325 MG TABLET (FP) PO PRN (09:47)
[2022-11-19 10:40] VITALS: RESP 18
[2022-11-19] MEDS: MELATONIN 5 MG TABLETS PO SCH (21:21)
[2022-11-19] MEDS: ATORVASTATIN CA 40 MG TABLET (FP) PO SCH (21:21)
[2022-11-19] MEDS: THIAMINE HCL 100 MG TABLET (FP) PO SCH (21:21)
[2022-11-19] MEDS: traZODone HCL 50 MG TABLET (FP) PO PRN (21:22)
[2022-11-19] MEDS: LIDOCAINE PATCH REMOVAL MC SCH (22:46)
[2022-11-20] MEDS: INSULIN SLIDING SCALE (NOVOLOG) 1 VIAL SQ SCH (06:58)
[2022-11-20 07:29] VITALS: BP 129/63; PULSE 60; TEMP 96.9
[2022-11-20] MEDS: ASPIRIN 81 MG CHEWABLE TABLETS PO SCH (09:50)
[2022-11-20] MEDS: PRENATAL VITAMINS W/ FOLIC ACID TABLET (FP) PO SCH (09:50)
[2022-11-20] MEDS: LISINOPRIL 10 MG TABLET PO SCH (09:50)
[2022-11-20] MEDS: ACETAMINOPHEN 325 MG TABLET (FP) PO PRN (09:51)
[2022-11-20] MEDS: LIDOCAINE 5% TOPICAL PATCH TP SCH (09:52)
== END 2022-11-20 10:51 | disposition home or self-care (01) | DRG 772 ==
LOC: YASAS 15:11 → Y3W 21:04
PROVIDERS: ADMIT Allergy & Immunology; ATTEND Surgery
PROC: HZ42ZZZ Group Counseling for Substance Abuse Treatment, Cognitive-Behavioral (ICD-10-PCS; principal; 2022-10-30)
DX: F10.20 Alcohol dependence, uncomplicated (principal); F14.20 Cocaine dependence, uncomplicated; F17.210 Nicotine dependence, cigarettes, uncomplicated; F19.282 Other psychoactive substance dependence with psychoactive substance-induced sleep disorder; F19.280 Other psychoactive substance dependence with psychoactive substance-induced anxiety disorder; F19.24 Other psychoactive substance dependence with psychoactive substance-induced mood disorder; F41.9 Anxiety disorder, unspecified; E78.5 Hyperlipidemia, unspecified; I10 Essential (primary) hypertension; E11.9 Type 2 diabetes mellitus without complications; Z79.84 Long term (current) use of oral hypoglycemic drugs; M17.0 Bilateral primary osteoarthritis of knee; M54.50 Low back pain, unspecified; G89.29 Other chronic pain; Z99.89 Dependence on other enabling machines and devices
CPT/HCPCS: 36415; 80053; 81003; 82962; 85027; 86780; C9803-CS; U0003; U0005

== ENCOUNTER 2023-10-24 19:08 | Inpatient (IN) | payer OTHER ==
[2023-10-24 19:47] VITALS: BMI 28.2
[2023-10-24] MEDS ORDERED: BENZOCAINE/MENTHOL (CHLORASEPTIC ) LOZENGE MM PRN (20:34)
[2023-10-24] MEDS ORDERED: BENZONATATE 200 MG CAPSULE PO PRN (20:34)
[2023-10-24] MEDS ORDERED: P-EPHED 60MG/TRIPROLIDI 2.5MG TABLET PO PRN (20:34)
[2023-10-24] MEDS ORDERED: MAGNESIUM HYDROX 2400MG/30ML ORAL SUSPENSION 30 ML CUP PO PRN (20:34)
[2023-10-24] MEDS ORDERED: LOPERAMIDE HCL 2 MG CAPSULE PO PRN (20:34)
[2023-10-24] MEDS ORDERED: DOCUSATE SODIUM 100 MG CAPSULE (FP) PO PRN (20:34)
[2023-10-24] MEDS ORDERED: POLYETHYLENE GLYCOL (HEALTHYLAX) 3350 17 GM PACKET PO PRN (20:34)
[2023-10-24] MEDS ORDERED: MAG HYDROX/AL HYDROX/SIMETH 30 ML UNIT-DOSE CUP PO PRN (20:34)
[2023-10-24] MEDS ORDERED: AMMONIUM LACTATE 12% LOTION 225 GM BOTTLE TP PRN (20:35)
[2023-10-24] MEDS ORDERED: NICOTINE POLACRILEX 2 MG GUM BC PRN (20:35)
[2023-10-24] MEDS: INSULIN ASPART SLIDING SCALE (NOVOLOG) 1 VIAL SQ SCH (21:28)
[2023-10-24] MEDS ORDERED: METOPROLOL TARTRATE 25 MG TABLET (FP) ONE (21:30)
[2023-10-24] MEDS: METOPROLOL TARTRATE 25 MG TABLET (FP) PO ONE (21:31)
[2023-10-24] MEDS: ATORVASTATIN CA 40 MG TABLET (FP) PO SCH (22:23)
[2023-10-24] MEDS: THIAMINE HCL 100 MG TABLET (FP) PO SCH (22:24)
[2023-10-24] MEDS: MELATONIN 5 MG TABLETS PO SCH (22:24)
[2023-10-24] MEDS: IBUPROFEN 600 MG TABLET (FP) PO PRN (22:25)
[2023-10-24] MEDS: traZODone HCL 50 MG TABLET (FP) PO ONE (22:27)
[2023-10-25] MEDS ORDERED: TUBERCULIN PPD 5 TU/0.1ML SYRINGE (IN PATIENT USE ONLY) ID ONE (00:35)
[2023-10-25] MEDS ORDERED: TUBERCULIN PPD 5 TU/0.1ML VIAL ID ONE (06:35)
[2023-10-25] MEDS: TUBERCULIN PPD 5 TU/0.1ML SYRINGE (IN PATIENT USE ONLY) ID ONE (06:36)
[2023-10-25] MEDS: TOLNAFTATE 1% CREAM 15 GM TUBE TP PRN (06:43)
[2023-10-25] MEDS: LISINOPRIL 10 MG TABLET PO SCH (09:47)
[2023-10-25] MEDS: ASPIRIN 81 MG CHEWABLE TABLETS PO SCH (09:47)
[2023-10-25] MEDS: PRENATAL VITAMINS W/ FOLIC ACID TABLET (FP) PO SCH ×2 (09:48→10:06)
[2023-10-25] MEDS: IBUPROFEN 400 MG TABLET (FP) PO PRN (09:49)
[2023-10-25 10:29] LABS: PH,URINE 5.5 (5.0-8.0); URINE APPEARANCE CLEAR; URINE BILIRUBIN NEGATIVE (NEGATIVE); URINE COLOR YELLOW; URINE GLUCOSE (UA) 2+ (NEGATIVE); URINE KETONE NEGATIVE (NEGATIVE); URINE LEUK ESTERASE NEGATIVE (NEGATIVE); URINE NITRITE NEGATIVE (NEGATIVE); URINE PROTEIN NEGATIVE (NEGATIVE)
[2023-10-25 12:37] LABS: HEMATOCRIT 32.9 % (35.4-49); HEMOGLOBIN 10.7 GM/dL (11.7-16.9); MCH 27.1 pg (25.7-33.7); MCHC 32.5 g/dl (32.0-35.9); MEAN CELL VOLUME 83.5 fl (80-96); MEAN PLT VOLUME 9.3 fl (7.5-11.1); PLATELET COUNT 147 10^3/uL (134-434); RBC 3.94 M/mm3 (4.00-5.60); RDW 15.3 % (11.9-15.9); WHITE BLOOD COUNT 4.5 K/mm3 (4.0-10.0)
[2023-10-25 12:42] LABS: POTASSIUM 3.7 mmol/L (3.5-5.1)
[2023-10-25 12:45] LABS: ALBUMIN 3.1 g/dl (3.4-5.0); CALCIUM 8.7 mg/dL (8.5-10.1)
[2023-10-25 12:49] LABS: CREATININE 0.7 mg/dL (0.55-1.3)
[2023-10-25 12:50] LABS: TOT PROT 6.2 g/dl (6.4-8.2)
[2023-10-25 13:08] LABS: SYPHILIS W/ RPR CONF NON-REACTIVE (NONREACTIVE)
[2023-10-26] MEDS: guaiFENesin 600 MG TABLET.ER (FP) PO PRN (10:51)
[2023-10-26] MEDS: traZODone HCL 50 MG TABLET (FP) PO PRN (21:05)
[2023-10-27] MEDS: METHOCARBAMOL 500 MG TABLET PO PRN (09:59)
[2023-10-27] MEDS: guaiFENesin 600 MG TABLET.ER (FP) PO PRN (21:14)
[2023-11-02] MEDS ORDERED: INSULIN (NOVOLOG MIX 70/30) 100 UNITS/ML MDV SQ ONE (16:19)
[2023-11-09] MEDS: hydrOXYzine PAMOATE 25 MG CAPSULE (FP) PO PRN (21:14)
[2023-11-10] MEDS: ACETAMINOPHEN 325 MG TABLET (FP) PO PRN (21:12)
[2023-11-16 05:42] VITALS: RESP 17; TEMP 97.6
[2023-11-16 09:08] VITALS: BP 154/79; PULSE 73
== END 2023-11-16 09:33 | disposition home or self-care (01) | DRG 772 ==
LOC: YASAS 19:08 → Y5N 21:30
PROVIDERS: ADMIT Allergy & Immunology; ATTEND Neuromusculoskeletal Medicine & OMM
PROC: HZ42ZZZ Group Counseling for Substance Abuse Treatment, Cognitive-Behavioral (ICD-10-PCS; principal; 2023-10-24)
DX: F14.20 Cocaine dependence, uncomplicated (principal); F10.20 Alcohol dependence, uncomplicated; F17.210 Nicotine dependence, cigarettes, uncomplicated; F19.282 Other psychoactive substance dependence with psychoactive substance-induced sleep disorder; I10 Essential (primary) hypertension; G47.00 Insomnia, unspecified; E78.5 Hyperlipidemia, unspecified; E11.9 Type 2 diabetes mellitus without complications; Z79.84 Long term (current) use of oral hypoglycemic drugs; M17.0 Bilateral primary osteoarthritis of knee; Z59.01 Sheltered homelessness
CPT/HCPCS: 36415; 80053; 80305; 80307; 81003; 82962; 85027; 86780; 86803; 87811; 93005; 93010

== ENCOUNTER 2024-02-15 22:12 | Inpatient (IN) | payer OTHER ==
[2024-02-15 23:06] VITALS: BMI 28.6
[2024-02-15] MEDS ORDERED: LOPERAMIDE HCL 2 MG CAPSULE PO PRN (23:47)
[2024-02-15] MEDS ORDERED: DICYCLOMINE HCL 10 MG CAPSULE PO PRN (23:47)
[2024-02-15] MEDS ORDERED: ACETAMINOPHEN 325 MG TABLET (FP) PO PRN (23:47)
[2024-02-15] MEDS ORDERED: NICOTINE POLACRILEX 2 MG GUM BUC PRN (23:47)
[2024-02-15] MEDS ORDERED: IBUPROFEN 400 MG TABLET (FP) PO PRN (23:47)
[2024-02-15] MEDS ORDERED: POLYETHYLENE GLYCOL (HEALTHYLAX) 3350 17 GM PACKET PO PRN (23:47)
[2024-02-15] MEDS ORDERED: BISMUTH SUBSALICYLATE 524 MG/30 ML PO PRN (23:47)
[2024-02-15] MEDS ORDERED: NICOTINE POLACRILEX 2 MG LOZENGE BC PRN (23:47)
[2024-02-15] MEDS ORDERED: BENZOCAINE/MENTHOL (CHLORASEPTIC ) LOZENGE MM PRN (23:47)
[2024-02-15] MEDS ORDERED: guaiFENesin 600 MG TABLET.ER (FP) PO PRN (23:47)
[2024-02-15] MEDS ORDERED: MAGNESIUM HYDROX 2400MG/30ML ORAL SUSPENSION 30 ML CUP PO PRN (23:47)
[2024-02-15] MEDS ORDERED: BENZONATATE 200 MG CAPSULE PO PRN (23:47)
[2024-02-16] MEDS: LIDOCAINE PATCH REMOVAL MC SCH (00:39)
[2024-02-16] MEDS: METHOCARBAMOL 500 MG TABLET PO PRN (07:40)
[2024-02-16] MEDS: ONDANSETRON *ODT* 4 MG TABLET SL PRN (07:41)
[2024-02-16] MEDS: ASPIRIN 81 MG CHEWABLE TABLETS PO SCH (10:40)
[2024-02-16] MEDS: AMMONIUM LACTATE 12% CREAM 140 GM TUBE TP SCH (10:41)
[2024-02-16] MEDS: LISINOPRIL 10 MG TABLET PO SCH (10:41)
[2024-02-16] MEDS: PRENATAL VITAMINS W/ FOLIC ACID TABLET (FP) PO SCH (10:41)
[2024-02-16] MEDS: LIDOCAINE 5% TOPICAL PATCH TP SCH (10:42)
[2024-02-16] MEDS ORDERED: diazePAM 5 MG TABLET PO PRN (10:47)
[2024-02-16] MEDS: diazePAM 5 MG TABLET PO SCH (11:24)
[2024-02-16] MEDS: IBUPROFEN 600 MG TABLET (FP) PO PRN (15:32)
[2024-02-16] MEDS: THIAMINE 100 MG TABLET PO SCH (22:22)
[2024-02-16] MEDS: traZODone HCL 50 MG TABLET (FP) PO SCH (22:22)
[2024-02-16] MEDS: ATORVASTATIN CA 40 MG TABLET (FP) PO SCH (22:22)
[2024-02-16] MEDS: MAG HYDROX/AL HYDROX/SIMETH 30 ML UNIT-DOSE CUP PO PRN (22:24)
[2024-02-16] MEDS: MELATONIN 5 MG TABLETS PO SCH (22:25)
[2024-02-18] MEDS: diazePAM 5 MG TABLET PO SCH (06:22)
[2024-02-18 11:47] LABS: POTASSIUM 4.1 mmol/L (3.5-5.1)
[2024-02-18 11:49] LABS: ALBUMIN 3.2 g/dl (3.4-5.0); CALCIUM 8.9 mg/dL (8.5-10.1); HEMATOCRIT 33.1 % (35.4-49); HEMOGLOBIN 10.9 GM/dL (11.7-16.9); MCH 27.4 pg (25.7-33.7); MEAN CELL VOLUME 82.9 fl (80-96); MEAN PLT VOLUME 9.2 fl (7.5-11.1); PLATELET COUNT 188 10^3/uL (134-434); RBC 3.99 M/mm3 (4.00-5.60); RDW 15.6 % (11.9-15.9); WHITE BLOOD COUNT 4.4 K/mm3 (4.0-10.0)
[2024-02-18 11:50] LABS: BLOOD UREA NITROGEN 13.8 mg/dL (7-18)
[2024-02-18 11:52] LABS: CREATININE 0.7 mg/dL (0.55-1.3)
[2024-02-18 11:54] LABS: BILIRUBIN,TOTAL 0.3 mg/dL (0.2-1); TOT PROT 6.5 g/dl (6.4-8.2)
[2024-02-18] MEDS: GABAPENTIN 100 MG CAPSULE PO ONE (23:38)
[2024-02-19] MEDS: diazePAM 5 MG TABLET PO SCH (05:51)
[2024-02-19] MEDS: GABAPENTIN 400 MG CAPSULE PO SCH (13:37)
[2024-02-20] MEDS: diazePAM 5 MG TABLET PO ONE (05:58)
[2024-02-20 06:14] VITALS: RESP 16
[2024-02-20 12:57] VITALS: BP 130/84; PULSE 85; TEMP 96.9
== END 2024-02-20 14:45 | disposition other institution (70) | DRG 774 ==
LOC: YASAS 22:12 → Y6N 23:28
PROVIDERS: ADMIT Allergy & Immunology; ATTEND Surgery
PROC: HZ2ZZZZ Detoxification Services for Substance Abuse Treatment (ICD-10-PCS; principal; 2024-02-15)
DX: F10.230 Alcohol dependence with withdrawal, uncomplicated (principal); F14.20 Cocaine dependence, uncomplicated; F17.210 Nicotine dependence, cigarettes, uncomplicated; F19.282 Other psychoactive substance dependence with psychoactive substance-induced sleep disorder; G62.9 Polyneuropathy, unspecified; I10 Essential (primary) hypertension; J45.909 Unspecified asthma, uncomplicated; E78.5 Hyperlipidemia, unspecified; Z79.84 Long term (current) use of oral hypoglycemic drugs; M17.0 Bilateral primary osteoarthritis of knee; M54.50 Low back pain, unspecified; G89.29 Other chronic pain; Z59.01 Sheltered homelessness
CPT/HCPCS: 36415; 80053; 80305; 80307; 82962; 85027; 86780; Q0162